=== PATIENT | male | born 1945 | race Caucasian/White ===

== ENCOUNTER 2016-07-25 08:39 | Outpatient (CLI) | payer MEDICARE, MEDICAID | END 2016-07-25 08:40 | disposition home or self-care (01) | DX: E11.9 Type 2 diabetes mellitus without complications (principal); Z12.5 Encounter for screening for malignant neoplasm of prostate; E78.5 Hyperlipidemia, unspecified | CPT/HCPCS: 36415; 80053; 80061; 82043; 83036; 84443; G0103 ==

== ENCOUNTER 2016-08-09 15:21 | Outpatient (CLI) | payer MEDICARE, MEDICAID | END 2016-08-09 15:22 | disposition home or self-care (01) | DX: M50.30 Other cervical disc degeneration, unspecified cervical region (principal) ==

== ENCOUNTER 2016-08-31 08:58 | Outpatient (CLI) | payer MEDICARE, MEDICAID | END 2016-08-31 08:59 | disposition home or self-care (01) | DX: R09.89 Other specified symptoms and signs involving the circulatory and respiratory systems (principal) ==

== ENCOUNTER 2016-09-05 08:58 | Outpatient (CLI) | payer MEDICARE, MEDICAID | END 2016-09-05 23:59 | DX: I10 Essential (primary) hypertension (principal) ==

== ENCOUNTER 2016-10-31 08:00 | Outpatient (CLI) | payer MEDICARE, MEDICAID ==
[2016-10-31 18:28] LABS: HEMOGLOBIN A1C 0.88 g/dL
== END 2016-10-31 08:01 | disposition home or self-care (01) ==
LOC: LAB.S 08:00
PROVIDERS: ATTEND Nurse Practitioner Family
DX: E11.9 Type 2 diabetes mellitus without complications (principal)
CPT/HCPCS: 36415; 83036

== ENCOUNTER 2017-07-17 08:00 | Outpatient (CLI) | payer MEDICARE, MEDICAID ==
[2017-07-17 18:04] LABS: EOSINOPHILS # (AUTO) 0.2 10^3/uL (0.0-0.7); HGB - HEMOGLOBIN 13.3 g/dL (14.0-18.0); LYMPHOCYTES # (AUTO) 1.5 10^3/uL (1.5-3.5); LYMPHOCYTES % (AUTO) 37.7 %; MEAN CORPUSCULAR HEMOGLOBIN 31.3 pg (27.0-31.0); MEAN CORPUSCULAR HGB CONC 33.4 g/dL (32.0-36.0); MEAN CORPUSCULAR VOLUME 93.7 fL (80.0-94.0); MEAN PLATELET VOLUME 8.7 fL (7.4-11.4); MONOCYTES # (AUTO) 0.4 10^3/uL (0.0-1.0); MONOCYTES % (AUTO) 9.6 %; NEUTROPHILS # (AUTO) 1.9 10^3/uL (1.5-6.6); NEUTROPHILS % (AUTO) 45.7 %; PLT - PLATELET COUNT 166 10^3/uL (130-450); RED BLOOD COUNT 4.24 10^6/uL (4.70-6.10); RED CELL DISTRIBUTION WIDTH 13.5 % (12.0-15.0); WHITE BLOOD COUNT 4.1 x10^3/uL (4.8-10.8)
[2017-07-17 18:30] LABS: ALBUMIN 4.2 g/dL (3.2-5.5); ALBUMIN/GLOBULIN RATIO 1.4 (1.0-2.2); ALKALINE PHOSPHATASE 40 IU/L (42-121); ALT ALANINE AMINOTRANSFERASE 23 IU/L (10-60); AST ASPARTATE AMINOTRANSFERASE 22 IU/L (10-42); BILIRUBIN,TOTAL 0.4 mg/dL (0.2-1.0); BUN - BLOOD UREA NITROGEN 26 mg/dL (6-20); CALCIUM 9.2 mg/dL (8.5-10.3); CARBON DIOXIDE - CO2 28 mmol/L (21-32); CHLORIDE 97 mmol/L (101-111); CHOL/HDL RATIO 3.6 (<5.0); CHOLESTEROL 124 mg/dL; CREATININE 1.5 mg/dL (0.6-1.2); GFR - MDRD 46 (>89); GLUCOSE 182 mg/dL (70-100); HDL CHOLESTEROL 34 mg/dL; LDL CHOLESTEROL,CALCULATED 71 mg/dL; LDL/HDL RATIO 2.1 (<3.6); SODIUM 132 mmol/L (135-145); TOTAL PROTEIN 7.1 g/dL (6.7-8.2); VLDL CHOLESTEROL 19 mg/dL
[2017-07-17 18:48] LABS: HEMOGLOBIN A1C 0.85 g/dL; HEMOGLOBIN A1C % 7.7 % (4.6-6.2)
== END 2017-07-17 08:01 | disposition home or self-care (01) ==
LOC: LAB.S 08:00
PROVIDERS: ATTEND Nurse Practitioner Family
DX: M47.892 Other spondylosis, cervical region (principal); Z12.5 Encounter for screening for malignant neoplasm of prostate; E11.9 Type 2 diabetes mellitus without complications; E78.5 Hyperlipidemia, unspecified; Z13.29 Encounter for screening for other suspected endocrine disorder; N18.9 Chronic kidney disease, unspecified
CPT/HCPCS: 36415; 72040; 80053; 80061; 82043; 83036; 84443; 85025; G0103; 83721; 84153

== ENCOUNTER 2017-07-17 08:36 | Outpatient (CLI) | payer MEDICARE, MEDICAID ==
--- NOTE | 2017-07-17 11:54 | XRAY Report ---
THREE VIEW CERVICAL SPINE: 07/17/2017 CLINICAL INDICATION: Chronic neck pain. FINDINGS: AP, lateral, odontoid views of the cervical spine demonstrate no evidence of acute fracture or dislocation. Mild degenerative changes are stable. The prevertebral soft tissues are unremarkable. IMPRESSION: STABLE DEGENERATIVE CHANGES. TD: 07/17/2017 11:52
== END 2017-07-17 08:37 | disposition home or self-care (01) ==
LOC: DI.S 08:36
PROVIDERS: ATTEND Nurse Practitioner Family
DX: M47.892 Other spondylosis, cervical region (principal)
CPT/HCPCS: 72040

== ENCOUNTER 2017-08-03 11:59 | Outpatient (CLI) | payer MEDICARE, MEDICAID ==
--- NOTE | 2017-08-03 17:04 | XRAY Report ---
LEFT KNEE, FOUR VIEWS: 08/03/2017 HISTORY: Pain. The medial and lateral knee joints and patellofemoral articulation are well maintained. No fracture, malalignment, joint effusion or other abnormality. Surgical clips medial left lower leg. Minimal calcification at the quadriceps tendon insertion. IMPRESSION: NEGATIVE LEFT KNEE FOR AGE. TD: 08/03/2017 17:03
== END 2017-08-03 12:00 | disposition home or self-care (01) ==
LOC: DI.S 11:59
PROVIDERS: ATTEND Nurse Practitioner Family
DX: M25.562 Pain in left knee (principal)

== ENCOUNTER 2017-10-16 09:13 | Outpatient (CLI) | payer MEDICARE, MEDICAID ==
[2017-10-16 18:14] LABS: ALBUMIN/GLOBULIN RATIO 1.3 (1.0-2.2); BILIRUBIN,TOTAL 0.5 mg/dL (0.2-1.0); CALCIUM 9.4 mg/dL (8.5-10.3); CREATININE 1.8 mg/dL (0.6-1.2); TOTAL PROTEIN 7.1 g/dL (6.7-8.2)
[2017-10-16 19:07] LABS: HB2 TOTAL 14.9 g/dL; HEMOGLOBIN A1C 0.77 g/dL; HEMOGLOBIN A1C % 6.9 % (4.6-6.2)
== END 2017-10-16 09:14 ==
LOC: LAB.S 09:13
PROVIDERS: ATTEND Nurse Practitioner Family
DX: E11.9 Type 2 diabetes mellitus without complications (principal)
CPT/HCPCS: 36415; 80053; 83036

== ENCOUNTER 2017-11-20 08:00 | Outpatient (CLI) | payer MEDICARE, MEDICAID ==
[2017-11-20 17:27] LABS: CALCIUM 8.9 mg/dL (8.5-10.3); CREATININE 1.6 mg/dL (0.6-1.2)
== END 2017-11-20 08:01 | disposition home or self-care (01) ==
LOC: LAB.S 08:00
PROVIDERS: ATTEND Family Medicine
DX: I12.9 Hypertensive chronic kidney disease with stage 1 through stage 4 chronic kidney disease, or unspecified chronic kidney disease (principal); E11.22 Type 2 diabetes mellitus with diabetic chronic kidney disease; N18.9 Chronic kidney disease, unspecified
CPT/HCPCS: 36415; 80048

== ENCOUNTER 2018-02-12 08:24 | Outpatient (CLI) | payer MEDICARE, MEDICAID ==
[2018-02-12 10:50] LABS: CHOL/HDL RATIO 3.1 (<5.0); CHOLESTEROL 137 mg/dL; HDL CHOLESTEROL 44 mg/dL; LDL CHOLESTEROL,CALCULATED 75 mg/dL; LDL/HDL RATIO 1.7 (<3.6); VLDL CHOLESTEROL 18 mg/dL
== END 2018-02-12 08:25 | disposition home or self-care (01) ==
LOC: LAB.F 08:24
PROVIDERS: ATTEND Nurse Practitioner Adult Health
DX: E78.5 Hyperlipidemia, unspecified (principal)
CPT/HCPCS: 36415; 80061; 83721

== ENCOUNTER 2018-04-09 08:06 | Outpatient (CLI) | payer MEDICARE, MEDICAID ==
[2018-04-09 18:41] LABS: BASOPHILS % (AUTO) 0.7 %; EOSINOPHILS # (AUTO) 0.2 10^3/uL (0.0-0.7); EOSINOPHILS % (AUTO) 4.5 %; HGB - HEMOGLOBIN 13.7 g/dL (14.0-18.0); LYMPHOCYTES # (AUTO) 1.9 10^3/uL (1.5-3.5); LYMPHOCYTES % (AUTO) 37.4 %; MEAN CORPUSCULAR HEMOGLOBIN 31.7 pg (27.0-31.0); MEAN CORPUSCULAR HGB CONC 33.6 g/dL (32.0-36.0); MEAN CORPUSCULAR VOLUME 94.4 fL (80.0-94.0); MEAN PLATELET VOLUME 9.3 fL (7.4-11.4); MONOCYTES # (AUTO) 0.5 10^3/uL (0.0-1.0); MONOCYTES % (AUTO) 9.2 %; NEUTROPHILS # (AUTO) 2.5 10^3/uL (1.5-6.6); NEUTROPHILS % (AUTO) 48.2 %; PLT - PLATELET COUNT 172 10^3/uL (130-450); RED BLOOD COUNT 4.33 10^6/uL (4.70-6.10); RED CELL DISTRIBUTION WIDTH 13.2 % (12.0-15.0); WHITE BLOOD COUNT 5.1 x10^3/uL (4.8-10.8)
[2018-04-09 18:49] LABS: ALBUMIN 4.2 g/dL (3.2-5.5); ALBUMIN/GLOBULIN RATIO 1.4 (1.0-2.2); BILIRUBIN,TOTAL 0.6 mg/dL (0.2-1.0); CALCIUM 9.5 mg/dL (8.5-10.3); CREATININE 1.7 mg/dL (0.6-1.2); TOTAL PROTEIN 7.2 g/dL (6.7-8.2)
[2018-04-09 18:52] LABS: HB2 TOTAL 14.7 g/dL; HEMOGLOBIN A1C % 8.4 % (4.6-6.2)
== END 2018-04-09 23:59 | disposition home or self-care (01) ==
LOC: LAB.S 08:06
PROVIDERS: ATTEND Nurse Practitioner Family
DX: E11.9 Type 2 diabetes mellitus without complications (principal); D64.9 Anemia, unspecified
CPT/HCPCS: 36415; 80053; 82043; 83036; 85025

== ENCOUNTER 2018-08-27 07:55 | Outpatient (CLI) | payer MEDICARE, MEDICAID ==
[2018-08-27 10:15] LABS: BASOPHILS # (AUTO) 0.1 10^3/uL (0.0-0.1); BASOPHILS % (AUTO) 1.3 %; EOSINOPHILS # (AUTO) 0.2 10^3/uL (0.0-0.7); EOSINOPHILS % (AUTO) 3.9 %; HGB - HEMOGLOBIN 13.4 g/dL (14.0-18.0); LYMPHOCYTES # (AUTO) 1.8 10^3/uL (1.5-3.5); LYMPHOCYTES % (AUTO) 34.8 %; MEAN CORPUSCULAR HEMOGLOBIN 31.4 pg (27.0-31.0); MEAN CORPUSCULAR HGB CONC 33.3 g/dL (32.0-36.0); MEAN CORPUSCULAR VOLUME 94.2 fL (80.0-94.0); MEAN PLATELET VOLUME 9.4 fL (7.4-11.4); MONOCYTES # (AUTO) 0.5 10^3/uL (0.0-1.0); MONOCYTES % (AUTO) 9.5 %; NEUTROPHILS # (AUTO) 2.7 10^3/uL (1.5-6.6); NEUTROPHILS % (AUTO) 50.5 %; PLT - PLATELET COUNT 170 10^3/uL (130-450); RED BLOOD COUNT 4.26 10^6/uL (4.70-6.10); RED CELL DISTRIBUTION WIDTH 13.5 % (12.0-15.0); WHITE BLOOD COUNT 5.3 x10^3/uL (4.8-10.8)
[2018-08-27 10:27] LABS: ALBUMIN 4.2 g/dL (3.2-5.5); ALBUMIN/GLOBULIN RATIO 1.4 (1.0-2.2); ALKALINE PHOSPHATASE 42 IU/L (42-121); ALT ALANINE AMINOTRANSFERASE 22 IU/L (10-60); AST ASPARTATE AMINOTRANSFERASE 19 IU/L (10-42); BILIRUBIN,TOTAL 0.7 mg/dL (0.2-1.0); BUN - BLOOD UREA NITROGEN 44 mg/dL (6-20); CALCIUM 9.3 mg/dL (8.5-10.3); CARBON DIOXIDE - CO2 29 mmol/L (21-32); CHLORIDE 98 mmol/L (101-111); CHOL/HDL RATIO 3.7 (<5.0); CHOLESTEROL 134 mg/dL; CREATININE 1.8 mg/dL (0.6-1.2); GFR - MDRD 37 (>89); GLUCOSE 138 mg/dL (70-100); HDL CHOLESTEROL 36 mg/dL; LDL CHOLESTEROL,CALCULATED 77 mg/dL; LDL/HDL RATIO 2.1 (<3.6); SODIUM 137 mmol/L (135-145); TOTAL PROTEIN 7.2 g/dL (6.7-8.2); VLDL CHOLESTEROL 21 mg/dL
[2018-08-27 10:40] LABS: HB2 TOTAL 14.2 g/dL; HEMOGLOBIN A1C 0.72 g/dL; HEMOGLOBIN A1C % 6.8 % (4.6-6.2)
== END 2018-08-27 23:59 | disposition home or self-care (01) ==
LOC: LAB.S 07:55
PROVIDERS: ATTEND Nurse Practitioner
DX: E11.9 Type 2 diabetes mellitus without complications (principal); E78.5 Hyperlipidemia, unspecified; D64.9 Anemia, unspecified
CPT/HCPCS: 36415; 80053; 80061; 82043; 83036; 83721; 85025

== ENCOUNTER 2018-10-01 08:00 | Outpatient (CLI) | payer MEDICARE, MEDICAID ==
[2018-10-01 18:42] LABS: CREATININE 1.8 mg/dL (0.6-1.2)
== END 2018-10-01 23:59 | disposition home or self-care (01) ==
LOC: LAB.S 08:00
PROVIDERS: ATTEND Internal Medicine Nephrology
DX: N05.9 Unspecified nephritic syndrome with unspecified morphologic changes (principal)
CPT/HCPCS: 36415; 82565

== ENCOUNTER 2018-10-30 10:45 | Outpatient (CLI) | payer MEDICARE, MEDICAID ==
[2018-10-30 18:36] LABS: CREATININE 1.4 mg/dL (0.6-1.2)
== END 2018-10-30 10:46 | disposition home or self-care (01) ==
LOC: LAB.S 10:45
PROVIDERS: ATTEND Physician Assistant Medical
DX: N05.9 Unspecified nephritic syndrome with unspecified morphologic changes (principal)
CPT/HCPCS: 36415; 82565

== ENCOUNTER 2018-12-04 10:31 | Outpatient (CLI) | payer MEDICARE, MEDICAID ==
[2018-12-04 17:34] LABS: CREATININE 1.7 mg/dL (0.6-1.2)
== END 2018-12-04 10:32 | disposition home or self-care (01) ==
LOC: LAB.S 10:31
PROVIDERS: ATTEND Internal Medicine Nephrology
DX: N05.9 Unspecified nephritic syndrome with unspecified morphologic changes (principal)
CPT/HCPCS: 36415; 82565

== ENCOUNTER 2018-12-11 09:26 | Emergency (ER) | payer MEDICARE, MEDICAID ==
[2018-12-11] MEDS ORDERED: IPRATROPIUM/ALBUTEROL 3 ML NEB INH STA (09:52)
--- NOTE | 2018-12-11 09:56 | ED Physician Documentation ---
PD HPI DYSPNEA - Stated complaint Stated Complaint: SOA - Chief complaint Chief Complaint: Resp - History obtained from History obtained from: Patient - History of Present Illness Timing - onset: How many weeks ago (2) Timing - onset during: Rest Timing - duration: Weeks (2) Timing - details: Gradual onset Pain level max: 0 Pain level now: 0 Inciting event(s): Other (73-year-old male states that he has had allergy symptoms for the past few weeks.) Improved by: Inhaler/neb (Mendez albuterol inhaler from a friend which seems to be helping), Rest Worsened by: Exertion Associated symptoms: Wheezing. No: Fever, Cough, Hemoptysis, Chest pain / discomfort, Palpitations, Diaphoresis, Bilateral edema, Unilateral edema Similar symptoms before: Has not had sx before Recently seen: Not recently seen - Additional information Additional information: States smoked heavily for 40 years. Has not used an inhaler before Review of Systems Constitutional: denies: Fever, Chills Throat: denies: Sore throat Respiratory: denies: Cough GI: denies: Abdominal Pain, Nausea, Vomiting, Diarrhea Skin: denies: Rash Musculoskeletal: denies: Neck pain, Back pain Neurologic: denies: Headache PD PAST MEDICAL HISTORY - Past Medical History Past Medical History: Yes Cardiovascular: Hypertension, [place] Endocrine/Autoimmune: Type 2 diabetes GI: Colon polyps Psych: Depression Musculoskeletal: Chronic back pain - Past Surgical History Past Surgical History: Yes Ortho: Spine surgery Cardiovascular: CABG, Coronary stent - Present Medications Home Medications: Ambulatory Orders Medication Instructions Recorded Confirmed Albuterol Sulf [Ventolin Hfa 1 - 2 puffs INH Q4HR PRN #1 inhaler 12/11/18 Inhaler] predniSONE [Prednisone] 40 mg PO DAILY #10 tablet 12/11/18 - Allergies Allergies/Adverse Reactions: Allergies Allergy/AdvReac Type Severity Reaction Status Date / Time No Known Drug Allergies Allergy Verified 12/11/18 09:35 - Social History Does the pt smoke?: No Smoking Status: Former smoker Does the pt drink ETOH?: No Does the pt have substance abuse?: No - Immunizations Immunizations are current?: Yes PD ED PE NORMAL - Vitals Vital signs reviewed: Yes - General General: Alert and oriented X 3, No acute distress, Well developed/nourished - HEENT HEENT: Moist mucous membranes - Neck Neck: Supple, no meningeal sign - Cardiac Cardiac: RRR, Strong equal pulses - Respiratory Respiratory: No respiratory distress, Other (Diminished breath sounds bilaterally. Mild wheezing) - Abdomen Abdomen: Soft, Non tender, Non distended - Derm Derm: Warm and dry - Extremities Extremities: No edema - Neuro Neuro: Alert and oriented X 3 - Psych Psych: Normal mood, Normal affect Results - Vitals Vitals: Vital Signs - 24 hr 12/11/18 12/11/18 09:30 10:13 Temperature 36.1 C L Heart Rate 66 59 L Respiratory 19 14 Rate Blood Pressure 152/101 H O2 Saturation 96 Oxygen O2 Source Room air PD MEDICAL DECISION MAKING - ED course Complexity details: re-evaluated patient, considered differential, d/w patient ED course: 73-year-old male presents to the emergency department with difficulty breathing for the past 2 weeks. Likely that he has COPD or emphysema from his 40+ years of smoking. No evidence of pneumonia. No chest pain. No evidence of acute coronary syndrome. No evidence of pulmonary embolus. Feels better after DuoNeb treatment. Will place on albuterol inhaler with spacer for home. Teaching done by respiratory therapy. Patient is well-appearing, nontoxic. Afebrile. No hypoxia. Patient counseled regarding signs and symptoms for which I believe and urgent re-evaluation would be necessary. Patient with good understanding of and agreement to plan and is comfortable going home at this time This document was made in part using voice recognition software. While efforts are made to proofread this document, sound alike and grammatical errors may occur. Departure - Departure Disposition: 01 Home, Self Care Clinical Impression: Dyspnea Qualifiers: Dyspnea type: unspecified Qualified Code(s): R06.00 - Dyspnea, unspecified Condition: Good Instructions: ED COPD Flare Follow-Up: Rachel Jimenez PA-C [Primary Care Provider] - Within 1 week Prescriptions: Albuterol Sulf [Ventolin Hfa Inhaler] 1 - 2 puffs INH Q4HR PRN #1 inhaler PRN Reason: Shortness Of Air/Wheezing predniSONE [Prednisone] 40 mg PO DAILY #10 tablet Comments: Use the medication as prescribed. Return if you worsen. Follow-up with your doctor for further care.
[2018-12-11] MEDS ORDERED: predniSONE 20 MG TABLET PO STA (09:57)
[2018-12-11 10:30] VITALS: BP 138/78
== END 2018-12-11 10:29 | disposition home or self-care (01) ==
LOC: ED 09:26
DX: R06.2 Wheezing (principal); Z87.891 Personal history of nicotine dependence; I10 Essential (primary) hypertension; E11.9 Type 2 diabetes mellitus without complications
CPT/HCPCS: 94640; 99283; 99284; J7512

== ENCOUNTER 2019-01-09 09:08 | Outpatient (CLI) | payer MEDICARE, MEDICAID ==
[~2019-01-09 09:08] MED LIST: ALBUTEROL NEB 2.5 MG/3 ML INH SCH
== END 2019-01-09 09:09 | disposition home or self-care (01) ==
LOC: RT 09:08
PROVIDERS: ATTEND Family Medicine
DX: J44.9 Chronic obstructive pulmonary disease, unspecified (principal)
CPT/HCPCS: 94060; 94729; 94761

== ENCOUNTER 2019-02-15 08:59 | Outpatient (CLI) | payer MEDICARE, MEDICAID ==
[2019-02-15 17:50] LABS: ALBUMIN 4.1 g/dL (3.2-5.5); ALBUMIN/GLOBULIN RATIO 1.3 (1.0-2.2); BILIRUBIN,TOTAL 0.7 mg/dL (0.2-1.0); CALCIUM 9.4 mg/dL (8.5-10.3); CREATININE 1.4 mg/dL (0.6-1.2); TOTAL PROTEIN 7.2 g/dL (6.7-8.2); URIC ACID 6.6 mg/dL (2.6-7.2)
== END 2019-02-15 09:00 | disposition home or self-care (01) ==
LOC: LAB.S 08:59
PROVIDERS: ATTEND Physician Assistant Medical
DX: N18.9 Chronic kidney disease, unspecified (principal); M10.9 Gout, unspecified
CPT/HCPCS: 36415; 80053; 84550

== ENCOUNTER 2019-05-21 11:40 | Outpatient (CLI) | payer MEDICARE, MEDICAID ==
[2019-05-21 18:04] LABS: CALCIUM 9.6 mg/dL (8.5-10.3); CREATININE 1.5 mg/dL (0.6-1.2)
[2019-05-21 18:11] LABS: CREATININE,URINE 71.4 mg/dL; MICROALBUM/CREATININE RATIO,UR 204.5 ug/mg (<30.0); MICROALBUMIN,URINE 14.6 mg/dL (0-300.0)
[2019-05-21 18:40] LABS: HB2 TOTAL 15.5 g/dL; HEMOGLOBIN A1C 1.07 g/dL; HEMOGLOBIN A1C % 8.5 % (4.6-6.2)
== END 2019-05-21 11:41 | disposition home or self-care (01) ==
LOC: LAB.S 11:40
PROVIDERS: ATTEND Physician Assistant Medical
DX: E11.29 Type 2 diabetes mellitus with other diabetic kidney complication (principal)
CPT/HCPCS: 36415; 80048; 82043; 82570; 83036

== ENCOUNTER 2019-10-28 11:19 | Outpatient (CLI) | payer MEDICARE, MEDICAID ==
[2019-10-28 15:45] LABS: CHOL/HDL RATIO 2.7 (<5.0); CHOLESTEROL 91 mg/dL; HDL CHOLESTEROL 34 mg/dL; LDL CHOLESTEROL,CALCULATED 42 mg/dL; LDL/HDL RATIO 1.2 (<3.6); VLDL CHOLESTEROL 15 mg/dL
== END 2019-10-28 11:20 | disposition home or self-care (01) ==
LOC: LAB.S 11:19
PROVIDERS: ATTEND Nurse Practitioner Adult Health
DX: E78.5 Hyperlipidemia, unspecified (principal)
CPT/HCPCS: 36415; 80061; 83721

== ENCOUNTER 2019-10-29 10:31 | Outpatient (CLI) | payer MEDICARE, MEDICAID ==
--- NOTE | 2019-10-29 11:07 | SLEEP CARE CONSULTATION ---
Information from patient questionnaire entered by Carly Stpaleton. I have reviewed and concur with the information entered by Carly Stapleton. This document represents the service I personally performed and the decisions made by me, Katelynn Gil MD, [facility]. History of Present Illness Service Date and Time: 10/29/2019 1031 Reason for Visit: New patient Usual bedtime: 2300 Time it takes to fall asleep: 15 MINUTES Snores at night: Yes Observed to quit breathing while asleep: No Sleeps alone due to snoring: No Number of times waking at night: 2-3 Reasons for waking at night: reports: Bathroom Toss, Turn, or Twitch while sleeping: No Recalls having dreams: Yes Usually gets out of bed at: [id number] Morning headache: No Sleepy or fatigued during the day: Yes Ever fallen asleep while driving: No Takes day naps: Yes Dreams during day naps: No Prior sleep studies: No Additional HPI information: The patient is here because he has nocturnal hypoxemia as documented by an overnight pulse oximetry. He has been on home oxygen therapy at night for the past 1 - 2 years. He was told he has emphysema (he used to smoke 3 ppd for 40 years). He also has hypertention, ischemic heart disease, and atrial fibrillation. The patient says he snores but because he sleeps alone, he does not know if he stops breathing. He has gaine 25 lbs in the past year. Subjective Initial [place] Sleepiness Scale score: 8 Past Medical History Past Medical History: reports: Hypertension, Diabetes, Coronary Heart Disease, Gout, Arrythmia, Emphysema Social History The patient's occupation is RETIRED. Patient is and lives in [place]. Have you smoked in the past 12 months: No Alcohol use: No Caffeine use: No Family History Family history of sleep disordered breathing: No Allergies and Home Medications Drug allergies reviewed: Yes Home medication list reviewed: Yes Review of Systems Weight gain over past 5 years: 30 Cardiovascular: reports: high blood pressure, irregular heart rate or pulse Respiratory: reports: shortness of breath Gastrointestinal: denies: heartburn, difficulty swallowing, nausea, vomitting, diarrhea, abdominal pain, other Urinary: reports: frequency Neurological: reports: gait or balance problems Psychiatric: reports: anxiety, mood disorder Ear/Nose/Throat: reports: sinus problems, dry mouth/throat, wisdom teeth removed Endocrine: reports: sluggishness Musculoskeletal: reports: back pain Immunologic: reports: itching Physical Exam Vital signs obtained and entered by: Detailed physical exam is deferred because of the COVID-19 pandemic. O2 Saturation: 93 (on room air) Height: 5 ft 8 in Weight: 229 lb Body Mass Index: 34.8 BMI Classification: Obese Impression and Plan IMPRESSION: 1. Obstructive Sleep Apnea-Hypopnea Syndrome, as suggested by history of loud and irregular snoring, and several comorbiditieshypertension, coronary artery disease, and atrial fibrillation. Narrow oropharynx and obesity are common predisposing factors for obstructive sleep apnea-hypopnea syndrome. Pathophysiology of sleep-disordered breathing was discussed. I recommend proceeding to polysomnography to confirm the diagnosis and to assess severity. However, the patient does not think that he can tolerate having electrodes placed on his head, nor is he willing to use a CPAP. He would like to continue to use the oxygen at home for now. Plan: 1. Continue with home oxygen. 2. Attempt to lose weight. 3. Return to the sleep clinic if he changes his mind and would like to have a sleep study. Visit Type: In Office Time Spent with Patient (minutes): 15 Provider Statement: I spent 100% of the Face to Face Visit with the patient with greater than 50% spent counseling the patient and coordination of care.
== END 2019-10-29 10:32 | disposition home or self-care (01) ==
LOC: SC 10:31
PROVIDERS: ATTEND Internal Medicine Pulmonary Disease
DX: R09.02 Hypoxemia (principal); R06.83 Snoring; R53.83 Other fatigue; I10 Essential (primary) hypertension; I25.9 Chronic ischemic heart disease, unspecified; I25.10 Atherosclerotic heart disease of native coronary artery without angina pectoris; I48.91 Unspecified atrial fibrillation; E66.9 Obesity, unspecified; Z68.34 Body mass index [BMI] 34.0-34.9, adult; Z99.81 Dependence on supplemental oxygen; Z87.891 Personal history of nicotine dependence
CPT/HCPCS: 99203; G0463; 99212

== ENCOUNTER 2019-12-13 11:18 | Outpatient (CLI) | payer MEDICARE, MEDICAID ==
[2019-12-13 16:05] LABS: HB2 TOTAL 13.2 g/dL; HEMOGLOBIN A1C 0.75 g/dL; HEMOGLOBIN A1C % 7.3 % (4.6-6.2)
[2019-12-13 16:18] LABS: BUN - BLOOD UREA NITROGEN 24 mg/dL (6-20); CALCIUM 9.6 mg/dL (8.5-10.3); CARBON DIOXIDE - CO2 26 mmol/L (21-32); CHLORIDE 102 mmol/L (101-111); CHOL/HDL RATIO 2.5 (<5.0); CHOLESTEROL 86 mg/dL; CREATININE 1.4 mg/dL (0.6-1.2); GLUCOSE 163 mg/dL (70-100); HDL CHOLESTEROL 34 mg/dL; LDL CHOLESTEROL,CALCULATED 36 mg/dL; LDL/HDL RATIO 1.1 (<3.6); SODIUM 137 mmol/L (135-145); VLDL CHOLESTEROL 16 mg/dL
== END 2019-12-13 11:19 | disposition home or self-care (01) ==
LOC: LAB.S 11:18
PROVIDERS: ATTEND Physician Assistant
DX: E11.22 Type 2 diabetes mellitus with diabetic chronic kidney disease (principal); Z79.4 Long term (current) use of insulin; N18.9 Chronic kidney disease, unspecified; E78.5 Hyperlipidemia, unspecified; I12.9 Hypertensive chronic kidney disease with stage 1 through stage 4 chronic kidney disease, or unspecified chronic kidney disease
CPT/HCPCS: 36415; 80048; 80061; 83036; 83721

== ENCOUNTER 2020-03-20 08:15 | Outpatient (CLI) | payer MEDICARE, MEDICAID ==
[2020-03-20 15:09] LABS: BASOPHILS # (AUTO) 0.1 10^3/uL (0.0-0.1); BASOPHILS % (AUTO) 0.8 %; EOSINOPHILS # (AUTO) 0.2 10^3/uL (0.0-0.7); EOSINOPHILS % (AUTO) 3.4 %; HGB - HEMOGLOBIN 12.8 g/dL (14.0-18.0); LYMPHOCYTES # (AUTO) 1.9 10^3/uL (1.5-3.5); LYMPHOCYTES % (AUTO) 29.2 %; MEAN CORPUSCULAR HEMOGLOBIN 30.4 pg (27.0-31.0); MEAN PLATELET VOLUME 11.1 fL (7.4-11.4); MONOCYTES # (AUTO) 0.7 10^3/uL (0.0-1.0); MONOCYTES % (AUTO) 10.8 %; NEUTROPHILS # (AUTO) 3.7 10^3/uL (1.5-6.6); NEUTROPHILS % (AUTO) 55.6 %; PLT - PLATELET COUNT 179 10^3/uL (130-450); RED BLOOD COUNT 4.21 10^6/uL (4.70-6.10); RED CELL DISTRIBUTION WIDTH 13.9 % (12.0-15.0); WHITE BLOOD COUNT 6.6 x10^3/uL (4.8-10.8)
[2020-03-20 15:29] LABS: ALBUMIN 4.2 g/dL (3.2-5.5); ALBUMIN/GLOBULIN RATIO 1.2 (1.0-2.2); ALKALINE PHOSPHATASE 55 IU/L (42-121); ALT ALANINE AMINOTRANSFERASE 18 IU/L (10-60); AST ASPARTATE AMINOTRANSFERASE 17 IU/L (10-42); BILIRUBIN,TOTAL 0.8 mg/dL (0.2-1.0); BUN - BLOOD UREA NITROGEN 32 mg/dL (6-20); CARBON DIOXIDE - CO2 23 mmol/L (21-32); CHLORIDE 104 mmol/L (101-111); CHOL/HDL RATIO 2.9 (<5.0); CHOLESTEROL 94 mg/dL; CREATININE 1.5 mg/dL (0.6-1.2); GLUCOSE 125 mg/dL (70-100); HDL CHOLESTEROL 32 mg/dL; LDL CHOLESTEROL,CALCULATED 48 mg/dL; LDL/HDL RATIO 1.5 (<3.6); SODIUM 141 mmol/L (135-145); TOTAL PROTEIN 7.7 g/dL (6.7-8.2); VLDL CHOLESTEROL 14 mg/dL
[2020-03-20 20:05] LABS: HEMOGLOBIN A1c% 7.3 % (4.27-6.07)
== END 2020-03-20 08:16 | disposition home or self-care (01) ==
LOC: LAB.S 08:15
PROVIDERS: ATTEND Physician Assistant
DX: E11.628 Type 2 diabetes mellitus with other skin complications (principal); J44.1 Chronic obstructive pulmonary disease with (acute) exacerbation; E78.5 Hyperlipidemia, unspecified; I10 Essential (primary) hypertension; I21.3 ST elevation (STEMI) myocardial infarction of unspecified site
CPT/HCPCS: 36415; 80053; 80061; 83036; 83721; 84443; 85025

== ENCOUNTER 2020-05-29 10:05 | Outpatient (CLI) | payer MEDICARE, MEDICAID ==
[2020-05-29 14:48] LABS: HGB - HEMOGLOBIN 13.2 g/dL (14.0-18.0); MEAN CORPUSCULAR HEMOGLOBIN 29.9 pg (27.0-31.0); MEAN CORPUSCULAR HGB CONC 31.5 g/dL (32.0-36.0); MEAN PLATELET VOLUME 11.1 fL (7.4-11.4); RED BLOOD COUNT 4.41 10^6/uL (4.70-6.10); WHITE BLOOD COUNT 6.8 x10^3/uL (4.8-10.8)
== END 2020-05-29 10:06 | disposition home or self-care (01) ==
LOC: LAB.S 10:05
PROVIDERS: ATTEND Internal Medicine Cardiovascular Disease
DX: I48.19 Other persistent atrial fibrillation (principal)
CPT/HCPCS: 36415; 85027

== ENCOUNTER 2020-06-03 11:11 | Outpatient (CLI) | payer MEDICARE, MEDICAID ==
[2020-06-03 14:55] LABS: ALBUMIN 4.2 g/dL (3.2-5.5); ALBUMIN/GLOBULIN RATIO 1.3 (1.0-2.2); BILIRUBIN,TOTAL 0.6 mg/dL (0.2-1.0); CALCIUM 9.7 mg/dL (8.5-10.3); CREATININE 1.5 mg/dL (0.6-1.2); TOTAL PROTEIN 7.5 g/dL (6.7-8.2)
== END 2020-06-03 11:12 | disposition home or self-care (01) ==
LOC: LAB.S 11:11
PROVIDERS: ATTEND Internal Medicine Cardiovascular Disease
DX: I48.19 Other persistent atrial fibrillation (principal)
CPT/HCPCS: 80053

== ENCOUNTER 2020-09-08 11:13 | Outpatient (CLI) | payer MEDICARE, MEDICAID ==
[2020-09-08 20:56] LABS: ESTIMATED AVERAGE GLUCOSE 169 mg/dL (70-100); HEMOGLOBIN A1c% 7.5 % (4.27-6.07)
== END 2020-09-08 11:14 | disposition home or self-care (01) ==
LOC: LAB.S 11:13
PROVIDERS: ATTEND Physician Assistant
DX: E11.29 Type 2 diabetes mellitus with other diabetic kidney complication (principal)
CPT/HCPCS: 36415; 83036

== ENCOUNTER 2020-09-15 08:00 | Outpatient (CLI) | payer MEDICARE, MEDICAID ==
--- NOTE | 2020-09-15 11:30 | XRAY Report ---
PROCEDURE: Lumbar Spine Complete INDICATIONS: FALL FROM LADDER, LUMBAR DISC DISEASE TECHNIQUE: 5 views of the lumbar spine were acquired. COMPARISON: None. FINDINGS: Bones: There is mild height loss of the L4 vertebral body, and irregularity of the superior endplate cortex at L4. Remaining vertebral body heights appear grossly preserved. Diffuse spondylosis and fac et arthropathy with diffuse mild narrowing of the lumbar disc spaces. Minimal levocurvature. Soft tissues: Extensive vascular calcifications and stent grafts noted. Round calcified density proj ects in the right upper quadrant possibly large gallstone, technically indeterminate and could be fur ther assessed with gallbladder ultrasound. IMPRESSION: L4 superior endplate compression fracture with mild height loss. Additional chronic and incidental findings as above. Reviewed by: Chris Tan MD on 09/15/2020 11:29 AM PDT Approved by: Chris Tan MD on 09/15/2020 11:29 AM PDT Station ID: [id number]
== END 2020-09-15 23:59 | disposition home or self-care (01) ==
LOC: DI.S 08:00
PROVIDERS: ATTEND Physician Assistant
DX: S32.040A Wedge compression fracture of fourth lumbar vertebra, initial encounter for closed fracture (principal); W11.XXXA Fall on and from ladder, initial encounter; M47.816 Spondylosis without myelopathy or radiculopathy, lumbar region

== ENCOUNTER 2021-02-19 10:51 | Outpatient (CLI) | payer MEDICARE, MEDICAID ==
[2021-02-19 14:32] LABS: ESTIMATED AVERAGE GLUCOSE 180 mg/dL (70-100); HEMOGLOBIN A1c% 7.9 % (4.27-6.07)
== END 2021-02-19 10:52 | disposition home or self-care (01) ==
LOC: LAB.S 10:51
PROVIDERS: ATTEND Internal Medicine
DX: E11.628 Type 2 diabetes mellitus with other skin complications (principal)
CPT/HCPCS: 36415; 83036

== ENCOUNTER 2021-02-24 13:21 | Outpatient (CLI) | payer MEDICARE, MEDICAID ==
[2021-02-24 19:59] LABS: HGB - HEMOGLOBIN 13.6 g/dL (14.0-18.0); MEAN CORPUSCULAR HEMOGLOBIN 30.2 pg (27.0-31.0); MEAN CORPUSCULAR HGB CONC 31.6 g/dL (32.0-36.0); MEAN CORPUSCULAR VOLUME 95.3 fL (80.0-94.0); MEAN PLATELET VOLUME 11.5 fL (7.4-11.4); RED BLOOD COUNT 4.51 10^6/uL (4.70-6.10); RED CELL DISTRIBUTION WIDTH 13.7 % (12.0-15.0)
[2021-02-24 20:08] LABS: ALBUMIN 3.9 g/dL (3.2-5.5); ALBUMIN/GLOBULIN RATIO 1.1 (1.0-2.2); BILIRUBIN,TOTAL 0.6 mg/dL (0.2-1.0); CALCIUM 8.9 mg/dL (8.5-10.3); CREATININE 1.6 mg/dL (0.6-1.2); POTASSIUM 4.5 mmol/L (3.5-5.0); TOTAL PROTEIN 7.3 g/dL (6.7-8.2)
== END 2021-02-24 13:22 | disposition home or self-care (01) ==
LOC: LAB.S 13:21
PROVIDERS: ATTEND Registered Nurse
DX: I48.19 Other persistent atrial fibrillation (principal); E11.628 Type 2 diabetes mellitus with other skin complications
CPT/HCPCS: 36415; 80053; 83036; 85027

== ENCOUNTER 2021-05-12 13:31 | Outpatient (CLI) | payer MEDICARE, MEDICAID ==
[2021-05-12 19:48] LABS: HCT - HEMATOCRIT 41.9 % (42.0-52.0); HGB - HEMOGLOBIN 13.6 g/dL (14.0-18.0); MEAN CORPUSCULAR HEMOGLOBIN 30.7 pg (27.0-31.0); MEAN CORPUSCULAR HGB CONC 32.5 g/dL (32.0-36.0); MEAN CORPUSCULAR VOLUME 94.6 fL (80.0-94.0); MEAN PLATELET VOLUME 10.7 fL (7.4-11.4); RED BLOOD COUNT 4.43 10^6/uL (4.70-6.10); RED CELL DISTRIBUTION WIDTH 13.7 % (12.0-15.0); WHITE BLOOD COUNT 8.1 x10^3/uL (4.8-10.8)
[2021-05-12 20:00] LABS: ALBUMIN 3.7 g/dL (3.2-5.5); BILIRUBIN,TOTAL 0.5 mg/dL (0.2-1.0); CALCIUM 9.5 mg/dL (8.5-10.3); CREATININE 1.6 mg/dL (0.6-1.2); POTASSIUM 4.5 mmol/L (3.5-5.0); TOTAL PROTEIN 7.5 g/dL (6.7-8.2)
== END 2021-05-12 13:32 | disposition home or self-care (01) ==
LOC: LAB.S 13:31
PROVIDERS: ATTEND Registered Nurse
DX: I48.19 Other persistent atrial fibrillation (principal)
CPT/HCPCS: 36415; 80053; 85027

== ENCOUNTER 2021-07-16 10:43 | Outpatient (CLI) | payer MEDICARE, MEDICAID ==
[2021-07-16 17:06] LABS: ALBUMIN 3.8 g/dL (3.2-5.5); ALBUMIN/GLOBULIN RATIO 0.9 (1.0-2.2); BILIRUBIN,TOTAL 0.6 mg/dL (0.2-1.0); CALCIUM 9.3 mg/dL (8.5-10.3); CREATININE 1.4 mg/dL (0.6-1.2); POTASSIUM 4.4 mmol/L (3.5-5.0); TOTAL PROTEIN 7.9 g/dL (6.7-8.2)
[2021-07-16 18:25] LABS: CHOL/HDL RATIO 3.5 (<5.0); CHOLESTEROL 116 mg/dL; HDL CHOLESTEROL 33 mg/dL; LDL CHOLESTEROL,CALCULATED 66 mg/dL; TRIGLYCERIDES 84 mg/dL; VLDL CHOLESTEROL 17 mg/dL
[2021-07-16 18:47] LABS: ESTIMATED AVERAGE GLUCOSE 186 mg/dL (70-100); HEMOGLOBIN A1c% 8.1 % (4.27-6.07)
== END 2021-07-16 10:44 | disposition home or self-care (01) ==
LOC: LAB.S 10:43
PROVIDERS: ATTEND Internal Medicine Cardiovascular Disease
DX: I48.19 Other persistent atrial fibrillation (principal); E11.29 Type 2 diabetes mellitus with other diabetic kidney complication; Z95.1 Presence of aortocoronary bypass graft; Z79.4 Long term (current) use of insulin
CPT/HCPCS: 36415; 80053; 80061; 83036; 83721; 84443

== ENCOUNTER 2022-02-02 10:18 | Outpatient (CLI) | payer MEDICARE, MEDICAID ==
[2022-02-02 14:26] LABS: CALCIUM 9.2 mg/dL (8.5-10.3); CREATININE 1.4 mg/dL (0.6-1.2); POTASSIUM 4.8 mmol/L (3.5-5.0)
[2022-02-02 15:40] LABS: CREATININE,URINE 134.1 mg/dL; MICROALBUM/CREATININE RATIO,UR 270.7 ug/mg (<30.0); MICROALBUMIN,URINE 36.3 mg/dL (0-300.0)
[2022-02-02 20:04] LABS: ESTIMATED AVERAGE GLUCOSE 171 mg/dL (70-100); HEMOGLOBIN A1c% 7.6 % (4.27-6.07)
== END 2022-02-02 10:19 | disposition home or self-care (01) ==
LOC: LAB.S 10:18
PROVIDERS: ATTEND Registered Nurse
DX: E11.628 Type 2 diabetes mellitus with other skin complications (principal)
CPT/HCPCS: 36415; 80048; 82043; 82570; 83036

== ENCOUNTER 2022-08-31 07:00 | Outpatient (CLI) | payer MEDICARE, MEDICAID ==
--- NOTE | 2022-08-31 13:51 | XRAY Report ---
PROCEDURE: Chest 2 View X-Ray INDICATIONS: COPD, ACUTE EXACERBATION, SMOKER. TECHNIQUE: 2 views of the chest were acquired. COMPARISON: None. FINDINGS: Surgical changes and devices: Median sternotomy. Lungs and pleura: No pleural effusions or pneumothorax. There is moderate to severe basilar predomin ant reticulonodular pulmonary opacity. Mediastinum: Mediastinal contours appear normal. Heart size is normal. Bones and chest wall: No suspicious bony lesions. Overlying soft tissues appear unremarkable. IMPRESSION: Moderate edema versus atypical pneumonia. Reviewed by: Mikayla Rock MD on 08/31/2022 1:50 PM PDT Approved by: Mikayla Rock MD on 08/31/2022 1:50 PM PDT Station ID: [id number]
== END 2022-08-31 23:59 | disposition home or self-care (01) ==
LOC: DI.S 07:00
PROVIDERS: ATTEND Nurse Practitioner
DX: R91.8 Other nonspecific abnormal finding of lung field (principal); F17.200 Nicotine dependence, unspecified, uncomplicated; J44.1 Chronic obstructive pulmonary disease with (acute) exacerbation

== ENCOUNTER 2022-09-01 09:33 | Outpatient (CLI) | payer MEDICARE, MEDICAID ==
[2022-09-01 14:28] LABS: BASOPHILS % (AUTO) 0.2 %; HCT - HEMATOCRIT 41.7 % (42.0-52.0); LYMPHOCYTES # (AUTO) 1.4 10^3/uL (1.5-3.5); LYMPHOCYTES % (AUTO) 12.8 %; MEAN CORPUSCULAR HEMOGLOBIN 28.6 pg (27.0-31.0); MEAN CORPUSCULAR HGB CONC 31.2 g/dL (32.0-36.0); MEAN CORPUSCULAR VOLUME 91.6 fL (80.0-94.0); MEAN PLATELET VOLUME 10.9 fL (7.4-11.4); MONOCYTES # (AUTO) 0.7 10^3/uL (0.0-1.0); MONOCYTES % (AUTO) 6.1 %; NEUTROPHILS # (AUTO) 8.8 10^3/uL (1.5-6.6); NEUTROPHILS % (AUTO) 80.5 %; PLT - PLATELET COUNT 218 10^3/uL (130-450); RED BLOOD COUNT 4.55 10^6/uL (4.70-6.10); RED CELL DISTRIBUTION WIDTH 15.9 % (12.0-15.0); WHITE BLOOD COUNT 10.9 x10^3/uL (4.8-10.8)
[2022-09-01 14:44] LABS: ALBUMIN 3.8 g/dL (3.2-5.5); ALBUMIN/GLOBULIN RATIO 0.8 (1.0-2.2); ALKALINE PHOSPHATASE 56 IU/L (42-121); ALT ALANINE AMINOTRANSFERASE 15 IU/L (10-60); AST ASPARTATE AMINOTRANSFERASE 17 IU/L (10-42); BILIRUBIN,TOTAL 0.4 mg/dL (0.2-1.0); BUN - BLOOD UREA NITROGEN 45 mg/dL (6-20); CALCIUM 9.3 mg/dL (8.5-10.3); CARBON DIOXIDE - CO2 23 mmol/L (21-32); CHLORIDE 104 mmol/L (101-111); CHOL/HDL RATIO 3.3 (<5.0); CHOLESTEROL 114 mg/dL; CREATININE 2.3 mg/dL (0.6-1.2); GFR - MDRD 28 (>89); GLUCOSE 236 mg/dL (70-100); HDL CHOLESTEROL 35 mg/dL; LDL CHOLESTEROL,CALCULATED 63 mg/dL; LDL/HDL RATIO 1.8 (<3.6); POTASSIUM 4.6 mmol/L (3.5-5.0); SODIUM 138 mmol/L (135-145); TOTAL PROTEIN 8.4 g/dL (6.7-8.2); TRIGLYCERIDES 79 mg/dL; VLDL CHOLESTEROL 16 mg/dL
[2022-09-01 14:54] LABS: THYROID STIMULATING HORMONE 1.58 uIU/mL (0.34-5.60)
[2022-09-01 20:18] LABS: ESTIMATED AVERAGE GLUCOSE 186 mg/dL (70-100); HEMOGLOBIN A1c% 8.1 % (4.27-6.07)
== END 2022-09-01 09:34 | disposition home or self-care (01) ==
LOC: LAB.S 09:33
PROVIDERS: ATTEND Nurse Practitioner
DX: I12.9 Hypertensive chronic kidney disease with stage 1 through stage 4 chronic kidney disease, or unspecified chronic kidney disease (principal); E11.22 Type 2 diabetes mellitus with diabetic chronic kidney disease; N18.9 Chronic kidney disease, unspecified; E11.628 Type 2 diabetes mellitus with other skin complications; J44.1 Chronic obstructive pulmonary disease with (acute) exacerbation; E78.5 Hyperlipidemia, unspecified
CPT/HCPCS: 36415; 80053; 80061; 83036; 83721; 84443; 85025

== ENCOUNTER 2022-09-20 11:08 | Outpatient (CLI) | payer MEDICARE, MEDICAID ==
[2022-09-20 14:52] LABS: BASOPHILS % (AUTO) 0.3 %; EOSINOPHILS # (AUTO) 0.1 10^3/uL (0.0-0.7); EOSINOPHILS % (AUTO) 0.8 %; HCT - HEMATOCRIT 47.6 % (42.0-52.0); HGB - HEMOGLOBIN 14.6 g/dL (14.0-18.0); LYMPHOCYTES # (AUTO) 2.2 10^3/uL (1.5-3.5); LYMPHOCYTES % (AUTO) 24.4 %; MEAN CORPUSCULAR HEMOGLOBIN 28.5 pg (27.0-31.0); MEAN CORPUSCULAR HGB CONC 30.7 g/dL (32.0-36.0); MEAN CORPUSCULAR VOLUME 92.8 fL (80.0-94.0); MEAN PLATELET VOLUME 10.8 fL (7.4-11.4); MONOCYTES # (AUTO) 0.6 10^3/uL (0.0-1.0); MONOCYTES % (AUTO) 6.8 %; NEUTROPHILS # (AUTO) 6.1 10^3/uL (1.5-6.6); NEUTROPHILS % (AUTO) 67.4 %; PLT - PLATELET COUNT 166 10^3/uL (130-450); RED BLOOD COUNT 5.13 10^6/uL (4.70-6.10); RED CELL DISTRIBUTION WIDTH 16.3 % (12.0-15.0); WHITE BLOOD COUNT 9.1 x10^3/uL (4.8-10.8)
[2022-09-20 14:57] LABS: ALBUMIN 3.7 g/dL (3.2-5.5); ALBUMIN/GLOBULIN RATIO 0.9 (1.0-2.2); ALKALINE PHOSPHATASE 54 IU/L (42-121); ALT ALANINE AMINOTRANSFERASE 17 IU/L (10-60); AST ASPARTATE AMINOTRANSFERASE 20 IU/L (10-42); BILIRUBIN,TOTAL 0.6 mg/dL (0.2-1.0); BUN - BLOOD UREA NITROGEN 33 mg/dL (6-20); CALCIUM 9.4 mg/dL (8.5-10.3); CARBON DIOXIDE - CO2 25 mmol/L (21-32); CHLORIDE 105 mmol/L (101-111); CHOL/HDL RATIO 2.5 (<5.0); CHOLESTEROL 108 mg/dL; CREATININE 1.6 mg/dL (0.6-1.2); GFR - MDRD 42 (>89); GLUCOSE 148 mg/dL (70-100); HDL CHOLESTEROL 43 mg/dL; LDL CHOLESTEROL,CALCULATED 50 mg/dL; LDL/HDL RATIO 1.2 (<3.6); POTASSIUM 4.3 mmol/L (3.5-5.0); SODIUM 141 mmol/L (135-145); TOTAL PROTEIN 7.9 g/dL (6.7-8.2); TRIGLYCERIDES 77 mg/dL; VLDL CHOLESTEROL 15 mg/dL
[2022-09-20 15:04] LABS: THYROID STIMULATING HORMONE 1.23 uIU/mL (0.34-5.60)
[2022-09-20 21:20] LABS: ESTIMATED AVERAGE GLUCOSE 177 mg/dL (70-100); HEMOGLOBIN A1c% 7.8 % (4.27-6.07)
== END 2022-09-20 11:09 | disposition home or self-care (01) ==
LOC: LAB.S 11:08
PROVIDERS: ATTEND Nurse Practitioner
DX: I12.9 Hypertensive chronic kidney disease with stage 1 through stage 4 chronic kidney disease, or unspecified chronic kidney disease (principal); E11.22 Type 2 diabetes mellitus with diabetic chronic kidney disease; N18.9 Chronic kidney disease, unspecified; E11.628 Type 2 diabetes mellitus with other skin complications; J44.1 Chronic obstructive pulmonary disease with (acute) exacerbation; E78.5 Hyperlipidemia, unspecified
CPT/HCPCS: 36415; 80053; 80061; 83036; 83721; 84443; 85025

== ENCOUNTER 2022-12-02 13:49 | Outpatient (CLI) | payer MEDICARE, MEDICAID ==
[2022-12-02 20:37] LABS: BASOPHILS % (AUTO) 0.5 %; EOSINOPHILS # (AUTO) 0.1 10^3/uL (0.0-0.7); EOSINOPHILS % (AUTO) 1.6 %; HCT - HEMATOCRIT 39.9 % (42.0-52.0); HGB - HEMOGLOBIN 12.3 g/dL (14.0-18.0); LYMPHOCYTES # (AUTO) 1.8 10^3/uL (1.5-3.5); LYMPHOCYTES % (AUTO) 21.4 %; MEAN CORPUSCULAR HEMOGLOBIN 29.1 pg (27.0-31.0); MEAN CORPUSCULAR HGB CONC 30.8 g/dL (32.0-36.0); MEAN CORPUSCULAR VOLUME 94.3 fL (80.0-94.0); MEAN PLATELET VOLUME 11.2 fL (7.4-11.4); MONOCYTES # (AUTO) 0.5 10^3/uL (0.0-1.0); MONOCYTES % (AUTO) 6.3 %; PLT - PLATELET COUNT 234 10^3/uL (130-450); RED BLOOD COUNT 4.23 10^6/uL (4.70-6.10); RED CELL DISTRIBUTION WIDTH 15.9 % (12.0-15.0); WHITE BLOOD COUNT 8.6 x10^3/uL (4.8-10.8)
[2022-12-02 21:01] LABS: CALCIUM 9.4 mg/dL (8.5-10.3); CREATININE 1.8 mg/dL (0.6-1.3); POTASSIUM 4.6 mmol/L (3.5-4.5)
== END 2022-12-02 13:50 | disposition home or self-care (01) ==
LOC: LAB.S 13:49
PROVIDERS: ATTEND Internal Medicine
DX: J44.9 Chronic obstructive pulmonary disease, unspecified (principal); I27.20 Pulmonary hypertension, unspecified
CPT/HCPCS: 36415; 80048; 81332; 81599; 82103; 83880; 85025

== ENCOUNTER 2023-02-07 15:03 | Outpatient (CLI) | payer MEDICARE, MEDICAID | END 2023-02-07 23:59 | disposition critical access hospital (66) | LOC: EMS 15:03 | DX: R06.02 Shortness of breath (principal); R41.0 Disorientation, unspecified; E11.65 Type 2 diabetes mellitus with hyperglycemia; Z99.81 Dependence on supplemental oxygen | CPT/HCPCS: A0425; A0427 ==

== ENCOUNTER 2023-02-07 15:37 | Emergency (ER) | payer MEDICARE, MEDICAID ==
--- NOTE | 2023-02-07 16:09 | ED Physician Documentation ---
History of Present Illness - Stated complaint Stated Complaint: SOA/CONFUSED - Chief complaint Chief Complaint: Neuro - History obtained from History obtained from: Patient, EMS - History of Present Illness Pain level max: 0 Pain level now: 0 - Additonal information Additional information: 77-year-old male presents to the emergency department via EMS. He went to the walk-in clinic today because he had been feeling like he was having issues with his memory over the past 2 days. He is not sure if he was using his oxygen the last 2 days or not. Has a history of oxygen dependent COPD, usually on 2 L nasal cannula at home. He was not wearing his oxygen when he presented to the walk-in clinic. No fevers. No cough. No chills. No congestion. No chest pain. No shortness of breath. No numbness, weakness or tingling. No difficulty walking, no difficulty speaking or word finding. No vision changes. He states currently he feels "great". He states he does not feel confused and feels like he is at his normal baseline. Review of Systems Constitutional: denies: Fever, Chills GI: denies: Nausea, Vomiting, Diarrhea Skin: denies: Rash Musculoskeletal: denies: Neck pain, Back pain Neurologic: denies: Focal weakness, Numbness, Syncope, Seizure, Headache, Head injury, LOC PD PAST MEDICAL HISTORY - Past Medical History Cardiovascular: Hypertension, [place] Endocrine/Autoimmune: Type 2 diabetes GI: Colon polyps Psych: Depression Musculoskeletal: Chronic back pain - Past Surgical History Past Surgical History: Yes Ortho: Spine surgery Cardiovascular: CABG, Coronary stent - Present Medications Home Medications: Ambulatory Orders Medication Instructions Recorded Confirmed Albuterol Sulf [Ventolin Hfa 1 - 2 puffs INH Q4HR PRN #1 inhaler 12/11/18 Inhaler] predniSONE [Prednisone] 40 mg PO DAILY #10 tablet 12/11/18 - Allergies Allergies/Adverse Reactions: Allergies Allergy/AdvReac Type Severity Reaction Status Date / Time No Known Drug Allergies Allergy Verified 12/11/18 09:35 - Social History Does the pt smoke?: No Smoking Status: Former smoker Does the pt drink ETOH?: No Does the pt have substance abuse?: No - Immunizations Immunizations are current?: Yes PD ED PE NORMAL - Vitals Vital signs reviewed: Yes - General General: Alert and oriented X 3, No acute distress, Well developed/nourished - HEENT HEENT: Atraumatic, PERRL, Moist mucous membranes - Neck Neck: Supple, no meningeal sign, No bony TTP - Cardiac Cardiac: RRR, Strong equal pulses - Respiratory Respiratory: No respiratory distress, Clear bilaterally - Abdomen Abdomen: Soft, Non tender, Non distended - Back Back: No CVA TTP, No spinal TTP - Derm Derm: Warm and dry - Extremities Extremities: No edema, No calf tenderness / cord - Neuro Neuro: Alert and oriented X 3, core baker 2-12 intact, No motor deficit, No sensory deficit, Normal speech Eye Opening: Spontaneous Motor: Obeys Commands Verbal: Oriented GCS Score: 15 - Psych Psych: Normal mood, Normal affect Results - Vitals Vitals: Vital Signs - 24 hr 02/07/23 02/07/23 16:03 19:59 Temperature 36.6 C Heart Rate 85 94 Respiratory 20 18 Rate Blood Pressure 166/89 H 153/105 H O2 Saturation 98 95 Oxygen O2 Source Nasal cannula - Labs Labs: Laboratory Tests 02/07/23 02/07/23 02/07/23 16:51 16:51 18:07 WBC 7.3 RBC 4.84 Hgb 13.4 L Hct 43.0 MCV 88.8 MCH 27.7 MCHC 31.2 L RDW 16.9 H Plt Count 218 MPV 9.8 Neut # (Auto) 5.5 Lymph # (Auto) 1.0 L Mcdonough # (Auto) 0.6 Eos # (Auto) 0.1 Baso # (Auto) 0.0 Absolute Nucleated RBC 0.00 Nucleated RBC % 0.0 Sodium 135 Potassium 4.1 Chloride 100 L Carbon Dioxide 20 L Anion Gap 15.0 H BUN 31 H Creatinine 1.6 H Estimated GFR (MDRD) 42 L Glucose 239 H Calcium 9.8 Magnesium 1.4 L Total Bilirubin 0.7 AST 16 ALT 13 Alkaline Phosphatase 68 Total Creatine Kinase 138 Total Protein 7.7 Albumin 3.9 Globulin 3.8 Albumin/Globulin Ratio 1.0 Lipase 30 TSH 1.80 Urine Color YELLOW Urine Clarity CLEAR Urine pH 5.5 Ur Specific [place] 1.020 Urine Protein TRACE Urine Glucose (UA) 500 H Urine Ketones 15 H Urine Occult Blood TRACE-INTA Urine Nitrite NEGATIVE Urine Bilirubin NEGATIVE Urine Urobilinogen 0.2 (NORMAL) Ur Leukocyte Esterase NEGATIVE Ur Microscopic Review NOT INDICATED Urine Culture Comments NOT INDICATED Salicylates < 1.5 Urine Opiates Screen NEGATIVE Ur Oxycodone Screen NEGATIVE Urine Methadone Screen NEGATIVE Ur Propoxyphene Screen NEGATIVE Acetaminophen < 0.1 Ur Barbiturates Screen NEGATIVE Ur Tricyclics Screen NEGATIVE Ur Phencyclidine Scrn NEGATIVE Ur Amphetamine Screen NEGATIVE U Methamphetamines Scrn NEGATIVE U Benzodiazepines Scrn NEGATIVE Urine Cocaine Screen NEGATIVE U Cannabinoids Screen NEGATIVE Ethyl Alcohol < 10.0 PD Medical Decision Making - ED course Complexity details: reviewed results, re-evaluated patient, considered differential, d/w patient ED course: Patient had confusion over the past 2 days, none now. Asymptomatic here. No focal neurological deficits. No acute findings on laboratory testing, head CT. Tolerating p.o. without difficulty. Negative tox screen. At his normal mental baseline now. No indication for further emergent work-up in the emergency department. NIH stroke scale is 0. Ambulating without difficulty. Patient counseled regarding signs and symptoms for which I believe and urgent re- evaluation would be necessary. Patient with good understanding of and agreement to plan and is comfortable going home at this time This document was made in part using voice recognition software. While efforts are made to proofread this document, sound alike and grammatical errors may occur. Departure - Departure Disposition: 01 Home, Self Care Clinical Impression: Confusion Condition: Good Instructions: ED Confusion Follow-Up: your,doctor in 3 days [Other] Comments: The cause of your earlier confusion over the past 2 days is unclear. It seems to have resolved now. Your head CT and laboratory testing did not show any acute abnormalities today. Please follow-up with your doctor for further care. Please return if you worsen. Forms: PCP List Discharge Date/Time: 02/07/23 19:59 NIHSS - Time Time: 16:42 - Level of Consciousness Level of consciousness: (0) Alert, Keenly responsive LOC Questions: (0) Answers both Q's correct LOC Commands: (0) Performs both correctly - Gaze Best Gaze: (0) Normal - Visual Visual: (0) No loss - Facial Palsy Facial Palsy: (0) Normal, symmetrical movement - Motor Arms (both separate) Motor Arm (right): (0) No drift Motor Arm (left): (0) No drift - Motor Legs (both separate) Motor Leg (right): (0) No drift Motor Leg (left): (0) No drift - Limb Ataxia Limb Ataxia: (0) Absent - Sensory Sensory: (0) Normal - Best Language Best Language: (0) No aphasia - Dysarthria Dysarthria: (0) Normal - Extinction and Inattention (formally neg Extinction and inattention: (0) No abnormality - Total Score/Results Total Score/Result: 0
[2023-02-07 16:57] LABS: BASOPHILS % (AUTO) 0.6 %; EOSINOPHILS # (AUTO) 0.1 10^3/uL (0.0-0.7); EOSINOPHILS % (AUTO) 0.8 %; HGB - HEMOGLOBIN 13.4 g/dL (14.0-18.0); LYMPHOCYTES % (AUTO) 13.9 %; MEAN CORPUSCULAR HEMOGLOBIN 27.7 pg (27.0-31.0); MEAN CORPUSCULAR HGB CONC 31.2 g/dL (32.0-36.0); MEAN CORPUSCULAR VOLUME 88.8 fL (80.0-94.0); MEAN PLATELET VOLUME 9.8 fL (7.4-11.4); MONOCYTES # (AUTO) 0.6 10^3/uL (0.0-1.0); MONOCYTES % (AUTO) 8.4 %; NEUTROPHILS # (AUTO) 5.5 10^3/uL (1.5-6.6); PLT - PLATELET COUNT 218 10^3/uL (130-450); RED BLOOD COUNT 4.84 10^6/uL (4.70-6.10); RED CELL DISTRIBUTION WIDTH 16.9 % (12.0-15.0); WHITE BLOOD COUNT 7.3 x10^3/uL (4.8-10.8)
[2023-02-07 17:31] LABS: ALBUMIN 3.9 g/dL (3.2-5.5); ALKALINE PHOSPHATASE 68 IU/L (42-121); ALT ALANINE AMINOTRANSFERASE 13 IU/L (10-60); AST ASPARTATE AMINOTRANSFERASE 16 IU/L (10-42); BILIRUBIN,TOTAL 0.7 mg/dL (0.2-1.0); BUN - BLOOD UREA NITROGEN 31 mg/dL (6-20); CALCIUM 9.8 mg/dL (8.5-10.3); CARBON DIOXIDE - CO2 20 mmol/L (21-32); CHLORIDE 100 mmol/L (101-111); CK- CREATINE KINASE 138 IU/L (30-223); CREATININE 1.6 mg/dL (0.6-1.3); ETOH - ETHANOL < 10.0 mg/dL; GFR - MDRD 42 (>89); GLUCOSE 239 mg/dL (74-104); LIPASE 30 U/L (11-82); MAGNESIUM 1.4 mg/dL (1.7-2.3); POTASSIUM 4.1 mmol/L (3.5-4.5); SODIUM 135 mmol/L (135-145); TOTAL PROTEIN 7.7 g/dL (6.4-8.9)
[2023-02-07 17:33] LABS: ACETAMINOPHEN < 0.1 ug/mL; SALICYLATE < 1.5 mg/dL
--- NOTE | 2023-02-07 17:59 | CT Report ---
PROCEDURE: HEAD WO INDICATIONS: altered yesterday TECHNIQUE: Noncontrast 4.5 mm thick angled axial sections acquired from the foramen magnum to the vertex. For r adiation dose reduction, the following was used: automated exposure control, adjustment of mA and/or kV according to patient size. COMPARISON: None. FINDINGS: Image quality: There is streak artifact seen through the skull base. CSF spaces: Basal cisterns a re patent. No extra-axial fluid collections. Ventricles are normal in size and shape. Brain: No midline shift. No intracranial masses or hemorrhage. Sheldon-white matter interface is norm al. Skull and face: Calvarium and visualized facial bones are intact, without suspicious lesions. Sinuses: Visualized sinuses and mastoids are clear. IMPRESSION: No acute intracranial pathology. Reviewed by: Taj Conrad MD on 02/07/2023 4:57 PM JIM Approved by: Taj Conrad MD on 02/07/2023 4:57 PM [id number] Station ID: [id number]
[2023-02-07 18:47] LABS: MUDS CUTOFF CONCENTRATIONS CUTOFF CONC BELOW:
[2023-02-07 19:06] LABS: BILIRUBIN,URINE NEGATIVE (NEGATIVE); GLUCOSE, URINE (UA) 500 mg/dL (NEGATIVE); KETONES,URINE (UA) 15 mg/dL (NEGATIVE); LEUKOCYTE ESTERASE, URINE NEGATIVE (NEGATIVE); NITRITE,URINE NEGATIVE (NEGATIVE); OCCULT BLOOD,URINE TRACE-INTA (NEGATIVE); PH,URINE 5.5 PH (5.0-7.5); PROTEIN,URINE TRACE mg/dL (NEGATIVE); UROBILINOGEN,URINE 0.2 (NORMAL) E.U./dL (NORMAL)
[2023-02-07 19:07] LABS: CLARITY,URINE CLEAR (CLEAR)
[2023-02-07 19:19] LABS: AMPHETAMINE SCREEN,URINE NEGATIVE (NEGATIVE); BARBITURATE SCREEN,UR NEGATIVE (NEGATIVE); BENZODIAZEPINES SCREEN, URINE NEGATIVE (NEGATIVE); COCAINE SCREEN URINE NEGATIVE (NEGATIVE); METHADONE SCREEN, URINE NEGATIVE (NEGATIVE); METHAMPHETAMINES SCREEN, URINE NEGATIVE (NEGATIVE); OPIATE SCREEN, URINE NEGATIVE (NEGATIVE); OXYCODONE SCREEN, URINE NEGATIVE (NEGATIVE); PROPOXYPHENE SCREEN, URINE NEGATIVE (NEGATIVE); THC CANNABINOID SCREEN, URINE NEGATIVE (NEGATIVE); TRICYCLIC ANTIDEPRESSANT,URINE NEGATIVE (NEGATIVE)
[2023-02-07 20:01] VITALS: BP 153/105; O2SAT 95
== END 2023-02-07 19:59 | disposition home or self-care (01) ==
LOC: EDUNIT# → ED 15:37
DX: R41.0 Disorientation, unspecified (principal)
CPT/HCPCS: 36415; 70450; 80053; 80306; 80307; 81003; 82550; 83690; 83735; 84443; 85025; 99283; 99284; G0480; 80320; 80329; 81001; 87086

== ENCOUNTER 2023-03-20 09:29 | Outpatient (CLI) | payer MEDICARE, MEDICAID ==
[2023-03-20 14:31] LABS: BASOPHILS # (AUTO) 0.1 10^3/uL (0.0-0.1); BASOPHILS % (AUTO) 0.7 %; EOSINOPHILS # (AUTO) 0.2 10^3/uL (0.0-0.7); EOSINOPHILS % (AUTO) 1.9 %; HCT - HEMATOCRIT 44.2 % (42.0-52.0); HGB - HEMOGLOBIN 13.3 g/dL (14.0-18.0); LYMPHOCYTES # (AUTO) 1.9 10^3/uL (1.5-3.5); LYMPHOCYTES % (AUTO) 22.6 %; MEAN CORPUSCULAR HEMOGLOBIN 27.5 pg (27.0-31.0); MEAN CORPUSCULAR HGB CONC 30.1 g/dL (32.0-36.0); MEAN CORPUSCULAR VOLUME 91.3 fL (80.0-94.0); MEAN PLATELET VOLUME 11.2 fL (7.4-11.4); MONOCYTES # (AUTO) 0.7 10^3/uL (0.0-1.0); MONOCYTES % (AUTO) 8.5 %; NEUTROPHILS # (AUTO) 5.4 10^3/uL (1.5-6.6); NEUTROPHILS % (AUTO) 66.2 %; PLT - PLATELET COUNT 215 10^3/uL (130-450); RED BLOOD COUNT 4.84 10^6/uL (4.70-6.10); RED CELL DISTRIBUTION WIDTH 17.8 % (12.0-15.0); WHITE BLOOD COUNT 8.2 x10^3/uL (4.8-10.8)
[2023-03-20 14:43] LABS: ALBUMIN/GLOBULIN RATIO 1.1 (1.0-2.2); BILIRUBIN,TOTAL 0.4 mg/dL (0.2-1.0); CALCIUM 9.8 mg/dL (8.5-10.3); CREATININE 2.1 mg/dL (0.6-1.3); TOTAL PROTEIN 7.6 g/dL (6.4-8.9)
[2023-03-20 15:04] LABS: CREATININE,URINE 211.7 mg/dL; MICROALBUM/CREATININE RATIO,UR 18.4 ug/mg (<30.0); MICROALBUMIN,URINE 3.9 mg/dL
[2023-03-20 21:27] LABS: ESTIMATED AVERAGE GLUCOSE 177 mg/dL (70-100); HEMOGLOBIN A1c% 7.8 % (4.27-6.07)
== END 2023-03-20 09:30 | disposition home or self-care (01) ==
LOC: LAB.S 09:29
PROVIDERS: ATTEND Registered Nurse
DX: E11.628 Type 2 diabetes mellitus with other skin complications (principal); Z79.899 Other long term (current) drug therapy
CPT/HCPCS: 36415; 80053; 82043; 82570; 83036; 85025

== ENCOUNTER 2023-05-07 05:03 | Outpatient (CLI) | payer MEDICARE, MEDICAID | END 2023-05-07 23:58 | disposition EMS.NT | LOC: EMS 05:03 | DX: Z03.89 Encounter for observation for other suspected diseases and conditions ruled out (principal) ==

== ENCOUNTER 2023-05-07 15:50 | Outpatient (CLI) | payer MEDICARE, MEDICAID | END 2023-05-07 23:59 | disposition left against medical advice (07) | LOC: EMS 15:50 | DX: Z03.89 Encounter for observation for other suspected diseases and conditions ruled out (principal) ==

== ENCOUNTER 2023-05-08 08:34 | Outpatient (CLI) | payer MEDICARE, MEDICAID | END 2023-05-08 23:59 | disposition critical access hospital (66) | LOC: EMS 08:34 | DX: R41.0 Disorientation, unspecified (principal); R09.89 Other specified symptoms and signs involving the circulatory and respiratory systems; R05.9 Cough, unspecified; Z99.81 Dependence on supplemental oxygen | CPT/HCPCS: A0425; A0429 ==

== ENCOUNTER 2023-05-08 09:09 | Emergency (ER) | payer MEDICARE, MEDICAID ==
[2023-05-08 09:23] VITALS: BP 156/89; O2SAT 96
--- NOTE | 2023-05-08 09:33 | ED Physician Documentation ---
History of Present Illness - Stated complaint Stated Complaint: SOA - Chief complaint Chief Complaint: Resp - Additonal information Additional information: Patient 78-year-old male with known history of chronic hypoxic respiratory failure presenting to the emergency department via EMS for hypoxia. Patient was found in his car by a bystander. EMS report that he had oxygen saturations in the 70s on their initial evaluation. He is chronically dependent on 4 L O2 with known history of COPD and chronic hypoxic respiratory failure. He reports that he was out driving, listening to a CD that he had made for friends and family. States that the oxygen compressor he had's battery was running low. Is amnestic to the specific events but denies any symptoms at this time. Review of Systems Constitutional: denies: Fever Eyes: denies: Loss of vision Ears: denies: Loss of hearing Nose: denies: Rhinorrhea / runny nose Throat: denies: Dental pain / toothache Cardiac: denies: Chest pain / pressure Respiratory: reports: Dyspnea GI: denies: Abdominal Pain : denies: Dysuria PD PAST MEDICAL HISTORY - Past Medical History Past Medical History: Yes Cardiovascular: Hypertension, [place] Respiratory: COPD Endocrine/Autoimmune: Type 2 diabetes GI: Colon polyps Psych: Depression Musculoskeletal: Chronic back pain - Past Surgical History Past Surgical History: Yes Ortho: Spine surgery Cardiovascular: CABG, Coronary stent - Present Medications Home Medications: Ambulatory Orders Medication Instructions Recorded Confirmed Albuterol Sulf [Ventolin Hfa 1 - 2 puffs INH Q4HR PRN #1 inhaler 12/11/18 Inhaler] predniSONE [Prednisone] 40 mg PO DAILY #10 tablet 12/11/18 - Allergies Allergies/Adverse Reactions: Allergies Allergy/AdvReac Type Severity Reaction Status Date / Time No Known Drug Allergies Allergy Verified 05/08/23 09:17 - Social History Does the pt smoke?: No Smoking Status: Former smoker Does the pt drink ETOH?: No Does the pt have substance abuse?: No - Immunizations Immunizations are current?: Yes PD ED PE NORMAL - Vitals Vital signs reviewed: Yes (Maintaining adequate oxygen saturations on 4 L) - General General: Alert and oriented X 3, No acute distress, Well developed/nourished - HEENT HEENT: Atraumatic, PERRL, EOMI, Ears normal, Moist mucous membranes, Pharynx benign - Neck Neck: Supple, no meningeal sign, No bony TTP, No adenopathy, Thyroid normal, No JVD - Cardiac Cardiac: RRR, No gallop - Respiratory Respiratory: No respiratory distress, Clear bilaterally - Abdomen Abdomen: Normal bowel sounds - Male Male : Deferred - Rectal Rectal: Deferred - Back Back: No CVA TTP - Derm Derm: Normal color - Extremities Extremities: No deformity Results - Vitals Vitals: Vital Signs - 24 hr 05/08/23 09:18 Temperature 36.3 C L Heart Rate 86 Respiratory 20 Rate Blood Pressure 156/89 H O2 Saturation 96 Oxygen O2 Source Nasal cannula Oxygen Flow Rate 2 PD Medical Decision Making - ED course Complexity details: considered differential, d/w patient ED course: Patient 78-year-old male with known history chronic hypoxic respiratory failure and baseline oxygen demand 4 L presenting to the emergency department brought in by EMS when he was found unresponsive and hypoxic in his vehicle earlier this morning. Per his history he was out driving and the battery on his transport compressor ran out. There is no reported trauma and he otherwise reports feeling well at this time. He was offered evaluation in the emergency department including EKG and lab work but declined these things stating that he felt fine and that what he wanted most was to get his oxygen compressor recharge so that he could go home. I do not see any clear indication for further workup at this time. We helped him get his oxygen compressor working again and discharged him. Addendum: Prior to discharge patient did require a social work consult as he appears to have some advanced dementia and was unable to provide his address. Members of his gnosticism community were contacted and he was discharged into their care Departure - Departure Disposition: 01 Home, Self Care Clinical Impression: Hypoxia Comments: Please ensure that your oxygen compressor is fully charged prior to leaving your home in the future. Some individuals will carry extra charge to battery packs with them in order to avoid episodes like what happened this morning. If it anytime you have new or worsening symptoms please return to the emergency department. Forms: PCP List Discharge Date/Time: 05/08/23 13:45
== END 2023-05-08 13:45 | disposition home or self-care (01) ==
LOC: EDUNIT# → ED 09:09 → SUPCPDRO 09:09 → ED 13:45
DX: R09.02 Hypoxemia (principal); I10 Essential (primary) hypertension; E11.9 Type 2 diabetes mellitus without complications; Z87.891 Personal history of nicotine dependence
CPT/HCPCS: 99283; 99284

== ENCOUNTER 2023-05-10 13:26 | Outpatient (CLI) | payer MEDICARE, MEDICAID | END 2023-05-10 13:27 | disposition critical access hospital (66) | LOC: EMS 13:26 | DX: R41.82 Altered mental status, unspecified (principal); R45.1 Restlessness and agitation; R09.89 Other specified symptoms and signs involving the circulatory and respiratory systems; E11.649 Type 2 diabetes mellitus with hypoglycemia without coma; Z99.81 Dependence on supplemental oxygen | CPT/HCPCS: A0425; A0427 ==

== ENCOUNTER 2023-05-10 13:53 | Observation (INO) | payer MEDICARE, MEDICAID ==
--- NOTE | 2023-05-10 14:01 | ED Physician Documentation ---
PD HPI ALTERED MENTAL STATUS - Stated complaint Stated Complaint: AMS/COMBATIVE - History obtained from History obtained from: EMS - Additional information Additional information: 78-year-old male brought in via EMS for concerns of altered mental status. Patient's corporate coordinator went to check on him as he has not been answering his phone for the last couple days he called 911 when he got there and found him in bed and was responsive to only painful stimuli. When EMS arrived they found that his blood sugar was 59 and was satting 80% on room air as his nasal cannula was not fully in his nose. They gave him an amp of D50 and put him on 10 L nonrebreather he perked right up was significantly confused blood sugar responded well came up to 107 and sats came up to 100%. Of note patient does have COPD is chronically on oxygen at home. He lives in a trailer and friends are worried about his inability to care for himself. He has had a cognitive decline over the last year but significantly worse over the last couple months. Patient was seen here on 05/08/2003 for similar concerns, he was found in his car unresponsive as his transport compressor battery went . He ultimately declined all workup in the emergency department including EKG, labs and imaging. Social work was able to consult with the patient given his advanced dementia and an APS report was made and he was ultimately DC'd He also has A-fib anti-coagulated on Eliquis although unsure how much has been taking his medications given his altered mental status he was found to have today. At this time patient is calm and cooperative he is not oriented to situation or time he is able to tell me who he is and that he is in the hospital. He has no chief complaints denies any abdominal pain or head pain. PD PAST MEDICAL HISTORY - Past Medical History Past Medical History: Yes Cardiovascular: Hypertension, VT Respiratory: COPD Endocrine/Autoimmune: Type 2 diabetes GI: Colon polyps Psych: Depression Musculoskeletal: Chronic back pain - Past Surgical History Past Surgical History: Yes Ortho: Spine surgery Cardiovascular: CABG, Coronary stent - Present Medications Home Medications: Ambulatory Orders Medication Instructions Recorded Confirmed Albuterol Sulf [Ventolin Hfa 1 - 2 puffs INH Q4HR PRN #1 inhaler 12/11/18 05/10/23 Inhaler] Amlodipine Besylate [Norvasc] 10 mg PO 05/10/23 Apixaban [Eliquis] 5 mg PO 05/10/23 Fluticasone/Umeclidin/Vilanter 1 each IH 05/10/23 [Trelegy Ellipta 100-62.5-25] Glipizide [Glipizide Xl] 10 mg PO 05/10/23 Insulin Aspart (Vial) [NovoLOG 11 unit SUBQ TIDWM 05/10/23 05/10/23 (VIAL FOR ED USE)] Insulin Glargine [Lantus Solostar] 33 unit SUBQ HS 05/10/23 05/10/23 Losartan [Cozaar] 50 mg PO BID 05/10/23 05/10/23 Metoprolol Succinate [Toprol Xl] 50 mg PO BID 05/10/23 05/10/23 Sertraline [Zoloft] 50 mg PO DAILY 05/10/23 05/10/23 allopurinoL [Zyloprim] 05/10/23 buPROPion HCL [Bupropion HCl Sr] 150 mg PO 05/10/23 hydroCHLOROthiazide [Hydrodiuril] 12.5 mg PO DAILY 05/10/23 05/10/23 - Allergies Allergies/Adverse Reactions: Allergies Allergy/AdvReac Type Severity Reaction Status Date / Time No Known Drug Allergies Allergy Verified 05/10/23 14:07 - Social History Does the pt smoke?: No Smoking Status: Former smoker Does the pt drink ETOH?: No Does the pt have substance abuse?: No - Immunizations Immunizations are current?: Yes PD ED PE NORMAL - Vitals Vital signs reviewed: Yes - General General: No acute distress, Well developed/nourished, Other (AOx2) - HEENT HEENT: Atraumatic, PERRL, EOMI, Other (dry mucous membranes) - Neck Neck: No bony TTP - Cardiac Cardiac: Other (distant heart sounds, irregularly irregular.) - Respiratory Respiratory: No respiratory distress, Other (wheezing) - Abdomen Abdomen: Normal bowel sounds, Non tender - Derm Derm: Normal color, Warm and dry - Extremities Extremities: No deformity, No edema - Neuro Neuro: social psychologist 2-12 intact, No motor deficit, Normal speech, Other (AOx2, alert to self and location only, states the year is in the 90's.) Eye Opening: Spontaneous Motor: Obeys Commands Verbal: Confused GCS Score: 14 Results - Vitals Vitals: Vital Signs - 24 hr 05/10/23 05/10/23 05/10/23 14:03 14:09 16:04 Temperature 36.0 C L Heart Rate 72 87 Respiratory 19 18 19 Rate Blood Pressure 161/90 H 144/75 H O2 Saturation 97 98 98 If not protocol 4 2 : Oxygen Flow, liters/minute 05/10/23 05/10/23 18:00 20:00 Temperature 36.7 C Heart Rate 74 77 Respiratory 17 19 Rate Blood Pressure 145/132 H 177/99 H O2 Saturation 97 98 If not protocol 2 : Oxygen Flow, liters/minute Oxygen O2 Source Nasal cannula - EKG (time done) 1424 EKG releavant findings:: EKG personally interpreted by author of this note. Relevant findings are: Rate: Rate (enter#) (66) Rhythm: Atrial fibrillation Blanchard: LAD QRS: Low voltage Ischemia: Normal ST segments - Labs Labs: Laboratory Tests 05/10/23 05/10/23 05/10/23 14:20 14:20 14:20 WBC 10.7 RBC 5.54 Hgb 15.1 Hct 50.7 MCV 91.5 MCH 27.3 MCHC 29.8 L RDW 17.5 H Plt Count 170 MPV 11.2 Neut # (Auto) 8.7 H Lymph # (Auto) 1.2 L [place] # (Auto) 0.6 Eos # (Auto) 0.1 Baso # (Auto) 0.0 Absolute Nucleated RBC 0.00 Nucleated RBC % 0.0 Sodium 139 Potassium 4.2 Chloride 106 Carbon Dioxide 22 Anion Gap 11.0 BUN 24 H Creatinine 1.3 Estimated GFR (MDRD) 53 L Glucose 89 Calcium 9.8 Magnesium 1.7 Total Bilirubin 0.8 AST 26 ALT 20 Alkaline Phosphatase 68 Total Protein 8.3 Albumin 4.0 Globulin 4.3 H Albumin/Globulin Ratio 0.9 L Lipase 41 Urine Color DARK YELLOW Urine Clarity CLEAR Urine pH 5.5 Ur Specific [place] >=1.030 H Urine Protein 100 H Urine Glucose (UA) 100 H Urine Ketones TRACE Urine Occult Blood NEGATIVE Urine Nitrite NEGATIVE Urine Bilirubin NEGATIVE Urine Urobilinogen 0.2 (NORMAL) Ur Leukocyte Esterase NEGATIVE Urine RBC 0-5 Urine WBC 0-3 Ur Squamous Epith Cells RARE Squamous Urine Bacteria Rare Ur Microscopic Review INDICATED Urine Culture Comments NOT INDICATED - Rads (name of study) head CT w/o Relevant Findings:: Final report received, EMP independent interpretation of test (Head CT complete due to altered mental status, there is no acute intracranial abnormalities.) PD Medical Decision Making - ED course ED course: 78-year-old male presents to the emergency department for altered mental status. This is second ER visit within this week. Pt is AOx2, and overall non decisional and not safe to return home. Labs are complete WBC does not reveal any leukocytosis or anemia, chemistry is overall unremarkable, BUN 24, creatinine 1.3, GFR 53, electrolyte abnormalities, urine is negative for leukocytes or nitrates no WBCs, no signs of UTI. Head CT without con also complete due to patient's altered mental status, there was no intracranial abnormalities or hemorrhages. 1715-I spoke with social work greatly appreciate their support they attempted to call multiple family members of the patient and were unable to get a hold of anyone. Patient reports that he lives at home with his when in fact he actually lives in a trailer alone and him and his have been for some time now. They are attempting to reach out to patient's family and daughter but daughter's voicemail was full and unable to leave a voicemail. Patient does have a Medicaid gaming department head who is 7th grade social studies teacher attempted to reach out to but were unable to get a hold of anyone tonight. They will attempt again tomorrow to try and find safe placement for the patient. Patient will be boarding overnight I will look at reordering patient's home medications overnigh t. Patient is asking RN frequently when he can leave so I suspect he might benefit from some Seroquel to help him with sleeping tonight. He has not been hostile or combative for us in the emergency department thus far. Patient was experiencing symptoms of sundown's, attempting to tell the nurse that we were on an airplane and he was trying to get home. He was given 1 dose of oral Zyprexa to help with sleep tonight. Report given to Dr. Orosco due to change of shift, Departure - Departure Clinical Impression: Altered mental status Qualifiers: Altered mental status type: unspecified Qualified Code(s): R41.82 - Altered mental status, unspecified
[2023-05-10 14:35] LABS: BASOPHILS % (AUTO) 0.3 %; EOSINOPHILS # (AUTO) 0.1 10^3/uL (0.0-0.7); EOSINOPHILS % (AUTO) 0.6 %; HCT - HEMATOCRIT 50.7 % (42.0-52.0); HGB - HEMOGLOBIN 15.1 g/dL (14.0-18.0); LYMPHOCYTES # (AUTO) 1.2 10^3/uL (1.5-3.5); LYMPHOCYTES % (AUTO) 11.4 %; MEAN CORPUSCULAR HEMOGLOBIN 27.3 pg (27.0-31.0); MEAN CORPUSCULAR HGB CONC 29.8 g/dL (32.0-36.0); MEAN CORPUSCULAR VOLUME 91.5 fL (80.0-94.0); MEAN PLATELET VOLUME 11.2 fL (7.4-11.4); MONOCYTES # (AUTO) 0.6 10^3/uL (0.0-1.0); MONOCYTES % (AUTO) 5.8 %; NEUTROPHILS # (AUTO) 8.7 10^3/uL (1.5-6.6); NEUTROPHILS % (AUTO) 81.6 %; PLT - PLATELET COUNT 170 10^3/uL (130-450); RED BLOOD COUNT 5.54 10^6/uL (4.70-6.10); RED CELL DISTRIBUTION WIDTH 17.5 % (12.0-15.0); WHITE BLOOD COUNT 10.7 x10^3/uL (4.8-10.8)
[2023-05-10 14:42] LABS: ALBUMIN/GLOBULIN RATIO 0.9 (1.0-2.2); BILIRUBIN,TOTAL 0.8 mg/dL (0.2-1.0); CALCIUM 9.8 mg/dL (8.5-10.3); CREATININE 1.3 mg/dL (0.6-1.3); MAGNESIUM 1.7 mg/dL (1.7-2.3); POTASSIUM 4.2 mmol/L (3.5-4.5); TOTAL PROTEIN 8.3 g/dL (6.4-8.9)
[2023-05-10 14:48] LABS: BILIRUBIN,URINE NEGATIVE (NEGATIVE); CLARITY,URINE CLEAR (CLEAR); GLUCOSE, URINE (UA) 100 mg/dL (NEGATIVE); KETONES,URINE (UA) TRACE mg/dL (NEGATIVE); LEUKOCYTE ESTERASE, URINE NEGATIVE (NEGATIVE); NITRITE,URINE NEGATIVE (NEGATIVE); OCCULT BLOOD,URINE NEGATIVE (NEGATIVE); PH,URINE 5.5 PH (5.0-7.5); PROTEIN,URINE 100 mg/dL (NEGATIVE); UROBILINOGEN,URINE 0.2 (NORMAL) E.U./dL (NORMAL)
[2023-05-10 14:59] LABS: BACTERIA,URINE Rare /HPF (None Seen); RBC,URINE 0-5 /HPF (0-5); SQUAMOUS EPITHELIAL CELL,UR RARE Squamous (<= Few); WBC,URINE 0-3 /HPF (0-3)
--- NOTE | 2023-05-10 15:12 | CT Report ---
PROCEDURE: Head WO INDICATIONS: AMS TECHNIQUE: Noncontrast 4.5 mm thick angled axial sections acquired from the foramen magnum to the vertex. For r adiation dose reduction, the following was used: automated exposure control, adjustment of mA and/or kV according to patient size. COMPARISON: 02/07/2023 FINDINGS: Image quality: Excellent. CSF spaces: Basal cisterns are patent. No extra-axial fluid collections. Ventricles are normal in size and shape. Brain: No midline shift. No intracranial masses or hemorrhage. Sheldon-white matter interface is norm al. Skull and face: Calvarium and visualized facial bones are intact, without suspicious lesions. Sinuses: Visualized sinuses and mastoids are clear. IMPRESSION: No acute intracranial pathology. Reviewed by: Mikayla Singh MD on 05/10/2023 3:10 PM PST Approved by: Mikayla Singh MD on 05/10/2023 3:10 PM PST Station ID: [id number]
[2023-05-10] MEDS: OLANZapine ODT 5 MG TABLET TL STA (21:21)
[2023-05-11] MEDS: METOPROLOL SUCCINATE 50 MG TABLET PO SCH (08:11)
[2023-05-11] MEDS: APIXABAN 5 MG TABLET PO SCH (08:11)
[2023-05-11] MEDS: SERTRALINE 50 MG TABLET PO SCH (08:11)
[2023-05-11] MEDS: hydroCHLOROthiazide 25 MG TABLET PO SCH (08:11)
[2023-05-11] MEDS: amLODIPine 5 MG TABLET PO SCH (08:12)
[2023-05-11] MEDS: LOSARTAN 50 MG TABLET PO SCH (08:12)
[2023-05-11] MEDS: buPROPion SR 150 MG TABLET PO SCH (08:12)
[2023-05-11] MEDS: allopurinoL 100 MG TABLET PO SCH (08:12)
[2023-05-11] MEDS: ATORVASTATIN 10 MG TABLET PO SCH (08:13)
[2023-05-11] MEDS: amLODIPine 5 MG TABLET PO STA (08:18)
[2023-05-11] MEDS: hydroCHLOROthiazide 25 MG TABLET PO STA (08:19)
[2023-05-11] MEDS: INSULIN LISPRO 300 UNIT/3 ML PEN SUBQ STA (08:19)
[2023-05-11] MEDS: APIXABAN 5 MG TABLET PO STA (08:19)
[2023-05-11] MEDS: OLANZapine ODT 5 MG TABLET TL STA (11:22)
[2023-05-11] MEDS: QUEtiapine 100 MG TABLET PO STA (18:18)
[2023-05-11] MEDS: OLANZapine ODT 5 MG TABLET TL ONE (18:19)
[2023-05-11] MEDS: diphenhydrAMINE 25 MG CAPSULE PO STA (19:45)
[2023-05-11] MEDS: DROPERIDOL 5 MG/2 ML VIAL IM STA (19:45)
[2023-05-11] MEDS: INSULIN LISPRO 300 UNIT/3 ML PEN SUBQ SCH (22:14)
[2023-05-11] MEDS: INSULIN GLARGINE-YFGN 300 UNIT/3 ML PEN SUBQ SCH (22:14)
--- NOTE | 2023-05-12 07:47 | ED Physician Documentation ---
ED Addendum - Addendum Addendum: 05/12/23 07:46 He is sleeping and not aroused for exam. He is awaiting placement. The nurse reports to me that he was aggressive last night and because of that they have not gotten a blood sugar recently. I reviewed his blood sugars and his meds. Decided to go ahead and schedule Zyprexa twice daily. Asked the nurse not to give his short acting insulin without a blood sugar but we can probably continue to give him his Lantus in the evenings.
[2023-05-12] MEDS: OLANZapine ODT 5 MG TABLET TL SCH (09:25)
--- NOTE | 2023-05-13 10:38 | ED Physician Documentation ---
ED Addendum - Addendum Addendum: 05/13/23 10:37 No events reported overnight. Patient denies new complaints. Still pending placement.
--- NOTE | 2023-05-13 21:33 | ED Physician Documentation ---
ED Addendum - Addendum Addendum: 05/13/23 21:33 No changes during my shift. Patient signed out to the oncoming emergency department physician.
[2023-05-14] MEDS: OLANZapine ODT 5 MG TABLET TL STA (05:08)
--- NOTE | 2023-05-14 18:41 | ED Physician Documentation ---
ED Addendum - Addendum Addendum: 05/14/23 18:40 Mario went into the bathroom today was straining for stool when he had a near syncopal episode. He was assisted to the floor by the nurse and he has subsequently recovered he did have a soft blood pressure. I took the opportunity to check the patient's inferior vena cava with POCUS and found that he was adequately hydrated with a diameter of 1.48 cm. He is awaiting placement.
[2023-05-15] MEDS: IPRATROPIUM/ALBUTEROL 3 ML NEB INH PRN (15:13)
[2023-05-15 15:46] LABS: BASOPHILS # (AUTO) 0.1 10^3/uL (0.0-0.1); BASOPHILS % (AUTO) 0.7 %; EOSINOPHILS # (AUTO) 0.2 10^3/uL (0.0-0.7); EOSINOPHILS % (AUTO) 1.8 %; HCT - HEMATOCRIT 48.8 % (42.0-52.0); LYMPHOCYTES # (AUTO) 2.6 10^3/uL (1.5-3.5); LYMPHOCYTES % (AUTO) 29.1 %; MEAN CORPUSCULAR HEMOGLOBIN 27.9 pg (27.0-31.0); MEAN CORPUSCULAR HGB CONC 30.7 g/dL (32.0-36.0); MEAN CORPUSCULAR VOLUME 90.7 fL (80.0-94.0); MEAN PLATELET VOLUME 11.5 fL (7.4-11.4); MONOCYTES # (AUTO) 0.5 10^3/uL (0.0-1.0); MONOCYTES % (AUTO) 5.8 %; NEUTROPHILS # (AUTO) 5.5 10^3/uL (1.5-6.6); NEUTROPHILS % (AUTO) 62.5 %; PLT - PLATELET COUNT 141 10^3/uL (130-450); RED BLOOD COUNT 5.38 10^6/uL (4.70-6.10); RED CELL DISTRIBUTION WIDTH 16.8 % (12.0-15.0); WHITE BLOOD COUNT 8.8 x10^3/uL (4.8-10.8)
--- NOTE | 2023-05-15 16:01 | XRAY Report ---
PROCEDURE: Chest 1V INDICATIONS: soa TECHNIQUE: One view of the chest was acquired. COMPARISON: 08/31/2022 FINDINGS: Surgical changes and devices: Multiple median sternotomy wires. Lungs and pleura: Moderate diffuse interstitial prominence. Suggestion of mild perihilar airway thic kening and vascular congestion. Hazy opacities of the bilateral costophrenic angles likely representi ng small bilateral pleural effusions. No pneumothorax. No dense consolidations. Mediastinum: Mediastinal contours appear normal. Heart size is mildly enlarged. Bones and chest wall: No suspicious bony lesions. Overlying soft tissues appear unremarkable. IMPRESSION: Findings compatible with pulmonary edema/CHF. Concurrent infectious or inflammatory process not exclu ded if clinically appropriate. No dense consolidations identified. Reviewed by: Ricardo Sims MD on 05/15/2023 4:00 PM PST Approved by: Ricardo Sims MD on 05/15/2023 4:00 PM PST Station ID: [id number]
[2023-05-15 16:46] LABS: ALBUMIN 3.4 g/dL (3.2-5.5); ALBUMIN/GLOBULIN RATIO 0.9 (1.0-2.2); BILIRUBIN,TOTAL 0.5 mg/dL (0.2-1.0); CALCIUM 9.5 mg/dL (8.5-10.3); POTASSIUM 4.8 mmol/L (3.5-4.5); TOTAL PROTEIN 7.3 g/dL (6.4-8.9)
[2023-05-15] MEDS: SODIUM CHLORIDE 0.9% 1,000 ML IV STA (17:47)
--- NOTE | 2023-05-15 17:59 | ED Physician Documentation ---
ED Addendum - Addendum Addendum: 05/15/23 17:59 I was asked to evaluate the patient with a soft blood pressure and low O2 sat. A chest x-ray was obtained: Impression: Findings compatible with pulmonary edema/CHF. Concurrent infectious or inflammatory process not excluded if clinically appropriate. No dense consolidations identified. blood work was obtained and I measured the IVC at .93 cm which is not compatible with CHF. I reviewed the patients x-ray and agree with the radiologist that this looks like edema and we have given the patient a dose of lasix IV. He does not appear to be struggling. His blood work shows some renal insufficiency increased from admission 5 days ago and a BNP of 137. 05/15/23 19:13
[2023-05-15 18:11] LABS: B. PARAPERTUSSIS- RESP PCR PAN NOT DETECTED; B. PERTUSSIS- RESP PCR PANEL NOT DETECTED; C. PNEUMONIAE- RESP PCR PANEL NOT DETECTED; CORONAVIRUS 229E-RESP PCR NOT DETECTED; CORONAVIRUS HKU1-RESP PCR NOT DETECTED; CORONAVIRUS NL63-RESP PCR NOT DETECTED; CORONAVIRUS OC43-RESP PCR NOT DETECTED; HUMAN METAPNEUMOVIRUS NOT DETECTED; INFLUENZA A- RESP PCR PANEL NOT DETECTED; INFLUENZA B - RESP PCR PANEL NOT DETECTED; M. PNEUMONIAE- RESP PCR PANEL NOT DETECTED; PARAINFLUENZA VIRUS 1 NOT DETECTED; PARAINFLUENZA VIRUS 2 NOT DETECTED; PARAINFLUENZA VIRUS 3 NOT DETECTED; PARAINFLUENZA VIRUS 4 NOT DETECTED; RHINOVIRUS/ENTEROVIRUS NOT DETECTED; RSV- RESP PCR PANEL NOT DETECTED; SARS-CoV-2 -RESP PCR PANEL NOT DETECTED
[2023-05-15] MEDS: FUROSEMIDE 40 MG/4 ML VIAL IVP STA (18:55)
--- NOTE | 2023-05-15 23:12 | ED Physician Documentation ---
ED Addendum - Addendum Addendum: 05/15/23 23:12 No changes during my shift. Patient signed out to the oncoming emergency department physician.
[2023-05-16 14:29] LABS: CALCIUM 9.6 mg/dL (8.5-10.3); CREATININE 2.3 mg/dL (0.6-1.3); POTASSIUM 4.7 mmol/L (3.5-4.5)
--- NOTE | 2023-05-16 14:37 | ED Physician Documentation ---
ED Addendum - Addendum Addendum: 05/16/23 14:36 He was hypotensive yesterday, and we noted his renal function has been getting worse. A recheck today shows his creatinine continuing to worsen to 2.3 and his GFR has gone down from 53-28. As such Dr. Irving is willing to place in observation for IV fluid therapy and I did stop his scheduled hydrochlorothiazide. Disposition Place in observation Condition: Stable Diagnosis 1. Dementia 2. Altered mental status 3. Prerenal azotemia 4. Dehydration
[2023-05-16] MEDS ORDERED: SODIUM CHLORIDE FLUSH 0.9% 10 ML SYRINGE IVP PRN (14:47)
[2023-05-16] MEDS ORDERED: ACETAMINOPHEN 325 MG TABLET PO PRN (14:47)
[2023-05-16] MEDS ORDERED: ONDANSETRON 4 MG/2 ML VIAL IVP PRN (14:47)
[2023-05-16] MEDS ORDERED: ONDANSETRON ODT 4 MG TABLET TL PRN (14:47)
[2023-05-16] MEDS: SODIUM CHLORIDE 0.9% 1,000 ML IV STA (15:39)
[2023-05-16] MEDS: SODIUM CHLORIDE 0.9% 1,000 ML IV SCH (16:08)
[2023-05-16] MEDS ORDERED: APIXABAN 5 MG TABLET PO SCH (16:37)
--- NOTE | 2023-05-16 18:01 | HISTORY & PHYSICAL EXAMINATION ---
Chief Complaint - Chief Complaint Chief Complaint: Altered mental status History of Present Illness - Admitted From Admitted From:: Emergency Room - History Obtained From Records Reviewed: From Clinic Exam Limitations: Patient has dementia - History of Present Illness HPI Comment/Other: Mr. Styles is a 78 year old male with an extensive medical history including dementia, atrial fibrilation, ARIEL, type II DM, COPD, CKD, PVD, HTN, and DC who was admitted to the ER with altered mental status. Patient was found in bed only responsive to pain by his cyber systems administrator after not answering his phone for a few days. Patient's BS was 59 and was satting at 80% room air since his nasal cannula was not fully in his nose. EMS gave Mr. Styles an amp of D50 and started him on 10 L nonrebreather with immediate significant improvement. Patient lives alone but has help from his bahai community. Members of the bahai have noticed that Mr. Styles has had significant cognitive decline over the past few months. He was last seen in the ER a week ago after being found unresponsive in his car. Patient has been in the ER since 05/10 waiting for placement as it is unsafe to discharge him since he lives alone. 05/14: Patient had a near syncopal event while straining during a BM. A POCUS was done that showed adequate hydration, with the inferior vena cava measuring 1.48 cm in diameter. 05/15: A chest CT was done that showed potential pulmonary edema/CHF. IVC measured at 0.93 cm. One dose of Lasix was given. 05/16: Patient appeared to be hypotensive with decreased renal function compared to admission. He was then admitted to the floor for dehydration. Today, patient is pleasant and cooperative. He is not oriented to time or place but is oriented to self. He reports feeling well with no complaints of pain, headache, vision changes, chest pain, shortness of breath, or dizziness. History - Past Medical History Cardiovascular: reports: Congestive heart failure, Hypertension, High ch olesterol, Coronary artery disease, Peripheral Vascular Disease, DC, Atrial fibrillation Respiratory: reports: COPD, Sleep apnea Neuro: reports: None, Dementia Endocrine/Autoimmune: reports: Type 2 diabetes GI: reports: Colon polyps : reports: None HEENT: reports: None Psych: reports: Depression Musculoskeletal: reports: Chronic back pain Derm: reports: None, Other (skin cancer) MRSA Hx?: No - Past Surgical History Ortho: reports: Spine surgery Cardiovascular: reports: CABG, Coronary stent - Family & Social History Family History: Mother: (mother had breast cancer), Father: , Parkinson's Disease Living arrangement: Other (Lives in a trailer) Living Situation: Alone - Substance History Use: Uses substance without health or social issues: Tobacco, Alcohol - POLST Patient has POLST: No POLST Status: Full Code Meds/Allgy - Home Medications Home Medications: Ambulatory Orders Medication Instructions Recorded Confirmed Albuterol Sulf [Ventolin Hfa 1 - 2 puffs INH Q4HR PRN #1 inhaler 12/11/18 05/10/23 Inhaler] Amlodipine Besylate [Norvasc] 10 mg PO DAILY 05/10/23 05/13/23 Apixaban [Eliquis] 5 mg PO BID 05/10/23 05/13/23 Fluticasone/Umeclidin/Vilanter 1 each IH DAILY 05/10/23 05/13/23 [Trelegy Ellipta 100-62.5-25] Glipizide [Glipizide Xl] 10 mg PO DAILY 05/10/23 05/13/23 Insulin Aspart (Vial) [NovoLOG 11 unit SUBQ TIDWM 05/10/23 05/10/23 (VIAL FOR ED USE)] Insulin Glargine [Lantus Solostar] 33 unit SUBQ HS 05/10/23 05/10/23 Losartan [Cozaar] 50 mg PO BID 05/10/23 05/10/23 Metoprolol Succinate [Toprol Xl] 50 mg PO BID 05/10/23 05/10/23 Sertraline [Zoloft] 50 mg PO DAILY 05/10/23 05/10/23 allopurinoL [Zyloprim] 100 mg ORAL DAILY 05/10/23 05/13/23 buPROPion HCL [Bupropion HCl Sr] 150 mg PO DAILY 05/10/23 05/13/23 hydroCHLOROthiazide [Hydrodiuril] 12.5 mg PO DAILY 05/10/23 05/10/23 - Allergies Allergies/Adverse Reactions: Allergies Allergy/AdvReac Type Severity Reaction Status Date / Time No Known Drug Allergies Allergy Verified 05/10/23 14:07 Review of Systems - Constitutional Constitutional: denies: Fatigue, Fever, Chills, Malaise, Weakness, Diaphoresis, Night sweats - Eyes Eyes: denies: Pain, Irritation, Amaurosis, Blurred vision - Ears, Nose & Throat Ears, Nose & Throat: denies: Ear pain, Hearing loss, Tinnitus, Nasal discharge, Nasal obstruction, Nasal congestion, Sore throat - Cardiovascular Cariovascular: denies: Irregular heart rate, Palpitations, Chest pain, Edema, Lightheadedness - Respiratory Respiratory: denies: Cough, Sputum production, Wheezing, Snoring - Gastrointestinal Gastrointestinal: denies: Abdominal pain, Abdominal distention, Constipation, Diarrhea, Change in bowel habits, Rectal bleeding, Nausea, Vomiting - Genitourinary Genitourinary: denies: Dysuria, Frequency, Urgency - Musculoskeletal Musculoskeletal: denies: Muscle pain, Back pain, Muscle aches, Stiffness - Integumentary Integumentary: denies: Rash, Pruritis, Lesions, Dryness - Neurological Neurological: reports: Memory problems (Patient has dementia, is not oriented to time or place. believes he is on a train travelling. Is oriented to self.) - Psychiatric Psychiatric: denies: Depression, Anxiety, Suicidal Prior Level of Functionality: Limited as patient has dementia Exam - Vital Signs Vital Signs: Vital Signs x48h Temp Pulse Pulse Resp BP BP Pulse Ox 05/16/23 16:33 05/16/23 16:10 36.6 C 86 20 124/84 H 95 05/16/23 14:18 81 16 117/82 H 93 05/16/23 13:00 36 C L 75 18 118/85 H 98 05/16/23 12:06 80 16 119/84 H 99 O2 Flow Rate 05/16/23 16:33 4 05/16/23 16:10 4 05/16/23 14:18 4 05/16/23 13:00 4 05/16/23 12:06 4 - Physical Exam General Appearance: positive: No acute distress, Alert Eyes Bilateral: positive: Normal inspection, PERRL, EOMI ENT: positive: No signs of dehydration Neck: positive: No JVD, Trachea midline Respiratory: positive: Chest non-tender, No respiratory distress Cardiovascular: positive: Regular rate & rhythm, No murmur, No gallop Peripheral Pulses: positive: 2+ Abdomen: positive: Non-tender, Nml bowel sounds Skin: positive: Color nml, No rash, Warm Extremities: positive: Non-tender, Full ROM, Nml appearance Neurologic/Psychiatric: positive: Disoriented to place, Disoriented to time Conclusion/Plan - Problem List (1) Acute kidney injury Conclusion/Plan: Labs today show a change in BUN, CR, and GFR since admission on 05/10 Bun increased from 24 to 41 Creatinine increased from 1.3 to 2.3 GFR decreased from 53 to 28 This is likely due to dehydration in the setting of poor oral intake secondary to dementia - monitor input and output - Patient will receive IV fluids - Trend labs (2) Dehydration Conclusion/Plan: Patient is likely dehydrated due to poor oral intake in the setting of dementia - Continue on IV fluids - Encourage oral intake - Monitor intake and output (3) Dementia Conclusion/Plan: Patient has dementia and has exhibited sundowning while staying in the ER - If agitated, may give home dose of Xyprexa. (4) Atrial fibrillation Conclusion/Plan: Patient has a history of A-fib on Eliquis - Continue on home dose of Eliquis - EKG as needed (5) Hypertension Conclusion/Plan: Patient has a history of hypertension - Continue on home dose of metoprolol - Hold Losartan and amlodipine for now as blood pressure is normal (6) Type 2 diabetes mellitus Conclusion/Plan: Patient will start on 15 units of Lantus and 5 with meals - Blood sugar checks before meals and before bed - Sliding scale insulin as needed (7) Altered mental status Conclusion/Plan: RESOLVED. Patient was admitted with altered mental status, likely due to hypoglycemia and poor oral intake. Patient may not have eaten in a few days. Qualifiers: Altered mental status type: unspecified Qualified Code(s): R41.82 - Altered mental status, unspecified - Lab Results Fish Bones: 05/15/23 15:40 05/16/23 14:10
[2023-05-16] MEDS: SODIUM CHLORIDE FLUSH 0.9% 10 ML SYRINGE IVP SCH (21:10)
[2023-05-16] MEDS: INSULIN LISPRO 300 UNIT/3 ML PEN SUBQ SCH ×2 (21:10→21:19)
[2023-05-16] MEDS: INSULIN GLARGINE-YFGN 300 UNIT/3 ML PEN SUBQ SCH (21:18)
[2023-05-16] MEDS: METOPROLOL SUCCINATE 50 MG TABLET PO SCH (21:18)
[2023-05-16] MEDS: APIXABAN 5 MG TABLET PO SCH (21:18)
--- NOTE | 2023-05-16 21:42 | PROVIDER PROGRESS NOTE ---
Waiter/Waitress Counter Note - Waiter/Waitress Counter Note Waiter/Waitress Counter Note: RN reporting urine retention and requesting q6hr straight cath. ordered. Mitchell Hurst DO Internal Medicine [facility]
[2023-05-16] MEDS ORDERED: COD LIVER OIL/ZINC OXIDE 113 GM TUBE TOP PRN (22:50)
[2023-05-17 06:07] LABS: BASOPHILS # (AUTO) 0.1 10^3/uL (0.0-0.1); BASOPHILS % (AUTO) 0.7 %; EOSINOPHILS # (AUTO) 0.2 10^3/uL (0.0-0.7); EOSINOPHILS % (AUTO) 2.6 %; HCT - HEMATOCRIT 47.3 % (42.0-52.0); HGB - HEMOGLOBIN 15.1 g/dL (14.0-18.0); LYMPHOCYTES # (AUTO) 1.4 10^3/uL (1.5-3.5); LYMPHOCYTES % (AUTO) 19.5 %; MEAN CORPUSCULAR HEMOGLOBIN 28.3 pg (27.0-31.0); MEAN CORPUSCULAR HGB CONC 31.9 g/dL (32.0-36.0); MEAN CORPUSCULAR VOLUME 88.7 fL (80.0-94.0); MEAN PLATELET VOLUME 11.3 fL (7.4-11.4); MONOCYTES # (AUTO) 0.6 10^3/uL (0.0-1.0); MONOCYTES % (AUTO) 8.7 %; NEUTROPHILS # (AUTO) 4.8 10^3/uL (1.5-6.6); NEUTROPHILS % (AUTO) 68.2 %; PLT - PLATELET COUNT 128 10^3/uL (130-450); RED BLOOD COUNT 5.33 10^6/uL (4.70-6.10); RED CELL DISTRIBUTION WIDTH 16.2 % (12.0-15.0)
[2023-05-17 06:20] LABS: CALCIUM 9.2 mg/dL (8.5-10.3); CREATININE 1.9 mg/dL (0.6-1.3); POTASSIUM 4.2 mmol/L (3.5-4.5)
[2023-05-17] MEDS: SERTRALINE 50 MG TABLET PO SCH (08:39)
[2023-05-17] MEDS: buPROPion SR 150 MG TABLET PO SCH (08:39)
[2023-05-17] MEDS ORDERED: ENOXAPARIN 30 MG/0.3 ML SYRINGE SUBQ SCH (09:00)
[2023-05-17 09:59] LABS: ESTIMATED AVERAGE GLUCOSE 148 mg/dL (70-100); HEMOGLOBIN A1c% 6.8 % (4.27-6.07)
--- NOTE | 2023-05-17 11:37 | PHARMACY PROGRESS NOTE ---
- Best Possible Medication History Admit Date and Time: 05/16/23 1447 Processed by: Pharmacy Medication History completed: Yes Patient Interview: Pt unable to participate Secondary Source(s): Insurance records As the person ultimately responsible for medication therapy, providers are able to order a medication from an existing home medication list in [facility] via the "Reconcile Routine" prior to Confirmation of that medication by support representative. Such practice is discouraged except when the physician, in their clinical judgment, deems that a medical need exists for a medication without regard to previous use.
[2023-05-17] MEDS: oxyCODONE 5 MG TABLET PO PRN (12:14)
--- NOTE | 2023-05-17 12:40 | PROVIDER PROGRESS NOTE ---
Subjective - Prog Note Date Prog Note Date: 05/17/23 Prog Note Time: 12:37 - Subjective Pt reports feeling: Improved Subjective: Mr. Styles is a 78 year old male with an extensive medical history including dementia, atrial fibrilation, ARIEL, type II DM, COPD, CKD, PVD, HTN, and CT who was admitted to the ER with altered mental status. Patient was found in bed only responsive to pain by his crop insurance claims adjuster after not answering his phone for a few days. Patient's BS was 59 and was satting at 80% room air since his nasal cannula was not fully in his nose. EMS gave Mr. Styles an amp of D50 and started him on 10 L nonrebreather with immediate significant improvement. Patient lives alone but has help from his jew community. Members of the jew have noticed that Mr. Styles has had significant cognitive decline over the past few months. He was last seen in the ER a week ago after being found unresponsive in his car. Patient has been in the ER since 05/10 waiting for placement as it is unsafe to discharge him since he lives alone. 05/14: Patient had a near syncopal event while straining during a BM. A POCUS was done that showed adequate hydration, with the inferior vena cava measuring 1.48 cm in diameter. 05/15: A chest CT was done that showed potential pulmonary edema/CHF. IVC measured at 0.93 cm. One dose of Lasix was given. 05/16: Patient appeared to be hypotensive with decreased renal function compared to admission. He was admitted for dehydration and started on IV fluids. He required a straight cath during the night due to urinary retention with 888 mL on bladder scan. Today, patient is pleasant and cooperative. He was alert and oriented during our visit although nursing staff has stated that patient has not been oriented to time or place and has been combative. Patient reports feeling well with no comp laints of pain, headache, vision changes, chest pain, shortness of breath, or dizziness. He has a healthy appetite and finishes all his food. Objective - Vital Signs/Intake & Output Vital Signs: Vital Signs x48h Temp Pulse Resp BP Pulse Ox O2 Flow Rate 05/17/23 07:45 36.8 C 87 16 127/80 95 4 Intake & Output: Intake & Output 05/14/23 05/15/23 05/16/23 05/17/23 23:59 23:59 23:59 23:59 Intake Total 920 2810 Output Total 350 1900 1600 Balance -350 -980 1210 - Objective General Appearance: positive: No acute distress, Alert ENT: positive: No signs of dehydration Neck: positive: No JVD, Trachea midline Respiratory: positive: Chest non-tender, No respiratory distress, Breath sounds nml Cardiovascular: positive: Regular rate & rhythm, No murmur, No gallop Abdomen: positive: Non-tender, Nml bowel sounds Skin: positive: Color nml, No rash, Warm Extremities: positive: Non-tender, Full ROM, Nml appearance Neurologic/Psychiatric: positive: Oriented x3 - Lab Results Fish Bones: 05/17/23 05:18 05/17/23 05:18 Other Labs: Lab Results x24hrs 05/17/23 05/17/23 05/17/23 Range/Units 05:18 05:18 05:18 WBC 7.0 (4.8-10.8) x10^3/uL RBC 5.33 (4.70-6.10) 10^6/uL Hgb 15.1 (14.0-18.0) g/dL Hct 47.3 (42.0-52.0) % MCV 88.7 (80.0-94.0) fL MCH 28.3 (27.0-31.0) pg MCHC 31.9 L (32.0-36.0) g/dL RDW 16.2 H (12.0-15.0) % Plt Count 128 L (130-450) 10^3/uL MPV 11.3 (7.4-11.4) fL Neut # (Auto) 4.8 (1.5-6.6) 10^3/uL Lymph # (Auto) 1.4 L (1.5-3.5) 10^3/uL [place] # (Auto) 0.6 (0.0-1.0) 10^3/uL Eos # (Auto) 0.2 (0.0-0.7) 10^3/uL Baso # (Auto) 0.1 (0.0-0.1) 10^3/uL Absolute Nucleated RBC 0.00 x10^3/uL Nucleated RBC % 0.0 /100WBC Sodium 133 L (135-145) mmol/L Potassium 4.2 (3.5-4.5) mmol/L Chloride 101 (101-111) mmol/L Carbon Dioxide 27 (21-32) mmol/L Anion Gap 5.0 L (6-13) BUN 40 H (6-20) mg/dL Creatinine 1.9 H (0.6-1.3) mg/dL Estimated GFR (MDRD) 34 L (>89) Glucose 202 H (74-104) mg/dL Estimat Average Glucose 148 H (70-100) mg/dL Hemoglobin A1c % 6.8 H (4.27-6.07) % Calcium 9.2 (8.5-10.3) mg/dL 05/16/23 Range/Units 14:10 WBC (4.8-10.8) x10^3/uL RBC (4.70-6.10) 10^6/uL Hgb (14.0-18.0) g/dL Hct (42.0-52.0) % MCV (80.0-94.0) fL MCH (27.0-31.0) pg MCHC (32.0-36.0) g/dL RDW (12.0-15.0) % Plt Count (130-450) 10^3/uL MPV (7.4-11.4) fL Neut # (Auto) (1.5-6.6) 10^3/uL Lymph # (Auto) (1.5-3.5) 10^3/uL [place] # (Auto) (0.0-1.0) 10^3/uL Eos # (Auto) (0.0-0.7) 10^3/uL Baso # (Auto) (0.0-0.1) 10^3/uL Absolute Nucleated RBC x10^3/uL Nucleated RBC % /100WBC Sodium 138 (135-145) mmol/L Potassium 4.7 H (3.5-4.5) mmol/L Chloride 100 L (101-111) mmol/L Carbon Dioxide 29 (21-32) mmol/L Anion Gap 9.0 (6-13) BUN 41 H (6-20) mg/dL Creatinine 2.3 H (0.6-1.3) mg/dL Estimated GFR (MDRD) 28 L (>89) Glucose 166 H (74-104) mg/dL Estimat Average Glucose (70-100) mg/dL Hemoglobin A1c % (4.27-6.07) % Calcium 9.6 (8.5-10.3) mg/dL Assessment/Plan - Problem List (1) Acute kidney injury Impression: Labs today show a change in BUN, CR, and GFR since yesterday, 05/17 BUN decreased from 41 to 40 Creatinine decreased from 2.3 to 1.9 GFR increased from 28 to 34 This is likely due to dehydration in the setting of poor oral intake secondary to dementia. Patient is eating/drinking normally. Will continue to monitor intake. - monitor input and output - Patient will receive IV fluids - Trend labs (2) Dehydration Impression: Patient is likely dehydrated due to poor oral intake in the setting of dementia - Continue on IV fluids - Encourage oral intake - Monitor intake and output (3) Urinary retention Impression: Patient complained of lower abdominal pain last night and a bladder scan showed 888 mL of urine. Patient was straight cathed. A morse catheter was inserted today. Will start patient on low dose Flomax to help with urinary retention. - Keep morse catheter in for urinary retention - Start low dose Flomax 0.4 mg daily - Monitor intake and output (4) Atrial fibrillation Impression: Patient has a history of A-fib on Eliquis - Continue on home dose of Eliquis - EKG as needed (5) Dementia Impression: Patient has dementia and has exhibited sundowning while staying in the ER. Nursing staff reported patient has been combative at times and may need 1 to 1 s urveillance in the future. Mr. Dunne was seen in clinic in March and early May, where cognitive evaluations were done and his mental status was deemed intact. He passed the evaluation both times, with his last score 28/30. It is concerning that his mental status could have deteriorated this quickly. We have considered drug use, potential stroke, or brain tumor. However, these all seem unlikely as his CT in the ER was negative for any acute findings. It is possible that he could have so me degree of brain damage from being hypoglycemic for unknown lengths of time. Patient was found extremely hypoglycemic prior to his admission and had not been heard from in a few days. In this case, the brain damage may be irreversible. - If agitated, may give home dose of Xyprexa. (6) Hypertension Impression: Patient has a history of hypertension - Continue on home dose of metoprolol - Hold Losartan and amlodipine for now as blood pressure is normal (7) Type 2 diabetes mellitus Impression: Patient will start on 15 units of Lantus and 5 with meals - Blood sugar checks before meals and before bed - Sliding scale insulin as needed (8) Altered mental status Impression: RESOLVED. Patient was admitted with altered mental status, likely due to hypoglycemia and poor oral intake. Patient may not have eaten in a few days. Qualifiers: Altered mental status type: unspecified Qualified Code(s): R41.82 - Altered mental status, unspecified
[2023-05-17] MEDS ORDERED: QUEtiapine 25 MG TABLET ONE (18:42)
[2023-05-17] MEDS ORDERED: NICOTINE 14 MG PATCH TOP ONE (18:42)
[2023-05-17] MEDS: NICOTINE 14 MG PATCH TOP SCH (18:45)
[2023-05-17] MEDS: QUEtiapine 25 MG TABLET PO SCH (18:45)
[2023-05-18] MEDS: ZINC OXIDE 20% OINT 30 GM TUBE TOP PRN (05:10)
[2023-05-18 05:44] LABS: BASOPHILS % (AUTO) 0.6 %; EOSINOPHILS # (AUTO) 0.2 10^3/uL (0.0-0.7); EOSINOPHILS % (AUTO) 2.9 %; HCT - HEMATOCRIT 45.4 % (42.0-52.0); HGB - HEMOGLOBIN 13.9 g/dL (14.0-18.0); LYMPHOCYTES # (AUTO) 1.9 10^3/uL (1.5-3.5); LYMPHOCYTES % (AUTO) 28.9 %; MEAN CORPUSCULAR HGB CONC 30.6 g/dL (32.0-36.0); MEAN CORPUSCULAR VOLUME 91.5 fL (80.0-94.0); MEAN PLATELET VOLUME 12.1 fL (7.4-11.4); MONOCYTES # (AUTO) 0.6 10^3/uL (0.0-1.0); MONOCYTES % (AUTO) 9.7 %; NEUTROPHILS # (AUTO) 3.8 10^3/uL (1.5-6.6); NEUTROPHILS % (AUTO) 57.7 %; PLT - PLATELET COUNT 114 10^3/uL (130-450); RED BLOOD COUNT 4.96 10^6/uL (4.70-6.10); RED CELL DISTRIBUTION WIDTH 16.4 % (12.0-15.0); WHITE BLOOD COUNT 6.6 x10^3/uL (4.8-10.8)
[2023-05-18 06:04] LABS: CALCIUM 8.9 mg/dL (8.5-10.3); CREATININE 1.6 mg/dL (0.6-1.3); POTASSIUM 4.3 mmol/L (3.5-4.5)
--- NOTE | 2023-05-18 07:23 | PROVIDER PROGRESS NOTE ---
Subjective - Prog Note Date Prog Note Date: 05/18/23 Prog Note Time: 07:22 - Subjective Pt reports feeling: No change Subjective: Mr. Styles is a 78 year old male with an extensive medical history including dementia, atrial fibrilation, ARIEL, type II DM, COPD, CKD, PVD, HTN, and OR who was admitted to the ER with altered mental status. Patient was found in bed only responsive to pain by his drill operator automatic after not answering his phone for a few days. Patient's BS was 59 and was satting at 80% room air since his nasal cannula was not fully in his nose. EMS gave Mr. Styles an amp of D50 and started him on 10 L nonrebreather with immediate significant improvement. Patient lives alone but has help from his che[employer] community. Members of the cheondoism have noticed that Mr. Styles has had significant cognitive decline over the past few months. He was last seen in the ER a week ago after being found unresponsive in his car. Patient has been in the ER since 05/10 waiting for placement as it is unsafe to discharge him since he lives alone. 05/14: Patient had a near syncopal event while straining during a BM. A POCUS was done that showed adequate hydration, with the inferior vena cava measuring 1.48 cm in diameter. 05/15: A chest CT was done that showed potential pulmonary edema/CHF. IVC measured at 0.93 cm. One dose of Lasix was given. 05/16: Patient appeared to be hypotensive with decreased renal function compared to admission. He was admitted for dehydration and started on IV fluids. He required a straight cath during the night due to urinary retention with 888 mL on bladder scan. 05/17: In the evening, patient became agitated and actively tried to leave. He was given a dose of Seroquel. Today, patient is pleasant and cooperative. He reports being a bit more tired and spent the day in bed. No complaints of pain, headache, vision changes, chest pain, shortness of breath, or dizziness. The paperwork to give his drill operator automatic guardianship is in process. Objective - Vital Signs/Intake & Output Reviewed Vital Signs: Yes Vital Signs: Vital Signs x48h Temp Pulse Resp BP Pulse Ox O2 Flow Rate 05/18/23 05:00 36.6 C 16 150/77 H 94 4 05/18/23 01:10 37.1 C 70 16 139/80 H 94 Intake & Output: Intake & Output 05/15/23 05/16/23 05/17/23 05/18/23 23:59 23:59 23:59 23:59 Intake Total 920 4873 100 Output Total 350 1900 3200 800 Balance -350 -445 1673 -700 - Objective General Appearance: positive: No acute distress, Alert Eyes Bilateral: positive: Normal inspection, PERRL, EOMI ENT: positive: No signs of dehydration Neck: positive: No JVD, Trachea midline Respiratory: positive: Chest non-tender, No respiratory distress Cardiovascular: positive: Regular rate & rhythm, No murmur, No gallop Abdomen: positive: Non-tender, Nml bowel sounds, No distention Skin: positive: Color nml, No rash, Warm, Dry Extremities: positive: Non-tender, Full ROM, Nml appearance Neurologic/Psychiatric: positive: Disoriented to place, Disoriented to time - Lab Results Fish Bones: 05/18/23 04:57 05/18/23 04:57 Other Labs: Lab Results x24hrs 05/18/23 05/18/23 05/17/23 Range/Units 04:57 04:57 21:05 WBC 6.6 (4.8-10.8) x10^3/uL RBC 4.96 (4.70-6.10) 10^6/uL Hgb 13.9 L (14.0-18.0) g/dL Hct 45.4 (42.0-52.0) % MCV 91.5 (80.0-94.0) fL MCH 28.0 (27.0-31.0) pg MCHC 30.6 L (32.0-36.0) g/dL RDW 16.4 H (12.0-15.0) % Plt Count 114 L (130-450) 10^3/uL MPV 12.1 H (7.4-11.4) fL Neut # (Auto) 3.8 (1.5-6.6) 10^3/uL Lymph # (Auto) 1.9 (1.5-3.5) 10^3/uL [place] # (Auto) 0.6 (0.0-1.0) 10^3/uL Eos # (Auto) 0.2 (0.0-0.7) 10^3/uL Baso # (Auto) 0.0 (0.0-0.1) 10^3/uL Absolute Nucleated RBC 0.00 x10^3/uL Nucleated RBC % 0.0 /100WBC Sodium 134 L (135-145) mmol/L Potassium 4.3 (3.5-4.5) mmol/L Chloride 104 (101-111) mmol/L Carbon Dioxide 28 (21-32) mmol/L Anion Gap 2.0 L (6-13) BUN 33 H (6-20) mg/dL Creatinine 1.6 H (0.6-1.3) mg/dL Estimated GFR (MDRD) 42 L (>89) Glucose 252 H (74-104) mg/dL POC Whole Bld Glucose 203 H (70 - 100) mg/dL Estimat Average Glucose (70-100) mg/dL Hemoglobin A1c % (4.27-6.07) % Calcium 8.9 (8.5-10.3) mg/dL 05/17/23 Range/Units 05:18 WBC (4.8-10.8) x10^3/uL RBC (4.70-6.10) 10^6/uL Hgb (14.0-18.0) g/dL Hct (42.0-52.0) % MCV (80.0-94.0) fL MCH (27.0-31.0) pg MCHC (32.0-36.0) g/dL RDW (12.0-15.0) % Plt Count (130-450) 10^3/uL MPV (7.4-11.4) fL Neut # (Auto) (1.5-6.6) 10^3/uL Lymph # (Auto) (1.5-3.5) 10^3/uL [place] # (Auto) (0.0-1.0) 10^3/uL Eos # (Auto) (0.0-0.7) 10^3/uL Baso # (Auto) (0.0-0.1) 10^3/uL Absolute Nucleated RBC x10^3/uL Nucleated RBC % /100WBC Sodium (135-145) mmol/L Potassium (3.5-4.5) mmol/L Chloride (101-111) mmol/L Carbon Dioxide (21-32) mmol/L Anion Gap (6-13) BUN (6-20) mg/dL Creatinine (0.6-1.3) mg/dL Estimated GFR (MDRD) (>89) Glucose (74-104) mg/dL POC Whole Bld Glucose (70 - 100) mg/dL Estimat Average Glucose 148 H (70-100) mg/dL Hemoglobin A1c % 6.8 H (4.27-6.07) % Calcium (8.5-10.3) mg/dL ABX Reporting Has patient been on IV antibiotics over the past 48 hours?: No Assessment/Plan - Problem List (1) Acute kidney injury Impression: RESOLVED. Labs today show a change in BUN, CR, and GFR since yesterday (05/17) BUN decreased from 40 to 33 Creatinine decreased from 1.9 to 1.6 GFR increased from 34 to 42 This was likely due to dehydration in the setting of poor oral intake secondary to dementia. Patient is eating/drinking normally. At this time, patient is medically cleared and does not meet medical requirements for inpatient status. Social work is putting together a disposition with guardianship and will discharge as soon as everything is put together. - ready for discharge (2) Dehydration Impression: RESOLVED. Patient was likely dehydrated due to poor oral intake in the setting of dementia. His electrolytes have normalized and he no longer requires IV hydration as he is eating/drinking well. - Encourage oral intake (3) Urinary retention Impression: Patient complained of lower abdominal pain early 05/16 and a bladder scan showed 888 mL of urine. Patient was straight cathed. A morse catheter was inserted on 05/17. Will intermittently clamp morse to determine if the catheter can be removed. - Clamp morse intermittently - Low dose Flomax 0.4 mg daily (4) Atrial fibrillation Impression: Patient has a history of A-fib on Eliquis. Currently no symptoms and is well managed with medication. - Continue on home dose of Eliquis - EKG as needed (5) Dementia Impression: Patient has dementia and has exhibited sundowning while staying in the ER. Nursing staff reported patient has been combative at times and may need 1 to 1 surveillance in the future. Mr. Dunne was seen in clinic in fall 2022 where a mini mental status exam was done and he passed, with a 28/30. No cognitive deficits were noted at that time. It is concerning that his mental status could have deteriorated this quickly. We have considered drug use, potential stroke, or brain tumor. However, these all seem unlikely as his CT in the ER was negative for any acute findings. It is possible that he could have some degree of brain damage from being hypoglycemic for unknown lengths of time. Patient was found extremely hypoglycemic prior to his admission and had not been heard from in a few days. In this case, the brain damage may be irreversible. He was also seen for altered mental status in the past that was believed to be due to hypoglycemia as well. Patient was agitated yesterday (05/17) and made multiple attempts to leave. A small dose of Seroquel was given. - If agitated, may give home dose of Xyprexa - If agitated, may give small dose of Seroquel (6) Hypertension Impression: Patient has a history of hypertension. Currently, his blood pressure is in the normal range. - Continue on home dose of metoprolol - Hold Losartan and amlodipine for now as blood pressure is normal (7) Type 2 diabetes mellitus Impression: Patient's sugars were high last night. We can increase his dose of Lantus to 20 units of Lantus and 5 with meals - Blood sugar checks before meals and before bed - Sliding scale insulin as needed (8) Altered mental status Impression: RESOLVED. Patient was admitted with altered mental status, likely due to hypoglycemia and poor oral intake. Patient may not have eaten in a few days. Qualifiers: Altered mental status type: unspecified Qualified Code(s): R41.82 - Altered mental status, unspecified
[2023-05-18] MEDS: TAMSULOSIN 0.4 MG CAPSULE PO SCH (08:42)
[2023-05-18] MEDS ORDERED: OLANZapine ODT 5 MG TABLET TL SCH (09:00)
[2023-05-18] MEDS: INSULIN GLARGINE-YFGN 300 UNIT/3 ML PEN SUBQ SCH (20:59)
[2023-05-19 05:38] LABS: BASOPHILS # (AUTO) 0.1 10^3/uL (0.0-0.1); BASOPHILS % (AUTO) 0.8 %; EOSINOPHILS # (AUTO) 0.3 10^3/uL (0.0-0.7); EOSINOPHILS % (AUTO) 4.3 %; HCT - HEMATOCRIT 50.6 % (42.0-52.0); HGB - HEMOGLOBIN 15.7 g/dL (14.0-18.0); LYMPHOCYTES # (AUTO) 2.1 10^3/uL (1.5-3.5); LYMPHOCYTES % (AUTO) 32.9 %; MEAN CORPUSCULAR HEMOGLOBIN 27.8 pg (27.0-31.0); MEAN CORPUSCULAR VOLUME 89.7 fL (80.0-94.0); MEAN PLATELET VOLUME 11.7 fL (7.4-11.4); MONOCYTES # (AUTO) 0.5 10^3/uL (0.0-1.0); NEUTROPHILS # (AUTO) 3.4 10^3/uL (1.5-6.6); NEUTROPHILS % (AUTO) 53.8 %; PLT - PLATELET COUNT 122 10^3/uL (130-450); RED BLOOD COUNT 5.64 10^6/uL (4.70-6.10); RED CELL DISTRIBUTION WIDTH 16.3 % (12.0-15.0); WHITE BLOOD COUNT 6.2 x10^3/uL (4.8-10.8)
[2023-05-19 05:52] LABS: CALCIUM 9.3 mg/dL (8.5-10.3); CREATININE 1.5 mg/dL (0.6-1.3); POTASSIUM 4.2 mmol/L (3.5-4.5)
[2023-05-19] MEDS: OLANZapine ODT 5 MG TABLET TL PRN (06:37)
--- NOTE | 2023-05-19 08:27 | PROVIDER PROGRESS NOTE ---
Subjective - Prog Note Date Prog Note Date: 05/19/23 Prog Note Time: 08:25 - Subjective Pt reports feeling: No change Subjective: Mr. Styles is a 78 year old male with an extensive medical history including dementia, atrial fibrilation, ARIEL, type II DM, COPD, CKD, PVD, HTN, and PR who was admitted to the ER with altered mental status. Patient was found in bed only responsive to pain by his jig builder after not answering his phone for a few days. Patient's BS was 59 and was satting at 80% room air since his nasal cannula was not fully in his nose. EMS gave Mr. Styles an amp of D50 and started him on 10 L nonrebreather with immediate significant improvement. Patient lives alone but has help from his druze community. Members of the druze have noticed that Mr. Styles has had significant cognitive decline over the past few months. He was last seen in the ER a week ago after being found unresponsive in his car. Patient has been in the ER since 05/10 waiting for placement as it is unsafe to discharge him since he lives alone. 05/14: Patient had a near syncopal event while straining during a BM. A POCUS was done that showed adequate hydration, with the inferior vena cava measuring 1.48 cm in diameter. 05/15: A chest CT was done that showed potential pulmonary edema/CHF. IVC measured at 0.93 cm. One dose of Lasix was given. 05/16: Patient appeared to be hypotensive with decreased renal function compared to admission. He was admitted for dehydration and started on IV fluids. He required a straight cath during the night due to urinary retention with 888 mL on bladder scan. 05/17: In the evening, patient became agitated and actively tried to leave. He was given a dose of Seroquel. 05/18: Patient was pleasant and cooperative. Spent most of the day in bed. No complaints. Guardianship paperwork is in progress. Today, patient is pleasant and cooperative. No complaints of pain, headache, vision changes, chest pain, shortness of breath, or dizziness. At this time, he is medically stable and does not require further medical intervention. He is a boarding patient and waiting for placement. Objective - Vital Signs/Intake & Output Vital Signs: Vital Signs x48h Temp Pulse Resp BP Pulse Ox O2 Flow Rate 05/19/23 07:42 36.5 C 69 18 127/74 97 2 05/19/23 05:01 36.6 C 75 18 147/79 H 91 L 2 Intake & Output: Intake & Output 05/16/23 05/17/23 05/18/23 05/19/23 23:59 23:59 23:59 23:59 Intake Total 920 4873 1070 Output Total 1900 3200 2300 1050 Balance -980 1673 -1230 -1050 - Objective General Appearance: positive: No acute distress, Alert Eyes Bilateral: positive: Normal inspection, PERRL, EOMI Neck: positive: No JVD, Trachea midline Respiratory: positive: Chest non-tender, No respiratory distress, Breath sounds nml Cardiovascular: positive: Regular rate & rhythm Abdomen: positive: Non-tender, Nml bowel sounds, No distention Skin: positive: Color nml, No rash, Warm, Dry Extremities: positive: Non-tender, Full ROM, Nml appearance Neurologic/Psychiatric: positive: Disoriented to place, Disoriented to time - Lab Results Fish Bones: 05/19/23 05:01 05/19/23 05:01 Other Labs: Lab Results x24hrs 05/19/23 05/19/23 05/19/23 Range/Units 07:33 05:01 05:01 WBC 6.2 (4.8-10.8) x10^3/uL RBC 5.64 (4.70-6.10) 10^6/uL Hgb 15.7 (14.0-18.0) g/dL Hct 50.6 (42.0-52.0) % MCV 89.7 (80.0-94.0) fL MCH 27.8 (27.0-31.0) pg MCHC 31.0 L (32.0-36.0) g/dL RDW 16.3 H (12.0-15.0) % Plt Count 122 L (130-450) 10^3/uL MPV 11.7 H (7.4-11.4) fL Neut # (Auto) 3.4 (1.5-6.6) 10^3/uL Lymph # (Auto) 2.1 (1.5-3.5) 10^3/uL [place] # (Auto) 0.5 (0.0-1.0) 10^3/uL Eos # (Auto) 0.3 (0.0-0.7) 10^3/uL Baso # (Auto) 0.1 (0.0-0.1) 10^3/uL Absolute Nucleated RBC 0.00 x10^3/uL Nucleated RBC % 0.0 /100WBC Sodium 135 (135-145) mmol/L Potassium 4.2 (3.5-4.5) mmol/L Chloride 101 (101-111) mmol/L Carbon Dioxide 29 (21-32) mmol/L Anion Gap 5.0 L (6-13) BUN 29 H (6-20) mg/dL Creatinine 1.5 H (0.6-1.3) mg/dL Estimated GFR (MDRD) 45 L (>89) Glucose 168 H (74-104) mg/dL POC Whole Bld Glucose 179 H (70 - 100) mg/dL Calcium 9.3 (8.5-10.3) mg/dL 05/18/23 05/18/23 05/18/23 Range/Units 20:37 16:27 11:40 WBC (4.8-10.8) x10^3/uL RBC (4.70-6.10) 10^6/uL Hgb (14.0-18.0) g/dL Hct (42.0-52.0) % MCV (80.0-94.0) fL MCH (27.0-31.0) pg MCHC (32.0-36.0) g/dL RDW (12.0-15.0) % Plt Count (130-450) 10^3/uL MPV (7.4-11.4) fL Neut # (Auto) (1.5-6.6) 10^3/uL Lymph # (Auto) (1.5-3.5) 10^3/uL [place] # (Auto) (0.0-1.0) 10^3/uL Eos # (Auto) (0.0-0.7) 10^3/uL Baso # (Auto) (0.0-0.1) 10^3/uL Absolute Nucleated RBC x10^3/uL Nucleated RBC % /100WBC Sodium (135-145) mmol/L Potassium (3.5-4.5) mmol/L Chloride (101-111) mmol/L Carbon Dioxide (21-32) mmol/L Anion Gap (6-13) BUN (6-20) mg/dL Creatinine (0.6-1.3) mg/dL Estimated GFR (MDRD) (>89) Glucose (74-104) mg/dL POC Whole Bld Glucose 279 H 253 H 98 (70 - 100) mg/dL Calcium (8.5-10.3) mg/dL Assessment/Plan - Problem List (1) Acute kidney injury Impression: Labs today show a change in BUN, CR, and GFR since yesterday (05/18). A retroperitneal US was done that showed a 4 cm lesion on left kidney showing mural nodularity. moural nodularity was not seen on prior US. Advice follow up in 3-6 months. Given there is no sign of obstruction, I suspect his ENOCH is due to dehydration. BUN decreased from 33 to 29 Creatinine decreased from 1.6 to 1.5 GFR increased from 42-45 This was likely due to dehydration in the setting of poor oral intake secondary to dementia. Patient is eating/drinking normally. At this time, patient is medically cleared and does not meet medical requirements for inpatient status. Social work is putting together a disposition with guardianship and will discharge as soon as everything is put together. - ready for discharge - retroperitoneal US today - encourage oral intake of fluids (2) Dehydration Impression: RESOLVED. Patient was likely dehydrated due to poor oral intake in the setting of dementia. His electrolytes have normalized and he no longer requires IV hydration as he is eating/drinking well. - Encourage oral intake (3) Urinary retention Impression: Patient complained of lower abdominal pain early 05/16 and a bladder scan showed 888 mL of urine. Patient was straight cathed. A morse catheter was inserted on 05/17. Will intermittently clamp morse to determine if the catheter can be removed. - Clamp morse intermittently - Low dose Flomax 0.4 mg daily (4) Atrial fibrillation Impression: Patient has a history of A-fib on Eliquis. Currently no symptoms and is well managed with medication. - Continue on home dose of Eliquis - EKG as needed (5) Dementia Impression: Patient has dementia and has exhibited sundowning while staying in the ER. Nursing staff reported patient has been combative at times and may need 1 to 1 surveillance in the future. Mr. Dunne was seen in clinic in fall 2022 where a mini mental status exam was done and he passed, with a 28/30. No cognitive deficits were noted at that time. It is concerning that his mental status could have deteriorated this quickly. We have considered drug use, potential stroke, or brain tumor. However, these all seem unlikely as his CT in the ER was negative for any acute findings. It is possible that he could have some degree of brain damage from being hypoglycemic for unknown lengths of time. Patient was found extremely hypoglycemic prior to his admission and had not been heard from in a few days. In this case, the brain damage may be irreversible. He was also seen for altered mental status in the past that was believed to be due to hypoglycemia as well. - If agitated, may give home dose of Xyprexa or Ativan - If agitated, may give small dose of Seroquel (6) Hypertension Impression: Patient has a history of hypertension. Currently, his blood pressure is in the normal range. - Continue on home dose of metoprolol - Hold Losartan and amlodipine for now as blood pressure is normal (7) Type 2 diabetes mellitus Impression: Patient's sugars were high in the morning. We will increase his dose of Lantus to 22 units and 5 with meals. - Blood sugar checks before meals and before bed - Sliding scale insulin as needed (8) Altered mental status Impression: RESOLVED. Patient was admitted with altered mental status, likely due to hypoglycemia and poor oral intake. Patient may not have eaten in a few days. Qualifiers: Altered mental status type: unspecified Qualified Code(s): R41.82 - Altered mental status, unspecified
[2023-05-19] MEDS ORDERED: LORazepam 2 MG/ML VIAL IVP STA (12:19)
[2023-05-19] MEDS: LORazepam 1 MG TABLET PO STA (13:23)
--- NOTE | 2023-05-19 13:35 | Ultrasound Report ---
PROCEDURE: Renal (Retroperitoneal) INDICATIONS: had new renal failure and slow to resp to IVF TECHNIQUE: Real-time scanning was performed of the retroperitoneal organs, with image documentation. COMPARISON: Ultrasound retroperitoneum 11/25/2010. FINDINGS: Kidneys: . Right kidney measures 11.3 cm long; left kidney measures 11.4 cm long. Right renal corti dania thickness is 0.6 cm; left renal cortical thickness is 0.8 cm. No solid masses, hydronephrosis, o r nephrolithiasis. Several cystic lesions are seen in both kidneys Right side: Inferior exophytic cystic lesion measures 1.8 x 2.2 x 1.9 cm, simple cyst A mid exophytic cystic lesion measures 8 x 9 x 9 mm, simple cyst Left kidney Cystic exophytic lesion measures 2.8 x 4.3 x 4.0 cm with mural nodule Bladder: A Ashley catheter is present. Clamped bladder volume is 152 mL. Post-void residual is 12 mL . Pre-void images demonstrate no intraluminal masses or stones. Prostate volume: 10.72 cc. Right ure teral jet is seen. Left is not seen. Miscellaneous: No free abdominal fluid. IMPRESSION: A 4 cm cystic lesion of the left kidney shows mural nodularity. Mural nodularity was not definitely v isualized on prior ultrasound. Recommend follow-up ultrasound in 3-6 months if indicated. Reviewed by: Keith Machado MD on 05/19/2023 1:34 PM PST Approved by: Keith Machado MD on 05/19/2023 1:34 PM PST Station ID: [id number]
[2023-05-19] MEDS: LORazepam 0.5 MG TABLET PO PRN (19:13)
[2023-05-19] MEDS: INSULIN GLARGINE-YFGN 300 UNIT/3 ML PEN SUBQ SCH (21:04)
--- NOTE | 2023-05-19 22:16 | PROVIDER PROGRESS NOTE ---
Progress Note Patient had a fall discussed with RN, hemodynamically stable, found with right knee on floor, abrasion on right knee and scratch on hip, able to talk back trying to use the bathroom, fall precautions recommended and nursing aware, would continue to monitor closely if any swelling of joints or worsening pain to call us back for possible imaging orders, for now close clinical monitoring.
[2023-05-20 06:02] LABS: BASOPHILS % (AUTO) 0.6 %; EOSINOPHILS # (AUTO) 0.2 10^3/uL (0.0-0.7); EOSINOPHILS % (AUTO) 3.1 %; HCT - HEMATOCRIT 45.6 % (42.0-52.0); HGB - HEMOGLOBIN 14.2 g/dL (14.0-18.0); LYMPHOCYTES # (AUTO) 1.8 10^3/uL (1.5-3.5); MEAN CORPUSCULAR HEMOGLOBIN 27.7 pg (27.0-31.0); MEAN CORPUSCULAR HGB CONC 31.1 g/dL (32.0-36.0); MEAN CORPUSCULAR VOLUME 89.1 fL (80.0-94.0); MEAN PLATELET VOLUME 11.8 fL (7.4-11.4); MONOCYTES # (AUTO) 0.6 10^3/uL (0.0-1.0); MONOCYTES % (AUTO) 8.8 %; NEUTROPHILS # (AUTO) 4.2 10^3/uL (1.5-6.6); NEUTROPHILS % (AUTO) 61.2 %; PLT - PLATELET COUNT 126 10^3/uL (130-450); RED BLOOD COUNT 5.12 10^6/uL (4.70-6.10); WHITE BLOOD COUNT 6.8 x10^3/uL (4.8-10.8)
[2023-05-20 06:14] LABS: CALCIUM 9.1 mg/dL (8.5-10.3); CREATININE 1.5 mg/dL (0.6-1.3); POTASSIUM 4.1 mmol/L (3.5-4.5)
--- NOTE | 2023-05-20 09:16 | PROVIDER PROGRESS NOTE ---
Subjective - Prog Note Date Prog Note Date: 05/20/23 Prog Note Time: 09:15 - Subjective Pt reports feeling: No change Subjective: Mr. Styles is a 78 year old male with an extensive medical history including dementia, atrial fibrilation, ARIEL, type II DM, COPD, CKD, PVD, HTN, and SD who was admitted to the ER with altered mental status. Patient was found in bed only responsive to pain by his tower observer after not answering his phone for a few days. Patient's BS was 59 and was satting at 80% room air since his nasal cannula was not fully in his nose. EMS gave Mr. Styles an amp of D50 and started him on 10 L nonrebreather with immediate significant improvement. Patient lives alone but has help from his [employer] community. Members of the yazdan[employer] have noticed that Mr. Styles has had significant cognitive decline over the past few months. He was last seen in the ER a week ago after being found unresponsive in his car. Patient has been in the ER since 05/10 waiting for placement as it is unsafe to discharge him since he lives alone. 05/14: Patient had a near syncopal event while straining during a BM. A POCUS was done that showed adequate hydration, with the inferior vena cava measuring 1.48 cm in diameter. 05/15: A chest CT was done that showed potential pulmonary edema/CHF. IVC measured at 0.93 cm. One dose of Lasix was given. 05/16: Patient appeared to be hypotensive with decreased renal function compared to admission. He was admitted for dehydration and started on IV fluids. He required a straight cath during the night due to urinary retention with 888 mL on bladder scan. 05/17: In the evening, patient became agitated and actively tried to leave. He was given a dose of Seroquel. 05/18: Patient was pleasant and cooperative. Spent most of the day in bed. No complaints. Guardianship paperwork is in progress. 05/19: Patient had a fall in the evening and was found on his knees with feces on the floor. Today, patient is pleasant and cooperative. No complaints of pain, headache, vision changes, chest pain, shortness of breath, or dizziness. At this time, he is medically stable and does not require further medical intervention. He is a boarding patient and waiting for placement. Objective - Vital Signs/Intake & Output Intake & Output: Intake & Output 05/17/23 05/18/23 05/19/23 05/20/23 23:59 23:59 23:59 23:59 Intake Total 4874 1070 2400 Output Total 3203 2301 3484 250 Balance 1673 -1230 -452 -250 - Objective General Appearance: positive: No acute distress, Alert Eyes Bilateral: positive: Normal inspection Neck: positive: Nml inspection Respiratory: positive: Chest non-tender, No respiratory distress Cardiovascular: positive: Regular rate & rhythm, No murmur, No gallop Abdomen: positive: Non-tender, Nml bowel sounds, No distention Skin: positive: Color nml, No rash, Warm, Dry Extremities: positive: Full ROM, Nml appearance, Other (abrasion on right knee) Neurologic/Psychiatric: positive: Disoriented to place, Disoriented to time - Lab Results Fish Bones: 05/20/23 05:19 05/20/23 05:19 Other Labs: Lab Results x24hrs 05/20/23 05/20/23 05/20/23 Range/Units 07:50 05:19 05:19 WBC 6.8 (4.8-10.8) x10^3/uL RBC 5.12 (4.70-6.10) 10^6/uL Hgb 14.2 (14.0-18.0) g/dL Hct 45.6 (42.0-52.0) % MCV 89.1 (80.0-94.0) fL MCH 27.7 (27.0-31.0) pg MCHC 31.1 L (32.0-36.0) g/dL RDW 16.0 H (12.0-15.0) % Plt Count 126 L (130-450) 10^3/uL MPV 11.8 H (7.4-11.4) fL Neut # (Auto) 4.2 (1.5-6.6) 10^3/uL Lymph # (Auto) 1.8 (1.5-3.5) 10^3/uL [place] # (Auto) 0.6 (0.0-1.0) 10^3/uL Eos # (Auto) 0.2 (0.0-0.7) 10^3/uL Baso # (Auto) 0.0 (0.0-0.1) 10^3/uL Absolute Nucleated RBC 0.00 x10^3/uL Nucleated RBC % 0.0 /100WBC Sodium 134 L (135-145) mmol/L Potassium 4.1 (3.5-4.5) mmol/L Chloride 98 L (101-111) mmol/L Carbon Dioxide 27 (21-32) mmol/L Anion Gap 9.0 (6-13) BUN 28 H (6-20) mg/dL Creatinine 1.5 H (0.6-1.3) mg/dL Estimated GFR (MDRD) 45 L (>89) Glucose 183 H (74-104) mg/dL POC Whole Bld Glucose 164 H (70 - 100) mg/dL Calcium 9.1 (8.5-10.3) mg/dL 05/19/23 05/19/23 05/19/23 Range/Units 20:43 16:36 11:16 WBC (4.8-10.8) x10^3/uL RBC (4.70-6.10) 10^6/uL Hgb (14.0-18.0) g/dL Hct (42.0-52.0) % MCV (80.0-94.0) fL MCH (27.0-31.0) pg MCHC (32.0-36.0) g/dL RDW (12.0-15.0) % Plt Count (130-450) 10^3/uL MPV (7.4-11.4) fL Neut # (Auto) (1.5-6.6) 10^3/uL Lymph # (Auto) (1.5-3.5) 10^3/uL [place] # (Auto) (0.0-1.0) 10^3/uL Eos # (Auto) (0.0-0.7) 10^3/uL Baso # (Auto) (0.0-0.1) 10^3/uL Absolute Nucleated RBC x10^3/uL Nucleated RBC % /100WBC Sodium (135-145) mmol/L Potassium (3.5-4.5) mmol/L Chloride (101-111) mmol/L Carbon Dioxide (21-32) mmol/L Anion Gap (6-13) BUN (6-20) mg/dL Creatinine (0.6-1.3) mg/dL Estimated GFR (MDRD) (>89) Glucose (74-104) mg/dL POC Whole Bld Glucose 306 H 178 H 292 H (70 - 100) mg/dL Calcium (8.5-10.3) mg/dL Assessment/Plan - Problem List (1) Risk for falls Impression: Patient had a fall yesterday evening (05/19) while trying to get out of the bed. He has a small laceration to his right knee and some abrasions on his right hip. Prior to his fall, he was agitated and given Ativan. I suspect that his fall was due to sedation. During the day, we witnessed patient walking around with his walker with no trouble. As a result, I will reduce his sedation to prevent future falls. Activate fall risk protocol. - activate fall risk protocol - minimize sedation unless absolutely necessary (2) Acute kidney injury Impression: Labs today show a change in BUN, CR, and GFR since yesterday (05/19). A retroperitneal US was done that showed a 4 cm lesion on left kidney showing mural nodularity. mural nodularity was not seen on prior US. Advised to follow up in 3-6 months. Given there is no sign of obstruction, I suspect his ENOCH is due to dehydration. BUN decreased 29 to 28 Creatinine is stable at 1.5 GFR is stable at 45 This was likely due to dehydration in the setting of poor oral intake secondary to dementia. Patient is eating/drinking normally. At this time, patient is medically cleared and does not meet medical requirements for inpatient status. Social work is putting together a disposition with guardianship and will discharge as soon as everything is put together. - ready for discharge - encourage oral intake of fluids - follow up with US in 3-6 months (2) Dehydration Impression: RESOLVED. Patient was likely dehydrated due to poor oral intake in the setting of dementia. His electrolytes have normalized and he no longer requires IV hydration as he is eating/drinking well. - Encourage oral intake (3) Urinary retention Impression: Patient complained of lower abdominal pain early 05/16 and a bladder scan showed 888 mL of urine. Patient was straight cathed. A morse catheter was inserted on 05/17. Will intermittently clamp morse to determine if the catheter can be removed. - Clamp morse intermittently - Low dose Flomax 0.4 mg daily (4) Atrial fibrillation Impression: Patient has a history of A-fib on Eliquis. Currently no symptoms and is well managed with medication. - Continue on home dose of Eliquis - EKG as needed (5) Dementia Impression: Patient has dementia and has exhibited sundowning while staying in the ER. Nursing staff reported patient has been combative at times and may need 1 to 1 surveillance in the future. Mr. Dunne was seen in clinic in fall 2022 where a mini mental status exam was done and he passed, with a 28/30. No cognitive deficits were noted at that time. It is concerning that his mental status could have deteriorated this quickly. We have considered drug use, potential stroke, or brain tumor. However, these all seem unlikely as his CT in the ER was negative for any acute findings. It is possible that he could have some degree of brain damage from being hypoglycemic for unknown lengths of time. Patient was found extremely hypoglycemic prior to his admission and had not been heard from in a few days. In this case, the brain damage may be irreversible. He was also seen for altered mental status in the past that was believed to be due to hypoglycemia as well. Nursing requested to have Ativan q6 hours PRN for agitation - If agitated, may give home dose of Xyprexa - If agitated, may give small dose of Seroquel - Ativan q6 PRN (6) Hypertension Impression: Patient has a history of hypertension. Currently, his blood pressure is in the normal range. - Continue on home dose of metoprolol - Hold Losartan and amlodipine for now as blood pressure is normal (7) Type 2 diabetes mellitus Impression: Patient's sugars were high in the morning. We will increase his dose of Lantus to 22 units and 5 with meals. - Blood sugar checks before meals and before bed - Sliding scale insulin as needed (8) Altered mental status Impression: RESOLVED. Patient was admitted with altered mental status, likely due to hypoglycemia and poor oral intake. Patient may not have eaten in a few days. Qualifiers: Altered mental status type: unspecified Qualified Code(s): R41.82 - Altered mental status, unspecified (9) Altered mental status Qualifiers: Altered mental status type: unspecified Qualified Code(s): R41.82 - Altered mental status, unspecified
[2023-05-21 05:56] LABS: BASOPHILS % (AUTO) 0.4 %; EOSINOPHILS # (AUTO) 0.2 10^3/uL (0.0-0.7); EOSINOPHILS % (AUTO) 3.1 %; HCT - HEMATOCRIT 46.2 % (42.0-52.0); HGB - HEMOGLOBIN 14.4 g/dL (14.0-18.0); LYMPHOCYTES # (AUTO) 1.8 10^3/uL (1.5-3.5); LYMPHOCYTES % (AUTO) 23.9 %; MEAN CORPUSCULAR HEMOGLOBIN 27.6 pg (27.0-31.0); MEAN CORPUSCULAR HGB CONC 31.2 g/dL (32.0-36.0); MEAN CORPUSCULAR VOLUME 88.7 fL (80.0-94.0); MONOCYTES # (AUTO) 0.5 10^3/uL (0.0-1.0); MONOCYTES % (AUTO) 7.4 %; NEUTROPHILS # (AUTO) 4.7 10^3/uL (1.5-6.6); NEUTROPHILS % (AUTO) 64.9 %; PLT - PLATELET COUNT 132 10^3/uL (130-450); RED BLOOD COUNT 5.21 10^6/uL (4.70-6.10); RED CELL DISTRIBUTION WIDTH 16.2 % (12.0-15.0); WHITE BLOOD COUNT 7.3 x10^3/uL (4.8-10.8)
[2023-05-21 06:16] LABS: CALCIUM 9.3 mg/dL (8.5-10.3); CREATININE 1.6 mg/dL (0.6-1.3); POTASSIUM 4.5 mmol/L (3.5-4.5)
[2023-05-21] MEDS: INSULIN LISPRO 300 UNIT/3 ML PEN SUBQ SCH (08:08)
--- NOTE | 2023-05-21 10:53 | PROVIDER PROGRESS NOTE ---
Subjective - Prog Note Date Prog Note Date: 05/21/23 Prog Note Time: 10:52 - Subjective Pt reports feeling: No change Subjective: Mr. Styles is a 78 year old male with an extensive medical history including dementia, atrial fibrilation, ARIEL, type II DM, COPD, CKD, PVD, HTN, and [place] who was admitted to the ER with altered mental status. Patient was found in bed only responsive to pain by his fourdrinier operator after not answering his phone for a few days. Patient's BS was 59 and was satting at 80% room air since his nasal cannula was not fully in his nose. EMS gave Mr. Styles an amp of D50 and started him on 10 L nonrebreather with immediate significant improvement. Patient lives alone but has help from his zoroastrianism community. Members of the zoroastrianism have noticed that Mr. Styles has had significant cognitive decline over the past few months. He was last seen in the ER a week ago after being found unresponsive in his car. Patient has been in the ER since 05/10 waiting for placement as it is unsafe to discharge him since he lives alone. 05/14: Patient had a near syncopal event while straining during a BM. A POCUS was done that showed adequate hydration, with the inferior vena cava measuring 1.48 cm in diameter. 05/15: A chest CT was done that showed potential pulmonary edema/CHF. IVC measured at 0.93 cm. One dose of Lasix was given. 05/16: Patient appeared to be hypotensive with decreased renal function compared to admission. He was admitted for dehydration and started on IV fluids. He required a straight cath during the night due to urinary retention with 888 mL on bladder scan. 05/17: In the evening, patient became agitated and actively tried to leave. He was given a dose of Seroquel. 05/18: Patient was pleasant and cooperative. Spent most of the day in bed. No complaints. Guardianship paperwork is in progress. 05/19: Patient had a fall in the evening and was found on his knees with feces on the floor. 05/20: No new changes. Today, patient is pleasant and cooperative. No complaints of pain, headache, vision changes, chest pain, shortness of breath, or dizziness. At this time, he is medically stable and does not require further medical intervention. He is a boarding patient and waiting for placement. Objective - Vital Signs/Intake & Output Vital Signs: Vital Signs x48h Temp Pulse Resp BP Pulse Ox O2 Flow Rate 05/21/23 07:40 36.5 C 69 20 134/70 H 97 3 Intake & Output: Intake & Output 05/18/23 05/19/23 05/20/23 05/21/23 23:59 23:59 23:59 23:59 Intake Total 1070 2400 480 240 Output Total 2300 2852 650 600 Balance -1230 -452 -170 -360 - Lab Results Fish Bones: 05/21/23 05:22 05/21/23 05:22 Other Labs: Lab Results x24hrs 05/21/23 05/21/23 05/21/23 Range/Units 07:38 05:22 05:22 WBC 7.3 (4.8-10.8) x10^3/uL RBC 5.21 (4.70-6.10) 10^6/uL Hgb 14.4 (14.0-18.0) g/dL Hct 46.2 (42.0-52.0) % MCV 88.7 (80.0-94.0) fL MCH 27.6 (27.0-31.0) pg MCHC 31.2 L (32.0-36.0) g/dL RDW 16.2 H (12.0-15.0) % Plt Count 132 (130-450) 10^3/uL MPV 12.0 H (7.4-11.4) fL Neut # (Auto) 4.7 (1.5-6.6) 10^3/uL Lymph # (Auto) 1.8 (1.5-3.5) 10^3/uL [place] # (Auto) 0.5 (0.0-1.0) 10^3/uL Eos # (Auto) 0.2 (0.0-0.7) 10^3/uL Baso # (Auto) 0.0 (0.0-0.1) 10^3/uL Absolute Nucleated RBC 0.00 x10^3/uL Nucleated RBC % 0.0 /100WBC Sodium 136 (135-145) mmol/L Potassium 4.5 (3.5-4.5) mmol/L Chloride 100 L (101-111) mmol/L Carbon Dioxide 27 (21-32) mmol/L Anion Gap 9.0 (6-13) BUN 32 H (6-20) mg/dL Creatinine 1.6 H (0.6-1.3) mg/dL Estimated GFR (MDRD) 42 L (>89) Glucose 157 H (74-104) mg/dL POC Whole Bld Glucose 169 H (70 - 100) mg/dL Calcium 9.3 (8.5-10.3) mg/dL 05/20/23 05/20/23 05/20/23 Range/Units 20:34 16:29 11:34 WBC (4.8-10.8) x10^3/uL RBC (4.70-6.10) 10^6/uL Hgb (14.0-18.0) g/dL Hct (42.0-52.0) % MCV (80.0-94.0) fL MCH (27.0-31.0) pg MCHC (32.0-36.0) g/dL RDW (12.0-15.0) % Plt Count (130-450) 10^3/uL MPV (7.4-11.4) fL Neut # (Auto) (1.5-6.6) 10^3/uL Lymph # (Auto) (1.5-3.5) 10^3/uL [place] # (Auto) (0.0-1.0) 10^3/uL Eos # (Auto) (0.0-0.7) 10^3/uL Baso # (Auto) (0.0-0.1) 10^3/uL Absolute Nucleated RBC x10^3/uL Nucleated RBC % /100WBC Sodium (135-145) mmol/L Potassium (3.5-4.5) mmol/L Chloride (101-111) mmol/L Carbon Dioxide (21-32) mmol/L Anion Gap (6-13) BUN (6-20) mg/dL Creatinine (0.6-1.3) mg/dL Estimated GFR (MDRD) (>89) Glucose (74-104) mg/dL POC Whole Bld Glucose 255 H 266 H 240 H (70 - 100) mg/dL Calcium (8.5-10.3) mg/dL Assessment/Plan - Problem List (1) Risk for falls Impression: Patient had a fall on 05/19 while trying to get out of the bed. He has a small laceration to his right knee and some abrasions on his right hip. Prior to his fall, he was agitated and given Ativan. I suspect that his fall was due to sedation. During the day, we witnessed patient walking around with his walker with no trouble. As a result, I will reduce his sedation to prevent future falls. Activate fall risk protocol. - activate fall risk protocol - minimize sedation unless absolutely necessary (2) Acute kidney injury Impression: Labs today show a change in BUN, CR, and GFR since yesterday (05/19). A retroperitneal US was done that showed a 4 cm lesion on left kidney showing mural nodularity. mural nodularity was not seen on prior US. Advised to follow up in 3-6 months. Given there is no sign of obstruction, I suspect his ENOCH is due to dehydration. BUN increased from 28 to 32 Creatinine increased from 1.5 to 1.6 GFR decreased from 45 to 42 Patient's labs show slight dehydration again as of 05/21. Discussed with nursing team to push fluids. This was likely due to dehydration in the setting of poor oral intake secondary to dementia. Patient is eating/drinking normally. At this time, patient is medically cleared and does not meet medical requirements for inpatient status. Social work is putting together a disposition with guardianship and will discharge as soon as everything is put together. - ready for discharge - encourage oral intake of fluids - follow up with US in 3-6 months (2) Dehydration Impression: RESOLVED. Patient was likely dehydrated due to poor oral intake in the setting of dementia. His electrolytes have normalized and he no longer requires IV hydration as he is eating/drinking well. - Encourage oral intake (3) Urinary retention Impression: Patient complained of lower abdominal pain early 05/16 and a bladder scan showed 888 mL of urine. Patient was straight cathed. A morse catheter was inserted on 05/17. Will intermittently clamp morse to determine if the catheter can be removed. - Clamp morse intermittently - Low dose Flomax 0.4 mg daily (4) Atrial fibrillation Impression: Patient has a history of A-fib on Eliquis. Currently no symptoms and is well managed with medication. - Continue on home dose of Eliquis - EKG as needed (5) Dementia Impression: Patient has dementia and has exhibited sundowning while staying in the ER. Nursing staff reported patient has been combative at times and may need 1 to 1 surveillance in the future. Mr. Dunne was seen in clinic in fall 2022 where a mini mental status exam was done and he passed, with a 28/30. No cognitive deficits were noted at that time. It is concerning that his mental status could have deteriorated this quickly. We have considered drug use, potential stroke, or brain tumor. However, these all seem unlikely as his CT in the ER was negative for any acute findings. It is possible that he could have some degree of brain damage from being hypoglycemic for unknown lengths of time. Patient was found extremely hypoglycemic prior to his admission and had not been heard from in a few days. In this case, the brain damage may be irreversible. He was also seen for altered mental status in the past that was believed to be due to hypoglycemia as well. Nursing requested to have Ativan q6 hours PRN for agitation - If agitated, may give home dose of Xyprexa - If agitated, may give small dose of Seroquel - Ativan q6 PRN (6) Hypertension Impression: Patient has a history of hypertension. Currently, his blood pressure is in the normal range. - Continue on home dose of metoprolol - Hold Losartan and amlodipine for now as blood pressure is normal (7) Type 2 diabetes mellitus Impression: Patient's sugars were high in the morning. We will increase his dose of Lantus to 22 units and 5 with meals. - Blood sugar checks before meals and before bed - Sliding scale insulin as needed (8) Altered mental status Impression: RESOLVED. Patient was admitted with altered mental status, likely due to hypoglycemia and poor oral intake. Patient may not have eaten in a few days. (9) Altered mental status Qualifiers: Altered mental status type: unspecified Qualified Code(s): R41.82 - Altered mental status, unspecified
--- NOTE | 2023-05-22 07:19 | PROVIDER PROGRESS NOTE ---
Subjective - Prog Note Date Prog Note Date: 05/22/23 Prog Note Time: 07:19 - Subjective Pt reports feeling: No change Subjective: Mr. Styles is a 78 year old male with an extensive medical history including dementia, atrial fibrilation, ARIEL, type II DM, COPD, CKD, PVD, HTN, and [place] who was admitted to the ER with altered mental status. Patient was found in bed only responsive to pain by his applications development consultant after not answering his phone for a few days. Patient's BS was 59 and was satting at 80% room air since his nasal cannula was not fully in his nose. EMS gave Mr. Styles an amp of D50 and started him on 10 L nonrebreather with immediate significant improvement. Patient lives alone but has help from his anabaptism community. Members of the anabaptism have noticed that Mr. Styles has had significant cognitive decline over the past few months. He was last seen in the ER a week ago after being found unresponsive in his car. Patient has been in the ER since 05/10 waiting for placement as it is unsafe to discharge him since he lives alone. 05/14: Patient had a near syncopal event while straining during a BM. A POCUS was done that showed adequate hydration, with the inferior vena cava measuring 1.48 cm in diameter. 05/15: A chest CT was done that showed potential pulmonary edema/CHF. IVC measured at 0.93 cm. One dose of Lasix was given. 05/16: Patient appeared to be hypotensive with decreased renal function compared to admission. He was admitted for dehydration and started on IV fluids. He required a straight cath during the night due to urinary retention with 888 mL on bladder scan. 05/17: In the evening, patient became agitated and actively tried to leave. He was given a dose of Seroquel. 05/18: Patient was pleasant and cooperative. Spent most of the day in bed. No complaints. Guardianship paperwork is in progress. 05/19: Patient had a fall in the evening and was found on his knees with feces on the floor. 05/20: No new changes. 05/21: Labs show a small increase in creatinine. Let nursing staff know to push PO fluids. Today, patient is calm and cooperative. He is asking about going home. No complaints of pain, headache, vision changes, chest pain, shortness of breath, or dizziness. At this time, he is medically stable and does not require further medical intervention. He is a boarding patient and waiting for placement. Objective - Vital Signs/Intake & Output Vital Signs: Vital Signs x48h Temp Pulse Resp BP Pulse Ox 05/22/23 00:33 36.8 C 76 18 125/87 H 96 Intake & Output: Intake & Output 05/19/23 05/20/23 05/21/23 05/22/23 23:59 23:59 23:59 23:59 Intake Total 2400 480 1130 200 Output Total 2852 650 2175 800 Balance -452 -170 -1045 -600 - Objective General Appearance: positive: No acute distress, Alert Eyes Bilateral: positive: Normal inspection, PERRL, EOMI ENT: positive: No signs of dehydration Neck: positive: No JVD, Trachea midline Respiratory: positive: Chest non-tender, No respiratory distress, Breath sounds nml Cardiovascular: positive: Regular rate & rhythm, No murmur, No gallop Abdomen: positive: Non-tender, Nml bowel sounds, No distention Skin: positive: Color nml, No rash, Warm, Dry, Other (small abrasion on right knee) Extremities: positive: Non-tender, Full ROM, Nml appearance Neurologic/Psychiatric: positive: Disoriented to place, Disoriented to time - Lab Results Fish Bones: 05/21/23 05:22 05/21/23 05:22 Other Labs: Lab Results x24hrs 05/21/23 05/21/23 05/21/23 Range/Units 20:43 16:26 11:24 POC Whole Bld Glucose 154 H 204 H 265 H (70 - 100) mg/dL 05/21/23 Range/Units 07:38 POC Whole Bld Glucose 169 H (70 - 100) mg/dL ABX Reporting Has patient been on IV antibiotics over the past 48 hours?: No Assessment/Plan - Problem List (1) Risk for falls Impression: Patient had a fall on 05/19 while trying to get out of the bed. He has a small laceration to his right knee and some abrasions on his right hip. Prior to his fall, he was agitated and given Ativan. I suspect that his fall was due to sedation. During the day, we witnessed patient walking around with his walker with no trouble. As a result, I will reduce his sedation to prevent future falls. Activate fall risk protocol. - activate fall risk protocol - minimize sedation unless absolutely necessary (2) Acute kidney injury Impression: Labs today show a change in BUN, CR, and GFR since yesterday (05/19). A retroperitneal US was done that showed a 4 cm lesion on left kidney showing mural nodularity. mural nodularity was not seen on prior US. Advised to follow up in 3-6 months. Given there is no sign of obstruction, I suspect his ENOCH is due to dehydration. BUN increased from 28 to 32 Creatinine increased from 1.5 to 1.6 GFR decreased from 45 to 42 Patient's labs show slight dehydration again as of 05/21. Discussed with nursing team to push fluids. This was likely due to dehydration in the setting of poor oral intake secondary to dementia. Patient is eating/drinking normally. At this time, patient is medically cleared and does not meet medical requirements for inpatient status. Social work is putting together a disposition with guardianship and will discharge as soon as everything is put together. - ready for discharge - encourage oral intake of fluids - follow up with US in 3-6 months (2) Dehydration Impression: RESOLVED. Patient was likely dehydrated due to poor oral intake in the setting of dementia. His electrolytes have normalized and he no longer requires IV hydration as he is eating/drinking well. - Encourage oral intake (3) Urinary retention Impression: Patient complained of lower abdominal pain early 05/16 and a bladder scan showed 888 mL of urine. Patient was straight cathed. A morse catheter was inserted on 05/17. Morse removed on 05/21. - Low dose Flomax 0.4 mg daily - Bladder scan if patient complains of symptoms of urinary retention (4) Atrial fibrillation Impression: Patient has a history of A-fib on Eliquis. Currently no symptoms and is well managed with medication. - Continue on home dose of Eliquis - EKG as needed (5) Dementia Impression: Patient has dementia and has exhibited sundowning while staying in the ER. Nursing staff reported patient has been combative at times and may need 1 to 1 surveillance in the future. Mr. Dunne was seen in clinic in fall 2022 where a mini mental status exam was done and he passed, with a 28/30. No cognitive deficits were noted at that time. It is concerning that his mental status could have deteriorated this quickly. We have considered drug use, potential stroke, or brain tumor. However, these all seem unlikely as his CT in the ER was negative for any acute findings. It is possible that he could have some degree of brain damage from being hypoglycemic for unknown lengths of time. Patient was found extremely hypoglycemic prior to his admission and had not been heard from in a few days. In this case, the brain damage may be irreversible. He was also seen for altered mental status in the past that was believed to be due to hypoglycemia as well. Nursing requested to have Ativan q6 hours PRN for agitation - If agitated, may give home dose of Xyprexa - If agitated, may give small dose of Seroquel - Ativan q6 PRN (6) Hypertension Impression: Patient has a history of hypertension. Currently, his blood pressure is in the normal range. - Continue on home dose of metoprolol - Hold Losartan and amlodipine for now as blood pressure is normal (7) Type 2 diabetes mellitus Impression: Continue on Lantus to 22 units at night, 10 in the morning, and 5 with meals + sliding scale. - Blood sugar checks before meals and before bed - Sliding scale insulin as needed (8) Altered mental status Impression: RESOLVED. Patient was admitted with altered mental status, likely due to hypoglycemia and poor oral intake. Patient may not have eaten in a few days. (9) Altered mental status Qualifiers: Altered mental status type: unspecified Qualified Code(s): R41.82 - Altered mental status, unspecified
[2023-05-23 05:31] LABS: CALCIUM 9.2 mg/dL (8.5-10.3); CREATININE 1.5 mg/dL (0.6-1.3)
[2023-05-23] MEDS: INSULIN GLARGINE-YFGN 300 UNIT/3 ML PEN SUBQ SCH (09:06)
--- NOTE | 2023-05-23 15:43 | PROVIDER PROGRESS NOTE ---
Assessment/Plan - Problem List (1) Acute kidney injury Assessment/Plan: Labs show a minimal improvement in renal labs. A retroperitneal US was done that showed a 4 cm lesion on left kidney showing mural nodularity. mural nodularity was not seen on prior US. Advised to follow up in 3-6 months. Given there is no sign of obstruction, I suspect his ENOCH is due to dehydration. This was likely due to dehydration in the setting of poor oral intake secondary to dementia. Patient is eating/drinking normally. At this time, patient is medically cleared and does not meet medical requirements for inpatient status. Social work is putting together a disposition with guardianship and will discharge as soon as everything is put together. Plan: Medically ready for discharge, but due to dementia, he cannot sign consents Encourage oral intake of fluids A follow-up US was rec in 3-6 months (2) Risk for falls Impression: Patient had a fall on 05/19 while trying to get out of the bed. He has a small laceration to his right knee and some abrasions on his right hip. Prior to his fall, he was agitated and given Ativan. I suspect that his fall was due to sedation. During the day, we witnessed patient walking around with his walker with no trouble. As a result, I will reduce his sedation to prevent future falls. Activate fall risk protocol. Plan: Mminimize sedation unless absolutely necessary (3) Urinary retention Impression: Patient complained of lower abdominal pain early 05/16 and a bladder scan showed 888 mL of urine. Patient was straight cathed. A morse catheter was inserted on 05/17. Morse removed on 05/21. Plan: Cont low dose Flomax 0.4 mg daily Bladder scan if patient complains of symptoms of urinary retention (4) Atrial fibrillation Impression: Patient has a history of A-fib on Eliquis. Currently no symptoms and is well managed with medication. Plan: Continue on home dose of Eliquis (5) Dementia Impression: Patient has dementia and has exhibited sundowning while staying in the ER. Nursing staff reported patient has been combative at times and may need 1 to 1 surveillance in the future. Mr. Dunne was seen in clinic in fall 2022 where a mini mental status exam was done and he passed, with a 28/30. No cognitive deficits were noted at that time. It is concerning that his mental status could have deteriorated this quickly. We have considered drug use, potential stroke, or brain tumor. However, these all seem unlikely as his CT in the ER was negative for any acute findings. It is possible that he could have some degree of brain damage from being hypoglycemic for unknown lengths of time. Patient was found extremely hypoglycemic prior to his admission and had not been heard from in a few days. In this case, the brain damage may be irreversible. He was also seen for altered mental status in the past that was believed to be due to hypoglycemia as well. He has needed Ativan q6 hours PRN for agitation Plan: If agitated, may give home dose of Xyprexa If agitated, may give small dose of Seroquel Ativan q6 PRN SW is working on placement after guardiamship is established (6) Hypertension Impression: Patient has a history of hypertension. Currently, his blood pressure is in the normal range. Plan: Continue on home dose of metoprolol Hold Losartan and amlodipine for now as blood pressure is normal (7) Type 2 diabetes mellitus Impression: Plan: Continue on Lantus to 22 units at night, 10 in the morning, and 5 with meals + sliding scale. Blood sugar checks before meals and before bed Sliding scale insulin as needed (8) Altered mental status Impression: RESOLVED. Patient was admitted with altered mental status, likely due to hypoglycemia, dehydration and poor oral intake. Patient may not have eaten in a few days. (9) Dehydration Impression: RESOLVED. Patient was likely dehydrated due to poor oral intake in the setting of dementia. His electrolytes have normalized and he no longer requires IV hydration as he is eating/drinking well. Plan: Encourage oral intake - Current Meds Current Meds: Current Medications Generic Name Dose Route Start Last Admin Trade Name Freq PRN Reason Stop Dose Admin Apixaban 5 mg 05/16/23 21:00 05/23/23 09:07 Apixaban 5 Mg Tablet PO 5 mg BID CATHI Administration Bupropion HCl 150 mg 05/17/23 09:00 05/23/23 09:07 Bupropion Sr 150 Mg Tablet PO 150 mg DAILY CATHI Administration Insulin Glargine-yfgn 22 unit 05/19/23 21:00 05/22/23 21:01 Insulin Glargine-Yfgn 300 Unit/3 Ml Pen SUBQ 22 unit QPM CATHI Administration Insulin Glargine-yfgn 10 unit 05/23/23 07:00 05/23/23 09:06 Insulin Glargine-Yfgn 300 Unit/3 Ml Pen SUBQ 10 unit QDAC CATHI Administration Insulin Human Lispro 5 unit 05/16/23 19:00 05/23/23 11:40 Insulin Lispro 300 Unit/3 Ml Pen SUBQ 5 unit TIDWM [facility] Administration Protocol Insulin Human Lispro 1 - 9 unit 05/21/23 08:00 05/23/23 11:40 Insulin Lispro 300 Unit/3 Ml Pen SUBQ 5 unit 0800,1200,1700,2100 [facility] Administration Protocol Lorazepam 0.5 mg 05/19/23 18:50 05/19/23 19:13 Lorazepam 0.5 Mg Tablet PO 0.5 mg Q6H PRN Administration Anxiety Metoprolol Succinate 50 mg 05/16/23 21:00 05/23/23 09:07 Metoprolol Succinate 50 Mg Tablet PO 50 mg BID CATHI Administration Multi-Ingredient Ointment 1 applic 05/16/23 22:50 05/19/23 21:02 Zinc Oxide 20% Oint 30 Gm Tube TOP 1 applic PRN PRN Administration Skin Care Nicotine 1 patch 05/18/23 09:00 05/23/23 09:07 Nicotine 14 Mg Patch TOP 1 patch DAILY CATHI Administration Olanzapine 5 mg 05/17/23 19:57 05/21/23 14:13 Olanzapine Odt 5 Mg Tablet TL 5 mg DAILY PRN Administration Agitation Oxycodone HCl 5 mg 05/16/23 14:47 05/17/23 12:14 Oxycodone 5 Mg Tablet PO 5 mg Q4HR PRN Administration Pain 5 to 7 Quetiapine Fumarate 25 mg 05/17/23 21:00 05/22/23 21:01 Quetiapine 25 Mg Tablet PO 25 mg QPM CATHI Administration Sertraline HCl 50 mg 05/17/23 09:00 05/23/23 09:07 Sertraline 50 Mg Tablet PO 50 mg DAILY CATHI Administration Sodium Chloride 10 ml 05/16/23 17:00 05/23/23 09:07 Sodium Chloride Flush 0.9% 10 Ml Syringe IVP Not Given 0100,0900,1700 [facility] Tamsulosin HCl 0.4 mg 05/18/23 09:00 05/23/23 09:07 Tamsulosin 0.4 Mg Capsule PO 0.4 mg DAILY CATHI Administration - Lab Result Fish Bone Diagrams: 05/21/23 05:22 05/23/23 04:49 Subjective - Subjective Patient Reports: Resting Comfortably, No Complaints Objective Vital Signs: Vital Signs - 24 hr 05/22/23 05/22/23 05/23/23 20:14 20:15 00:41 Temperature 36.5 C 36.7 C Heart Rate [ 73 65 Brachial] Respiratory 24 16 Rate Blood Pressure 141/80 H 124/74 [Right Brachial artery] O2 Saturation 96 97 If not protocol 3 3 3 : Oxygen Flow, liters/minute 05/23/23 05/23/23 05/23/23 05:34 07:38 13:43 Temperature 36.2 C L 36.8 C 36.8 C Heart Rate [ 66 72 72 Brachial] Respiratory 16 20 18 Rate Blood Pressure 150/65 H 105/54 L 116/65 [Right Brachial artery] O2 Saturation 95 95 96 If not protocol 3 3 2 : Oxygen Flow, liters/minute Oxygen O2 Source Nasal cannula Oxygen Flow Rate 4 I&O (Last 24 Hrs): Intake and Output Totals x24h 05/21/23 05/22/23 05/23/23 23:59 23:59 23:59 Intake Total 1130 1120 1080 Output Total 2175 1850 Balance -1045 -730 1080 General: No acute distress HEENT: Mucous membr. moist/pink Neck: Supple Neuro: Alert, Disoriented Cardiovascular: No murmurs Respiratory: No respiratory distress Abdomen: Soft Extremities: No tenderness/swelling - Results Results: Laboratory Results WBC 7.3 x10^3/uL (4.8-10.8) 05/21/23 05:22 RBC 5.21 10^6/uL (4.70-6.10) 05/21/23 05:22 Hgb 14.4 g/dL (14.0-18.0) 05/21/23 05:22 Hct 46.2 % (42.0-52.0) 05/21/23 05:22 MCV 88.7 fL (80.0-94.0) 05/21/23 05:22 MCH 27.6 pg (27.0-31.0) 05/21/23 05:22 MCHC 31.2 g/dL (32.0-36.0) L 05/21/23 05:22 RDW 16.2 % (12.0-15.0) H 05/21/23 05:22 Plt Count 132 10^3/uL (130-450) 05/21/23 05:22 MPV 12.0 fL (7.4-11.4) H 05/21/23 05:22 Neut # (Auto) 4.7 10^3/uL (1.5-6.6) 05/21/23 05:22 Lymph # (Auto) 1.8 10^3/uL (1.5-3.5) 05/21/23 05:22 [place] # (Auto) 0.5 10^3/uL (0.0-1.0) 05/21/23 05:22 Eos # (Auto) 0.2 10^3/uL (0.0-0.7) 05/21/23 05:22 Baso # (Auto) 0.0 10^3/uL (0.0-0.1) 05/21/23 05:22 Absolute Nucleated RBC 0.00 x10^3/uL 05/21/23 05:22 Nucleated RBC % 0.0 /100WBC 05/21/23 05:22 Sodium 135 mmol/L (135-145) 05/23/23 04:49 Potassium 4.0 mmol/L (3.5-4.5) 05/23/23 04:49 Chloride 101 mmol/L (101-111) 05/23/23 04:49 Carbon Dioxide 29 mmol/L (21-32) 05/23/23 04:49 Anion Gap 5.0 (6-13) L 05/23/23 04:49 BUN 28 mg/dL (6-20) H 05/23/23 04:49 Creatinine 1.5 mg/dL (0.6-1.3) H 05/23/23 04:49 Estimated GFR (MDRD) 45 (>89) L 05/23/23 04:49 Glucose 96 mg/dL (74-104) 05/23/23 04:49 POC Whole Bld Glucose 263 mg/dL (70 - 100) H 05/23/23 11:26 Estimat Average Glucose 148 mg/dL (70-100) H 05/17/23 05:18 Hemoglobin A1c % 6.8 % (4.27-6.07) H 05/17/23 05:18 Lactic Acid 1.0 mmol/L (0.5-2.2) 05/15/23 15:40 Calcium 9.2 mg/dL (8.5-10.3) 05/23/23 04:49 Magnesium 1.7 mg/dL (1.7-2.3) 05/10/23 14:20 Total Bilirubin 0.5 mg/dL (0.2-1.0) 05/15/23 15:40 AST 31 IU/L (10-42) 05/15/23 15:40 ALT 28 IU/L (10-60) 05/15/23 15:40 Alkaline Phosphatase 64 IU/L (42-121) 05/15/23 15:40 B-Natriuretic Peptide 137 pg/mL (5-100) H 05/15/23 15:40 Total Protein 7.3 g/dL (6.4-8.9) 05/15/23 15:40 Albumin 3.4 g/dL (3.2-5.5) 05/15/23 15:40 Globulin 3.9 g/dL (2.1-4.2) 05/15/23 15:40 Albumin/Globulin Ratio 0.9 (1.0-2.2) L 05/15/23 15:40 Lipase 32 U/L (11-82) 05/15/23 15:40 Urine Color DARK YELLOW 05/10/23 14:20 Urine Clarity CLEAR (CLEAR) 05/10/23 14:20 Urine pH 5.5 PH (5.0-7.5) 05/10/23 14:20 Ur Specific [place] >=1.030 (1.002-1.030) H 05/10/23 14:20 Urine Protein 100 mg/dL (NEGATIVE) H 05/10/23 14:20 Urine Glucose (UA) 100 mg/dL (NEGATIVE) H 05/10/23 14:20 Urine Ketones TRACE mg/dL (NEGATIVE) 05/10/23 14:20 Urine Occult Blood NEGATIVE (NEGATIVE) 05/10/23 14:20 Urine Nitrite NEGATIVE (NEGATIVE) 05/10/23 14:20 Urine Bilirubin NEGATIVE (NEGATIVE) 05/10/23 14:20 Urine Urobilinogen 0.2 (NORMAL) E.U./dL (NORMAL) 05/10/23 14:20 Ur Leukocyte Esterase NEGATIVE (NEGATIVE) 05/10/23 14:20 Urine RBC 0-5 /HPF (0-5) 05/10/23 14:20 Urine WBC 0-3 /HPF (0-3) 05/10/23 14:20 Ur Squamous Epith Cells RARE Squamous (<= Few) 05/10/23 14:20 Urine Bacteria Rare /HPF (None Seen) 05/10/23 14:20 Ur Microscopic Review INDICATED 05/10/23 14:20 Urine Culture Comments NOT INDICATED 05/10/23 14:20 Nasal Adenovirus (PCR) NOT DETECTED 05/15/23 17:10 Nasal B. parapertussis DNA (PCR) NOT DETECTED 05/15/23 17:10 Nasal Coronavir 229E PCR NOT DETECTED 05/15/23 17:10 Nasal Coronavir HKU1 PCR NOT DETECTED 05/15/23 17:10 Nasal Coronavir NL63 PCR NOT DETECTED 05/15/23 17:10 Nasal Coronavir OC43 PCR NOT DETECTED 05/15/23 17:10 Nasal Enterovir/Rhinovir PCR NOT DETECTED 05/15/23 17:10 Nasal Influenza B PCR NOT DETECTED 05/15/23 17:10 Nasal Influenza A PCR NOT DETECTED 05/15/23 17:10 Nasal Parainfluen 1 PCR NOT DETECTED 05/15/23 17:10 Nasal Parainfluen 2 PCR NOT DETECTED 05/15/23 17:10 Nasal Parainfluen 3 PCR NOT DETECTED 05/15/23 17:10 Nasal Parainfluen 4 PCR NOT DETECTED 05/15/23 17:10 Nasal RSV (PCR) NOT DETECTED 05/15/23 17:10 Nasal B.pertussis DNA PCR NOT DETECTED 05/15/23 17:10 Nasal C.pneumoniae (PCR) NOT DETECTED 05/15/23 17:10 [place] Human Metapneumo PCR NOT DETECTED 05/15/23 17:10 Nasal M.pneumoniae (PCR) NOT DETECTED 05/15/23 17:10 Nasal SARS-CoV-2 (PCR) NOT DETECTED 05/15/23 17:10 - Procedures Procedures: Procedures ENDO RECTUM POLYPECTOMY (01/07/13)
--- NOTE | 2023-05-24 11:41 | PROVIDER PROGRESS NOTE ---
Assessment/Plan - Problem List (1) Acute kidney injury Assessment/Plan: A retroperitneal US showed a 4 cm lesion on left kidney with mural nodularity, but nodularity was not seen on prior US. Advised to follow up in 3-6 months. Given there was no sign of obstruction, I suspect his ENOCH is due to dehydration. His ENOCH was likely due to dehydration in the setting of poor oral intake secondary to dementia. Patient is eating/drinking normally now. He is medically cleared and does not meet criteria to be inpatient status. Plan: Medically ready for discharge, but due to dementia, he cannot sign consents. Social work is putting together a disposition with guardianship and will discharge as soon as everything is legally finished. Encourage oral intake of fluids A follow-up US was rec in 3-6 months (2) Risk for falls Impression: Patient had a fall on 05/19 while trying to get out of the bed. He had a small laceration to his right knee and some abrasions on his right hip. Prior to his fall, he was agitated and given Ativan. I suspect that his fall was due to sedation. Plan: Mminimize sedation unless absolutely necessary We activated fall risk protocol. (3) Urinary retention Impression: Patient complained of lower abdominal pain on 05/16 and a bladder scan showed 888 mL of urine. Patient was straight cathed. A morse catheter was inserted on 05/17. Morse removed on 05/21. Plan: Cont low dose Flomax 0.4 mg daily Bladder scan if patient complains of symptoms of urinary retention (4) Chronic Atrial fibrillation Impression: Patient has a history of A-fib on Eliquis. Currently no symptoms and is well managed with medication. 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 Mr. Dunne was seen in clinic in fall 2022 where a mini mental status exam was done and he passed, with a 28/30. No cognitive deficits were noted at that time. It is concerning that his mental status could have deteriorated thiat quickly. We considered causes such as drug use, potential stroke, or brain tumor. However, these all seem unlikely as his CT in the ER was negative for any acute findings. It is possible that he could have some degree of brain damage from being hypoglycemic for unknown lengths of time. Patient was found extremely hyp oglycemic prior to his admission and had not been heard from in a few days. In this case, the brain damage may be irreversible. He was also seen for altered mental status in the past that was believed to be due to hypoglycemia as well. He needed Ativan q6 hours PRN for agitation Plan: If agitated, may give home dose of Xyprexa, small dose of Seroquel or Ativan q6 PRN SW is working on placement after guardiamship is established (6) Hypertension Impression: Currently, his blood pressure is in the normal range on Metoprolol. Plan: Continue on home dose of Metoprolol Hold Losartan and amlodipine for now as blood pressure is normal (7) Type 2 diabetes mellitus, controlled Impression: Plan: I will resume his home med Glipizide Continue on Lantus to 22 units at night, 10 in the morning, and 5 with meals + sliding scale. Blood sugar checks before meals and before bed (8) Altered mental status Impression: RESOLVED. Patient was admitted with altered mental status, likely due to hypoglycemia, dehydration and poor oral intake. Patient may not have eaten in a few days. (9) Dehydration Impression: RESOLVED. Patient was likely dehydrated due to poor oral intake in the setting of dementia. His electrolytes have normalized and he no longer requires IV hydration as he is eating/drinking well. - Current Meds Current Meds: Current Medications Generic Name Dose Route Start Last Admin Trade Name Freq PRN Reason Stop Dose Admin Apixaban 5 mg 05/16/23 21:00 05/24/23 08:22 Apixaban 5 Mg Tablet PO 5 mg BID CATHI Administration Bupropion HCl 150 mg 05/17/23 09:00 05/24/23 08:22 Bupropion Sr 150 Mg Tablet PO 150 mg DAILY CATHI Administration Insulin Glargine-yfgn 22 unit 05/19/23 21:00 05/23/23 21:46 Insulin Glargine-Yfgn 300 Unit/3 Ml Pen SUBQ 22 unit QPM CATHI Administration Insulin Glargine-yfgn 10 unit 05/23/23 07:00 05/24/23 08:23 Insulin Glargine-Yfgn 300 Unit/3 Ml Pen SUBQ 10 unit QDAC CATHI Administration Insulin Human Lispro 5 unit 05/16/23 19:00 05/24/23 08:22 Insulin Lispro 300 Unit/3 Ml Pen SUBQ 5 unit TIDWM CATHI Administration Protocol Insulin Human Lispro 1 - 9 unit 05/21/23 08:00 05/24/23 08:23 Insulin Lispro 300 Unit/3 Ml Pen SUBQ 3 unit 0800,1200,1700,2100 CATHI Administration Protocol Lorazepam 0.5 mg 05/19/23 18:50 05/19/23 19:13 Lorazepam 0.5 Mg Tablet PO 0.5 mg Q6H PRN Administration Anxiety Metoprolol Succinate 50 mg 05/16/23 21:00 05/24/23 08:22 Metoprolol Succinate 50 Mg Tablet PO 50 mg BID CATHI Administration Multi-Ingredient Ointment 1 applic 05/16/23 22:50 05/19/23 21:02 Zinc Oxide 20% Oint 30 Gm Tube TOP 1 applic PRN PRN Administration Skin Care Nicotine 1 patch 05/18/23 09:00 05/24/23 08:24 Nicotine 14 Mg Patch TOP 1 patch DAILY CATHI Administration Olanzapine 5 mg 05/17/23 19:57 05/23/23 21:40 Olanzapine Odt 5 Mg Tablet TL 5 mg DAILY PRN Administration Agitation Oxycodone HCl 5 mg 05/16/23 14:47 05/17/23 12:14 Oxycodone 5 Mg Tablet PO 5 mg Q4HR PRN Administration Pain 5 to 7 Quetiapine Fumarate 25 mg 05/17/23 21:00 05/23/23 21:45 Quetiapine 25 Mg Tablet PO 25 mg QPM CATHI Administration Sertraline HCl 50 mg 05/17/23 09:00 05/24/23 08:24 Sertraline 50 Mg Tablet PO 50 mg DAILY CATHI Administration Sodium Chloride 10 ml 05/16/23 17:00 05/24/23 08:24 Sodium Chloride Flush 0.9% 10 Ml Syringe IVP 10 ml 0100,0900,1700 [facility] Administration Tamsulosin HCl 0.4 mg 05/18/23 09:00 05/24/23 08:22 Tamsulosin 0.4 Mg Capsule PO 0.4 mg DAILY CATHI Administration - Lab Result Fish Bone Diagrams: 05/21/23 05:22 05/23/23 04:49 Subjective - Subjective Patient Reports: No Complaints Objective Vital Signs: Vital Signs - 24 hr 05/23/23 05/23/23 05/24/23 13:43 22:50 03:02 Temperature 36.8 C 36.7 C Heart Rate [ 72 71 Brachial] Respiratory 18 18 Rate Blood Pressure 116/65 144/77 H [Right Brachial artery] O2 Saturation 96 92 If not protocol 2 2 2 : Oxygen Flow, liters/minute 05/24/23 07:26 Temperature 37.1 C Heart Rate [ 63 Brachial] Respiratory 20 Rate Blood Pressure 111/66 [Right Brachial artery] O2 Saturation 93 If not protocol 2 : Oxygen Flow, liters/minute Oxygen O2 Source Nasal cannula Oxygen Flow Rate 4 I&O (Last 24 Hrs): Intake and Output Totals x24h 05/22/23 05/23/23 05/24/23 23:59 23:59 23:59 Intake Total 1120 1200 760 Output Total 1850 470 100 Balance -730 730 660 General: Alert HEENT: Mucous membr. moist/pink Neck: Supple, No JVD Neuro: Alert, Non Focal, Other (Poor memory) Cardiovascular: Regular rate Respiratory: No respiratory distress - Results Results: Laboratory Results WBC 7.3 x10^3/uL (4.8-10.8) 05/21/23 05:22 RBC 5.21 10^6/uL (4.70-6.10) 05/21/23 05:22 Hgb 14.4 g/dL (14.0-18.0) 05/21/23 05:22 Hct 46.2 % (42.0-52.0) 05/21/23 05:22 MCV 88.7 fL (80.0-94.0) 05/21/23 05:22 MCH 27.6 pg (27.0-31.0) 05/21/23 05:22 MCHC 31.2 g/dL (32.0-36.0) L 05/21/23 05:22 RDW 16.2 % (12.0-15.0) H 05/21/23 05:22 Plt Count 132 10^3/uL (130-450) 05/21/23 05:22 MPV 12.0 fL (7.4-11.4) H 05/21/23 05:22 Neut # (Auto) 4.7 10^3/uL (1.5-6.6) 05/21/23 05:22 Lymph # (Auto) 1.8 10^3/uL (1.5-3.5) 05/21/23 05:22 [place] # (Auto) 0.5 10^3/uL (0.0-1.0) 05/21/23 05:22 Eos # (Auto) 0.2 10^3/uL (0.0-0.7) 05/21/23 05:22 Baso # (Auto) 0.0 10^3/uL (0.0-0.1) 05/21/23 05:22 Absolute Nucleated RBC 0.00 x10^3/uL 05/21/23 05:22 Nucleated RBC % 0.0 /100WBC 05/21/23 05:22 Sodium 135 mmol/L (135-145) 05/23/23 04:49 Potassium 4.0 mmol/L (3.5-4.5) 05/23/23 04:49 Chloride 101 mmol/L (101-111) 05/23/23 04:49 Carbon Dioxide 29 mmol/L (21-32) 05/23/23 04:49 Anion Gap 5.0 (6-13) L 05/23/23 04:49 BUN 28 mg/dL (6-20) H 05/23/23 04:49 Creatinine 1.5 mg/dL (0.6-1.3) H 05/23/23 04:49 Estimated GFR (MDRD) 45 (>89) L 05/23/23 04:49 Glucose 96 mg/dL (74-104) 05/23/23 04:49 POC Whole Bld Glucose 278 mg/dL (70 - 100) H 05/24/23 11:20 Estimat Average Glucose 148 mg/dL (70-100) H 05/17/23 05:18 Hemoglobin A1c % 6.8 % (4.27-6.07) H 05/17/23 05:18 Lactic Acid 1.0 mmol/L (0.5-2.2) 05/15/23 15:40 Calcium 9.2 mg/dL (8.5-10.3) 05/23/23 04:49 Magnesium 1.7 mg/dL (1.7-2.3) 05/10/23 14:20 Total Bilirubin 0.5 mg/dL (0.2-1.0) 05/15/23 15:40 AST 31 IU/L (10-42) 05/15/23 15:40 ALT 28 IU/L (10-60) 05/15/23 15:40 Alkaline Phosphatase 64 IU/L (42-121) 05/15/23 15:40 B-Natriuretic Peptide 137 pg/mL (5-100) H 05/15/23 15:40 Total Protein 7.3 g/dL (6.4-8.9) 05/15/23 15:40 Albumin 3.4 g/dL (3.2-5.5) 05/15/23 15:40 Globulin 3.9 g/dL (2.1-4.2) 05/15/23 15:40 Albumin/Globulin Ratio 0.9 (1.0-2.2) L 05/15/23 15:40 Lipase 32 U/L (11-82) 05/15/23 15:40 Urine Color DARK YELLOW 05/10/23 14:20 Urine Clarity CLEAR (CLEAR) 05/10/23 14:20 Urine pH 5.5 PH (5.0-7.5) 05/10/23 14:20 Ur Specific [place] >=1.030 (1.002-1.030) H 05/10/23 14:20 Urine Protein 100 mg/dL (NEGATIVE) H 05/10/23 14:20 Urine Glucose (UA) 100 mg/dL (NEGATIVE) H 05/10/23 14:20 Urine Ketones TRACE mg/dL (NEGATIVE) 05/10/23 14:20 Urine Occult Blood NEGATIVE (NEGATIVE) 05/10/23 14:20 Urine Nitrite NEGATIVE (NEGATIVE) 05/10/23 14:20 Urine Bilirubin NEGATIVE (NEGATIVE) 05/10/23 14:20 Urine Urobilinogen 0.2 (NORMAL) E.U./dL (NORMAL) 05/10/23 14:20 Ur Leukocyte Esterase NEGATIVE (NEGATIVE) 05/10/23 14:20 Urine RBC 0-5 /HPF (0-5) 05/10/23 14:20 Urine WBC 0-3 /HPF (0-3) 05/10/23 14:20 Ur Squamous Epith Cells RARE Squamous (<= Few) 05/10/23 14:20 Urine Bacteria Rare /HPF (None Seen) 05/10/23 14:20 Ur Microscopic Review INDICATED 05/10/23 14:20 Urine Culture Comments NOT INDICATED 05/10/23 14:20 Nasal Adenovirus (PCR) NOT DETECTED 05/15/23 17:10 Nasal B. parapertussis DNA (PCR) NOT DETECTED 05/15/23 17:10 Nasal Coronavir 229E PCR NOT DETECTED 05/15/23 17:10 Nasal Coronavir HKU1 PCR NOT DETECTED 05/15/23 17:10 Nasal Coronavir NL63 PCR NOT DETECTED 05/15/23 17:10 Nasal Coronavir OC43 PCR NOT DETECTED 05/15/23 17:10 Nasal Enterovir/Rhinovir PCR NOT DETECTED 05/15/23 17:10 Nasal Influenza B PCR NOT DETECTED 05/15/23 17:10 Nasal Influenza A PCR NOT DETECTED 05/15/23 17:10 Nasal Parainfluen 1 PCR NOT DETECTED 05/15/23 17:10 Nasal Parainfluen 2 PCR NOT DETECTED 05/15/23 17:10 Nasal Parainfluen 3 PCR NOT DETECTED 05/15/23 17:10 Nasal Parainfluen 4 PCR NOT DETECTED 05/15/23 17:10 Nasal RSV (PCR) NOT DETECTED 05/15/23 17:10 Nasal B.pertussis DNA PCR NOT DETECTED 05/15/23 17:10 Nasal C.pneumoniae (PCR) NOT DETECTED 05/15/23 17:10 [place] Human Metapneumo PCR NOT DETECTED 05/15/23 17:10 Nasal M.pneumoniae (PCR) NOT DETECTED 05/15/23 17:10 Nasal SARS-CoV-2 (PCR) NOT DETECTED 05/15/23 17:10 - Procedures Procedures: Procedures ENDO RECTUM POLYPECTOMY (01/07/13)
[2023-05-25] MEDS: allopurinoL 100 MG TABLET PO SCH (09:45)
--- NOTE | 2023-05-25 13:43 | PROVIDER PROGRESS NOTE ---
Assessment/Plan - Problem List (1) Acute kidney injury Assessment/Plan: A retroperitneal US showed a 4 cm lesion on left kidney with mural nodularity, but nodularity was not seen on prior US. Advised to follow up in 3-6 months. Given there was no sign of obstruction, I suspect his ENOCH is due to dehydration. His ENOCH was likely due to dehydration in the setting of poor oral intake secondary to dementia. Patient is eating/drinking normally now. He is medically cleared and does not meet criteria to be inpatient status. Plan: Medically ready for discharge, but due to dementia, he cannot sign consents. Social work is putting together a disposition with guardianship and will discharge as soon as everything is legally finished. Encourage oral intake of fluids A follow-up US was rec in 3-6 months (2) Risk for falls Impression: Patient had a fall on 05/19 while trying to get out of the bed. He had a small laceration to his right knee and some abrasions on his right hip. Prior to his fall, he was agitated and given Ativan. I suspect that his fall was due to sedation. Plan: Mminimize sedation unless absolutely necessary We activated fall risk protocol. (3) Urinary retention Impression: Patient complained of lower abdominal pain on 05/16 and a bladder scan showed 888 mL of urine. Patient was straight cathed. A morse catheter was inserted on 05/17. Morse removed on 05/21. Plan: Cont low dose Flomax 0.4 mg daily Bladder scan if patient complains of symptoms of urinary retention (4) Chronic Atrial fibrillation Impression: Patient has a history of A-fib on Eliquis. Currently no symptoms and is well managed with medication. 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 He needed Ativan q6 hours PRN for agitation earlier this hospital stay. Mr. Dunne was seen in clinic in fall 2022 where a mini mental status exam was done and he passed, with a 28/30. No cognitive deficits were noted at that time. It is concerning that his mental status could have deteriorated thiat quickly. We considered causes such as drug use, potential stroke, or brain tumor. However, these all seem unlikely as his CT in the ER was negative for any acute findings. It is possible that he could have some degree of brain damage from being hypoglycemic for unknown lengths of time. Patient was found extremely hypoglycemic prior to his admission and had not been heard from in a few days. In this case, the brain damage may be irreversible. He was also seen for altered mental status in the past that was believed to be due to hypoglycemia as well. Plan: If agitated, may give home dose of Xyprexa, or a small dose of Seroquel or Ativan q6 PRN SW is working on placement after guardianship is established (6) Hypertension Impression: Currently, his blood pressure is in the normal range on Metoprolol. Plan: Continue on home dose of Metoprolol Hold Losartan and amlodipine for now as blood pressure is normal (7) Type 2 diabetes mellitus, controlled Impression: Plan: I will resume his home med Glipizide Continue on Lantus to 22 units at night, 10 in the morning, and 5 with meals + sliding scale. Blood sugar checks before meals and before bed (8) Altered mental status Impression: RESOLVED. Patient was admitted with altered mental status, likely due to hypoglycemia, dehydration and poor oral intake. Patient may not have eaten in a few days. (9) Dehydration Impression: RESOLVED. Patient was likely dehydrated due to poor oral intake in the setting of dementia. His electrolytes have normalized and he no longer requires IV hydration as he is eating/drinking well. - Current Meds Current Meds: Current Medications Generic Name Dose Route Start Last Admin Trade Name Freq PRN Reason Stop Dose Admin Allopurinol 100 mg 05/25/23 09:00 05/25/23 09:45 Allopurinol 100 Mg Tablet PO 100 mg DAILY CATHI Administration Apixaban 5 mg 05/16/23 21:00 05/25/23 08:11 Apixaban 5 Mg Tablet PO 5 mg BID CATHI Administration Bupropion HCl 150 mg 05/17/23 09:00 05/25/23 08:11 Bupropion Sr 150 Mg Tablet PO 150 mg DAILY CATHI Administration Glipizide 10 mg 05/24/23 12:00 05/25/23 08:11 Glipizide Er 2.5 Mg Tablet PO 10 mg DAILY CATHI Administration Insulin Glargine-yfgn 22 unit 05/19/23 21:00 05/24/23 21:09 Insulin Glargine-Yfgn 300 Unit/3 Ml Pen SUBQ 22 unit QPM CATHI Administration Insulin Glargine-yfgn 10 unit 05/23/23 07:00 05/25/23 08:11 Insulin Glargine-Yfgn 300 Unit/3 Ml Pen SUBQ 10 unit QDAC CATHI Administration Insulin Human Lispro 5 unit 05/16/23 19:00 05/25/23 11:59 Insulin Lispro 300 Unit/3 Ml Pen SUBQ 5 unit TIDWM [facility] Administration Protocol Insulin Human Lispro 1 - 9 unit 05/21/23 08:00 05/25/23 11:59 Insulin Lispro 300 Unit/3 Ml Pen SUBQ 3 unit 0800,1200,1700,2100 [facility] Administration Protocol Lorazepam 0.5 mg 05/19/23 18:50 05/19/23 19:13 Lorazepam 0.5 Mg Tablet PO 0.5 mg Q6H PRN Administration Anxiety Metoprolol Succinate 50 mg 05/16/23 21:00 05/25/23 08:11 Metoprolol Succinate 50 Mg Tablet PO 50 mg BID CATHI Administration Multi-Ingredient Ointment 1 applic 05/16/23 22:50 05/19/23 21:02 Zinc Oxide 20% Oint 30 Gm Tube TOP 1 applic PRN PRN Administration Skin Care Nicotine 1 patch 05/18/23 09:00 05/25/23 08:08 Nicotine 14 Mg Patch TOP 1 patch DAILY CATHI Administration Olanzapine 5 mg 05/17/23 19:57 05/23/23 21:40 Olanzapine Odt 5 Mg Tablet TL 5 mg DAILY PRN Administration Agitation Oxycodone HCl 5 mg 05/16/23 14:47 05/17/23 12:14 Oxycodone 5 Mg Tablet PO 5 mg Q4HR PRN Administration Pain 5 to 7 Quetiapine Fumarate 25 mg 05/17/23 21:00 05/24/23 21:08 Quetiapine 25 Mg Tablet PO 25 mg QPM CATHI Administration Sertraline HCl 50 mg 05/17/23 09:00 05/25/23 08:11 Sertraline 50 Mg Tablet PO 50 mg DAILY CATHI Administration Sodium Chloride 10 ml 05/16/23 17:00 05/25/23 08:10 Sodium Chloride Flush 0.9% 10 Ml Syringe IVP Not Given 0100,0900,1700 [facility] Tamsulosin HCl 0.4 mg 05/18/23 09:00 05/25/23 08:11 Tamsulosin 0.4 Mg Capsule PO 0.4 mg DAILY CATHI Administration - Lab Result Fish Bone Diagrams: 05/21/23 05:22 05/23/23 04:49 - Additional Planning My Orders: My Active Orders 05/25/23 09:00 allopurinoL [Zyloprim] 100 mg PO DAILY Subjective - Subjective Patient Reports: Resting Comfortably, No Complaints Objective Vital Signs: Vital Signs - 24 hr 05/24/23 05/24/23 05/25/23 16:10 22:00 01:25 Temperature 36.8 C 36.6 C Heart Rate [ 72 74 Brachial] Respiratory 16 18 Rate Blood Pressure 118/73 129/63 [Right Brachial artery] O2 Saturation 96 94 If not protocol 2 2 2 : Oxygen Flow, liters/minute 05/25/23 08:06 Temperature 36.3 C L Heart Rate [ 64 Brachial] Respiratory 20 Rate Blood Pressure 145/75 H [Right Brachial artery] O2 Saturation If not protocol 2 : Oxygen Flow, liters/minute Oxygen O2 Source Nasal cannula Oxygen Flow Rate 4 I&O (Last 24 Hrs): Intake and Output Totals x24h 05/23/23 05/24/23 05/25/23 23:59 23:59 23:59 Intake Total 1200 1350 780 Output Total 470 100 Balance 730 1250 780 General: Alert, No acute distress HEENT: EOMI, Mucous membr. moist/pink Neck: Supple, No JVD Neuro: Alert, Non Focal, Other (Poor memory) Cardiovascular: No murmurs Respiratory: No respiratory distress Abdomen: Soft Extremities: No edema - Results Results: Laboratory Results WBC 7.3 x10^3/uL (4.8-10.8) 05/21/23 05:22 RBC 5.21 10^6/uL (4.70-6.10) 05/21/23 05:22 Hgb 14.4 g/dL (14.0-18.0) 05/21/23 05:22 Hct 46.2 % (42.0-52.0) 05/21/23 05:22 MCV 88.7 fL (80.0-94.0) 05/21/23 05:22 MCH 27.6 pg (27.0-31.0) 05/21/23 05:22 MCHC 31.2 g/dL (32.0-36.0) L 05/21/23 05:22 RDW 16.2 % (12.0-15.0) H 05/21/23 05:22 Plt Count 132 10^3/uL (130-450) 05/21/23 05:22 MPV 12.0 fL (7.4-11.4) H 05/21/23 05:22 Neut # (Auto) 4.7 10^3/uL (1.5-6.6) 05/21/23 05:22 Lymph # (Auto) 1.8 10^3/uL (1.5-3.5) 05/21/23 05:22 [place] # (Auto) 0.5 10^3/uL (0.0-1.0) 05/21/23 05:22 Eos # (Auto) 0.2 10^3/uL (0.0-0.7) 05/21/23 05:22 Baso # (Auto) 0.0 10^3/uL (0.0-0.1) 05/21/23 05:22 Absolute Nucleated RBC 0.00 x10^3/uL 05/21/23 05:22 Nucleated RBC % 0.0 /100WBC 05/21/23 05:22 Sodium 135 mmol/L (135-145) 05/23/23 04:49 Potassium 4.0 mmol/L (3.5-4.5) 05/23/23 04:49 Chloride 101 mmol/L (101-111) 05/23/23 04:49 Carbon Dioxide 29 mmol/L (21-32) 05/23/23 04:49 Anion Gap 5.0 (6-13) L 05/23/23 04:49 BUN 28 mg/dL (6-20) H 05/23/23 04:49 Creatinine 1.5 mg/dL (0.6-1.3) H 05/23/23 04:49 Estimated GFR (MDRD) 45 (>89) L 05/23/23 04:49 Glucose 96 mg/dL (74-104) 05/23/23 04:49 POC Whole Bld Glucose 207 mg/dL (70 - 100) H 05/25/23 10:57 Estimat Average Glucose 148 mg/dL (70-100) H 05/17/23 05:18 Hemoglobin A1c % 6.8 % (4.27-6.07) H 05/17/23 05:18 Lactic Acid 1.0 mmol/L (0.5-2.2) 05/15/23 15:40 Calcium 9.2 mg/dL (8.5-10.3) 05/23/23 04:49 Magnesium 1.7 mg/dL (1.7-2.3) 05/10/23 14:20 Total Bilirubin 0.5 mg/dL (0.2-1.0) 05/15/23 15:40 AST 31 IU/L (10-42) 05/15/23 15:40 ALT 28 IU/L (10-60) 05/15/23 15:40 Alkaline Phosphatase 64 IU/L (42-121) 05/15/23 15:40 B-Natriuretic Peptide 137 pg/mL (5-100) H 05/15/23 15:40 Total Protein 7.3 g/dL (6.4-8.9) 05/15/23 15:40 Albumin 3.4 g/dL (3.2-5.5) 05/15/23 15:40 Globulin 3.9 g/dL (2.1-4.2) 05/15/23 15:40 Albumin/Globulin Ratio 0.9 (1.0-2.2) L 05/15/23 15:40 Lipase 32 U/L (11-82) 05/15/23 15:40 Urine Color DARK YELLOW 05/10/23 14:20 Urine Clarity CLEAR (CLEAR) 05/10/23 14:20 Urine pH 5.5 PH (5.0-7.5) 05/10/23 14:20 Ur Specific [place] >=1.030 (1.002-1.030) H 05/10/23 14:20 Urine Protein 100 mg/dL (NEGATIVE) H 05/10/23 14:20 Urine Glucose (UA) 100 mg/dL (NEGATIVE) H 05/10/23 14:20 Urine Ketones TRACE mg/dL (NEGATIVE) 05/10/23 14:20 Urine Occult Blood NEGATIVE (NEGATIVE) 05/10/23 14:20 Urine Nitrite NEGATIVE (NEGATIVE) 05/10/23 14:20 Urine Bilirubin NEGATIVE (NEGATIVE) 05/10/23 14:20 Urine Urobilinogen 0.2 (NORMAL) E.U./dL (NORMAL) 05/10/23 14:20 Ur Leukocyte Esterase NEGATIVE (NEGATIVE) 05/10/23 14:20 Urine RBC 0-5 /HPF (0-5) 05/10/23 14:20 Urine WBC 0-3 /HPF (0-3) 05/10/23 14:20 Ur Squamous Epith Cells RARE Squamous (<= Few) 05/10/23 14:20 Urine Bacteria Rare /HPF (None Seen) 05/10/23 14:20 Ur Microscopic Review INDICATED 05/10/23 14:20 Urine Culture Comments NOT INDICATED 05/10/23 14:20 Nasal Adenovirus (PCR) NOT DETECTED 05/15/23 17:10 Nasal B. parapertussis DNA (PCR) NOT DETECTED 05/15/23 17:10 Nasal Coronavir 229E PCR NOT DETECTED 05/15/23 17:10 Nasal Coronavir HKU1 PCR NOT DETECTED 05/15/23 17:10 Nasal Coronavir NL63 PCR NOT DETECTED 05/15/23 17:10 Nasal Coronavir OC43 PCR NOT DETECTED 05/15/23 17:10 Nasal Enterovir/Rhinovir PCR NOT DETECTED 05/15/23 17:10 Nasal Influenza B PCR NOT DETECTED 05/15/23 17:10 Nasal Influenza A PCR NOT DETECTED 05/15/23 17:10 Nasal Parainfluen 1 PCR NOT DETECTED 05/15/23 17:10 Nasal Parainfluen 2 PCR NOT DETECTED 05/15/23 17:10 Nasal Parainfluen 3 PCR NOT DETECTED 05/15/23 17:10 Nasal Parainfluen 4 PCR NOT DETECTED 05/15/23 17:10 Nasal RSV (PCR) NOT DETECTED 05/15/23 17:10 Nasal B.pertussis DNA PCR NOT DETECTED 05/15/23 17:10 Nasal C.pneumoniae (PCR) NOT DETECTED 05/15/23 17:10 [place] Human Metapneumo PCR NOT DETECTED 05/15/23 17:10 Nasal M.pneumoniae (PCR) NOT DETECTED 05/15/23 17:10 Nasal SARS-CoV-2 (PCR) NOT DETECTED 05/15/23 17:10 - Procedures Procedures: Procedures ENDO RECTUM POLYPECTOMY (01/07/13)
--- NOTE | 2023-05-26 18:15 | PROVIDER PROGRESS NOTE ---
Assessment/Plan - Problem List (1) Acute kidney injury Assessment/Plan: A retroperitneal US showed a 4 cm lesion on left kidney with mural nodularity, but nodularity was not seen on prior US. Advised to follow up in 3-6 months. Given there was no sign of obstruction, I suspect his ENOCH is due to dehydration. His ENOCH was likely due to dehydration in the setting of poor oral intake secondary to dementia. Patient is eating/drinking normally now. He is medically cleared and does not meet criteria to be inpatient status. His electrolytes have normalized Plan: Medically ready for discharge, but due to dementia, he cannot sign consents. Social work is putting together a disposition with guardianship and will discharge as soon as everything is legally finished. Encourage oral intake of fluids A follow-up US was rec in 3-6 months (2) Risk for falls Impression: Patient had a fall on 05/19 while trying to get out of the bed. He had a small laceration to his right knee and some abrasions on his right hip. Prior to his fall, he was agitated and given Ativan. I suspect that his fall was due to sedation. Plan: Mminimize sedation unless absolutely necessary We activated fall risk protocol. (3) Urinary retention Impression: Patient complained of lower abdominal pain on 05/16 and a bladder scan showed 888 mL of urine. Patient was straight cathed. A morse catheter was inserted on 05/17. Morse removed on 05/21. Plan: Cont low dose Flomax 0.4 mg daily Bladder scan if patient complains of symptoms of urinary retention (4) Chronic Atrial fibrillation Impression: Patient has a history of A-fib on Eliquis. Currently no symptoms and is well managed with medication. 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 He needed Ativan q6 hours PRN for agitation earlier this hospital stay. Mr. Dunne was seen in clinic in fall 2022 where a mini mental status exam was done and he passed, with a 28/30. No cognitive deficits were noted at that time. It is concerning that his mental status could have deteriorated thiat quickly. We considered causes such as drug use, potential stroke, or brain tumor. However, these all seem unlikely as his CT in the ER was negative for any acute findings. It is possible that he could have some degree of brain damage from being hypoglycemic for unknown lengths of time. Patient was found extremely hypoglycemic prior to his admission and had not been heard from in a few days. In this case, the brain damage may be irreversible. He was also seen for altered mental status in the past that was believed to be due to hypoglycemia as well. Plan: If agitated, may give home dose of Xyprexa, or a small dose of Seroquel or Ativan q6 PRN SW is working on placement after guardianship is established (6) Hypertension Impression: Currently, his blood pressure is in the normal range on Metoprolol. Plan: Continue on home dose of Metoprolol Cont to hold Losartan and amlodipine for now as blood pressure is normal (7) Type 2 diabetes mellitus, controlled Impression: Plan: I will resume his home med Glipizide Continue on Lantus to 22 units at night, 10 in the morning, and 5 with meals + sliding scale. Blood sugar checks before meals and before bed (8) Altered mental status Impression: RESOLVED. Patient was admitted with altered mental status, likely due to hypoglycemia, dehydration and poor oral intake. Patient may not have eaten in a few days. (9) Dehydration Impression: RESOLVED. Patient was likely dehydrated due to poor oral intake in the setting of dementia. His electrolytes have normalized and he no longer requires IV hydration as he is eating/drinking well. - Current Meds Current Meds: Current Medications Generic Name Dose Route Start Last Admin Trade Name Freq PRN Reason Stop Dose Admin Allopurinol 100 mg 05/25/23 09:00 05/26/23 08:47 Allopurinol 100 Mg Tablet PO 100 mg DAILY CATHI Administration Apixaban 5 mg 05/16/23 21:00 05/26/23 08:47 Apixaban 5 Mg Tablet PO 5 mg BID CATHI Administration Bupropion HCl 150 mg 05/17/23 09:00 05/26/23 08:47 Bupropion Sr 150 Mg Tablet PO 150 mg DAILY CATHI Administration Glipizide 10 mg 05/24/23 12:00 05/26/23 08:46 Glipizide Er 2.5 Mg Tablet PO 10 mg DAILY CATHI Administration Insulin Glargine-yfgn 22 unit 05/19/23 21:00 05/25/23 20:33 Insulin Glargine-Yfgn 300 Unit/3 Ml Pen SUBQ 22 unit QPM CATHI Administration Insulin Glargine-yfgn 10 unit 05/23/23 07:00 05/26/23 08:06 Insulin Glargine-Yfgn 300 Unit/3 Ml Pen SUBQ 10 unit QDAC CATHI Administration Insulin Human Lispro 5 unit 05/16/23 19:00 05/26/23 16:57 Insulin Lispro 300 Unit/3 Ml Pen SUBQ 5 unit TIDWM [facility] Administration Protocol Insulin Human Lispro 1 - 9 unit 05/21/23 08:00 05/26/23 16:40 Insulin Lispro 300 Unit/3 Ml Pen SUBQ Not Given 0800,1200,1700,2100 [facility] Protocol Lorazepam 0.5 mg 05/19/23 18:50 05/19/23 19:13 Lorazepam 0.5 Mg Tablet PO 0.5 mg Q6H PRN Administration Anxiety Metoprolol Succinate 50 mg 05/16/23 21:00 05/26/23 08:46 Metoprolol Succinate 50 Mg Tablet PO 50 mg BID CATHI Administration Multi-Ingredient Ointment 1 applic 05/16/23 22:50 05/19/23 21:02 Zinc Oxide 20% Oint 30 Gm Tube TOP 1 applic PRN PRN Administration Skin Care Nicotine 1 patch 05/18/23 09:00 05/26/23 08:46 Nicotine 14 Mg Patch TOP 1 patch DAILY CATHI Administration Olanzapine 5 mg 05/17/23 19:57 05/23/23 21:40 Olanzapine Odt 5 Mg Tablet TL 5 mg DAILY PRN Administration Agitation Oxycodone HCl 5 mg 05/16/23 14:47 05/17/23 12:14 Oxycodone 5 Mg Tablet PO 5 mg Q4HR PRN Administration Pain 5 to 7 Quetiapine Fumarate 25 mg 05/17/23 21:00 05/25/23 20:32 Quetiapine 25 Mg Tablet PO 25 mg QPM CATHI Administration Sertraline HCl 50 mg 05/17/23 09:00 05/26/23 08:47 Sertraline 50 Mg Tablet PO 50 mg DAILY CATHI Administration Sodium Chloride 10 ml 05/16/23 17:00 05/26/23 16:57 Sodium Chloride Flush 0.9% 10 Ml Syringe IVP 10 ml 0100,0900,1700 CATHI Administration Tamsulosin HCl 0.4 mg 05/18/23 09:00 05/26/23 08:46 Tamsulosin 0.4 Mg Capsule PO 0.4 mg DAILY CAHTI Administration - Lab Result Fish Bone Diagrams: 05/21/23 05:22 05/23/23 04:49 Subjective - Subjective Patient Reports: Resting Comfortably, No Complaints Objective Vital Signs: Vital Signs - 24 hr 05/25/23 05/25/23 05/26/23 20:11 20:29 02:17 Temperature 36.8 C 37.1 C Heart Rate [ 75 69 Brachial] Respiratory 18 20 Rate Blood Pressure 117/59 L 139/74 H [Right Brachial artery] O2 Saturation 92 92 If not protocol 2 2 2 : Oxygen Flow, liters/minute 05/26/23 05/26/23 10:00 15:40 Temperature 37 C 36.7 C Heart Rate [ 73 68 Brachial] Respiratory 18 16 Rate Blood Pressure 144/60 H 121/71 [Right Brachial artery] O2 Saturation 92 98 If not protocol 2 2 : Oxygen Flow, liters/minute Oxygen O2 Source Nasal cannula Oxygen Flow Rate 4 I&O (Last 24 Hrs): Intake and Output Totals x24h 05/24/23 05/25/23 05/26/23 23:59 23:59 23:59 Intake Total 1350 1350 1120 Output Total 100 200 Balance 1250 1150 1120 General: Alert, No acute distress HEENT: EOMI, Mucous membr. moist/pink Neck: No JVD Neuro: Alert, Non Focal, Other (Poor memory) Cardiovascular: Other (irreg irreg) Respiratory: No respiratory distress Abdomen: Soft Extremities: No edema - Results Results: Laboratory Results WBC 7.3 x10^3/uL (4.8-10.8) 05/21/23 05:22 RBC 5.21 10^6/uL (4.70-6.10) 05/21/23 05:22 Hgb 14.4 g/dL (14.0-18.0) 05/21/23 05:22 Hct 46.2 % (42.0-52.0) 05/21/23 05:22 MCV 88.7 fL (80.0-94.0) 05/21/23 05:22 MCH 27.6 pg (27.0-31.0) 05/21/23 05:22 MCHC 31.2 g/dL (32.0-36.0) L 05/21/23 05:22 RDW 16.2 % (12.0-15.0) H 05/21/23 05:22 Plt Count 132 10^3/uL (130-450) 05/21/23 05:22 MPV 12.0 fL (7.4-11.4) H 05/21/23 05:22 Neut # (Auto) 4.7 10^3/uL (1.5-6.6) 05/21/23 05:22 Lymph # (Auto) 1.8 10^3/uL (1.5-3.5) 05/21/23 05:22 [place] # (Auto) 0.5 10^3/uL (0.0-1.0) 05/21/23 05:22 Eos # (Auto) 0.2 10^3/uL (0.0-0.7) 05/21/23 05:22 Baso # (Auto) 0.0 10^3/uL (0.0-0.1) 05/21/23 05:22 Absolute Nucleated RBC 0.00 x10^3/uL 05/21/23 05:22 Nucleated RBC % 0.0 /100WBC 05/21/23 05:22 Sodium 135 mmol/L (135-145) 05/23/23 04:49 Potassium 4.0 mmol/L (3.5-4.5) 05/23/23 04:49 Chloride 101 mmol/L (101-111) 05/23/23 04:49 Carbon Dioxide 29 mmol/L (21-32) 05/23/23 04:49 Anion Gap 5.0 (6-13) L 05/23/23 04:49 BUN 28 mg/dL (6-20) H 05/23/23 04:49 Creatinine 1.5 mg/dL (0.6-1.3) H 05/23/23 04:49 Estimated GFR (MDRD) 45 (>89) L 05/23/23 04:49 Glucose 96 mg/dL (74-104) 05/23/23 04:49 POC Whole Bld Glucose 223 mg/dL (70 - 100) H 05/26/23 11:31 Estimat Average Glucose 148 mg/dL (70-100) H 05/17/23 05:18 Hemoglobin A1c % 6.8 % (4.27-6.07) H 05/17/23 05:18 Lactic Acid 1.0 mmol/L (0.5-2.2) 05/15/23 15:40 Calcium 9.2 mg/dL (8.5-10.3) 05/23/23 04:49 Magnesium 1.7 mg/dL (1.7-2.3) 05/10/23 14:20 Total Bilirubin 0.5 mg/dL (0.2-1.0) 05/15/23 15:40 AST 31 IU/L (10-42) 05/15/23 15:40 ALT 28 IU/L (10-60) 05/15/23 15:40 Alkaline Phosphatase 64 IU/L (42-121) 05/15/23 15:40 B-Natriuretic Peptide 137 pg/mL (5-100) H 05/15/23 15:40 Total Protein 7.3 g/dL (6.4-8.9) 05/15/23 15:40 Albumin 3.4 g/dL (3.2-5.5) 05/15/23 15:40 Globulin 3.9 g/dL (2.1-4.2) 05/15/23 15:40 Albumin/Globulin Ratio 0.9 (1.0-2.2) L 05/15/23 15:40 Lipase 32 U/L (11-82) 05/15/23 15:40 Urine Color DARK YELLOW 05/10/23 14:20 Urine Clarity CLEAR (CLEAR) 05/10/23 14:20 Urine pH 5.5 PH (5.0-7.5) 05/10/23 14:20 Ur Specific [place] >=1.030 (1.002-1.030) H 05/10/23 14:20 Urine Protein 100 mg/dL (NEGATIVE) H 05/10/23 14:20 Urine Glucose (UA) 100 mg/dL (NEGATIVE) H 05/10/23 14:20 Urine Ketones TRACE mg/dL (NEGATIVE) 05/10/23 14:20 Urine Occult Blood NEGATIVE (NEGATIVE) 05/10/23 14:20 Urine Nitrite NEGATIVE (NEGATIVE) 05/10/23 14:20 Urine Bilirubin NEGATIVE (NEGATIVE) 05/10/23 14:20 Urine Urobilinogen 0.2 (NORMAL) E.U./dL (NORMAL) 05/10/23 14:20 Ur Leukocyte Esterase NEGATIVE (NEGATIVE) 05/10/23 14:20 Urine RBC 0-5 /HPF (0-5) 05/10/23 14:20 Urine WBC 0-3 /HPF (0-3) 05/10/23 14:20 Ur Squamous Epith Cells RARE Squamous (<= Few) 05/10/23 14:20 Urine Bacteria Rare /HPF (None Seen) 05/10/23 14:20 Ur Microscopic Review INDICATED 05/10/23 14:20 Urine Culture Comments NOT INDICATED 05/10/23 14:20 Nasal Adenovirus (PCR) NOT DETECTED 05/15/23 17:10 Nasal B. parapertussis DNA (PCR) NOT DETECTED 05/15/23 17:10 Nasal Coronavir 229E PCR NOT DETECTED 05/15/23 17:10 Nasal Coronavir HKU1 PCR NOT DETECTED 05/15/23 17:10 Nasal Coronavir NL63 PCR NOT DETECTED 05/15/23 17:10 Nasal Coronavir OC43 PCR NOT DETECTED 05/15/23 17:10 Nasal Enterovir/Rhinovir PCR NOT DETECTED 05/15/23 17:10 Nasal Influenza B PCR NOT DETECTED 05/15/23 17:10 Nasal Influenza A PCR NOT DETECTED 05/15/23 17:10 Nasal Parainfluen 1 PCR NOT DETECTED 05/15/23 17:10 Nasal Parainfluen 2 PCR NOT DETECTED 05/15/23 17:10 Nasal Parainfluen 3 PCR NOT DETECTED 05/15/23 17:10 Nasal Parainfluen 4 PCR NOT DETECTED 05/15/23 17:10 Nasal RSV (PCR) NOT DETECTED 05/15/23 17:10 Nasal B.pertussis DNA PCR NOT DETECTED 05/15/23 17:10 Nasal C.pneumoniae (PCR) NOT DETECTED 05/15/23 17:10 [place] Human Metapneumo PCR NOT DETECTED 05/15/23 17:10 Nasal M.pneumoniae (PCR) NOT DETECTED 05/15/23 17:10 Nasal SARS-CoV-2 (PCR) NOT DETECTED 05/15/23 17:10 - Procedures Procedures: Procedures ENDO RECTUM POLYPECTOMY (01/07/13)
--- NOTE | 2023-05-27 08:58 | PROVIDER PROGRESS NOTE ---
Assessment/Plan - Problem List (1) DM II (diabetes mellitus, type II), controlled Assessment/Plan: This morning his a.m. glucose was 86. He has been running glucoses between 100- 200 before this Plan: I will decrease his nighttime long-acting insulin from 22 units to 20 units Remain on the same mealtime insulin and a.m. long-acting insulin Continue with fingerstick checks and sliding scale insulin and hypoglycemia protocol (2) Acute kidney injury Assessment/Plan: A retroperitneal US showed a 4 cm lesion on left kidney with mural nodularity, but nodularity was not seen on prior US. Advised to follow up in 3-6 months. Given there was no sign of obstruction, I suspect his ENOCH is due to dehydration. His ENOCH was likely due to dehydration in the setting of poor oral intake secondary to dementia. Patient is eating/drinking normally now. He is medically cleared and does not meet criteria to be inpatient status. His electrolytes have normalized Plan: Medically ready for discharge, but due to dementia, he cannot sign consents. Social work is putting together a disposition with guardianship and will discharge as soon as everything is legally finished. Encourage oral intake of fluids A follow-up US was rec in 3-6 months (3) Risk for falls Impression: Patient had a fall on 05/19 while trying to get out of the bed. He had a small laceration to his right knee and some abrasions on his right hip. Prior to his fall, he was agitated and given Ativan. I suspect that his fall was due to sedation. Plan: Mminimize sedation unless absolutely necessary We activated fall risk protocol. (4) Urinary retention Impression: Patient complained of lower abdominal pain on 05/16 and a bladder scan showed 888 mL of urine. Patient was straight cathed. A morse catheter was inserted on 05/17. Morse removed on 05/21. Plan: Cont low dose Flomax 0.4 mg daily Bladder scan if patient complains of symptoms of urinary retention (5) Chronic Atrial fibrillation Impression: Patient has a history of A-fib on Eliquis. Currently no symptoms and is well m anaged with medication. 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 He needed Ativan q6 hours PRN for agitation earlier this hospital stay. Mr. Dunne was seen in clinic in fall 2022 where a mini mental status exam was done and he passed, with a 28/30. No cognitive deficits were noted at that time. It is concerning that his mental status could have deteriorated thiat quickly. We considered causes such as drug use, potential stroke, or brain tumor. However, these all seem unlikely as his CT in the ER was negative for any acute findings. It is possible that he could have some degree of brain damage from being hypoglycemic for unknown lengths of time. Patient was found extremely hypoglycemic prior to his admission and had not been heard from in a few days. In this case, the brain damage may be irreversible. He was also seen for altered mental status in the past that was believed to be due to hypoglycemia as well. Plan: If agitated, may give home dose of Xyprexa, or a small dose of Seroquel or Ativan q6 PRN SW is working on placement after guardianship is established (7) Hypertension Impression: Currently, his blood pressure is in the normal range on Metoprolol. Plan: Continue on home dose of Metoprolol Cont to hold Losartan and amlodipine for now as blood pressure is normal (8) Altered mental status Impression: RESOLVED. Patient was admitted with altered mental status, likely due to hypoglycemia, dehydration and poor oral intake. Patient may not have eaten in a few days. (9) Dehydration Impression: RESOLVED. Patient was likely dehydrated due to poor oral intake in the setting of dementia. His electrolytes have normalized and he no longer requires IV hydration as he is eating/drinking well. - Current Meds Current Meds: Current Medications Generic Name Dose Route Start Last Admin Trade Name Jennifer PRN Reason Stop Dose Admin Allopurinol 100 mg 05/25/23 09:00 05/26/23 08:47 Allopurinol 100 Mg Tablet PO 100 mg DAILY CATHI Administration Apixaban 5 mg 05/16/23 21:00 05/26/23 21:28 Apixaban 5 Mg Tablet PO 5 mg BID CATHI Administration Bupropion HCl 150 mg 05/17/23 09:00 05/26/23 08:47 Bupropion Sr 150 Mg Tablet PO 150 mg DAILY CATHI Administration Glipizide 10 mg 05/24/23 12:00 05/26/23 08:46 Glipizide Er 2.5 Mg Tablet PO 10 mg DAILY CATHI Administration Insulin Glargine-yfgn 10 unit 05/23/23 07:00 05/26/23 08:06 Insulin Glargine-Yfgn 300 Unit/3 Ml Pen SUBQ 10 unit QDAC CATHI Administration Insulin Human Lispro 5 unit 05/16/23 19:00 05/26/23 16:57 Insulin Lispro 300 Unit/3 Ml Pen SUBQ 5 unit TIDWM [facility] Administration Protocol Insulin Human Lispro 1 - 9 unit 05/21/23 08:00 05/26/23 20:34 Insulin Lispro 300 Unit/3 Ml Pen SUBQ Not Given 0800,1200,1700,2100 [facility] Protocol Lorazepam 0.5 mg 05/19/23 18:50 05/26/23 22:36 Lorazepam 0.5 Mg Tablet PO 0.5 mg Q6H PRN Administration Anxiety Metoprolol Succinate 50 mg 05/16/23 21:00 05/26/23 21:28 Metoprolol Succinate 50 Mg Tablet PO 50 mg BID CATHI Administration Multi-Ingredient Ointment 1 applic 05/16/23 22:50 05/19/23 21:02 Zinc Oxide 20% Oint 30 Gm Tube TOP 1 applic PRN PRN Administration Skin Care Nicotine 1 patch 05/18/23 09:00 05/26/23 08:46 Nicotine 14 Mg Patch TOP 1 patch DAILY CATHI Administration Olanzapine 5 mg 05/17/23 19:57 05/23/23 21:40 Olanzapine Odt 5 Mg Tablet TL 5 mg DAILY PRN Administration Agitation Oxycodone HCl 5 mg 05/16/23 14:47 05/17/23 12:14 Oxycodone 5 Mg Tablet PO 5 mg Q4HR PRN Administration Pain 5 to 7 Quetiapine Fumarate 25 mg 05/17/23 21:00 05/26/23 21:28 Quetiapine 25 Mg Tablet PO 25 mg QPM CATHI Administration Sertraline HCl 50 mg 05/17/23 09:00 05/26/23 08:47 Sertraline 50 Mg Tablet PO 50 mg DAILY CATHI Administration Sodium Chloride 10 ml 05/16/23 17:00 05/26/23 23:48 Sodium Chloride Flush 0.9% 10 Ml Syringe IVP Not Given 0100,0900,1700 [facility] Tamsulosin HCl 0.4 mg 05/18/23 09:00 05/26/23 08:46 Tamsulosin 0.4 Mg Capsule PO 0.4 mg DAILY CATHI Administration - Lab Result Fish Bone Diagrams: 05/21/23 05:22 05/23/23 04:49 - Additional Planning My Orders: My Active Orders 05/27/23 21:00 Insulin Glargine-Yfgn [Semglee] 20 unit SUBQ QPM Subjective - Subjective Patient Reports: Resting Comfortably, No Complaints Objective Vital Signs: Vital Signs - 24 hr 05/26/23 05/26/23 05/26/23 10:00 15:40 19:10 Temperature 37 C 36.7 C Heart Rate [ 73 68 Brachial] Respiratory 18 16 Rate Blood Pressure 144/60 H 121/71 [Right Brachial artery] O2 Saturation 92 98 If not protocol 2 2 2 : Oxygen Flow, liters/minute 05/26/23 05/26/23 05/27/23 20:09 23:36 07:39 Temperature 37.1 C 37.5 C 36.9 C Heart Rate [ 70 63 75 Brachial] Respiratory 16 16 20 Rate Blood Pressure 143/84 H 124/77 140/77 H [Right Brachial artery] O2 Saturation 96 92 95 If not protocol 2 2 2 : Oxygen Flow, liters/minute Oxygen O2 Source Nasal cannula Oxygen Flow Rate 4 I&O (Last 24 Hrs): Intake and Output Totals x24h 05/25/23 05/26/23 05/27/23 23:59 23:59 23:59 Intake Total 1350 1520 Output Total 200 Balance 1150 1520 General: Alert, No acute distress HEENT: EOMI, Mucous membr. moist/pink Neck: Supple Neuro: Alert, Non Focal, Other (Poor memory) Cardiovascular: Other (Irreg irreg) Respiratory: No respiratory distress Abdomen: No tenderness Extremities: No edema - Results Results: Laboratory Results WBC 7.3 x10^3/uL (4.8-10.8) 05/21/23 05:22 RBC 5.21 10^6/uL (4.70-6.10) 05/21/23 05:22 Hgb 14.4 g/dL (14.0-18.0) 05/21/23 05:22 Hct 46.2 % (42.0-52.0) 05/21/23 05:22 MCV 88.7 fL (80.0-94.0) 05/21/23 05:22 MCH 27.6 pg (27.0-31.0) 05/21/23 05:22 MCHC 31.2 g/dL (32.0-36.0) L 05/21/23 05:22 RDW 16.2 % (12.0-15.0) H 05/21/23 05:22 Plt Count 132 10^3/uL (130-450) 05/21/23 05:22 MPV 12.0 fL (7.4-11.4) H 05/21/23 05:22 Neut # (Auto) 4.7 10^3/uL (1.5-6.6) 05/21/23 05:22 Lymph # (Auto) 1.8 10^3/uL (1.5-3.5) 05/21/23 05:22 [place] # (Auto) 0.5 10^3/uL (0.0-1.0) 05/21/23 05:22 Eos # (Auto) 0.2 10^3/uL (0.0-0.7) 05/21/23 05:22 Baso # (Auto) 0.0 10^3/uL (0.0-0.1) 05/21/23 05:22 Absolute Nucleated RBC 0.00 x10^3/uL 05/21/23 05:22 Nucleated RBC % 0.0 /100WBC 05/21/23 05:22 Sodium 135 mmol/L (135-145) 05/23/23 04:49 Potassium 4.0 mmol/L (3.5-4.5) 05/23/23 04:49 Chloride 101 mmol/L (101-111) 05/23/23 04:49 Carbon Dioxide 29 mmol/L (21-32) 05/23/23 04:49 Anion Gap 5.0 (6-13) L 05/23/23 04:49 BUN 28 mg/dL (6-20) H 05/23/23 04:49 Creatinine 1.5 mg/dL (0.6-1.3) H 05/23/23 04:49 Estimated GFR (MDRD) 45 (>89) L 05/23/23 04:49 Glucose 96 mg/dL (74-104) 05/23/23 04:49 POC Whole Bld Glucose 86 mg/dL (70 - 100) 05/27/23 07:32 Estimat Average Glucose 148 mg/dL (70-100) H 05/17/23 05:18 Hemoglobin A1c % 6.8 % (4.27-6.07) H 05/17/23 05:18 Lactic Acid 1.0 mmol/L (0.5-2.2) 05/15/23 15:40 Calcium 9.2 mg/dL (8.5-10.3) 05/23/23 04:49 Magnesium 1.7 mg/dL (1.7-2.3) 05/10/23 14:20 Total Bilirubin 0.5 mg/dL (0.2-1.0) 05/15/23 15:40 AST 31 IU/L (10-42) 05/15/23 15:40 ALT 28 IU/L (10-60) 05/15/23 15:40 Alkaline Phosphatase 64 IU/L (42-121) 05/15/23 15:40 B-Natriuretic Peptide 137 pg/mL (5-100) H 05/15/23 15:40 Total Protein 7.3 g/dL (6.4-8.9) 05/15/23 15:40 Albumin 3.4 g/dL (3.2-5.5) 05/15/23 15:40 Globulin 3.9 g/dL (2.1-4.2) 05/15/23 15:40 Albumin/Globulin Ratio 0.9 (1.0-2.2) L 05/15/23 15:40 Lipase 32 U/L (11-82) 05/15/23 15:40 Urine Color DARK YELLOW 05/10/23 14:20 Urine Clarity CLEAR (CLEAR) 05/10/23 14:20 Urine pH 5.5 PH (5.0-7.5) 05/10/23 14:20 Ur Specific [place] >=1.030 (1.002-1.030) H 05/10/23 14:20 Urine Protein 100 mg/dL (NEGATIVE) H 05/10/23 14:20 Urine Glucose (UA) 100 mg/dL (NEGATIVE) H 05/10/23 14:20 Urine Ketones TRACE mg/dL (NEGATIVE) 05/10/23 14:20 Urine Occult Blood NEGATIVE (NEGATIVE) 05/10/23 14:20 Urine Nitrite NEGATIVE (NEGATIVE) 05/10/23 14:20 Urine Bilirubin NEGATIVE (NEGATIVE) 05/10/23 14:20 Urine Urobilinogen 0.2 (NORMAL) E.U./dL (NORMAL) 05/10/23 14:20 Ur Leukocyte Esterase NEGATIVE (NEGATIVE) 05/10/23 14:20 Urine RBC 0-5 /HPF (0-5) 05/10/23 14:20 Urine WBC 0-3 /HPF (0-3) 05/10/23 14:20 Ur Squamous Epith Cells RARE Squamous (<= Few) 05/10/23 14:20 Urine Bacteria Rare /HPF (None Seen) 05/10/23 14:20 Ur Microscopic Review INDICATED 05/10/23 14:20 Urine Culture Comments NOT INDICATED 05/10/23 14:20 Nasal Adenovirus (PCR) NOT DETECTED 05/15/23 17:10 Nasal B. parapertussis DNA (PCR) NOT DETECTED 05/15/23 17:10 Nasal Coronavir 229E PCR NOT DETECTED 05/15/23 17:10 Nasal Coronavir HKU1 PCR NOT DETECTED 05/15/23 17:10 Nasal Coronavir NL63 PCR NOT DETECTED 05/15/23 17:10 Nasal Coronavir OC43 PCR NOT DETECTED 05/15/23 17:10 Nasal Enterovir/Rhinovir PCR NOT DETECTED 05/15/23 17:10 Nasal Influenza B PCR NOT DETECTED 05/15/23 17:10 Nasal Influenza A PCR NOT DETECTED 05/15/23 17:10 Nasal Parainfluen 1 PCR NOT DETECTED 05/15/23 17:10 Nasal Parainfluen 2 PCR NOT DETECTED 05/15/23 17:10 Nasal Parainfluen 3 PCR NOT DETECTED 05/15/23 17:10 Nasal Parainfluen 4 PCR NOT DETECTED 05/15/23 17:10 Nasal RSV (PCR) NOT DETECTED 05/15/23 17:10 Nasal B.pertussis DNA PCR NOT DETECTED 05/15/23 17:10 Nasal C.pneumoniae (PCR) NOT DETECTED 05/15/23 17:10 [place] Human Metapneumo PCR NOT DETECTED 05/15/23 17:10 Nasal M.pneumoniae (PCR) NOT DETECTED 05/15/23 17:10 Nasal SARS-CoV-2 (PCR) NOT DETECTED 05/15/23 17:10 - Procedures Procedures: Procedures ENDO RECTUM POLYPECTOMY (01/07/13)
[2023-05-27] MEDS: INSULIN GLARGINE-YFGN 300 UNIT/3 ML PEN SUBQ SCH (21:20)
--- NOTE | 2023-05-29 13:02 | PROVIDER PROGRESS NOTE ---
Assessment/Plan - Problem List (1) DM II (diabetes mellitus, type II), controlled Assessment/Plan: On 05/27 his a.m. glucose was 86. He has been running glucoses between 100-200 before this Plan: I decreased his nighttime long-acting insulin from 22 units to 20 units Remain on the same mealtime insulin and a.m. long-acting insulin Continue with fingerstick checks and sliding scale insulin and hypoglycemia protocol (2) Acute kidney injury Assessment/Plan: A retroperitneal US showed a 4 cm lesion on left kidney with mural nodularity, but nodularity was not seen on prior US. Advised to follow up in 3-6 months. Given there was no sign of obstruction, I suspect his ENOCH is due to dehydration. His ENOCH was likely due to dehydration in the setting of poor oral intake secondary to dementia. Patient is eating/drinking normally now. He is medically cleared and does not meet criteria to be inpatient status. His electrolytes have normalized Plan: Medically ready for discharge, but due to dementia, he cannot sign consents. Social work is putting together a disposition with guardianship and will discharge as soon as everything is legally finished. No indication for repeat labs A follow-up US was rec in 3-6 months (3) Risk for falls Impression: Patient had a fall on 05/19 while trying to get out of the bed. He had a small laceration to his right knee and some abrasions on his right hip. Prior to his fall, he was agitated and given Ativan. I suspect that his fall was due to sedation. Plan: Mminimize sedation unless absolutely necessary We activated fall risk protocol. (4) Urinary retention Impression: Patient complained of lower abdominal pain on 05/16 and a bladder scan showed 888 mL of urine. Patient was straight cathed. A morse catheter was inserted on 05/17. Morse removed on 05/21. Plan: Cont low dose Flomax 0.4 mg daily Bladder scan if patient complains of symptoms of urinary retention (5) Chronic Atrial fibrillation Impression: Patient has a history of A-fib on Eliquis. Currently no symptoms and is well managed with medication. 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 He needed Ativan q6 hours PRN for agitation earlier this hospital stay. Mr. Dunne was seen in clinic in fall 2022 where a mini mental status exam was done and he passed, with a 28/30. No cognitive deficits were noted at that time. It is concerning that his mental status could have deteriorated thiat quickly. We considered causes such as drug use, potential stroke, or brain tumor. However , these all seem unlikely as his CT in the ER was negative for any acute findings. It is possible that he could have some degree of brain damage from being hypoglycemic for unknown lengths of time. Patient was found extremely hypoglycemic prior to his admission and had not been heard from in a few days. In this case, the brain damage may be irreversible. He was also seen for altered mental status in the past that was believed to be due to hypoglycemia as well. Plan: If agitated, may give home dose of Xyprexa, or a small dose of Seroquel or Ativ an q6 PRN SW is working on placement after guardianship is established (7) Hypertension Impression: Currently, his blood pressure is in the normal range on Metoprolol. Plan: Continue on home dose of Metoprolol Cont to hold Losartan and amlodipine for now as blood pressure is normal (8) Altered mental status Impression: RESOLVED. Patient was admitted with altered mental status, likely due to hypoglycemia, dehydration and poor oral intake. Patient may not have eaten in a few days. (9) Dehydration Impression: RESOLVED. Patient was likely dehydrated due to poor oral intake in the setting of dementia. His electrolytes have normalized and he no longer requires IV hydration as he is eating/drinking well. - Current Meds Current Meds: Current Medications Generic Name Dose Route Start Last Admin Trade Name Jennifer PRN Reason Stop Dose Admin Allopurinol 100 mg 05/25/23 09:00 05/29/23 09:02 Allopurinol 100 Mg Tablet PO 100 mg DAILY CATHI Administration Apixaban 5 mg 05/16/23 21:00 05/29/23 09:01 Apixaban 5 Mg Tablet PO 5 mg BID CATHI Administration Bupropion HCl 150 mg 05/17/23 09:00 05/29/23 09:02 Bupropion Sr 150 Mg Tablet PO 150 mg DAILY CATHI Administration Glipizide 10 mg 05/24/23 12:00 05/29/23 09:02 Glipizide Er 2.5 Mg Tablet PO 10 mg DAILY CATHI Administration Insulin Glargine-yfgn 10 unit 05/23/23 07:00 05/29/23 07:56 Insulin Glargine-Yfgn 300 Unit/3 Ml Pen SUBQ 10 unit QDAC CATHI Administration Insulin Glargine-yfgn 20 unit 05/27/23 21:00 05/28/23 21:14 Insulin Glargine-Yfgn 300 Unit/3 Ml Pen SUBQ 20 unit QPM CATHI Administration Insulin Human Lispro 5 unit 05/16/23 19:00 05/29/23 11:57 Insulin Lispro 300 Unit/3 Ml Pen SUBQ 5 unit TIDWM CATHI Administration Protocol Insulin Human Lispro 1 - 9 unit 05/21/23 08:00 05/29/23 11:58 Insulin Lispro 300 Unit/3 Ml Pen SUBQ 3 unit 0800,1200,1700,2100 CATHI Administration Protocol Lorazepam 0.5 mg 05/19/23 18:50 05/26/23 22:36 Lorazepam 0.5 Mg Tablet PO 0.5 mg Q6H PRN Administration Anxiety Metoprolol Succinate 50 mg 05/16/23 21:00 05/29/23 09:01 Metoprolol Succinate 50 Mg Tablet PO 50 mg BID CATHI Administration Multi-Ingredient Ointment 1 applic 05/16/23 22:50 05/19/23 21:02 Zinc Oxide 20% Oint 30 Gm Tube TOP 1 applic PRN PRN Administration Skin Care Nicotine 1 patch 05/18/23 09:00 05/29/23 09:01 Nicotine 14 Mg Patch TOP 1 patch DAILY CATHI Administration Olanzapine 5 mg 05/17/23 19:57 05/23/23 21:40 Olanzapine Odt 5 Mg Tablet TL 5 mg DAILY PRN Administration Agitation Oxycodone HCl 5 mg 05/16/23 14:47 05/17/23 12:14 Oxycodone 5 Mg Tablet PO 5 mg Q4HR PRN Administration Pain 5 to 7 Quetiapine Fumarate 25 mg 05/17/23 21:00 05/28/23 21:15 Quetiapine 25 Mg Tablet PO 25 mg QPM CATHI Administration Sertraline HCl 50 mg 05/17/23 09:00 05/29/23 09:01 Sertraline 50 Mg Tablet PO 50 mg DAILY CATHI Administration Sodium Chloride 10 ml 05/16/23 17:00 05/29/23 09:00 Sodium Chloride Flush 0.9% 10 Ml Syringe IVP Not Given 0100,0900,1700 CATHI Tamsulosin HCl 0.4 mg 05/18/23 09:00 05/29/23 09:01 Tamsulosin 0.4 Mg Capsule PO 0.4 mg DAILY CATHI Administration - Lab Result Fish Bone Diagrams: 05/21/23 05:22 05/23/23 04:49 Objective Vital Signs: Vital Signs - 24 hr 05/28/23 05/28/23 05/29/23 15:39 19:20 07:38 Temperature 36.9 C 37.0 C Heart Rate [ 68 73 Brachial] Respiratory 22 20 Rate Blood Pressure 111/67 111/64 [Right Brachial artery] O2 Saturation 96 94 If not protocol 2 2 2 : Oxygen Flow, liters/minute 05/29/23 05/29/23 08:01 08:58 Temperature Heart Rate [ 67 Brachial] Respiratory Rate Blood Pressure 108/62 [Right Brachial artery] O2 Saturation If not protocol 2 : Oxygen Flow, liters/minute Oxygen O2 Source Nasal cannula Oxygen Flow Rate 4 I&O (Last 24 Hrs): Intake and Output Totals x24h 05/27/23 05/28/23 05/29/23 23:59 23:59 23:59 Intake Total 880 1960 1440 Output Total 750 1225 875 Balance 130 735 565 - Results Results: Laboratory Results WBC 7.3 x10^3/uL (4.8-10.8) 05/21/23 05:22 RBC 5.21 10^6/uL (4.70-6.10) 05/21/23 05:22 Hgb 14.4 g/dL (14.0-18.0) 05/21/23 05:22 Hct 46.2 % (42.0-52.0) 05/21/23 05:22 MCV 88.7 fL (80.0-94.0) 05/21/23 05:22 MCH 27.6 pg (27.0-31.0) 05/21/23 05:22 MCHC 31.2 g/dL (32.0-36.0) L 05/21/23 05:22 RDW 16.2 % (12.0-15.0) H 05/21/23 05:22 Plt Count 132 10^3/uL (130-450) 05/21/23 05:22 MPV 12.0 fL (7.4-11.4) H 05/21/23 05:22 Neut # (Auto) 4.7 10^3/uL (1.5-6.6) 05/21/23 05:22 Lymph # (Auto) 1.8 10^3/uL (1.5-3.5) 05/21/23 05:22 [place] # (Auto) 0.5 10^3/uL (0.0-1.0) 05/21/23 05:22 Eos # (Auto) 0.2 10^3/uL (0.0-0.7) 05/21/23 05:22 Baso # (Auto) 0.0 10^3/uL (0.0-0.1) 05/21/23 05:22 Absolute Nucleated RBC 0.00 x10^3/uL 05/21/23 05:22 Nucleated RBC % 0.0 /100WBC 05/21/23 05:22 Sodium 135 mmol/L (135-145) 05/23/23 04:49 Potassium 4.0 mmol/L (3.5-4.5) 05/23/23 04:49 Chloride 101 mmol/L (101-111) 05/23/23 04:49 Carbon Dioxide 29 mmol/L (21-32) 05/23/23 04:49 Anion Gap 5.0 (6-13) L 05/23/23 04:49 BUN 28 mg/dL (6-20) H 05/23/23 04:49 Creatinine 1.5 mg/dL (0.6-1.3) H 05/23/23 04:49 Estimated GFR (MDRD) 45 (>89) L 05/23/23 04:49 Glucose 96 mg/dL (74-104) 05/23/23 04:49 POC Whole Bld Glucose 201 mg/dL (70 - 100) H 05/29/23 11:07 Estimat Average Glucose 148 mg/dL (70-100) H 05/17/23 05:18 Hemoglobin A1c % 6.8 % (4.27-6.07) H 05/17/23 05:18 Lactic Acid 1.0 mmol/L (0.5-2.2) 05/15/23 15:40 Calcium 9.2 mg/dL (8.5-10.3) 05/23/23 04:49 Magnesium 1.7 mg/dL (1.7-2.3) 05/10/23 14:20 Total Bilirubin 0.5 mg/dL (0.2-1.0) 05/15/23 15:40 AST 31 IU/L (10-42) 05/15/23 15:40 ALT 28 IU/L (10-60) 05/15/23 15:40 Alkaline Phosphatase 64 IU/L (42-121) 05/15/23 15:40 B-Natriuretic Peptide 137 pg/mL (5-100) H 05/15/23 15:40 Total Protein 7.3 g/dL (6.4-8.9) 05/15/23 15:40 Albumin 3.4 g/dL (3.2-5.5) 05/15/23 15:40 Globulin 3.9 g/dL (2.1-4.2) 05/15/23 15:40 Albumin/Globulin Ratio 0.9 (1.0-2.2) L 05/15/23 15:40 Lipase 32 U/L (11-82) 05/15/23 15:40 Urine Color DARK YELLOW 05/10/23 14:20 Urine Clarity CLEAR (CLEAR) 05/10/23 14:20 Urine pH 5.5 PH (5.0-7.5) 05/10/23 14:20 Ur Specific [place] >=1.030 (1.002-1.030) H 05/10/23 14:20 Urine Protein 100 mg/dL (NEGATIVE) H 05/10/23 14:20 Urine Glucose (UA) 100 mg/dL (NEGATIVE) H 05/10/23 14:20 Urine Ketones TRACE mg/dL (NEGATIVE) 05/10/23 14:20 Urine Occult Blood NEGATIVE (NEGATIVE) 05/10/23 14:20 Urine Nitrite NEGATIVE (NEGATIVE) 05/10/23 14:20 Urine Bilirubin NEGATIVE (NEGATIVE) 05/10/23 14:20 Urine Urobilinogen 0.2 (NORMAL) E.U./dL (NORMAL) 05/10/23 14:20 Ur Leukocyte Esterase NEGATIVE (NEGATIVE) 05/10/23 14:20 Urine RBC 0-5 /HPF (0-5) 05/10/23 14:20 Urine WBC 0-3 /HPF (0-3) 05/10/23 14:20 Ur Squamous Epith Cells RARE Squamous (<= Few) 05/10/23 14:20 Urine Bacteria Rare /HPF (None Seen) 05/10/23 14:20 Ur Microscopic Review INDICATED 05/10/23 14:20 Urine Culture Comments NOT INDICATED 05/10/23 14:20 Nasal Adenovirus (PCR) NOT DETECTED 05/15/23 17:10 Nasal B. parapertussis DNA (PCR) NOT DETECTED 05/15/23 17:10 Nasal Coronavir 229E PCR NOT DETECTED 05/15/23 17:10 Nasal Coronavir HKU1 PCR NOT DETECTED 05/15/23 17:10 Nasal Coronavir NL63 PCR NOT DETECTED 05/15/23 17:10 Nasal Coronavir OC43 PCR NOT DETECTED 05/15/23 17:10 Nasal Enterovir/Rhinovir PCR NOT DETECTED 05/15/23 17:10 Nasal Influenza B PCR NOT DETECTED 05/15/23 17:10 Nasal Influenza A PCR NOT DETECTED 05/15/23 17:10 Nasal Parainfluen 1 PCR NOT DETECTED 05/15/23 17:10 Nasal Parainfluen 2 PCR NOT DETECTED 05/15/23 17:10 Nasal Parainfluen 3 PCR NOT DETECTED 05/15/23 17:10 Nasal Parainfluen 4 PCR NOT DETECTED 05/15/23 17:10 Nasal RSV (PCR) NOT DETECTED 05/15/23 17:10 Nasal B.pertussis DNA PCR NOT DETECTED 05/15/23 17:10 Nasal C.pneumoniae (PCR) NOT DETECTED 05/15/23 17:10 [place] Human Metapneumo PCR NOT DETECTED 05/15/23 17:10 Nasal M.pneumoniae (PCR) NOT DETECTED 05/15/23 17:10 Nasal SARS-CoV-2 (PCR) NOT DETECTED 05/15/23 17:10 - Procedures Procedures: Procedures ENDO RECTUM POLYPECTOMY (01/07/13)
--- NOTE | 2023-05-29 14:37 | PROVIDER PROGRESS NOTE ---
Assessment/Plan - Problem List (1) DM II (diabetes mellitus, type II), controlled Assessment/Plan: On 05/27 his a.m. glucose was 86. He has been running glucoses between 100-200 before this I decreased his nighttime long-acting insulin from 22 units to 20 units. This a.m. his glu was 95 (labs reviewed). Now glu are overall running 100-200 again Plan: Remain on the current insulin doses Continue with fingerstick checks and sliding scale insulin and hypoglycemia protocol (2) Acute kidney injury Assessment/Plan: A retroperitneal US showed a 4 cm lesion on left kidney with mural nodularity, but nodularity was not seen on prior US. Advised to follow up in 3-6 months. Given there was no sign of obstruction, I suspect his ENOCH is due to dehydration. His ENOCH was likely due to dehydration in the setting of poor oral intake secondary to dementia. Patient is eating/drinking normally now. He is medically cleared and does not meet criteria to be inpatient status. His electrolytes have normalized Plan: Medically ready for discharge, but due to dementia, he cannot sign consents. Social work is putting together a disposition with guardianship and will discharge as soon as everything is legally finished. No indication for repeat labs A follow-up US was rec in 3-6 months (3) Risk for falls Impression: Patient had a fall on 05/19 while trying to get out of the bed. He had a small laceration to his right knee and some abrasions on his right hip. Prior to his fall, he was agitated and given Ativan. I suspect that his fall was due to sedation. Plan: Mminimize sedation unless absolutely necessary We activated fall risk protocol. (4) Urinary retention Impression: Patient complained of lower abdominal pain on 05/16 and a bladder scan showed 888 mL of urine. Patient was straight cathed. A morse catheter was inserted on 05/17. Morse removed on 05/21. Plan: Cont low dose Flomax 0.4 mg daily Bladder scan if patient complains of symptoms of urinary retention (5) Chronic Atrial fibrillation Impression: Patient has a history of A-fib on Eliquis. Currently no symptoms and is well managed with medication. 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 He needed Ativan q6 hours PRN for agitation earlier this hospital stay. Mr. Dunne was seen in clinic in fall 2022 where a mini mental status exam was done and he passed, with a 2830. No cognitive deficits were noted at that time. It is concerning that his mental status could have deteriorated thiat quickly. We considered causes such as drug use, potential stroke, or brain tumor. However, these all seem unlikely as his CT in the ER was negative for any acute findings. It is possible that he could have some degree of brain damage from being hypoglycemic for unknown lengths of time. Patient was found extremely hypoglycemic prior to his admission and had not been heard from in a few days. In this case, the brain damage may be irreversible. He was also seen for altered mental status in the past that was believed to be due to hypoglycemia as well. Plan: If agitated, may give home dose of Xyprexa, or a small dose of Seroquel or Ativan q6 PRN SW is working on placement after guardianship is established (7) Hypertension Impression: Currently, his blood pressure is in the normal range on Metoprolol. Plan: Continue on home dose of Metoprolol Cont to hold Losartan and amlodipine for now as blood pressure is normal (8) Altered mental status Impression: RESOLVED. Patient was admitted with altered mental status, likely due to hypoglycemia, dehydration and poor oral intake. Patient may not have eaten in a few days. (9) Dehydration Impression: RESOLVED. Patient was likely dehydrated due to poor oral intake in the setting of dementia. His electrolytes have normalized and he no longer requires IV hydration as he is eating/drinking well. - Current Meds Current Meds: Current Medications Generic Name Dose Route Start Last Admin Trade Name Freq PRN Reason Stop Dose Admin Allopurinol 100 mg 05/25/23 09:00 05/29/23 09:02 Allopurinol 100 Mg Tablet PO 100 mg DAILY CATHI Administration Apixaban 5 mg 05/16/23 21:00 05/29/23 09:01 Apixaban 5 Mg Tablet PO 5 mg BID CATHI Administration Bupropion HCl 150 mg 05/17/23 09:00 05/29/23 09:02 Bupropion Sr 150 Mg Tablet PO 150 mg DAILY CATHI Administration Glipizide 10 mg 05/24/23 12:00 05/29/23 09:02 Glipizide Er 2.5 Mg Tablet PO 10 mg DAILY CATHI Administration Insulin Glargine-yfgn 10 unit 05/23/23 07:00 05/29/23 07:56 Insulin Glargine-Yfgn 300 Unit/3 Ml Pen SUBQ 10 unit QDAC CATHI Administration Insulin Glargine-yfgn 20 unit 05/27/23 21:00 05/28/23 21:14 Insulin Glargine-Yfgn 300 Unit/3 Ml Pen SUBQ 20 unit QPM CATHI Administration Insulin Human Lispro 5 unit 05/16/23 19:00 05/29/23 11:57 Insulin Lispro 300 Unit/3 Ml Pen SUBQ 5 unit TIDWM CATHI Administration Protocol Insulin Human Lispro 1 - 9 unit 05/21/23 08:00 05/29/23 11:58 Insulin Lispro 300 Unit/3 Ml Pen SUBQ 3 unit 0800,1200,1700,2100 CATHI Administration Protocol Lorazepam 0.5 mg 05/19/23 18:50 05/26/23 22:36 Lorazepam 0.5 Mg Tablet PO 0.5 mg Q6H PRN Administration Anxiety Metoprolol Succinate 50 mg 05/16/23 21:00 05/29/23 09:01 Metoprolol Succinate 50 Mg Tablet PO 50 mg BID CATHI Administration Multi-Ingredient Ointment 1 applic 05/16/23 22:50 05/19/23 21:02 Zinc Oxide 20% Oint 30 Gm Tube TOP 1 applic PRN PRN Administration Skin Care Nicotine 1 patch 05/18/23 09:00 05/29/23 09:01 Nicotine 14 Mg Patch TOP 1 patch DAILY CTAHI Administration Olanzapine 5 mg 05/17/23 19:57 05/23/23 21:40 Olanzapine Odt 5 Mg Tablet TL 5 mg DAILY PRN Administration Agitation Oxycodone HCl 5 mg 05/16/23 14:47 05/17/23 12:14 Oxycodone 5 Mg Tablet PO 5 mg Q4HR PRN Administration Pain 5 to 7 Quetiapine Fumarate 25 mg 05/17/23 21:00 05/28/23 21:15 Quetiapine 25 Mg Tablet PO 25 mg QPM CATHI Administration Sertraline HCl 50 mg 05/17/23 09:00 05/29/23 09:01 Sertraline 50 Mg Tablet PO 50 mg DAILY CATHI Administration Sodium Chloride 10 ml 05/16/23 17:00 05/29/23 09:00 Sodium Chloride Flush 0.9% 10 Ml Syringe IVP Not Given 0100,0900,1700 CATHI Tamsulosin HCl 0.4 mg 05/18/23 09:00 05/29/23 09:01 Tamsulosin 0.4 Mg Capsule PO 0.4 mg DAILY CATHI Administration - Lab Result Fish Bone Diagrams: 05/21/23 05:22 05/23/23 04:49 Subjective - Subjective Patient Reports: Resting Comfortably, No Complaints Objective Vital Signs: Vital Signs - 24 hr 05/28/23 05/28/23 05/29/23 15:39 19:20 07:38 Temperature 36.9 C 37.0 C Heart Rate [ 68 73 Brachial] Respiratory 22 20 Rate Blood Pressure 111/67 111/64 [Right Brachial artery] O2 Saturation 96 94 If not protocol 2 2 2 : Oxygen Flow, liters/minute 05/29/23 05/29/23 08:01 08:58 Temperature Heart Rate [ 67 Brachial] Respiratory Rate Blood Pressure 108/62 [Right Brachial artery] O2 Saturation If not protocol 2 : Oxygen Flow, liters/minute Oxygen O2 Source Nasal cannula Oxygen Flow Rate 4 I&O (Last 24 Hrs): Intake and Output Totals x24h 05/27/23 05/28/23 05/29/23 23:59 23:59 23:59 Intake Total 880 1960 1440 Output Total 750 1225 875 Balance 130 735 565 General: Alert, No acute distress HEENT: EOMI, Mucous membr. moist/pink Neck: Supple Neuro: Alert, Non Focal, Other (Poor memory) Cardiovascular: No murmurs (irreg irreg rhythm) Respiratory: No respiratory distress Abdomen: No tenderness Extremities: No edema - Results Results: Laboratory Results WBC 7.3 x10^3/uL (4.8-10.8) 05/21/23 05:22 RBC 5.21 10^6/uL (4.70-6.10) 05/21/23 05:22 Hgb 14.4 g/dL (14.0-18.0) 05/21/23 05:22 Hct 46.2 % (42.0-52.0) 05/21/23 05:22 MCV 88.7 fL (80.0-94.0) 05/21/23 05:22 MCH 27.6 pg (27.0-31.0) 05/21/23 05:22 MCHC 31.2 g/dL (32.0-36.0) L 05/21/23 05:22 RDW 16.2 % (12.0-15.0) H 05/21/23 05:22 Plt Count 132 10^3/uL (130-450) 05/21/23 05:22 MPV 12.0 fL (7.4-11.4) H 05/21/23 05:22 Neut # (Auto) 4.7 10^3/uL (1.5-6.6) 05/21/23 05:22 Lymph # (Auto) 1.8 10^3/uL (1.5-3.5) 05/21/23 05:22 [place] # (Auto) 0.5 10^3/uL (0.0-1.0) 05/21/23 05:22 Eos # (Auto) 0.2 10^3/uL (0.0-0.7) 05/21/23 05:22 Baso # (Auto) 0.0 10^3/uL (0.0-0.1) 05/21/23 05:22 Absolute Nucleated RBC 0.00 x10^3/uL 05/21/23 05:22 Nucleated RBC % 0.0 /100WBC 05/21/23 05:22 Sodium 135 mmol/L (135-145) 05/23/23 04:49 Potassium 4.0 mmol/L (3.5-4.5) 05/23/23 04:49 Chloride 101 mmol/L (101-111) 05/23/23 04:49 Carbon Dioxide 29 mmol/L (21-32) 05/23/23 04:49 Anion Gap 5.0 (6-13) L 05/23/23 04:49 BUN 28 mg/dL (6-20) H 05/23/23 04:49 Creatinine 1.5 mg/dL (0.6-1.3) H 05/23/23 04:49 Estimated GFR (MDRD) 45 (>89) L 05/23/23 04:49 Glucose 96 mg/dL (74-104) 05/23/23 04:49 POC Whole Bld Glucose 201 mg/dL (70 - 100) H 05/29/23 11:07 Estimat Average Glucose 148 mg/dL (70-100) H 05/17/23 05:18 Hemoglobin A1c % 6.8 % (4.27-6.07) H 05/17/23 05:18 Lactic Acid 1.0 mmol/L (0.5-2.2) 05/15/23 15:40 Calcium 9.2 mg/dL (8.5-10.3) 05/23/23 04:49 Magnesium 1.7 mg/dL (1.7-2.3) 05/10/23 14:20 Total Bilirubin 0.5 mg/dL (0.2-1.0) 05/15/23 15:40 AST 31 IU/L (10-42) 05/15/23 15:40 ALT 28 IU/L (10-60) 05/15/23 15:40 Alkaline Phosphatase 64 IU/L (42-121) 05/15/23 15:40 B-Natriuretic Peptide 137 pg/mL (5-100) H 05/15/23 15:40 Total Protein 7.3 g/dL (6.4-8.9) 05/15/23 15:40 Albumin 3.4 g/dL (3.2-5.5) 05/15/23 15:40 Globulin 3.9 g/dL (2.1-4.2) 05/15/23 15:40 Albumin/Globulin Ratio 0.9 (1.0-2.2) L 05/15/23 15:40 Lipase 32 U/L (11-82) 05/15/23 15:40 Urine Color DARK YELLOW 05/10/23 14:20 Urine Clarity CLEAR (CLEAR) 05/10/23 14:20 Urine pH 5.5 PH (5.0-7.5) 05/10/23 14:20 Ur Specific [place] >=1.030 (1.002-1.030) H 05/10/23 14:20 Urine Protein 100 mg/dL (NEGATIVE) H 05/10/23 14:20 Urine Glucose (UA) 100 mg/dL (NEGATIVE) H 05/10/23 14:20 Urine Ketones TRACE mg/dL (NEGATIVE) 05/10/23 14:20 Urine Occult Blood NEGATIVE (NEGATIVE) 05/10/23 14:20 Urine Nitrite NEGATIVE (NEGATIVE) 05/10/23 14:20 Urine Bilirubin NEGATIVE (NEGATIVE) 05/10/23 14:20 Urine Urobilinogen 0.2 (NORMAL) E.U./dL (NORMAL) 05/10/23 14:20 Ur Leukocyte Esterase NEGATIVE (NEGATIVE) 05/10/23 14:20 Urine RBC 0-5 /HPF (0-5) 05/10/23 14:20 Urine WBC 0-3 /HPF (0-3) 05/10/23 14:20 Ur Squamous Epith Cells RARE Squamous (<= Few) 05/10/23 14:20 Urine Bacteria Rare /HPF (None Seen) 05/10/23 14:20 Ur Microscopic Review INDICATED 05/10/23 14:20 Urine Culture Comments NOT INDICATED 05/10/23 14:20 Nasal Adenovirus (PCR) NOT DETECTED 05/15/23 17:10 Nasal B. parapertussis DNA (PCR) NOT DETECTED 05/15/23 17:10 Nasal Coronavir 229E PCR NOT DETECTED 05/15/23 17:10 Nasal Coronavir HKU1 PCR NOT DETECTED 05/15/23 17:10 Nasal Coronavir NL63 PCR NOT DETECTED 05/15/23 17:10 Nasal Coronavir OC43 PCR NOT DETECTED 05/15/23 17:10 Nasal Enterovir/Rhinovir PCR NOT DETECTED 05/15/23 17:10 Nasal Influenza B PCR NOT DETECTED 05/15/23 17:10 Nasal Influenza A PCR NOT DETECTED 05/15/23 17:10 Nasal Parainfluen 1 PCR NOT DETECTED 05/15/23 17:10 Nasal Parainfluen 2 PCR NOT DETECTED 05/15/23 17:10 Nasal Parainfluen 3 PCR NOT DETECTED 05/15/23 17:10 Nasal Parainfluen 4 PCR NOT DETECTED 05/15/23 17:10 Nasal RSV (PCR) NOT DETECTED 05/15/23 17:10 Nasal B.pertussis DNA PCR NOT DETECTED 05/15/23 17:10 Nasal C.pneumoniae (PCR) NOT DETECTED 05/15/23 17:10 [place] Human Metapneumo PCR NOT DETECTED 05/15/23 17:10 Nasal M.pneumoniae (PCR) NOT DETECTED 05/15/23 17:10 Nasal SARS-CoV-2 (PCR) NOT DETECTED 05/15/23 17:10 - Procedures Procedures: Procedures ENDO RECTUM POLYPECTOMY (01/07/13)
[2023-05-30] MEDS: INSULIN GLARGINE-YFGN 300 UNIT/3 ML PEN SUBQ SCH (20:16)
--- NOTE | 2023-05-30 22:09 | PROVIDER PROGRESS NOTE ---
Assessment/Plan - Problem List (1) DM II (diabetes mellitus, type II), controlled Assessment/Plan: Continue glipizide 10 mg daily. Continue glargine 10 units twice daily Continue sliding scale insulin (2) Acute kidney injury Assessment/Plan: A retroperitneal US showed a 4 cm lesion on left kidney with mural nodularity, but nodularity was not seen on prior US. Advised to follow up in 3-6 months. Acute kidney injury most likely secondary to poor p.o. intake that may be related to patient's dementia. He is medically cleared and does not meet criteria for inpatient status. Plan: Patient is not competent to make his own decisions with regards to his health care. Plan is for him to obtain a guardian. (3) Risk for falls Plan: Avoid sedation if possible. Patient remains a fall risk. Continue to monitor closely. (4) Urinary retention Impression: Patient complained of lower abdominal pain on 05/16 and a bladder scan showed 888 mL of urine. Patient was straight cathed. A morse catheter was inserted on 05/17. Morse removed on 05/21. Plan: Cont low dose Flomax 0.4 mg daily Bladder scan if patient complains of symptoms of urinary retention (5) Chronic Atrial fibrillation Impression: Patient has a history of A-fib on Eliquis. Currently no symptoms and is well managed with medication. 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 He needed Ativan q6 hours PRN for agitation earlier this hospital stay. Mr. Dunne was seen in clinic in fall 2022 where a mini mental status exam was done and he passed, with a 28/30. No cognitive deficits were noted at that time. It is concerning that his mental status could have deteriorated thiat quickly. We considered causes such as drug use, potential stroke, or brain tumor. However, these all seem unlikely as his CT in the ER was negative for any acute findings. It is possible that he could have some degree of brain damage from being hypoglycemic for unknown lengths of time. Patient was found extremely hypoglycemic prior to his admission and had not been heard from in a few days. In this case, the brain damage may be irreversible. He was also seen for altered mental status in the past that was believed to be due to hypoglycemia as well. Plan: If agitated, may give home dose of Xyprexa, or a small dose of Seroquel or Ativan q6 PRN SW is working on placement after guardianship is established (7) Hypertension Impression: Plan: Continue on home dose of Metoprolol Cont to hold Losartan and amlodipine for now as blood pressure is normal (8) Altered mental status Impression: RESOLVED. Patient was admitted with altered mental status, likely due to hypoglycemia, dehydration and poor oral intake. (9) Dehydration Impression: RESOLVED. Patient was likely dehydrated due to poor oral intake in the setting of dementia. His electrolytes have normalized and he no longer requires IV hydration as he is eating/drinking well. - Current Meds Current Meds: Current Medications Generic Name Dose Route Start Last Admin Trade Name Freq PRN Reason Stop Dose Admin Allopurinol 100 mg 05/25/23 09:00 05/30/23 08:42 Allopurinol 100 Mg Tablet PO 100 mg DAILY CATHI Administration Apixaban 5 mg 05/16/23 21:00 05/30/23 20:13 Apixaban 5 Mg Tablet PO 5 mg BID CATHI Administration Bupropion HCl 150 mg 05/17/23 09:00 05/30/23 08:42 Bupropion Sr 150 Mg Tablet PO 150 mg DAILY CATHI Administration Glipizide 10 mg 05/24/23 12:00 05/30/23 08:39 Glipizide Er 2.5 Mg Tablet PO 10 mg DAILY CATHI Administration Insulin Glargine-yfgn 10 unit 05/23/23 07:00 05/30/23 08:35 Insulin Glargine-Yfgn 300 Unit/3 Ml Pen SUBQ 10 unit QDAC CATHI Administration Insulin Glargine-yfgn 10 unit 05/30/23 21:00 05/30/23 20:16 Insulin Glargine-Yfgn 300 Unit/3 Ml Pen SUBQ 10 unit QPM CATHI Administration Insulin Human Lispro 5 unit 05/16/23 19:00 05/30/23 17:18 Insulin Lispro 300 Unit/3 Ml Pen SUBQ 5 unit TIDWM CATHI Administration Protocol Insulin Human Lispro 1 - 9 unit 05/21/23 08:00 05/30/23 20:17 Insulin Lispro 300 Unit/3 Ml Pen SUBQ 1 unit 0800,1200,1700,2100 CATHI Administration Protocol Lorazepam 0.5 mg 05/19/23 18:50 05/26/23 22:36 Lorazepam 0.5 Mg Tablet PO 0.5 mg Q6H PRN Administration Anxiety Metoprolol Succinate 50 mg 05/16/23 21:00 05/30/23 20:13 Metoprolol Succinate 50 Mg Tablet PO 50 mg BID CATHI Administration Multi-Ingredient Ointment 1 applic 05/16/23 22:50 05/19/23 21:02 Zinc Oxide 20% Oint 30 Gm Tube TOP 1 applic PRN PRN Administration Skin Care Nicotine 1 patch 05/18/23 09:00 05/30/23 08:37 Nicotine 14 Mg Patch TOP 1 patch DAILY CATHI Administration Olanzapine 5 mg 05/17/23 19:57 05/23/23 21:40 Olanzapine Odt 5 Mg Tablet TL 5 mg DAILY PRN Administration Agitation Oxycodone HCl 5 mg 05/16/23 14:47 05/17/23 12:14 Oxycodone 5 Mg Tablet PO 5 mg Q4HR PRN Administration Pain 5 to 7 Quetiapine Fumarate 25 mg 05/17/23 21:00 05/30/23 20:13 Quetiapine 25 Mg Tablet PO 25 mg QPM CATHI Administration Sertraline HCl 50 mg 05/17/23 09:00 05/30/23 08:45 Sertraline 50 Mg Tablet PO 50 mg DAILY CATHI Administration Sodium Chloride 10 ml 05/16/23 17:00 05/30/23 17:19 Sodium Chloride Flush 0.9% 10 Ml Syringe IVP Not Given 0100,0900,1700 [facility] Tamsulosin HCl 0.4 mg 05/18/23 09:00 05/30/23 08:42 Tamsulosin 0.4 Mg Capsule PO 0.4 mg DAILY CATHI Administration - Lab Result Fish Bone Diagrams: 05/21/23 05:22 05/23/23 04:49 - Additional Planning My Orders: My Active Orders 05/30/23 21:00 Insulin Glargine-Yfgn [Semglee] 10 unit SUBQ QPM Subjective - Subjective Patient Reports: Other (Alert. Not oriented to place time or situation.) Objective Vital Signs: Vital Signs - 24 hr 05/29/23 05/30/23 05/30/23 23:19 07:25 21:17 Temperature 37.1 C 37 C 37.0 C Heart Rate [ 64 72 82 Brachial] Respiratory 16 20 20 Rate Blood Pressure 173/78 H 143/85 H 125/69 [Right Brachial artery] O2 Saturation 97 92 92 If not protocol 2 2 2 : Oxygen Flow, liters/minute Oxygen O2 Source Nasal cannula Oxygen Flow Rate 4 I&O (Last 24 Hrs): Intake and Output Totals x24h 05/28/23 05/29/23 05/30/23 23:59 23:59 23:59 Intake Total 1960 2300 2180 Output Total 1225 1225 Balance 735 1075 2180 General: Alert, Cooperative Neck: Supple, No JVD Lymphatic: no adenopathy Neuro: Alert Cardiovascular: Other (Positive S1-S2 no extra heart sounds) Respiratory: Other (Fair air exchange in all lung wynn. No wheezing no crackles.) Abdomen: Normal bowel sounds, Soft, No tenderness Extremities: No cyanosis, No edema Skin: No rashes - Results Results: Laboratory Results WBC 7.3 x10^3/uL (4.8-10.8) 05/21/23 05:22 RBC 5.21 10^6/uL (4.70-6.10) 05/21/23 05:22 Hgb 14.4 g/dL (14.0-18.0) 05/21/23 05:22 Hct 46.2 % (42.0-52.0) 05/21/23 05:22 MCV 88.7 fL (80.0-94.0) 05/21/23 05:22 MCH 27.6 pg (27.0-31.0) 05/21/23 05:22 MCHC 31.2 g/dL (32.0-36.0) L 05/21/23 05:22 RDW 16.2 % (12.0-15.0) H 05/21/23 05:22 Plt Count 132 10^3/uL (130-450) 05/21/23 05:22 MPV 12.0 fL (7.4-11.4) H 05/21/23 05:22 Neut # (Auto) 4.7 10^3/uL (1.5-6.6) 05/21/23 05:22 Lymph # (Auto) 1.8 10^3/uL (1.5-3.5) 05/21/23 05:22 [place] # (Auto) 0.5 10^3/uL (0.0-1.0) 05/21/23 05:22 Eos # (Auto) 0.2 10^3/uL (0.0-0.7) 05/21/23 05:22 Baso # (Auto) 0.0 10^3/uL (0.0-0.1) 05/21/23 05:22 Absolute Nucleated RBC 0.00 x10^3/uL 05/21/23 05:22 Nucleated RBC % 0.0 /100WBC 05/21/23 05:22 Sodium 135 mmol/L (135-145) 05/23/23 04:49 Potassium 4.0 mmol/L (3.5-4.5) 05/23/23 04:49 Chloride 101 mmol/L (101-111) 05/23/23 04:49 Carbon Dioxide 29 mmol/L (21-32) 05/23/23 04:49 Anion Gap 5.0 (6-13) L 05/23/23 04:49 BUN 28 mg/dL (6-20) H 05/23/23 04:49 Creatinine 1.5 mg/dL (0.6-1.3) H 05/23/23 04:49 Estimated GFR (MDRD) 45 (>89) L 05/23/23 04:49 Glucose 96 mg/dL (74-104) 05/23/23 04:49 POC Whole Bld Glucose 160 mg/dL (70 - 100) H 05/30/23 20:15 Estimat Average Glucose 148 mg/dL (70-100) H 05/17/23 05:18 Hemoglobin A1c % 6.8 % (4.27-6.07) H 05/17/23 05:18 Lactic Acid 1.0 mmol/L (0.5-2.2) 05/15/23 15:40 Calcium 9.2 mg/dL (8.5-10.3) 05/23/23 04:49 Magnesium 1.7 mg/dL (1.7-2.3) 05/10/23 14:20 Total Bilirubin 0.5 mg/dL (0.2-1.0) 05/15/23 15:40 AST 31 IU/L (10-42) 05/15/23 15:40 ALT 28 IU/L (10-60) 05/15/23 15:40 Alkaline Phosphatase 64 IU/L (42-121) 05/15/23 15:40 B-Natriuretic Peptide 137 pg/mL (5-100) H 05/15/23 15:40 Total Protein 7.3 g/dL (6.4-8.9) 05/15/23 15:40 Albumin 3.4 g/dL (3.2-5.5) 05/15/23 15:40 Globulin 3.9 g/dL (2.1-4.2) 05/15/23 15:40 Albumin/Globulin Ratio 0.9 (1.0-2.2) L 05/15/23 15:40 Lipase 32 U/L (11-82) 05/15/23 15:40 Urine Color DARK YELLOW 05/10/23 14:20 Urine Clarity CLEAR (CLEAR) 05/10/23 14:20 Urine pH 5.5 PH (5.0-7.5) 05/10/23 14:20 Ur Specific [place] >=1.030 (1.002-1.030) H 05/10/23 14:20 Urine Protein 100 mg/dL (NEGATIVE) H 05/10/23 14:20 Urine Glucose (UA) 100 mg/dL (NEGATIVE) H 05/10/23 14:20 Urine Ketones TRACE mg/dL (NEGATIVE) 05/10/23 14:20 Urine Occult Blood NEGATIVE (NEGATIVE) 05/10/23 14:20 Urine Nitrite NEGATIVE (NEGATIVE) 05/10/23 14:20 Urine Bilirubin NEGATIVE (NEGATIVE) 05/10/23 14:20 Urine Urobilinogen 0.2 (NORMAL) E.U./dL (NORMAL) 05/10/23 14:20 Ur Leukocyte Esterase NEGATIVE (NEGATIVE) 05/10/23 14:20 Urine RBC 0-5 /HPF (0-5) 05/10/23 14:20 Urine WBC 0-3 /HPF (0-3) 05/10/23 14:20 Ur Squamous Epith Cells RARE Squamous (<= Few) 05/10/23 14:20 Urine Bacteria Rare /HPF (None Seen) 05/10/23 14:20 Ur Microscopic Review INDICATED 05/10/23 14:20 Urine Culture Comments NOT INDICATED 05/10/23 14:20 Nasal Adenovirus (PCR) NOT DETECTED 05/15/23 17:10 Nasal B. parapertussis DNA (PCR) NOT DETECTED 05/15/23 17:10 Nasal Coronavir 229E PCR NOT DETECTED 05/15/23 17:10 Nasal Coronavir HKU1 PCR NOT DETECTED 05/15/23 17:10 Nasal Coronavir NL63 PCR NOT DETECTED 05/15/23 17:10 Nasal Coronavir OC43 PCR NOT DETECTED 05/15/23 17:10 Nasal Enterovir/Rhinovir PCR NOT DETECTED 05/15/23 17:10 Nasal Influenza B PCR NOT DETECTED 05/15/23 17:10 Nasal Influenza A PCR NOT DETECTED 05/15/23 17:10 Nasal Parainfluen 1 PCR NOT DETECTED 05/15/23 17:10 Nasal Parainfluen 2 PCR NOT DETECTED 05/15/23 17:10 Nasal Parainfluen 3 PCR NOT DETECTED 05/15/23 17:10 Nasal Parainfluen 4 PCR NOT DETECTED 05/15/23 17:10 Nasal RSV (PCR) NOT DETECTED 05/15/23 17:10 Nasal B.pertussis DNA PCR NOT DETECTED 05/15/23 17:10 Nasal C.pneumoniae (PCR) NOT DETECTED 05/15/23 17:10 [place] Human Metapneumo PCR NOT DETECTED 05/15/23 17:10 Nasal M.pneumoniae (PCR) NOT DETECTED 05/15/23 17:10 Nasal SARS-CoV-2 (PCR) NOT DETECTED 05/15/23 17:10 - Procedures Procedures: Procedures ENDO RECTUM POLYPECTOMY (01/07/13) ABX Reporting Has patient been on IV antibiotics over the past 48 hours?: No Current Medications - Current Medications Current Medications: Active Medications Acetaminophen (Acetaminophen 325 Mg Tablet) 650 mg PO Q4HR PRN PRN Reason: Pain 1 to 4, or Fever Allopurinol (Allopurinol 100 Mg Tablet) 100 mg PO DAILY [facility] Last Admin: 05/30/23 08:42 Dose: 100 mg Apixaban (Apixaban 5 Mg Tablet) 5 mg PO BID [facility] Last Admin: 05/30/23 20:13 Dose: 5 mg Bupropion HCl (Bupropion Sr 150 Mg Tablet) 150 mg PO DAILY [facility] Last Admin: 05/30/23 08:42 Dose: 150 mg Glipizide (Glipizide Er 2.5 Mg Tablet) 10 mg PO DAILY [facility] Last Admin: 05/30/23 08:39 Dose: 10 mg Insulin Glargine-yfgn (Insulin Glargine-Yfgn 300 Unit/3 Ml Pen) 10 unit SUBQ QDAC [facility] Last Admin: 05/30/23 08:35 Dose: 10 unit Insulin Glargine-yfgn (Insulin Glargine-Yfgn 300 Unit/3 Ml Pen) 10 unit SUBQ QPM [facility] Last Admin: 05/30/23 20:16 Dose: 10 unit Insulin Human Lispro (Insulin Lispro 300 Unit/3 Ml Pen) 5 unit SUBQ TIDWM [facility]; Protocol Last Admin: 05/30/23 17:18 Dose: 5 unit Insulin Human Lispro (Insulin Lispro 300 Unit/3 Ml Pen) 1 - 9 unit SUBQ 0800,1200,1700,2100 [facility]; Protocol Last Admin: 05/30/23 20:17 Dose: 1 unit Lorazepam (Lorazepam 0.5 Mg Tablet) 0.5 mg PO Q6H PRN PRN Reason: Anxiety Last Admin: 05/26/23 22:36 Dose: 0.5 mg Metoprolol Succinate (Metoprolol Succinate 50 Mg Tablet) 50 mg PO BID [facility] Last Admin: 05/30/23 20:13 Dose: 50 mg Multi-Ingredient Ointment (Zinc Oxide 20% Oint 30 Gm Tube) 1 applic TOP PRN PRN PRN Reason: Skin Care Last Admin: 05/19/23 21:02 Dose: 1 applic Nicotine (Nicotine 14 Mg Patch) 1 patch TOP DAILY [facility] Last Admin: 05/30/23 08:37 Dose: 1 patch Olanzapine (Olanzapine Odt 5 Mg Tablet) 5 mg TL DAILY PRN PRN Reason: Agitation Last Admin: 05/23/23 21:40 Dose: 5 mg Ondansetron HCl (Ondansetron Odt 4 Mg Tablet) 4 mg TL Q6HR PRN PRN Reason: Nausea / Vomiting Ondansetron HCl (Ondansetron 4 Mg/2 Ml Vial) 4 mg IVP Q6HR PRN PRN Reason: Nausea / Vomiting Oxycodone HCl (Oxycodone 5 Mg Tablet) 5 mg PO Q4HR PRN PRN Reason: Pain 5 to 7 Last Admin: 05/17/23 12:14 Dose: 5 mg Quetiapine Fumarate (Quetiapine 25 Mg Tablet) 25 mg PO QPM [facility] Last Admin: 01/30/24 20:13 Dose: 25 mg Sertraline HCl (Sertraline 50 Mg Tablet) 50 mg PO DAILY [facility] Last Admin: 05/30/23 08:45 Dose: 50 mg Sodium Chloride (Sodium Chloride Flush 0.9% 10 Ml Syringe) 10 ml IVP PRN PRN PRN Reason: NEEDED PER PROVIDER ORDERS Sodium Chloride (Sodium Chloride Flush 0.9% 10 Ml Syringe) 10 ml IVP 0100,0900,1700 [facility] Last Admin: 05/30/23 17:19 Dose: Not Given Tamsulosin HCl (Tamsulosin 0.4 Mg Capsule) 0.4 mg PO DAILY [facility] Last Admin: 05/30/23 08:42 Dose: 0.4 mg Zinc Oxide (Cod Liver Oil/Zinc Oxide 113 Gm Tube) 113 gm TOP PRN PRN PRN Reason: Skin Care Amlodipine Besylate [Norvasc] 10 mg PO DAILY 05/10/23 Apixaban [Eliquis] 5 mg PO BID 05/10/23 Fluticasone/Umeclidin/Vilanter [Trelegy Ellipta 100-62.5-25] 1 each IH DAILY 05/10/23 Glipizide [Glipizide Xl] 10 mg PO DAILY 05/10/23 Insulin Aspart (Vial) [NovoLOG (VIAL FOR ED USE)] 11 unit SUBQ TIDWM 05/10/23 Insulin Glargine [Lantus Solostar] 33 unit SUBQ HS 05/10/23 Losartan [Cozaar] 50 mg PO BID 05/10/23 Metoprolol Succinate [Toprol Xl] 50 - 100 mg PO DAILY 05/10/23 Sertraline [Zoloft] 50 mg PO DAILY 05/10/23 allopurinoL [Zyloprim] 100 mg ORAL DAILY 05/10/23 buPROPion HCL [Bupropion HCl Sr] 150 mg PO DAILY 05/10/23 hydroCHLOROthiazide [Hydrodiuril] 12.5 mg PO DAILY 05/10/23 Rosuvastatin Calcium [Crestor] 10 mg PO HS 05/17/23
--- NOTE | 2023-05-31 20:03 | PROVIDER PROGRESS NOTE ---
Assessment/Plan - Problem List (1) DM II (diabetes mellitus, type II), controlled Assessment/Plan: Continue glipizide 10 mg daily. Continue glargine 10 units twice daily Continue sliding scale insulin (2) Acute kidney injury Assessment/Plan: A retroperitneal US showed a 4 cm lesion on left kidney with mural nodularity, but nodularity was not seen on prior US. Advised to follow up in 3-6 months. Acute kidney injury most likely secondary to poor p.o. intake that may be related to patient's dementia. He is medically cleared and does not meet criteria for inpatient status. Plan: Patient is not competent to make his own decisions with regards to his health care. Plan is for him to obtain a guardian. (3) Risk for falls Plan: Avoid sedation if possible. Patient remains a fall risk. Continue to monitor closely. (4) Urinary retention Impression: Patient complained of lower abdominal pain on 05/16 and a bladder scan showed 888 mL of urine. Patient was straight cathed. A morse catheter was inserted on 05/17. Morse removed on 05/21. Plan: Cont low dose Flomax 0.4 mg daily Bladder scan if patient complains of symptoms of urinary retention (5) Chronic Atrial fibrillation Impression: Patient has a history of A-fib on Eliquis. Currently no symptoms and is well managed with medication. 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 He needed Ativan q6 hours PRN for agitation earlier this hospital stay. Mr. Dunne was seen in clinic in fall 2022 where a mini mental status exam was done and he passed, with a 28/30. No cognitive deficits were noted at that time. It is concerning that his mental status could have deteriorated thiat quickly. We considered causes such as drug use, potential stroke, or brain tumor. However, these all seem unlikely as his CT in the ER was negative for any acute findings. It is possible that he could have some degree of brain damage from being hypoglycemic for unknown lengths of time. Patient was found extremely hypoglycemic prior to his admission and had not been heard from in a few days. He was also seen for altered mental status in the past that was believed to be due to hypoglycemia as well. Plan: If agitated, may give home dose of Xyprexa, or a small dose of Seroquel or Ativan q6 PRN SW is working on placement after guardianship is established (7) Hypertension Impression: Plan: Continue on home dose of Metoprolol Cont to hold Losartan and amlodipine for now as blood pressure is normal (8) Altered mental status Impression: RESOLVED. Patient was admitted with altered mental status, likely due to hypoglycemia, dehydration and poor oral intake. (9) Dehydration Impression: RESOLVED. Patient was likely dehydrated due to poor oral intake in the setting of dementia. His electrolytes have normalized and he no longer requires IV hydration as he is eating/drinking well. - Current Meds Current Meds: Current Medications Generic Name Dose Route Start Last Admin Trade Name Freq PRN Reason Stop Dose Admin Allopurinol 100 mg 05/25/23 09:00 05/31/23 08:20 Allopurinol 100 Mg Tablet PO 100 mg DAILY CATHI Administration Apixaban 5 mg 05/16/23 21:00 05/31/23 08:20 Apixaban 5 Mg Tablet PO 5 mg BID CATHI Administration Bupropion HCl 150 mg 05/17/23 09:00 05/31/23 08:21 Bupropion Sr 150 Mg Tablet PO 150 mg DAILY CATHI Administration Glipizide 10 mg 05/24/23 12:00 05/31/23 08:20 Glipizide Er 2.5 Mg Tablet PO 10 mg DAILY CATHI Administration Insulin Glargine-yfgn 10 unit 05/23/23 07:00 05/31/23 08:18 Insulin Glargine-Yfgn 300 Unit/3 Ml Pen SUBQ 10 unit QDAC CATHI Administration Insulin Glargine-yfgn 10 unit 05/30/23 21:00 05/30/23 20:16 Insulin Glargine-Yfgn 300 Unit/3 Ml Pen SUBQ 10 unit QPM CATHI Administration Insulin Human Lispro 5 unit 05/16/23 19:00 05/31/23 17:04 Insulin Lispro 300 Unit/3 Ml Pen SUBQ 5 unit TIDWM CATHI Administration Protocol Insulin Human Lispro 1 - 9 unit 05/21/23 08:00 05/31/23 17:05 Insulin Lispro 300 Unit/3 Ml Pen SUBQ 1 unit 0800,1200,1700,2100 CATHI Administration Protocol Lorazepam 0.5 mg 05/19/23 18:50 05/26/23 22:36 Lorazepam 0.5 Mg Tablet PO 0.5 mg Q6H PRN Administration Anxiety Metoprolol Succinate 50 mg 05/16/23 21:00 05/31/23 08:20 Metoprolol Succinate 50 Mg Tablet PO 50 mg BID CATHI Administration Multi-Ingredient Ointment 1 applic 05/16/23 22:50 05/19/23 21:02 Zinc Oxide 20% Oint 30 Gm Tube TOP 1 applic PRN PRN Administration Skin Care Nicotine 1 patch 05/18/23 09:00 05/31/23 08:19 Nicotine 14 Mg Patch TOP 1 patch DAILY CATHI Administration Olanzapine 5 mg 05/17/23 19:57 05/23/23 21:40 Olanzapine Odt 5 Mg Tablet TL 5 mg DAILY PRN Administration Agitation Oxycodone HCl 5 mg 05/16/23 14:47 05/17/23 12:14 Oxycodone 5 Mg Tablet PO 5 mg Q4HR PRN Administration Pain 5 to 7 Quetiapine Fumarate 25 mg 05/17/23 21:00 05/30/23 20:13 Quetiapine 25 Mg Tablet PO 25 mg QPM CATHI Administration Sertraline HCl 50 mg 05/17/23 09:00 05/31/23 08:20 Sertraline 50 Mg Tablet PO 50 mg DAILY CATHI Administration Sodium Chloride 10 ml 05/16/23 17:00 05/31/23 16:30 Sodium Chloride Flush 0.9% 10 Ml Syringe IVP Not Given 0100,0900,1700 CATHI Tamsulosin HCl 0.4 mg 05/18/23 09:00 05/31/23 08:20 Tamsulosin 0.4 Mg Capsule PO 0.4 mg DAILY CATHI Administration - Lab Result Fish Bone Diagrams: 05/21/23 05:22 05/23/23 04:49 - Additional Planning My Orders: My Active Orders 05/30/23 21:00 Insulin Glargine-Yfgn [Semglee] 10 unit SUBQ QPM Subjective - Subjective Patient Reports: Other (Alert. Denies shortness of breath, chest pain, abdominal pain. No other complaints at this.) Objective Vital Signs: Vital Signs - 24 hr 05/30/23 05/30/23 05/31/23 21:17 22:15 08:11 Temperature 37.0 C 36.9 C Heart Rate [ 82 81 Brachial] Respiratory 20 18 Rate Blood Pressure 125/69 129/66 [Right Brachial artery] O2 Saturation 92 92 If not protocol 2 2 2 : Oxygen Flow, liters/minute 05/31/23 05/31/23 09:50 15:57 Temperature 37.0 C Heart Rate [ 73 Brachial] Respiratory 16 Rate Blood Pressure 127/66 [Right Brachial artery] O2 Saturation 92 If not protocol 2 2 : Oxygen Flow, liters/minute Oxygen O2 Source Nasal cannula Oxygen Flow Rate 4 I&O (Last 24 Hrs): Intake and Output Totals x24h 05/29/23 05/30/23 05/31/23 23:59 23:59 23:59 Intake Total 2300 2180 1570 Output Total 1225 Balance 1075 2180 1570 General: Alert HEENT: Atraumatic, PERRLA Neck: Supple, No JVD, No thyromegaly Neuro: Alert, Non Focal Cardiovascular: Other (+S1, S2. No extra heart sounds.) Respiratory: Other (Good air exchange in all wynn. No wheezing. No crackles.) Abdomen: Normal bowel sounds, Soft, No tenderness Extremities: No cyanosis, No edema Skin: No rashes - Results Results: Laboratory Results WBC 7.3 x10^3/uL (4.8-10.8) 05/21/23 05:22 RBC 5.21 10^6/uL (4.70-6.10) 05/21/23 05:22 Hgb 14.4 g/dL (14.0-18.0) 05/21/23 05:22 Hct 46.2 % (42.0-52.0) 05/21/23 05:22 MCV 88.7 fL (80.0-94.0) 05/21/23 05:22 MCH 27.6 pg (27.0-31.0) 05/21/23 05:22 MCHC 31.2 g/dL (32.0-36.0) L 05/21/23 05:22 RDW 16.2 % (12.0-15.0) H 05/21/23 05:22 Plt Count 132 10^3/uL (130-450) 05/21/23 05:22 MPV 12.0 fL (7.4-11.4) H 05/21/23 05:22 Neut # (Auto) 4.7 10^3/uL (1.5-6.6) 05/21/23 05:22 Lymph # (Auto) 1.8 10^3/uL (1.5-3.5) 05/21/23 05:22 [place] # (Auto) 0.5 10^3/uL (0.0-1.0) 05/21/23 05:22 Eos # (Auto) 0.2 10^3/uL (0.0-0.7) 05/21/23 05:22 Baso # (Auto) 0.0 10^3/uL (0.0-0.1) 05/21/23 05:22 Absolute Nucleated RBC 0.00 x10^3/uL 05/21/23 05:22 Nucleated RBC % 0.0 /100WBC 05/21/23 05:22 Sodium 135 mmol/L (135-145) 05/23/23 04:49 Potassium 4.0 mmol/L (3.5-4.5) 05/23/23 04:49 Chloride 101 mmol/L (101-111) 05/23/23 04:49 Carbon Dioxide 29 mmol/L (21-32) 05/23/23 04:49 Anion Gap 5.0 (6-13) L 05/23/23 04:49 BUN 28 mg/dL (6-20) H 05/23/23 04:49 Creatinine 1.5 mg/dL (0.6-1.3) H 05/23/23 04:49 Estimated GFR (MDRD) 45 (>89) L 05/23/23 04:49 Glucose 96 mg/dL (74-104) 05/23/23 04:49 POC Whole Bld Glucose 174 mg/dL (70 - 100) H 05/31/23 16:41 Estimat Average Glucose 148 mg/dL (70-100) H 05/17/23 05:18 Hemoglobin A1c % 6.8 % (4.27-6.07) H 05/17/23 05:18 Lactic Acid 1.0 mmol/L (0.5-2.2) 05/15/23 15:40 Calcium 9.2 mg/dL (8.5-10.3) 05/23/23 04:49 Magnesium 1.7 mg/dL (1.7-2.3) 05/10/23 14:20 Total Bilirubin 0.5 mg/dL (0.2-1.0) 05/15/23 15:40 AST 31 IU/L (10-42) 05/15/23 15:40 ALT 28 IU/L (10-60) 05/15/23 15:40 Alkaline Phosphatase 64 IU/L (42-121) 05/15/23 15:40 B-Natriuretic Peptide 137 pg/mL (5-100) H 05/15/23 15:40 Total Protein 7.3 g/dL (6.4-8.9) 05/15/23 15:40 Albumin 3.4 g/dL (3.2-5.5) 05/15/23 15:40 Globulin 3.9 g/dL (2.1-4.2) 05/15/23 15:40 Albumin/Globulin Ratio 0.9 (1.0-2.2) L 05/15/23 15:40 Lipase 32 U/L (11-82) 05/15/23 15:40 Urine Color DARK YELLOW 05/10/23 14:20 Urine Clarity CLEAR (CLEAR) 05/10/23 14:20 Urine pH 5.5 PH (5.0-7.5) 05/10/23 14:20 Ur Specific [place] >=1.030 (1.002-1.030) H 05/10/23 14:20 Urine Protein 100 mg/dL (NEGATIVE) H 05/10/23 14:20 Urine Glucose (UA) 100 mg/dL (NEGATIVE) H 05/10/23 14:20 Urine Ketones TRACE mg/dL (NEGATIVE) 05/10/23 14:20 Urine Occult Blood NEGATIVE (NEGATIVE) 05/10/23 14:20 Urine Nitrite NEGATIVE (NEGATIVE) 05/10/23 14:20 Urine Bilirubin NEGATIVE (NEGATIVE) 05/10/23 14:20 Urine Urobilinogen 0.2 (NORMAL) E.U./dL (NORMAL) 05/10/23 14:20 Ur Leukocyte Esterase NEGATIVE (NEGATIVE) 05/10/23 14:20 Urine RBC 0-5 /HPF (0-5) 05/10/23 14:20 Urine WBC 0-3 /HPF (0-3) 05/10/23 14:20 Ur Squamous Epith Cells RARE Squamous (<= Few) 05/10/23 14:20 Urine Bacteria Rare /HPF (None Seen) 05/10/23 14:20 Ur Microscopic Review INDICATED 05/10/23 14:20 Urine Culture Comments NOT INDICATED 05/10/23 14:20 Nasal Adenovirus (PCR) NOT DETECTED 05/15/23 17:10 Nasal B. parapertussis DNA (PCR) NOT DETECTED 05/15/23 17:10 Nasal Coronavir 229E PCR NOT DETECTED 05/15/23 17:10 Nasal Coronavir HKU1 PCR NOT DETECTED 05/15/23 17:10 Nasal Coronavir NL63 PCR NOT DETECTED 05/15/23 17:10 Nasal Coronavir OC43 PCR NOT DETECTED 05/15/23 17:10 Nasal Enterovir/Rhinovir PCR NOT DETECTED 05/15/23 17:10 Nasal Influenza B PCR NOT DETECTED 05/15/23 17:10 Nasal Influenza A PCR NOT DETECTED 05/15/23 17:10 Nasal Parainfluen 1 PCR NOT DETECTED 05/15/23 17:10 Nasal Parainfluen 2 PCR NOT DETECTED 05/15/23 17:10 Nasal Parainfluen 3 PCR NOT DETECTED 05/15/23 17:10 Nasal Parainfluen 4 PCR NOT DETECTED 05/15/23 17:10 Nasal RSV (PCR) NOT DETECTED 05/15/23 17:10 Nasal B.pertussis DNA PCR NOT DETECTED 05/15/23 17:10 Nasal C.pneumoniae (PCR) NOT DETECTED 05/15/23 17:10 [place] Human Metapneumo PCR NOT DETECTED 05/15/23 17:10 Nasal M.pneumoniae (PCR) NOT DETECTED 05/15/23 17:10 Nasal SARS-CoV-2 (PCR) NOT DETECTED 05/15/23 17:10 - Procedures Procedures: Procedures ENDO RECTUM POLYPECTOMY (01/07/13) Current Medications - Current Medications Current Medications: Active Medications Acetaminophen (Acetaminophen 325 Mg Tablet) 650 mg PO Q4HR PRN PRN Reason: Pain 1 to 4, or Fever Allopurinol (Allopurinol 100 Mg Tablet) 100 mg PO DAILY [facility] Last Admin: 05/31/23 08:20 Dose: 100 mg Apixaban (Apixaban 5 Mg Tablet) 5 mg PO BID [facility] Last Admin: 05/31/23 08:20 Dose: 5 mg Bupropion HCl (Bupropion Sr 150 Mg Tablet) 150 mg PO DAILY [facility] Last Admin: 05/31/23 08:21 Dose: 150 mg Glipizide (Glipizide Er 2.5 Mg Tablet) 10 mg PO DAILY [facility] Last Admin: 05/31/23 08:20 Dose: 10 mg Insulin Glargine-yfgn (Insulin Glargine-Yfgn 300 Unit/3 Ml Pen) 10 unit SUBQ QDAC [facility] Last Admin: 05/31/23 08:18 Dose: 10 unit Insulin Glargine-yfgn (Insulin Glargine-Yfgn 300 Unit/3 Ml Pen) 10 unit SUBQ QPM [facility] Last Admin: 05/30/23 20:16 Dose: 10 unit Insulin Human Lispro (Insulin Lispro 300 Unit/3 Ml Pen) 5 unit SUBQ TIDWM [facility]; Protocol Last Admin: 05/31/23 17:04 Dose: 5 unit Insulin Human Lispro (Insulin Lispro 300 Unit/3 Ml Pen) 1 - 9 unit SUBQ 0800,1200,1700,2100 [facility]; Protocol Last Admin: 05/31/23 17:05 Dose: 1 unit Lorazepam (Lorazepam 0.5 Mg Tablet) 0.5 mg PO Q6H PRN PRN Reason: Anxiety Last Admin: 05/26/23 22:36 Dose: 0.5 mg Metoprolol Succinate (Metoprolol Succinate 50 Mg Tablet) 50 mg PO BID [facility] Last Admin: 05/31/23 08:20 Dose: 50 mg Multi-Ingredient Ointment (Zinc Oxide 20% Oint 30 Gm Tube) 1 applic TOP PRN PRN PRN Reason: Skin Care Last Admin: 05/19/23 21:02 Dose: 1 applic Nicotine (Nicotine 14 Mg Patch) 1 patch TOP DAILY [facility] Last Admin: 05/31/23 08:19 Dose: 1 patch Olanzapine (Olanzapine Odt 5 Mg Tablet) 5 mg TL DAILY PRN PRN Reason: Agitation Last Admin: 05/23/23 21:40 Dose: 5 mg Ondansetron HCl (Ondansetron Odt 4 Mg Tablet) 4 mg TL Q6HR PRN PRN Reason: Nausea / Vomiting Ondansetron HCl (Ondansetron 4 Mg/2 Ml Vial) 4 mg IVP Q6HR PRN PRN Reason: Nausea / Vomiting Oxycodone HCl (Oxycodone 5 Mg Tablet) 5 mg PO Q4HR PRN PRN Reason: Pain 5 to 7 Last Admin: 05/17/23 12:14 Dose: 5 mg Quetiapine Fumarate (Quetiapine 25 Mg Tablet) 25 mg PO QPM [facility] Last Admin: 05/30/23 20:13 Dose: 25 mg Sertraline HCl (Sertraline 50 Mg Tablet) 50 mg PO DAILY [facility] Last Admin: 05/31/23 08:20 Dose: 50 mg Sodium Chloride (Sodium Chloride Flush 0.9% 10 Ml Syringe) 10 ml IVP PRN PRN PRN Reason: NEEDED PER PROVIDER ORDERS Sodium Chloride (Sodium Chloride Flush 0.9% 10 Ml Syringe) 10 ml IVP 0100,0900,1700 [facility] Last Admin: 05/31/23 16:30 Dose: Not Given Tamsulosin HCl (Tamsulosin 0.4 Mg Capsule) 0.4 mg PO DAILY [facility] Last Admin: 05/31/23 08:20 Dose: 0.4 mg Zinc Oxide (Cod Liver Oil/Zinc Oxide 113 Gm Tube) 113 gm TOP PRN PRN PRN Reason: Skin Care Amlodipine Besylate [Norvasc] 10 mg PO DAILY 05/10/23 Apixaban [Eliquis] 5 mg PO BID 05/10/23 Fluticasone/Umeclidin/Vilanter [Trelegy Ellipta 100-62.5-25] 1 each IH DAILY 05/10/23 Glipizide [Glipizide Xl] 10 mg PO DAILY 05/10/23 Insulin Aspart (Vial) [NovoLOG (VIAL FOR ED USE)] 11 unit SUBQ TIDWM 05/10/23 Insulin Glargine [Lantus Solostar] 33 unit SUBQ HS 05/10/23 Losartan [Cozaar] 50 mg PO BID 05/10/23 Metoprolol Succinate [Toprol Xl] 50 - 100 mg PO DAILY 05/10/23 Sertraline [Zoloft] 50 mg PO DAILY 05/10/23 allopurinoL [Zyloprim] 100 mg ORAL DAILY 05/10/23 buPROPion HCL [Bupropion HCl Sr] 150 mg PO DAILY 05/10/23 hydroCHLOROthiazide [Hydrodiuril] 12.5 mg PO DAILY 05/10/23 Rosuvastatin Calcium [Crestor] 10 mg PO HS 05/17/23
--- NOTE | 2023-06-01 21:37 | PROVIDER PROGRESS NOTE ---
Assessment/Plan - Problem List (1) DM II (diabetes mellitus, type II), controlled Assessment/Plan: Continue glipizide 10 mg daily. Continue glargine 10 units twice daily Continue sliding scale insulin (2) Acute kidney injury Assessment/Plan: A retroperitneal US showed a 4 cm lesion on left kidney with mural nodularity, but nodularity was not seen on prior US. Advised to follow up in 3-6 months. Acute kidney injury most likely secondary to poor p.o. intake that may be related to patient's dementia. He is medically cleared and does not meet criteria for inpatient status. Plan: Patient is not competent to make his own decisions with regards to his health care. Plan is for him to obtain a guardian. (3) Risk for falls Plan: Avoid sedation if possible. Patient remains a fall risk. Continue to monitor closely. (4) Urinary retention Impression: Patient complained of lower abdominal pain on 05/16 and a bladder scan showed 888 mL of urine. Patient was straight cathed. A morse catheter was inserted on 05/17. Morse removed on 05/21. Plan: Cont low dose Flomax 0.4 mg daily Bladder scan if patient complains of symptoms of urinary retention (5) Chronic Atrial fibrillation Impression: Patient has a history of A-fib on Eliquis. Currently no symptoms and is well managed with medication. 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 He needed Ativan q6 hours PRN for agitation earlier this hospital stay. Mr. Dunne was seen in clinic in fall 2022 where a mini mental status exam was done and he passed, with a 28/30. No cognitive deficits were noted at that time. It is concerning that his mental status could have deteriorated thiat quickly. We considered causes such as drug use, potential stroke, or brain tumor. However, these all seem unlikely as his CT in the ER was negative for any acute findings. It is possible that he could have some degree of brain damage from being hypoglycemic for unknown lengths of time. Patient was found extremely hypoglycemic prior to his admission and had not been heard from in a few days. He was also seen for altered mental status in the past that was believed to be due to hypoglycemia as well. Plan: If agitated, may give home dose of Xyprexa, or a small dose of Seroquel or Ativan q6 PRN SW is working on placement after guardianship is established (7) Hypertension Impression: Plan: Continue on home dose of Metoprolol Cont to hold Losartan and amlodipine for now as blood pressure is normal (8) Altered mental status Impression: RESOLVED. Patient was admitted with altered mental status, likely due to hypoglycemia, dehydration and poor oral intake. (9) Dehydration Impression: RESOLVED. Patient was likely dehydrated due to poor oral intake in the setting of dementia. His electrolytes have normalized and he no longer requires IV hydration as he is eating/drinking well. - Current Meds Current Meds: Current Medications Generic Name Dose Route Start Last Admin Trade Name Freq PRN Reason Stop Dose Admin Allopurinol 100 mg 05/25/23 09:00 06/01/23 09:22 Allopurinol 100 Mg Tablet PO 100 mg DAILY CATHI Administration Apixaban 5 mg 05/16/23 21:00 06/01/23 21:02 Apixaban 5 Mg Tablet PO 5 mg BID CATHI Administration Bupropion HCl 150 mg 05/17/23 09:00 06/01/23 09:22 Bupropion Sr 150 Mg Tablet PO 150 mg DAILY CATHI Administration Glipizide 10 mg 05/24/23 12:00 06/01/23 09:21 Glipizide Er 2.5 Mg Tablet PO 10 mg DAILY CATHI Administration Insulin Glargine-yfgn 10 unit 05/23/23 07:00 06/01/23 09:32 Insulin Glargine-Yfgn 300 Unit/3 Ml Pen SUBQ 10 unit QDAC CATHI Administration Insulin Glargine-yfgn 10 unit 05/30/23 21:00 06/01/23 21:04 Insulin Glargine-Yfgn 300 Unit/3 Ml Pen SUBQ 10 unit QPM CATHI Administration Insulin Human Lispro 5 unit 05/16/23 19:00 06/01/23 18:13 Insulin Lispro 300 Unit/3 Ml Pen SUBQ 5 unit TIDWM CATHI Administration Protocol Insulin Human Lispro 1 - 9 unit 05/21/23 08:00 06/01/23 21:04 Insulin Lispro 300 Unit/3 Ml Pen SUBQ 3 unit 0800,1200,1700,2100 CATIH Administration Protocol Lorazepam 0.5 mg 05/19/23 18:50 05/26/23 22:36 Lorazepam 0.5 Mg Tablet PO 0.5 mg Q6H PRN Administration Anxiety Metoprolol Succinate 50 mg 05/16/23 21:00 06/01/23 21:02 Metoprolol Succinate 50 Mg Tablet PO 50 mg BID CATHI Administration Multi-Ingredient Ointment 1 applic 05/16/23 22:50 05/19/23 21:02 Zinc Oxide 20% Oint 30 Gm Tube TOP 1 applic PRN PRN Administration Skin Care Nicotine 1 patch 05/18/23 09:00 06/01/23 09:23 Nicotine 14 Mg Patch TOP 1 patch DAILY CATHI Administration Olanzapine 5 mg 05/17/23 19:57 05/23/23 21:40 Olanzapine Odt 5 Mg Tablet TL 5 mg DAILY PRN Administration Agitation Oxycodone HCl 5 mg 05/16/23 14:47 05/17/23 12:14 Oxycodone 5 Mg Tablet PO 5 mg Q4HR PRN Administration Pain 5 to 7 Quetiapine Fumarate 25 mg 05/17/23 21:00 06/01/23 21:02 Quetiapine 25 Mg Tablet PO 25 mg QPM CATHI Administration Sertraline HCl 50 mg 05/17/23 09:00 06/01/23 09:22 Sertraline 50 Mg Tablet PO 50 mg DAILY CATHI Administration Sodium Chloride 10 ml 05/16/23 17:00 06/01/23 15:32 Sodium Chloride Flush 0.9% 10 Ml Syringe IVP Not Given 0100,0900,1700 CATHI Tamsulosin HCl 0.4 mg 05/18/23 09:00 06/01/23 09:22 Tamsulosin 0.4 Mg Capsule PO 0.4 mg DAILY CATHI Administration - Lab Result Fish Bone Diagrams: 06/03/23 05:31 06/03/23 05:31 - Additional Planning My Orders: My Active Orders 06/01/23 14:25 Tele Psych [Phone Psych Consult] [CONS] Routine Subjective - Subjective Patient Reports: Other (Alert.Patient is in bed he has no other complaints at this time.) Objective Vital Signs: Vital Signs - 24 hr 06/01/23 06/01/23 06/01/23 07:49 10:15 16:00 Temperature 36.8 C 36.6 C Heart Rate [ 71 80 Brachial] Respiratory 20 18 Rate Blood Pressure 132/70 H 135/62 H [Right Brachial artery] O2 Saturation 92 94 If not protocol 2 2 2 : Oxygen Flow, liters/minute 06/01/23 06/01/23 16:24 20:52 Temperature 37.0 C 37.1 C Heart Rate [ 71 71 Brachial] Respiratory 24 Rate Blood Pressure 119/74 131/67 H [Right Brachial artery] O2 Saturation 93 92 If not protocol 2 2 : Oxygen Flow, liters/minute Oxygen O2 Source Nasal cannula Oxygen Flow Rate 4 I&O (Last 24 Hrs): Intake and Output Totals x24h 05/30/23 05/31/23 06/01/23 23:59 23:59 23:59 Intake Total 2180 0 1080 Output Total 250 Balance 2180 0 830 General: Alert, No acute distress HEENT: PERRLA Neck: Supple, No JVD, No thyromegaly Neuro: Alert, Non Focal Cardiovascular: Other (Positive S1-S2 no extra heart sounds.) Respiratory: Other (Good air exchange in all lung wynn no wheezing no crackles) Abdomen: Normal bowel sounds, Soft, No tenderness Extremities: No cyanosis, No edema Skin: No rashes - Results Results: Laboratory Results WBC 7.3 x10^3/uL (4.8-10.8) 05/21/23 05:22 RBC 5.21 10^6/uL (4.70-6.10) 05/21/23 05:22 Hgb 14.4 g/dL (14.0-18.0) 05/21/23 05:22 Hct 46.2 % (42.0-52.0) 05/21/23 05:22 MCV 88.7 fL (80.0-94.0) 05/21/23 05:22 MCH 27.6 pg (27.0-31.0) 05/21/23 05:22 MCHC 31.2 g/dL (32.0-36.0) L 05/21/23 05:22 RDW 16.2 % (12.0-15.0) H 05/21/23 05:22 Plt Count 132 10^3/uL (130-450) 05/21/23 05:22 MPV 12.0 fL (7.4-11.4) H 05/21/23 05:22 Neut # (Auto) 4.7 10^3/uL (1.5-6.6) 05/21/23 05:22 Lymph # (Auto) 1.8 10^3/uL (1.5-3.5) 05/21/23 05:22 [place] # (Auto) 0.5 10^3/uL (0.0-1.0) 05/21/23 05:22 Eos # (Auto) 0.2 10^3/uL (0.0-0.7) 05/21/23 05:22 Baso # (Auto) 0.0 10^3/uL (0.0-0.1) 05/21/23 05:22 Absolute Nucleated RBC 0.00 x10^3/uL 05/21/23 05:22 Nucleated RBC % 0.0 /100WBC 05/21/23 05:22 Sodium 135 mmol/L (135-145) 05/23/23 04:49 Potassium 4.0 mmol/L (3.5-4.5) 05/23/23 04:49 Chloride 101 mmol/L (101-111) 05/23/23 04:49 Carbon Dioxide 29 mmol/L (21-32) 05/23/23 04:49 Anion Gap 5.0 (6-13) L 05/23/23 04:49 BUN 28 mg/dL (6-20) H 05/23/23 04:49 Creatinine 1.5 mg/dL (0.6-1.3) H 05/23/23 04:49 Estimated GFR (MDRD) 45 (>89) L 05/23/23 04:49 Glucose 96 mg/dL (74-104) 05/23/23 04:49 POC Whole Bld Glucose 217 mg/dL (70 - 100) H 06/01/23 16:31 Estimat Average Glucose 148 mg/dL (70-100) H 05/17/23 05:18 Hemoglobin A1c % 6.8 % (4.27-6.07) H 05/17/23 05:18 Lactic Acid 1.0 mmol/L (0.5-2.2) 05/15/23 15:40 Calcium 9.2 mg/dL (8.5-10.3) 05/23/23 04:49 Magnesium 1.7 mg/dL (1.7-2.3) 05/10/23 14:20 Total Bilirubin 0.5 mg/dL (0.2-1.0) 05/15/23 15:40 AST 31 IU/L (10-42) 05/15/23 15:40 ALT 28 IU/L (10-60) 05/15/23 15:40 Alkaline Phosphatase 64 IU/L (42-121) 05/15/23 15:40 B-Natriuretic Peptide 137 pg/mL (5-100) H 05/15/23 15:40 Total Protein 7.3 g/dL (6.4-8.9) 05/15/23 15:40 Albumin 3.4 g/dL (3.2-5.5) 05/15/23 15:40 Globulin 3.9 g/dL (2.1-4.2) 05/15/23 15:40 Albumin/Globulin Ratio 0.9 (1.0-2.2) L 05/15/23 15:40 Lipase 32 U/L (11-82) 05/15/23 15:40 Urine Color DARK YELLOW 05/10/23 14:20 Urine Clarity CLEAR (CLEAR) 05/10/23 14:20 Urine pH 5.5 PH (5.0-7.5) 05/10/23 14:20 Ur Specific [place] >=1.030 (1.002-1.030) H 05/10/23 14:20 Urine Protein 100 mg/dL (NEGATIVE) H 05/10/23 14:20 Urine Glucose (UA) 100 mg/dL (NEGATIVE) H 05/10/23 14:20 Urine Ketones TRACE mg/dL (NEGATIVE) 05/10/23 14:20 Urine Occult Blood NEGATIVE (NEGATIVE) 05/10/23 14:20 Urine Nitrite NEGATIVE (NEGATIVE) 05/10/23 14:20 Urine Bilirubin NEGATIVE (NEGATIVE) 05/10/23 14:20 Urine Urobilinogen 0.2 (NORMAL) E.U./dL (NORMAL) 05/10/23 14:20 Ur Leukocyte Esterase NEGATIVE (NEGATIVE) 05/10/23 14:20 Urine RBC 0-5 /HPF (0-5) 05/10/23 14:20 Urine WBC 0-3 /HPF (0-3) 05/10/23 14:20 Ur Squamous Epith Cells RARE Squamous (<= Few) 05/10/23 14:20 Urine Bacteria Rare /HPF (None Seen) 05/10/23 14:20 Ur Microscopic Review INDICATED 05/10/23 14:20 Urine Culture Comments NOT INDICATED 05/10/23 14:20 Nasal Adenovirus (PCR) NOT DETECTED 05/15/23 17:10 Nasal B. parapertussis DNA (PCR) NOT DETECTED 05/15/23 17:10 Nasal Coronavir 229E PCR NOT DETECTED 05/15/23 17:10 Nasal Coronavir HKU1 PCR NOT DETECTED 05/15/23 17:10 Nasal Coronavir NL63 PCR NOT DETECTED 05/15/23 17:10 Nasal Coronavir OC43 PCR NOT DETECTED 05/15/23 17:10 Nasal Enterovir/Rhinovir PCR NOT DETECTED 05/15/23 17:10 Nasal Influenza B PCR NOT DETECTED 05/15/23 17:10 Nasal Influenza A PCR NOT DETECTED 05/15/23 17:10 Nasal Parainfluen 1 PCR NOT DETECTED 05/15/23 17:10 Nasal Parainfluen 2 PCR NOT DETECTED 05/15/23 17:10 Nasal Parainfluen 3 PCR NOT DETECTED 05/15/23 17:10 Nasal Parainfluen 4 PCR NOT DETECTED 05/15/23 17:10 Nasal RSV (PCR) NOT DETECTED 05/15/23 17:10 Nasal B.pertussis DNA PCR NOT DETECTED 05/15/23 17:10 Nasal C.pneumoniae (PCR) NOT DETECTED 05/15/23 17:10 [place] Human Metapneumo PCR NOT DETECTED 05/15/23 17:10 Nasal M.pneumoniae (PCR) NOT DETECTED 05/15/23 17:10 Nasal SARS-CoV-2 (PCR) NOT DETECTED 05/15/23 17:10 - Procedures Procedures: Procedures ENDO RECTUM POLYPECTOMY (01/07/13) ABX Reporting Has patient been on IV antibiotics over the past 48 hours?: No Current Medications - Current Medications Current Medications: Active Medications Acetaminophen (Acetaminophen 325 Mg Tablet) 650 mg PO Q4HR PRN PRN Reason: Pain 1 to 4, or Fever Allopurinol (Allopurinol 100 Mg Tablet) 100 mg PO DAILY [facility] Last Admin: 06/01/23 09:22 Dose: 100 mg Apixaban (Apixaban 5 Mg Tablet) 5 mg PO BID [facility] Last Admin: 06/01/23 21:02 Dose: 5 mg Bupropion HCl (Bupropion Sr 150 Mg Tablet) 150 mg PO DAILY [facility] Last Admin: 06/01/23 09:22 Dose: 150 mg Glipizide (Glipizide Er 2.5 Mg Tablet) 10 mg PO DAILY [facility] Last Admin: 06/01/23 09:21 Dose: 10 mg Insulin Glargine-yfgn (Insulin Glargine-Yfgn 300 Unit/3 Ml Pen) 10 unit SUBQ QDAC [facility] Last Admin: 06/01/23 09:32 Dose: 10 unit Insulin Glargine-yfgn (Insulin Glargine-Yfgn 300 Unit/3 Ml Pen) 10 unit SUBQ QPM [facility] Last Admin: 06/01/23 21:04 Dose: 10 unit Insulin Human Lispro (Insulin Lispro 300 Unit/3 Ml Pen) 5 unit SUBQ TIDWM [facility]; Protocol Last Admin: 06/01/23 18:13 Dose: 5 unit Insulin Human Lispro (Insulin Lispro 300 Unit/3 Ml Pen) 1 - 9 unit SUBQ 0800,1200,1700,2100 [facility]; Protocol Last Admin: 06/01/23 21:04 Dose: 3 unit Lorazepam (Lorazepam 0.5 Mg Tablet) 0.5 mg PO Q6H PRN PRN Reason: Anxiety Last Admin: 05/26/23 22:36 Dose: 0.5 mg Metoprolol Succinate (Metoprolol Succinate 50 Mg Tablet) 50 mg PO BID [facility] Last Admin: 06/01/23 21:02 Dose: 50 mg Multi-Ingredient Ointment (Zinc Oxide 20% Oint 30 Gm Tube) 1 applic TOP PRN PRN PRN Reason: Skin Care Last Admin: 05/19/23 21:02 Dose: 1 applic Nicotine (Nicotine 14 Mg Patch) 1 patch TOP DAILY [facility] Last Admin: 06/01/23 09:23 Dose: 1 patch Olanzapine (Olanzapine Odt 5 Mg Tablet) 5 mg TL DAILY PRN PRN Reason: Agitation Last Admin: 05/23/23 21:40 Dose: 5 mg Ondansetron HCl (Ondansetron Odt 4 Mg Tablet) 4 mg TL Q6HR PRN PRN Reason: Nausea / Vomiting Ondansetron HCl (Ondansetron 4 Mg/2 Ml Vial) 4 mg IVP Q6HR PRN PRN Reason: Nausea / Vomiting Oxycodone HCl (Oxycodone 5 Mg Tablet) 5 mg PO Q4HR PRN PRN Reason: Pain 5 to 7 Last Admin: 05/17/23 12:14 Dose: 5 mg Quetiapine Fumarate (Quetiapine 25 Mg Tablet) 25 mg PO QPM [facility] Last Admin: 06/01/23 21:02 Dose: 25 mg Sertraline HCl (Sertraline 50 Mg Tablet) 50 mg PO DAILY [facility] Last Admin: 06/01/23 09:22 Dose: 50 mg Sodium Chloride (Sodium Chloride Flush 0.9% 10 Ml Syringe) 10 ml IVP PRN PRN PRN Reason: NEEDED PER PROVIDER ORDERS Sodium Chloride (Sodium Chloride Flush 0.9% 10 Ml Syringe) 10 ml IVP 0100,09 00,1700 [facility] Last Admin: 06/01/23 15:32 Dose: Not Given Tamsulosin HCl (Tamsulosin 0.4 Mg Capsule) 0.4 mg PO DAILY [facility] Last Admin: 06/01/23 09:22 Dose: 0.4 mg Zinc Oxide (Cod Liver Oil/Zinc Oxide 113 Gm Tube) 113 gm TOP PRN PRN PRN Reason: Skin Care Amlodipine Besylate [Norvasc] 10 mg PO DAILY 05/10/23 Apixaban [Eliquis] 5 mg PO BID 05/10/23 Fluticasone/Umeclidin/Vilanter [Trelegy Ellipta 100-62.5-25] 1 each IH DAILY 05/10/23 Glipizide [Glipizide Xl] 10 mg PO DAILY 05/10/23 Insulin Aspart (Vial) [NovoLOG (VIAL FOR ED USE)] 11 unit SUBQ TIDWM 05/10/23 Insulin Glargine [Lantus Solostar] 33 unit SUBQ HS 05/10/23 Losartan [Cozaar] 50 mg PO BID 05/10/23 Metoprolol Succinate [Toprol Xl] 50 - 100 mg PO DAILY 05/10/23 Sertraline [Zoloft] 50 mg PO DAILY 05/10/23 allopurinoL [Zyloprim] 100 mg ORAL DAILY 05/10/23 buPROPion HCL [Bupropion HCl Sr] 150 mg PO DAILY 05/10/23 hydroCHLOROthiazide [Hydrodiuril] 12.5 mg PO DAILY 05/10/23 Rosuvastatin Calcium [Crestor] 10 mg PO HS 05/17/23
--- NOTE | 2023-06-02 22:34 | PROVIDER PROGRESS NOTE ---
Assessment/Plan - Problem List (1) DM II (diabetes mellitus, type II), controlled Assessment/Plan: Continue glipizide 10 mg daily. Continue glargine 10 units twice daily Continue sliding scale insulin (2) Acute kidney injury Assessment/Plan: A retroperitneal US showed a 4 cm lesion on left kidney with mural nodularity, but nodularity was not seen on prior US. Advised to follow up in 3-6 months. Acute kidney injury most likely secondary to poor p.o. intake that may be related to patient's dementia. He is medically cleared and does not meet criteria for inpatient status. Plan: Patient is not competent to make his own decisions with regards to his health care. Plan is for him to obtain a guardian. (3) Risk for falls Plan: Avoid sedation if possible. Patient remains a fall risk. Continue to monitor closely. (4) Urinary retention Impression: Patient complained of lower abdominal pain on 05/16 and a bladder scan showed 888 mL of urine. Patient was straight cathed. A morse catheter was inserted on 05/17. Morse removed on 05/21. Plan: Cont low dose Flomax 0.4 mg daily Bladder scan if patient complains of symptoms of urinary retention (5) Chronic Atrial fibrillation Impression: Patient has a history of A-fib on Eliquis. Currently no symptoms and is well managed with medication. 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 He needed Ativan q6 hours PRN for agitation earlier this hospital stay. Mr. Dunne was seen in clinic in fall 2022 where a mini mental status exam was done and he passed, with a 28/30. No cognitive deficits were noted at that time. It is concerning that his mental status could have deteriorated thiat quickly. We considered causes such as drug use, potential stroke, or brain tumor. However, these all seem unlikely as his CT in the ER was negative for any acute findings. It is possible that he could have some degree of brain damage from being hypoglycemic for unknown lengths of time. Patient was found extremely hypoglycemic prior to his admission and had not been heard from in a few days. He was also seen for altered mental status in the past that was believed to be due to hypoglycemia as well. Plan: If agitated, may give home dose of Xyprexa, or a small dose of Seroquel or Ativan q6 PRN SW is working on placement after guardianship is established (7) Hypertension Impression: Plan: Continue on home dose of Metoprolol Cont to hold Losartan and amlodipine for now as blood pressure is normal (8) Altered mental status Impression: RESOLVED. Patient was admitted with altered mental status, likely due to hypoglycemia, dehydration and poor oral intake. (9) Dehydration Impression: RESOLVED. Patient was likely dehydrated due to poor oral intake in the setting of dementia. His electrolytes have normalized and he no longer requires IV hydration as he is eating/drinking well. - Current Meds Current Meds: Current Medications Generic Name Dose Route Start Last Admin Trade Name Freq PRN Reason Stop Dose Admin Allopurinol 100 mg 05/25/23 09:00 06/02/23 08:31 Allopurinol 100 Mg Tablet PO 100 mg DAILY CATHI Administration Apixaban 5 mg 05/16/23 21:00 06/02/23 21:03 Apixaban 5 Mg Tablet PO 5 mg BID CATHI Administration Bupropion HCl 150 mg 05/17/23 09:00 06/02/23 08:31 Bupropion Sr 150 Mg Tablet PO 150 mg DAILY CATHI Administration Glipizide 10 mg 05/24/23 12:00 06/02/23 08:31 Glipizide Er 2.5 Mg Tablet PO 10 mg DAILY CATHI Administration Insulin Glargine-yfgn 10 unit 05/23/23 07:00 06/02/23 08:32 Insulin Glargine-Yfgn 300 Unit/3 Ml Pen SUBQ 10 unit QDAC CATHI Administration Insulin Glargine-yfgn 10 unit 05/30/23 21:00 06/02/23 21:04 Insulin Glargine-Yfgn 300 Unit/3 Ml Pen SUBQ 10 unit QPM CATHI Administration Insulin Human Lispro 5 unit 05/16/23 19:00 06/02/23 17:38 Insulin Lispro 300 Unit/3 Ml Pen SUBQ 5 unit TIDWM CATHI Administration Protocol Insulin Human Lispro 1 - 9 unit 05/21/23 08:00 06/02/23 21:04 Insulin Lispro 300 Unit/3 Ml Pen SUBQ Not Given 0800,1200,1700,2100 [facility] Protocol Lorazepam 0.5 mg 05/19/23 18:50 05/26/23 22:36 Lorazepam 0.5 Mg Tablet PO 0.5 mg Q6H PRN Administration Anxiety Metoprolol Succinate 50 mg 05/16/23 21:00 06/02/23 21:04 Metoprolol Succinate 50 Mg Tablet PO 50 mg BID CATHI Administration Multi-Ingredient Ointment 1 applic 05/16/23 22:50 05/19/23 21:02 Zinc Oxide 20% Oint 30 Gm Tube TOP 1 applic PRN PRN Administration Skin Care Nicotine 1 patch 05/18/23 09:00 06/02/23 08:31 Nicotine 14 Mg Patch TOP 1 patch DAILY CATHI Administration Olanzapine 5 mg 05/17/23 19:57 05/23/23 21:40 Olanzapine Odt 5 Mg Tablet TL 5 mg DAILY PRN Administration Agitation Oxycodone HCl 5 mg 05/16/23 14:47 05/17/23 12:14 Oxycodone 5 Mg Tablet PO 5 mg Q4HR PRN Administration Pain 5 to 7 Quetiapine Fumarate 25 mg 05/17/23 21:00 06/02/23 21:04 Quetiapine 25 Mg Tablet PO 25 mg QPM CATHI Administration Sertraline HCl 50 mg 05/17/23 09:00 06/02/23 08:31 Sertraline 50 Mg Tablet PO 50 mg DAILY CATHI Administration Sodium Chloride 10 ml 05/16/23 17:00 06/02/23 17:39 Sodium Chloride Flush 0.9% 10 Ml Syringe IVP 10 ml 0100,0900,1700 CATHI Administration Tamsulosin HCl 0.4 mg 05/18/23 09:00 06/02/23 08:31 Tamsulosin 0.4 Mg Capsule PO 0.4 mg DAILY CATHI Administration - Lab Result Fish Bone Diagrams: 06/03/23 05:31 06/03/23 05:31 - Additional Planning My Orders: My Active Orders 06/03/23 05:00 BMP - BASIC METABOLIC PANEL [CHEM] ONCE CBC [CBC - COMP BLD CT W/AUTO DIFF] [HEME] ONCE MAGNESIUM [CHEM] ONCE PHOSPHORUS [CHEM] ONCE Subjective - Subjective Patient Reports: Other (Alert. Patient has no complaints at this time.) Objective Vital Signs: Vital Signs - 24 hr 06/02/23 06/02/23 00:00 07:25 Temperature 36.7 C 37 C Heart Rate [ 74 69 Brachial] Respiratory 20 20 Rate Blood Pressure 146/84 H 146/87 H [Right Brachial artery] O2 Saturation 96 92 If not protocol 2 : Oxygen Flow, liters/minute Oxygen O2 Source Nasal cannula Oxygen Flow Rate 4 I&O (Last 24 Hrs): Intake and Output Totals x24h 05/31/23 06/01/23 06/02/23 23:59 23:59 23:59 Intake Total 2070 1080 680 Output Total 250 1175 Balance 2070 830 -495 General: Alert, No acute distress HEENT: Atraumatic Neck: Supple, No JVD, No thyromegaly Neuro: Alert, Non Focal Cardiovascular: Regular rate, Normal S1, Normal S2, No murmurs Respiratory: Chest non-tender, No respiratory distress, Breath sounds nml Abdomen: Normal bowel sounds, Soft, No tenderness, No hepatospenomegaly Extremities: No cyanosis, No edema Skin: No rashes - Results Results: Laboratory Results WBC 7.3 x10^3/uL (4.8-10.8) 05/21/23 05:22 RBC 5.21 10^6/uL (4.70-6.10) 05/21/23 05:22 Hgb 14.4 g/dL (14.0-18.0) 05/21/23 05:22 Hct 46.2 % (42.0-52.0) 05/21/23 05:22 MCV 88.7 fL (80.0-94.0) 05/21/23 05:22 MCH 27.6 pg (27.0-31.0) 05/21/23 05:22 MCHC 31.2 g/dL (32.0-36.0) L 05/21/23 05:22 RDW 16.2 % (12.0-15.0) H 05/21/23 05:22 Plt Count 132 10^3/uL (130-450) 05/21/23 05:22 MPV 12.0 fL (7.4-11.4) H 05/21/23 05:22 Neut # (Auto) 4.7 10^3/uL (1.5-6.6) 05/21/23 05:22 Lymph # (Auto) 1.8 10^3/uL (1.5-3.5) 05/21/23 05:22 [place] # (Auto) 0.5 10^3/uL (0.0-1.0) 05/21/23 05:22 Eos # (Auto) 0.2 10^3/uL (0.0-0.7) 05/21/23 05:22 Baso # (Auto) 0.0 10^3/uL (0.0-0.1) 05/21/23 05:22 Absolute Nucleated RBC 0.00 x10^3/uL 05/21/23 05:22 Nucleated RBC % 0.0 /100WBC 05/21/23 05:22 Sodium 135 mmol/L (135-145) 05/23/23 04:49 Potassium 4.0 mmol/L (3.5-4.5) 05/23/23 04:49 Chloride 101 mmol/L (101-111) 05/23/23 04:49 Carbon Dioxide 29 mmol/L (21-32) 05/23/23 04:49 Anion Gap 5.0 (6-13) L 05/23/23 04:49 BUN 28 mg/dL (6-20) H 05/23/23 04:49 Creatinine 1.5 mg/dL (0.6-1.3) H 05/23/23 04:49 Estimated GFR (MDRD) 45 (>89) L 05/23/23 04:49 Glucose 96 mg/dL (74-104) 05/23/23 04:49 POC Whole Bld Glucose 79 mg/dL (70 - 100) 06/02/23 20:37 Estimat Average Glucose 148 mg/dL (70-100) H 05/17/23 05:18 Hemoglobin A1c % 6.8 % (4.27-6.07) H 05/17/23 05:18 Lactic Acid 1.0 mmol/L (0.5-2.2) 05/15/23 15:40 Calcium 9.2 mg/dL (8.5-10.3) 05/23/23 04:49 Magnesium 1.7 mg/dL (1.7-2.3) 05/10/23 14:20 Total Bilirubin 0.5 mg/dL (0.2-1.0) 05/15/23 15:40 AST 31 IU/L (10-42) 05/15/23 15:40 ALT 28 IU/L (10-60) 05/15/23 15:40 Alkaline Phosphatase 64 IU/L (42-121) 05/15/23 15:40 B-Natriuretic Peptide 137 pg/mL (5-100) H 05/15/23 15:40 Total Protein 7.3 g/dL (6.4-8.9) 05/15/23 15:40 Albumin 3.4 g/dL (3.2-5.5) 05/15/23 15:40 Globulin 3.9 g/dL (2.1-4.2) 05/15/23 15:40 Albumin/Globulin Ratio 0.9 (1.0-2.2) L 05/15/23 15:40 Lipase 32 U/L (11-82) 05/15/23 15:40 Urine Color DARK YELLOW 05/10/23 14:20 Urine Clarity CLEAR (CLEAR) 05/10/23 14:20 Urine pH 5.5 PH (5.0-7.5) 05/10/23 14:20 Ur Specific [place] >=1.030 (1.002-1.030) H 05/10/23 14:20 Urine Protein 100 mg/dL (NEGATIVE) H 05/10/23 14:20 Urine Glucose (UA) 100 mg/dL (NEGATIVE) H 05/10/23 14:20 Urine Ketones TRACE mg/dL (NEGATIVE) 05/10/23 14:20 Urine Occult Blood NEGATIVE (NEGATIVE) 05/10/23 14:20 Urine Nitrite NEGATIVE (NEGATIVE) 05/10/23 14:20 Urine Bilirubin NEGATIVE (NEGATIVE) 05/10/23 14:20 Urine Urobilinogen 0.2 (NORMAL) E.U./dL (NORMAL) 05/10/23 14:20 Ur Leukocyte Esterase NEGATIVE (NEGATIVE) 05/10/23 14:20 Urine RBC 0-5 /HPF (0-5) 05/10/23 14:20 Urine WBC 0-3 /HPF (0-3) 05/10/23 14:20 Ur Squamous Epith Cells RARE Squamous (<= Few) 05/10/23 14:20 Urine Bacteria Rare /HPF (None Seen) 05/10/23 14:20 Ur Microscopic Review INDICATED 05/10/23 14:20 Urine Culture Comments NOT INDICATED 05/10/23 14:20 Nasal Adenovirus (PCR) NOT DETECTED 05/15/23 17:10 Nasal B. parapertussis DNA (PCR) NOT DETECTED 05/15/23 17:10 Nasal Coronavir 229E PCR NOT DETECTED 05/15/23 17:10 Nasal Coronavir HKU1 PCR NOT DETECTED 05/15/23 17:10 Nasal Coronavir NL63 PCR NOT DETECTED 05/15/23 17:10 Nasal Coronavir OC43 PCR NOT DETECTED 05/15/23 17:10 Nasal Enterovir/Rhinovir PCR NOT DETECTED 05/15/23 17:10 Nasal Influenza B PCR NOT DETECTED 05/15/23 17:10 Nasal Influenza A PCR NOT DETECTED 05/15/23 17:10 Nasal Parainfluen 1 PCR NOT DETECTED 05/15/23 17:10 Nasal Parainfluen 2 PCR NOT DETECTED 05/15/23 17:10 Nasal Parainfluen 3 PCR NOT DETECTED 05/15/23 17:10 Nasal Parainfluen 4 PCR NOT DETECTED 05/15/23 17:10 Nasal RSV (PCR) NOT DETECTED 05/15/23 17:10 Nasal B.pertussis DNA PCR NOT DETECTED 05/15/23 17:10 Nasal C.pneumoniae (PCR) NOT DETECTED 05/15/23 17:10 [place] Human Metapneumo PCR NOT DETECTED 05/15/23 17:10 Nasal M.pneumoniae (PCR) NOT DETECTED 05/15/23 17:10 Nasal SARS-CoV-2 (PCR) NOT DETECTED 05/15/23 17:10 - Procedures Procedures: Procedures ENDO RECTUM POLYPECTOMY (01/07/13) Current Medications - Current Medications Current Medications: Active Medications Acetaminophen (Acetaminophen 325 Mg Tablet) 650 mg PO Q4HR PRN PRN Reason: Pain 1 to 4, or Fever Allopurinol (Allopurinol 100 Mg Tablet) 100 mg PO DAILY [facility] Last Admin: 06/02/23 08:31 Dose: 100 mg Apixaban (Apixaban 5 Mg Tablet) 5 mg PO BID [facility] Last Admin: 06/02/23 21:03 Dose: 5 mg Bupropion HCl (Bupropion Sr 150 Mg Tablet) 150 mg PO DAILY [facility] Last Admin: 06/02/23 08:31 Dose: 150 mg Glipizide (Glipizide Er 2.5 Mg Tablet) 10 mg PO DAILY [facility] Last Admin: 06/02/23 08:31 Dose: 10 mg Insulin Glargine-yfgn (Insulin Glargine-Yfgn 300 Unit/3 Ml Pen) 10 unit SUBQ QDAC [facility] Last Admin: 06/02/23 08:32 Dose: 10 unit Insulin Glargine-yfgn (Insulin Glargine-Yfgn 300 Unit/3 Ml Pen) 10 unit SUBQ QPM [facility] Last Admin: 06/02/23 21:04 Dose: 10 unit Insulin Human Lispro (Insulin Lispro 300 Unit/3 Ml Pen) 5 unit SUBQ TIDWM [facility]; Protocol Last Admin: 06/02/23 17:38 Dose: 5 unit Insulin Human Lispro (Insulin Lispro 300 Unit/3 Ml Pen) 1 - 9 unit SUBQ 0800,1200,1700,2100 [facility]; Protocol Last Admin: 06/02/23 21:04 Dose: Not Given Lorazepam (Lorazepam 0.5 Mg Tablet) 0.5 mg PO Q6H PRN PRN Reason: Anxiety Last Admin: 05/26/23 22:36 Dose: 0.5 mg Metoprolol Succinate (Metoprolol Succinate 50 Mg Tablet) 50 mg PO BID [facility] Last Admin: 06/02/23 21:04 Dose: 50 mg Multi-Ingredient Ointment (Zinc Oxide 20% Oint 30 Gm Tube) 1 applic TOP PRN PRN PRN Reason: Skin Care Last Admin: 05/19/23 21:02 Dose: 1 applic Nicotine (Nicotine 14 Mg Patch) 1 patch TOP DAILY [facility] Last Admin: 06/02/23 08:31 Dose: 1 patch Olanzapine (Olanzapine Odt 5 Mg Tablet) 5 mg TL DAILY PRN PRN Reason: Agitation Last Admin: 05/23/23 21:40 Dose: 5 mg Ondansetron HCl (Ondansetron Odt 4 Mg Tablet) 4 mg TL Q6HR PRN PRN Reason: Nausea / Vomiting Ondansetron HCl (Ondansetron 4 Mg/2 Ml Vial) 4 mg IVP Q6HR PRN PRN Reason: Nausea / Vomiting Oxycodone HCl (Oxycodone 5 Mg Tablet) 5 mg PO Q4HR PRN PRN Reason: Pain 5 to 7 Last Admin: 05/17/23 12:14 Dose: 5 mg Quetiapine Fumarate (Quetiapine 25 Mg Tablet) 25 mg PO QPM [facility] Last Admin: 06/02/23 21:04 Dose: 25 mg Sertraline HCl (Sertraline 50 Mg Tablet) 50 mg PO DAILY [facility] Last Admin: 06/02/23 08:31 Dose: 50 mg Sodium Chloride (Sodium Chloride Flush 0.9% 10 Ml Syringe) 10 ml IVP PRN PRN PRN Reason: NEEDED PER PROVIDER ORDERS Sodium Chloride (Sodium Chloride Flush 0.9% 10 Ml Syringe) 10 ml IVP 0100,0900,1700 [facility] Last Admin: 06/02/23 17:39 Dose: 10 ml Tamsulosin HCl (Tamsulosin 0.4 Mg Capsule) 0.4 mg PO DAILY [facility] Last Admin: 06/02/23 08:31 Dose: 0.4 mg Zinc Oxide (Cod Liver Oil/Zinc Oxide 113 Gm Tube) 113 gm TOP PRN PRN PRN Reason: Skin Care Amlodipine Besylate [Norvasc] 10 mg PO DAILY 05/10/23 Apixaban [Eliquis] 5 mg PO BID 05/10/23 Fluticasone/Umeclidin/Vilanter [Trelegy Ellipta 100-62.5-25] 1 each IH DAILY 05/10/23 Glipizide [Glipizide Xl] 10 mg PO DAILY 05/10/23 Insulin Aspart (Vial) [NovoLOG (VIAL FOR ED USE)] 11 unit SUBQ TIDWM 05/10/23 Insulin Glargine [Lantus Solostar] 33 unit SUBQ HS 05/10/23 Losartan [Cozaar] 50 mg PO BID 05/10/23 Metoprolol Succinate [Toprol Xl] 50 - 100 mg PO DAILY 05/10/23 Sertraline [Zoloft] 50 mg PO DAILY 05/10/23 allopurinoL [Zyloprim] 100 mg ORAL DAILY 05/10/23 buPROPion HCL [Bupropion HCl Sr] 150 mg PO DAILY 05/10/23 hydroCHLOROthiazide [Hydrodiuril] 12.5 mg PO DAILY 05/10/23 Rosuvastatin Calcium [Crestor] 10 mg PO HS 05/17/23
[2023-06-03 06:06] LABS: BASOPHILS # (AUTO) 0.1 10^3/uL (0.0-0.1); BASOPHILS % (AUTO) 0.6 %; EOSINOPHILS # (AUTO) 0.5 10^3/uL (0.0-0.7); EOSINOPHILS % (AUTO) 6.5 %; HCT - HEMATOCRIT 42.8 % (42.0-52.0); HGB - HEMOGLOBIN 13.4 g/dL (14.0-18.0); LYMPHOCYTES # (AUTO) 1.6 10^3/uL (1.5-3.5); LYMPHOCYTES % (AUTO) 20.4 %; MEAN CORPUSCULAR HEMOGLOBIN 27.9 pg (27.0-31.0); MEAN CORPUSCULAR HGB CONC 31.3 g/dL (32.0-36.0); MEAN CORPUSCULAR VOLUME 89.2 fL (80.0-94.0); MEAN PLATELET VOLUME 11.1 fL (7.4-11.4); MONOCYTES # (AUTO) 0.7 10^3/uL (0.0-1.0); MONOCYTES % (AUTO) 8.5 %; NEUTROPHILS # (AUTO) 5.1 10^3/uL (1.5-6.6); NEUTROPHILS % (AUTO) 63.8 %; PLT - PLATELET COUNT 181 10^3/uL (130-450); RED CELL DISTRIBUTION WIDTH 16.2 % (12.0-15.0)
[2023-06-03 07:05] LABS: CALCIUM 9.3 mg/dL (8.5-10.3); CREATININE 1.3 mg/dL (0.6-1.3); MAGNESIUM 1.5 mg/dL (1.7-2.3); PHOSPHORUS 3.7 mg/dL (2.5-5.0)
--- NOTE | 2023-06-03 11:24 | TELEPSYCH PHYS NOTE ---
[facility] Telepsych Consult Consult Date: 06/02/22 Name of Referring Provider:: Hospitalist Leon Carreon Reason for Consult: Neurocognitive Disorder - Suicide Risk Sreening (ASQ Tool) In the past few weeks, have you wished you were ?: No In the past few weeks, have you felt that you or your family would be better off if you were ?: No In the past week, have you been having thoughts about killing yourself?: No Have you ever tried to kill yourself?: No - Assessment Language: Gabonese [employer]etr[employer] Manager Required: No Cultural, Sikhism or Spiritual Preferences: None identified Notes: Discussed case with attending provider taking care of Mr. Dunne today. He denies any behavioral issues. He believes that patient's neurocognitive is mild to moderate. It's felt that the patient is not competent. There is no family to help the patient. It's felt he can't take care of himself at home and they are seeking placement. He is medically cleared and being held for placement. There were concerns that Mr. Dunne would not agree to discharging to a facility. Prior to admission he was found down and unconscious, felt to have been due to hypoglycemia. Chief Complaint: Psychiatric Evaluation History of Present Illness: CC: "I'm good, I'm ok." 78 yr old male with history of NCD presents today for psychiatric assessment. He was admitted several weeks ago related to AMS. States he is in the hospital because he has been having memory problems, "my oxygen was so low, it erased my memory, they said I would probably gain some back and I have." Mood lately is, "I'm happy." Denies any hallucinations or psychotic symptoms. Appetite and sleep are good. Lives alone. He cooks independently. He goes to [employer] at the first of every month to get gas and groceries. He drives a car. He's able to shower independently. He has a sister in [facility], but they aren't in contact. Denies SI. Denies history of suicide attempts. Denies history of mental illness. He states he takes bupropion at home, "it equals out my system." No other psychiatric medications at home. Denies IP admissions. No FH of mental illness. 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 He has a HS diploma. I ask if he's agreeable to go to a care facility, "if that's what you order I will." Orientation Month: "I can't remember the name" Year: 2023 Hospital: "I'm not sure the name, it's part of the community center around here. I think it follows the hospital." : 1945 POTUS: "Maru" Suicide Ideation - Homicide Ideation - Self Harm: Denies SI/HI Denies history of suicide attempts Psychiatric History - Treatment History: Denies history of inpatient or outpatient mental health treatment. He is not sure of any psychiatric diagnosis. Community Resources Accessed: ED Family Psych History/ History of suicide: Denies Nutritional Status: No nutritional concerns - Medication & Allergies Home Medications: Ambulatory Orders Medication Instructions Recorded Confirmed Albuterol Sulf [Ventolin Hfa 1 - 2 puffs INH Q4HR PRN #1 inhaler 12/11/18 05/10/23 Inhaler] Amlodipine Besylate [Norvasc] 10 mg PO DAILY 05/10/23 05/17/23 Apixaban [Eliquis] 5 mg PO BID 05/10/23 05/17/23 Fluticasone/Umeclidin/Vilanter 1 each IH DAILY 05/10/23 05/17/23 [Treleshaniqua Ellipta 100-62.5-25] Glipizide [Glipizide Xl] 10 mg PO DAILY 05/10/23 05/17/23 Insulin Aspart (Vial) [NovoLOG 11 unit SUBQ TIDWM 05/10/23 05/10/23 (VIAL FOR ED USE)] Insulin Glargine [Lantus Solostar] 33 unit SUBQ HS 05/10/23 05/17/23 Losartan [Cozaar] 50 mg PO BID 05/10/23 05/17/23 Metoprolol Succinate [Toprol Xl] 50 - 100 mg PO DAILY 05/10/23 05/17/23 Sertraline [Zoloft] 50 mg PO DAILY 05/10/23 05/17/23 allopurinoL [Zyloprim] 100 mg ORAL DAILY 05/10/23 05/17/23 buPROPion HCL [Bupropion HCl Sr] 150 mg PO DAILY 05/10/23 05/17/23 hydroCHLOROthiazide [Hydrodiuril] 12.5 mg PO DAILY 05/10/23 05/17/23 Rosuvastatin Calcium [Crestor] 10 mg PO HS 05/17/23 05/17/23 Allergies/Adverse Reactions: Allergies Allergy/AdvReac Type Severity Reaction Status Date / Time No Known Drug Allergies Allergy Verified 05/10/23 14:07 - Drug & Alcohol History Does patient have Drug/ETOH history or addictive behavior?: Yes - Trauma Does the patient have a history of trauma, abuse, neglect or explotation?: No - Personal Information Does the patient have a history or present tendencies for violence?: None Services History: Denies Does patient have any Legal Charges or Investigations?: No Legal Charges or Investigations (Notes): - Environment & Living Situation - Social, Peer-Group (Note): At home Environment & Living Situation - Social, Peer-Group (Notes): Lives at home alone Marital Status - Family Circumstances: Single Stressors - Financial Concerns: "Just this president." Education: HS graduate Occupation: Retired manager real estate Collateral - Interdisciplinary Input: Hospital staff - Medical History Neurological: reports: None, Dementia Eyes, Ears, Nose, Throat: reports: None Cardiovascular: reports: Congestive heart failure, Hypertension, High cholesterol, Coronary artery disease, Peripheral Vascular Disease, [place], Atrial fibrillation Respiratory: reports: COPD, Sleep apnea Gastrointestinal: reports: Colon polyps Urinary: reports: None Musculoskeletal: reports: Chronic back pain Skin: reports: None, Other (skin cancer) - Surgical History Cardiovascular: reports: CABG, Coronary stent Orthopedic: reports: Spine surgery - Family & Social History Family History: Mother: (mother had breast cancer), Father: , Parkinson's Disease Living Situation: Alone Social History Notes: Sister lives in [place]; however, they are not in contact; he does have firearms in the home Childhood History: Nothing notable discussed - Mental Status Exam Appearance and Attire: Casually groomed; good eye contact Attitude and Behavior: Cooperative and friendly Speech: Normal rate, volume and quantity Affect and Mood: "Happy" mood; affect is congruent and appropriate Association and Thought Process: Linear and organized; trouble with word finding Thought Content: Denies SI/HI; no paranoia or delusions Perception: Denies AVH Sensorium, memory and orientation: Alert; oriented to person, grossly to place, year, POTUS, Intellectual - Cognitive functioning: Below average Insight and Judgement: Fair Emotional and Behavioral Functioning: No agitation, combative behavior, or wandering Ability to Self-Care: He can maintain ADL's. Questionable if he can maintain iADLs. - Personal Goals Short-term Goals: None identified Long-term Goals: None identified - Risk/Protective Factors Risk Factors: Inadequate social supports, Social Isolation Protective Factors / Internal: Ability to cope with stress, Frustration tolerance, Fear of or the actual act of killing self, Identifies reasons for living Protective Factors / External: N/A - Plan Impression/Risk Assessment: 78 year old male with history of neurocognitive disorder, etiology possibly due to anoxic brain injury/hypoglycemic event, presents today for psychiatric evaluation. He is not depressed, manic, suicidal, homicidal or psychotic. He does not meet criteria for inpatient psychiatric hospitalization. He tells me he is agreeable to transfer to a supportive care environment as recommended by his care team. Treatment - Therapy Recommendations: Social work is seeking placement in a care facility. If there is any question as to if he can live independently, and OT/PT consultation could determine this. MOCA and MMSE should be performed by staff to determine severity of neurocognitive decline. Pharmacological Recommendations: Decrease olanzapine to 2.5 mg qhs. There hasn't been any psychotic or behavioral issues lately so this can likely be stopped at some point. Orthostatic BPs should be monitored with this drug and it does increase fall risk Change quetipine 50 mg qhs to 50 mg qd prn for agitation. Qtc should be <475 to continue this medication. Limit use of lorazepam as it may increase confusion Continue bupropion SR 150 mg qd Continue sertraline 50 mg qd - Time Spent & Provider Location Telepsych consultation conducted via videoconferencing: Yes List names and roles of persons who participated in consult: - Telepsych Provider Location: Home office Time Spent (Minutes): 75
[2023-06-03] MEDS: MAGNESIUM OXIDE 400 MG TABLET PO SCH (11:49)
--- NOTE | 2023-06-03 22:39 | PROVIDER PROGRESS NOTE ---
Assessment/Plan - Problem List (1) DM II (diabetes mellitus, type II), controlled Assessment/Plan: Continue glipizide 10 mg daily. Continue glargine 10 units twice daily Continue sliding scale insulin (2) Acute kidney injury Assessment/Plan: A retroperitneal US showed a 4 cm lesion on left kidney with mural nodularity, but nodularity was not seen on prior US. Advised to follow up in 3-6 months. Acute kidney injury most likely secondary to poor p.o. intake that may be related to patient's dementia. He is medically cleared and does not meet criteria for inpatient status. Plan: Patient is not competent to make his own decisions with regards to his health care. Plan is for him to obtain a guardian. (3) Risk for falls Plan: Avoid sedation if possible. Patient remains a fall risk. Continue to monitor closely. (4) Urinary retention Impression: Patient complained of lower abdominal pain on 05/16 and a bladder scan showed 888 mL of urine. Patient was straight cathed. A morse catheter was inserted on 05/17. Morse removed on 05/21. Plan: Cont low dose Flomax 0.4 mg daily Bladder scan if patient complains of symptoms of urinary retention (5) Chronic Atrial fibrillation Impression: Patient has a history of A-fib on Eliquis. Currently no symptoms and is well managed with medication. 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 He needed Ativan q6 hours PRN for agitation earlier this hospital stay. Mr. Dunne was seen in clinic in fall 2022 where a mini mental status exam was done and he passed, with a 28/30. No cognitive deficits were noted at that time. It is concerning that his mental status could have deteriorated thiat quickly. We considered causes such as drug use, potential stroke, or brain tumor. However, these all seem unlikely as his CT in the ER was negative for any acute findings. It is possible that he could have some degree of brain damage from being hypoglycemic for unknown lengths of time. Patient was found extremely hypoglycemic prior to his admission and had not been heard from in a few days. He was also seen for altered mental status in the past that was believed to be due to hypoglycemia as well. Plan: If agitated, may give home dose of Xyprexa, or a small dose of Seroquel or Ativan q6 PRN SW is working on placement after guardianship is established (7) Hypertension Impression: Plan: Continue on home dose of Metoprolol Cont to hold Losartan and amlodipine for now as blood pressure is normal (8) Altered mental status Impression: RESOLVED. Patient was admitted with altered mental status, likely due to hypoglycemia, dehydration and poor oral intake. (9) Dehydration Impression: RESOLVED. Patient was likely dehydrated due to poor oral intake in the setting o f dementia. His electrolytes have normalized and he no longer requires IV hydration as he is eating/drinking well. - Current Meds Current Meds: Current Medications Generic Name Dose Route Start Last Admin Trade Name Freq PRN Reason Stop Dose Admin Allopurinol 100 mg 05/25/23 09:00 06/03/23 08:13 Allopurinol 100 Mg Tablet PO 100 mg DAILY CATHI Administration Apixaban 5 mg 05/16/23 21:00 06/03/23 21:22 Apixaban 5 Mg Tablet PO 5 mg BID CATHI Administration Bupropion HCl 150 mg 05/17/23 09:00 06/03/23 08:13 Bupropion Sr 150 Mg Tablet PO 150 mg DAILY CATHI Administration Glipizide 10 mg 05/24/23 12:00 06/03/23 08:13 Glipizide Er 2.5 Mg Tablet PO 10 mg DAILY CATHI Administration Insulin Glargine-yfgn 10 unit 05/23/23 07:00 06/03/23 08:15 Insulin Glargine-Yfgn 300 Unit/3 Ml Pen SUBQ 10 unit QDAC CATHI Administration Insulin Glargine-yfgn 10 unit 05/30/23 21:00 06/03/23 21:23 Insulin Glargine-Yfgn 300 Unit/3 Ml Pen SUBQ 10 unit QPM CATHI Administration Insulin Human Lispro 5 unit 05/16/23 19:00 06/03/23 17:15 Insulin Lispro 300 Unit/3 Ml Pen SUBQ 5 unit TIDWM CATHI Administration Protocol Insulin Human Lispro 1 - 9 unit 05/21/23 08:00 06/03/23 21:22 Insulin Lispro 300 Unit/3 Ml Pen SUBQ 3 unit 0800,1200,1700,2100 CATHI Administration Protocol Lorazepam 0.5 mg 05/19/23 18:50 05/26/23 22:36 Lorazepam 0.5 Mg Tablet PO 0.5 mg Q6H PRN Administration Anxiety Magnesium Oxide 400 mg 06/03/23 11:13 06/03/23 11:49 Magnesium Oxide 400 Mg Tablet PO 400 mg DAILYWM CATHI Administration Metoprolol Succinate 50 mg 05/16/23 21:00 06/03/23 21:22 Metoprolol Succinate 50 Mg Tablet PO 50 mg BID CATHI Administration Multi-Ingredient Ointment 1 applic 05/16/23 22:50 05/19/23 21:02 Zinc Oxide 20% Oint 30 Gm Tube TOP 1 applic PRN PRN Administration Skin Care Nicotine 1 patch 05/18/23 09:00 06/03/23 08:12 Nicotine 14 Mg Patch TOP 1 patch DAILY CATHI Administration Olanzapine 5 mg 05/17/23 19:57 05/23/23 21:40 Olanzapine Odt 5 Mg Tablet TL 5 mg DAILY PRN Administration Agitation Oxycodone HCl 5 mg 05/16/23 14:47 05/17/23 12:14 Oxycodone 5 Mg Tablet PO 5 mg Q4HR PRN Administration Pain 5 to 7 Quetiapine Fumarate 25 mg 05/17/23 21:00 06/03/23 21:22 Quetiapine 25 Mg Tablet PO 25 mg QPM CATHI Administration Sertraline HCl 50 mg 05/17/23 09:00 06/03/23 08:13 Sertraline 50 Mg Tablet PO 50 mg DAILY CATHI Administration Sodium Chloride 10 ml 05/16/23 17:00 06/03/23 21:21 Sodium Chloride Flush 0.9% 10 Ml Syringe IVP Not Given 0100,0900,1700 [facility] Tamsulosin HCl 0.4 mg 05/18/23 09:00 06/03/23 08:13 Tamsulosin 0.4 Mg Capsule PO 0.4 mg DAILY CATHI Administration - Lab Result Fish Bone Diagrams: 06/03/23 05:31 06/03/23 05:31 - Additional Planning My Orders: My Active Orders 06/03/23 11:13 Magnesium Oxide [Mag Ox] 400 mg PO DAILYWM Subjective - Subjective Patient Reports: Other (Alert. No other complaints at this time.) Objective Vital Signs: Vital Signs - 24 hr 06/03/23 06/03/23 06/03/23 07:25 09:00 16:07 Temperature 36.8 C 37.5 C Heart Rate [ 74 68 Brachial] Respiratory 18 24 Rate Blood Pressure 115/62 143/73 H [Right Brachial artery] O2 Saturation 90 L 92 If not protocol 2 2 2 : Oxygen Flow, liters/minute 06/03/23 21:07 Temperature 37.4 C Heart Rate [ 77 Brachial] Respiratory 24 Rate Blood Pressure 123/66 [Right Brachial artery] O2 Saturation 92 If not protocol 2 : Oxygen Flow, liters/minute Oxygen O2 Source Nasal cannula Oxygen Flow Rate 4 I&O (Last 24 Hrs): Intake and Output Totals x24h 06/01/23 06/02/23 06/03/23 23:59 23:59 23:59 Intake Total 8673 609 9634 Output Total 250 1175 1200 Balance 830 -495 -20 General: Alert, No acute distress HEENT: Atraumatic, PERRLA Neck: Supple, No JVD, No thyromegaly Neuro: Alert, Non Focal Cardiovascular: Other (Positive S1-S2 no EXTR heart sounds) Respiratory: Other (Good air exchange in all lung wynn no wheezing no crackles) Extremities: No cyanosis, No edema Skin: No rashes - Results Results: Laboratory Results WBC 8.0 x10^3/uL (4.8-10.8) 06/03/23 05:31 RBC 4.80 10^6/uL (4.70-6.10) 06/03/23 05:31 Hgb 13.4 g/dL (14.0-18.0) L 06/03/23 05:31 Hct 42.8 % (42.0-52.0) 06/03/23 05:31 MCV 89.2 fL (80.0-94.0) 06/03/23 05:31 MCH 27.9 pg (27.0-31.0) 06/03/23 05:31 MCHC 31.3 g/dL (32.0-36.0) L 06/03/23 05:31 RDW 16.2 % (12.0-15.0) H 06/03/23 05:31 Plt Count 181 10^3/uL (130-450) 06/03/23 05:31 MPV 11.1 fL (7.4-11.4) 06/03/23 05:31 Neut # (Auto) 5.1 10^3/uL (1.5-6.6) 06/03/23 05:31 Lymph # (Auto) 1.6 10^3/uL (1.5-3.5) 06/03/23 05:31 [place] # (Auto) 0.7 10^3/uL (0.0-1.0) 06/03/23 05:31 Eos # (Auto) 0.5 10^3/uL (0.0-0.7) 06/03/23 05:31 Baso # (Auto) 0.1 10^3/uL (0.0-0.1) 06/03/23 05:31 Absolute Nucleated RBC 0.00 x10^3/uL 06/03/23 05:31 Nucleated RBC % 0.0 /100WBC 06/03/23 05:31 Sodium 137 mmol/L (135-145) 06/03/23 05:31 Potassium 4.0 mmol/L (3.5-4.5) 06/03/23 05:31 Chloride 103 mmol/L (101-111) 06/03/23 05:31 Carbon Dioxide 26 mmol/L (21-32) 06/03/23 05:31 Anion Gap 8.0 (6-13) 06/03/23 05:31 BUN 18 mg/dL (6-20) 06/03/23 05:31 Creatinine 1.3 mg/dL (0.6-1.3) 06/03/23 05:31 Estimated GFR (MDRD) 53 (>89) L 06/03/23 05:31 Glucose 100 mg/dL (74-104) 06/03/23 05:31 POC Whole Bld Glucose 166 mg/dL (70 - 100) H 06/03/23 21:10 Estimat Average Glucose 148 mg/dL (70-100) H 05/17/23 05:18 Hemoglobin A1c % 6.8 % (4.27-6.07) H 05/17/23 05:18 Lactic Acid 1.0 mmol/L (0.5-2.2) 05/15/23 15:40 Calcium 9.3 mg/dL (8.5-10.3) 06/03/23 05:31 Phosphorus 3.7 mg/dL (2.5-5.0) 06/03/23 05:31 Magnesium 1.5 mg/dL (1.7-2.3) L 06/03/23 05:31 Total Bilirubin 0.5 mg/dL (0.2-1.0) 05/15/23 15:40 AST 31 IU/L (10-42) 05/15/23 15:40 ALT 28 IU/L (10-60) 05/15/23 15:40 Alkaline Phosphatase 64 IU/L (42-121) 05/15/23 15:40 B-Natriuretic Peptide 137 pg/mL (5-100) H 05/15/23 15:40 Total Protein 7.3 g/dL (6.4-8.9) 05/15/23 15:40 Albumin 3.4 g/dL (3.2-5.5) 05/15/23 15:40 Globulin 3.9 g/dL (2.1-4.2) 05/15/23 15:40 Albumin/Globulin Ratio 0.9 (1.0-2.2) L 05/15/23 15:40 Lipase 32 U/L (11-82) 05/15/23 15:40 Urine Color DARK YELLOW 05/10/23 14:20 Urine Clarity CLEAR (CLEAR) 05/10/23 14:20 Urine pH 5.5 PH (5.0-7.5) 05/10/23 14:20 Ur Specific [place] >=1.030 (1.002-1.030) H 05/10/23 14:20 Urine Protein 100 mg/dL (NEGATIVE) H 05/10/23 14:20 Urine Glucose (UA) 100 mg/dL (NEGATIVE) H 05/10/23 14:20 Urine Ketones TRACE mg/dL (NEGATIVE) 05/10/23 14:20 Urine Occult Blood NEGATIVE (NEGATIVE) 05/10/23 14:20 Urine Nitrite NEGATIVE (NEGATIVE) 05/10/23 14:20 Urine Bilirubin NEGATIVE (NEGATIVE) 05/10/23 14:20 Urine Urobilinogen 0.2 (NORMAL) E.U./dL (NORMAL) 05/10/23 14:20 Ur Leukocyte Esterase NEGATIVE (NEGATIVE) 05/10/23 14:20 Urine RBC 0-5 /HPF (0-5) 05/10/23 14:20 Urine WBC 0-3 /HPF (0-3) 05/10/23 14:20 Ur Squamous Epith Cells RARE Squamous (<= Few) 05/10/23 14:20 Urine Bacteria Rare /HPF (None Seen) 05/10/23 14:20 Ur Microscopic Review INDICATED 05/10/23 14:20 Urine Culture Comments NOT INDICATED 05/10/23 14:20 Nasal Adenovirus (PCR) NOT DETECTED 05/15/23 17:10 Nasal B. parapertussis DNA (PCR) NOT DETECTED 05/15/23 17:10 Nasal Coronavir 229E PCR NOT DETECTED 05/15/23 17:10 Nasal Coronavir HKU1 PCR NOT DETECTED 05/15/23 17:10 Nasal Coronavir NL63 PCR NOT DETECTED 05/15/23 17:10 Nasal Coronavir OC43 PCR NOT DETECTED 05/15/23 17:10 Nasal Enterovir/Rhinovir PCR NOT DETECTED 05/15/23 17:10 Nasal Influenza B PCR NOT DETECTED 05/15/23 17:10 Nasal Influenza A PCR NOT DETECTED 05/15/23 17:10 Nasal Parainfluen 1 PCR NOT DETECTED 05/15/23 17:10 Nasal Parainfluen 2 PCR NOT DETECTED 05/15/23 17:10 Nasal Parainfluen 3 PCR NOT DETECTED 05/15/23 17:10 Nasal Parainfluen 4 PCR NOT DETECTED 05/15/23 17:10 Nasal RSV (PCR) NOT DETECTED 05/15/23 17:10 Nasal B.pertussis DNA PCR NOT DETECTED 05/15/23 17:10 Nasal C.pneumoniae (PCR) NOT DETECTED 05/15/23 17:10 [place] Human Metapneumo PCR NOT DETECTED 05/15/23 17:10 Nasal M.pneumoniae (PCR) NOT DETECTED 05/15/23 17:10 Nasal SARS-CoV-2 (PCR) NOT DETECTED 05/15/23 17:10 - Procedures Procedures: Procedures ENDO RECTUM POLYPECTOMY (01/07/13) ABX Reporting Has patient been on IV antibiotics over the past 48 hours?: No Current Medications - Current Medications Current Medications: Active Medications Acetaminophen (Acetaminophen 325 Mg Tablet) 650 mg PO Q4HR PRN PRN Reason: Pain 1 to 4, or Fever Allopurinol (Allopurinol 100 Mg Tablet) 100 mg PO DAILY [facility] Last Admin: 06/03/23 08:13 Dose: 100 mg Apixaban (Apixaban 5 Mg Tablet) 5 mg PO BID [facility] Last Admin: 06/03/23 21:22 Dose: 5 mg Bupropion HCl (Bupropion Sr 150 Mg Tablet) 150 mg PO DAILY [facility] Last Admin: 06/03/23 08:13 Dose: 150 mg Glipizide (Glipizide Er 2.5 Mg Tablet) 10 mg PO DAILY [facility] Last Admin: 06/03/23 08:13 Dose: 10 mg Insulin Glargine-yfgn (Insulin Glargine-Yfgn 300 Unit/3 Ml Pen) 10 unit SUBQ QDAC [facility] Last Admin: 06/03/23 08:15 Dose: 10 unit Insulin Glargine-yfgn (Insulin Glargine-Yfgn 300 Unit/3 Ml Pen) 10 unit SUBQ QPM [facility] Last Admin: 06/03/23 21:23 Dose: 10 unit Insulin Human Lispro (Insulin Lispro 300 Unit/3 Ml Pen) 5 unit SUBQ TIDWM [facility]; Protocol Last Admin: 06/03/23 17:15 Dose: 5 unit Insulin Human Lispro (Insulin Lispro 300 Unit/3 Ml Pen) 1 - 9 unit SUBQ 0800,1200,1700,2100 [facility]; Protocol Last Admin: 06/03/23 21:22 Dose: 3 unit Lorazepam (Lorazepam 0.5 Mg Tablet) 0.5 mg PO Q6H PRN PRN Reason: Anxiety Last Admin: 05/26/23 22:36 Dose: 0.5 mg Magnesium Oxide (Magnesium Oxide 400 Mg Tablet) 400 mg PO DAILYWM [facility] Last Admin: 06/03/23 11:49 Dose: 400 mg Metoprolol Succinate (Metoprolol Succinate 50 Mg Tablet) 50 mg PO BID [facility] Last Admin: 06/03/23 21:22 Dose: 50 mg Multi-Ingredient Ointment (Zinc Oxide 20% Oint 30 Gm Tube) 1 applic TOP PRN PRN PRN Reason: Skin Care Last Admin: 05/19/23 21:02 Dose: 1 applic Nicotine (Nicotine 14 Mg Patch) 1 patch TOP DAILY [facility] Last Admin: 06/03/23 08:12 Dose: 1 patch Olanzapine (Olanzapine Odt 5 Mg Tablet) 5 mg TL DAILY PRN PRN Reason: Agitation Last Admin: 05/23/23 21:40 Dose: 5 mg Ondansetron HCl (Ondansetron Odt 4 Mg Tablet) 4 mg TL Q6HR PRN PRN Reason: Nausea / Vomiting Ondansetron HCl (Ondansetron 4 Mg/2 Ml Vial) 4 mg IVP Q6HR PRN PRN Reason: Nausea / Vomiting Oxycodone HCl (Oxycodone 5 Mg Tablet) 5 mg PO Q4HR PRN PRN Reason: Pain 5 to 7 Last Admin: 05/17/23 12:14 Dose: 5 mg Quetiapine Fumarate (Quetiapine 25 Mg Tablet) 25 mg PO QPM [facility] Last Admin: 06/03/23 21:22 Dose: 25 mg Sertraline HCl (Sertraline 50 Mg Tablet) 50 mg PO DAILY [facility] Last Admin: 06/03/23 08:13 Dose: 50 mg Sodium Chloride (Sodium Chloride Flush 0.9% 10 Ml Syringe) 10 ml IVP PRN PRN PRN Reason: NEEDED PER PROVIDER ORDERS Sodium Chloride (Sodium Chloride Flush 0.9% 10 Ml Syringe) 10 ml IVP 0100,0900,1700 [facility] Last Admin: 06/03/23 21:21 Dose: Not Given Tamsulosin HCl (Tamsulosin 0.4 Mg Capsule) 0.4 mg PO DAILY [facility] Last Admin: 06/03/23 08:13 Dose: 0.4 mg Zinc Oxide (Cod Liver Oil/Zinc Oxide 113 Gm Tube) 113 gm TOP PRN PRN PRN Reason: Skin Care Amlodipine Besylate [Norvasc] 10 mg PO DAILY 05/10/23 Apixaban [Eliquis] 5 mg PO BID 05/10/23 Fluticasone/Umeclidin/Vilanter [Trelegy Ellipta 100-62.5-25] 1 each IH DAILY 05/10/23 Glipizide [Glipizide Xl] 10 mg PO DAILY 05/10/23 Insulin Aspart (Vial) [NovoLOG (VIAL FOR ED USE)] 11 unit SUBQ TIDWM 05/10/23 Insulin Glargine [Lantus Solostar] 33 unit SUBQ HS 05/10/23 Losartan [Cozaar] 50 mg PO BID 05/10/23 Metoprolol Succinate [Toprol Xl] 50 - 100 mg PO DAILY 05/10/23 Sertraline [Zoloft] 50 mg PO DAILY 05/10/23 allopurinoL [Zyloprim] 100 mg ORAL DAILY 05/10/23 buPROPion HCL [Bupropion HCl Sr] 150 mg PO DAILY 05/10/23 hydroCHLOROthiazide [Hydrodiuril] 12.5 mg PO DAILY 05/10/23 Rosuvastatin Calcium [Crestor] 10 mg PO HS 05/17/23
--- NOTE | 2023-06-04 03:46 | PROVIDER PROGRESS NOTE ---
Link Assembler Note - Link Assembler Note Link Assembler Note: RN message: Pt was helped to the bathroom to void standby assist with a front wheel walker. Moments later pt lost balance and hit head on the bathroom wall but was able to regain balance preventing a fall. After assisting back to bed pt was assessed & has a bruise on left forehead. Performed neuro check and nothing was noted outside of his baseline. Pt refused ice and is on eliquis for DVT prophylaxis. Given fall with head trauma and patient on anticoagulant, bruising, will obtain CT head for further evaluation. D/w RN. Continue to monitor closely.
--- NOTE | 2023-06-04 07:26 | CT Report ---
PROCEDURE: Head WO INDICATIONS: ground level fall with head trauma TECHNIQUE: Noncontrast 4.5 mm thick angled axial sections acquired from the foramen magnum to the vertex. For r adiation dose reduction, the following was used: automated exposure control, adjustment of mA and/or kV according to patient size. COMPARISON: CT head, 05/10/2023. FINDINGS: Image quality: Excellent. CSF spaces: Basal cisterns are patent. No extra-axial fluid collections. Ventricles are normal in size and shape. Brain: No midline shift. No intracranial masses or hemorrhage. Cerebral volume loss and periventri cular white matter chronic small vessel ischemic changes. Sheldon-white matter interface is normal. Skull and face: Calvarium and visualized facial bones are intact, without suspicious lesions. Sinuses: Visualized sinuses and mastoids are clear. IMPRESSION: No acute intracranial pathology. Findings are concordant with preliminary interpretation provided by [facility]. Reviewed by: Aleyda Gooden MD on 06/04/2023 7:25 AM PST Approved by: Aleyda Gooden MD on 06/04/2023 7:25 AM PST Station ID: [id number]
--- NOTE | 2023-06-04 23:17 | PROVIDER PROGRESS NOTE ---
Assessment/Plan - Problem List (1) DM II (diabetes mellitus, type II), controlled Assessment/Plan: Continue glipizide 10 mg daily. Continue glargine 10 units twice daily Continue sliding scale insulin (2) Acute kidney injury Assessment/Plan: A retroperitneal US showed a 4 cm lesion on left kidney with mural nodularity, but nodularity was not seen on prior US. Advised to follow up in 3-6 months. Acute kidney injury most likely secondary to poor p.o. intake that may be related to patient's dementia. He is medically cleared and does not meet criteria for inpatient status. Plan: Patient is not competent to make his own decisions with regards to his health care. Plan is for him to obtain a guardian. (3) Risk for falls Plan: Avoid sedation if possible. Patient remains a fall risk. Continue to monitor closely. (4) Urinary retention Impression: Patient complained of lower abdominal pain on 05/16 and a bladder scan showed 888 mL of urine. Patient was straight cathed. A morse catheter was inserted on 05/17. Morse removed on 05/21. Plan: Cont low dose Flomax 0.4 mg daily Bladder scan if patient complains of symptoms of urinary retention (5) Chronic Atrial fibrillation Impression: Patient has a history of A-fib on Eliquis. Currently no symptoms and is well managed with medication. 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 He needed Ativan q6 hours PRN for agitation earlier this hospital stay. Mr. Dunne was seen in clinic in fall 2022 where a mini mental status exam was done and he passed, with a 28/30. No cognitive deficits were noted at that time. It is concerning that his mental status could have deteriorated thiat quickly. We considered causes such as drug use, potential stroke, or brain tumor. However, these all seem unlikely as his CT in the ER was negative for any acute findings. It is possible that he could have some degree of brain damage from being hypoglycemic for unknown lengths of time. Patient was found extremely hypoglycemic prior to his admission and had not been heard from in a few days. He was also seen for altered mental status in the past that was believed to be due to hypoglycemia as well. Plan: If agitated, may give home dose of Xyprexa, or a small dose of Seroquel or Ativan q6 PRN SW is working on placement after guardianship is established (7) Hypertension Impression: Plan: Continue on home dose of Metoprolol Cont to hold Losartan and amlodipine for now as blood pressure is normal (8) Altered mental status Impression: RESOLVED. Patient was admitted with altered mental status, likely due to hypoglycemia, dehydration and poor oral intake. (9) Dehydration Impression: RESOLVED. Patient was likely dehydrated due to poor oral intake in the setting of dementia. His electrolytes have normalized and he no longer requires IV hydration as he is eating/drinking well. - Current Meds Current Meds: Current Medications Generic Name Dose Route Start Last Admin Trade Name Freq PRN Reason Stop Dose Admin Allopurinol 100 mg 05/25/23 09:00 06/04/23 09:08 Allopurinol 100 Mg Tablet PO 100 mg DAILY CATHI Administration Apixaban 5 mg 05/16/23 21:00 06/04/23 20:54 Apixaban 5 Mg Tablet PO 5 mg BID CATHI Administration Bupropion HCl 150 mg 05/17/23 09:00 06/04/23 09:08 Bupropion Sr 150 Mg Tablet PO 150 mg DAILY CATHI Administration Glipizide 10 mg 05/24/23 12:00 06/04/23 12:05 Glipizide Er 2.5 Mg Tablet PO 10 mg DAILY CATHI Administration Insulin Glargine-yfgn 10 unit 05/23/23 07:00 06/04/23 09:06 Insulin Glargine-Yfgn 300 Unit/3 Ml Pen SUBQ 10 unit QDAC CATHI Administration Insulin Glargine-yfgn 10 unit 05/30/23 21:00 06/04/23 20:54 Insulin Glargine-Yfgn 300 Unit/3 Ml Pen SUBQ 10 unit QPM CATHI Administration Insulin Human Lispro 5 unit 05/16/23 19:00 06/04/23 17:11 Insulin Lispro 300 Unit/3 Ml Pen SUBQ 5 unit TIDWM CATHI Administration Protocol Insulin Human Lispro 1 - 9 unit 05/21/23 08:00 06/04/23 20:55 Insulin Lispro 300 Unit/3 Ml Pen SUBQ 3 unit 0800,1200,1700,2100 CATHI Administration Protocol Lorazepam 0.5 mg 05/19/23 18:50 05/26/23 22:36 Lorazepam 0.5 Mg Tablet PO 0.5 mg Q6H PRN Administration Anxiety Magnesium Oxide 400 mg 06/03/23 11:13 06/04/23 09:08 Magnesium Oxide 400 Mg Tablet PO 400 mg DAILYWM CATHI Administration Metoprolol Succinate 50 mg 05/16/23 21:00 06/04/23 20:54 Metoprolol Succinate 50 Mg Tablet PO 50 mg BID CATHI Administration Multi-Ingredient Ointment 1 applic 05/16/23 22:50 05/19/23 21:02 Zinc Oxide 20% Oint 30 Gm Tube TOP 1 applic PRN PRN Administration Skin Care Nicotine 1 patch 05/18/23 09:00 06/04/23 09:11 Nicotine 14 Mg Patch TOP 1 patch DAILY CATHI Administration Olanzapine 5 mg 05/17/23 19:57 05/23/23 21:40 Olanzapine Odt 5 Mg Tablet TL 5 mg DAILY PRN Administration Agitation Oxycodone HCl 5 mg 05/16/23 14:47 05/17/23 12:14 Oxycodone 5 Mg Tablet PO 5 mg Q4HR PRN Administration Pain 5 to 7 Quetiapine Fumarate 25 mg 05/17/23 21:00 06/04/23 20:54 Quetiapine 25 Mg Tablet PO 25 mg QPM CATHI Administration Sertraline HCl 50 mg 05/17/23 09:00 06/04/23 09:09 Sertraline 50 Mg Tablet PO 50 mg DAILY CATHI Administration Sodium Chloride 10 ml 05/16/23 17:00 06/04/23 17:12 Sodium Chloride Flush 0.9% 10 Ml Syringe IVP Not Given 0100,0900,1700 [facility] Tamsulosin HCl 0.4 mg 05/18/23 09:00 06/04/23 09:08 Tamsulosin 0.4 Mg Capsule PO 0.4 mg DAILY CATHI Administration - Lab Result Fish Bone Diagrams: 06/03/23 05:31 06/03/23 05:31 Subjective - Subjective Patient Reports: Other (Alert. In bed. Somnolent. No complaints at this time.) Objective Vital Signs: Vital Signs - 24 hr 06/04/23 06/04/23 06/04/23 08:15 09:00 16:01 Temperature 37.2 C 37.1 C Heart Rate [ 79 74 Brachial] Respiratory 20 24 Rate Blood Pressure 124/65 121/63 [Right Brachial artery] O2 Saturation 88 L 93 If not protocol 2 2 : Oxygen Flow, liters/minute 06/04/23 20:42 Temperature 37.2 C Heart Rate [ 69 Brachial] Respiratory 24 Rate Blood Pressure 117/64 [Right Brachial artery] O2 Saturation 92 If not protocol 2 : Oxygen Flow, liters/minute Oxygen O2 Source Nasal cannula Oxygen Flow Rate 4 I&O (Last 24 Hrs): Intake and Output Totals x24h 06/02/23 06/03/23 06/04/23 23:59 23:59 23:59 Intake Total 680 1180 700 Output Total 1175 1200 Balance -495 -20 700 General: Alert, Cooperative, No acute distress HEENT: PERRLA Neck: Supple, No JVD, No thyromegaly Neuro: Alert Cardiovascular: Regular rate, Normal S1, Normal S2, No murmurs Respiratory: Other (Good air exchange in all lung wynn no wheezing no crackles.) Abdomen: Normal bowel sounds, Soft, No tenderness Extremities: No cyanosis, No edema Skin: No rashes - Results Results: Laboratory Results WBC 8.0 x10^3/uL (4.8-10.8) 06/03/23 05:31 RBC 4.80 10^6/uL (4.70-6.10) 06/03/23 05:31 Hgb 13.4 g/dL (14.0-18.0) L 06/03/23 05:31 Hct 42.8 % (42.0-52.0) 06/03/23 05:31 MCV 89.2 fL (80.0-94.0) 06/03/23 05:31 MCH 27.9 pg (27.0-31.0) 06/03/23 05:31 MCHC 31.3 g/dL (32.0-36.0) L 06/03/23 05:31 RDW 16.2 % (12.0-15.0) H 06/03/23 05:31 Plt Count 181 10^3/uL (130-450) 06/03/23 05:31 MPV 11.1 fL (7.4-11.4) 06/03/23 05:31 Neut # (Auto) 5.1 10^3/uL (1.5-6.6) 06/03/23 05:31 Lymph # (Auto) 1.6 10^3/uL (1.5-3.5) 06/03/23 05:31 [place] # (Auto) 0.7 10^3/uL (0.0-1.0) 06/03/23 05:31 Eos # (Auto) 0.5 10^3/uL (0.0-0.7) 06/03/23 05:31 Baso # (Auto) 0.1 10^3/uL (0.0-0.1) 06/03/23 05:31 Absolute Nucleated RBC 0.00 x10^3/uL 06/03/23 05:31 Nucleated RBC % 0.0 /100WBC 06/03/23 05:31 Sodium 137 mmol/L (135-145) 06/03/23 05:31 Potassium 4.0 mmol/L (3.5-4.5) 06/03/23 05:31 Chloride 103 mmol/L (101-111) 06/03/23 05:31 Carbon Dioxide 26 mmol/L (21-32) 06/03/23 05:31 Anion Gap 8.0 (6-13) 06/03/23 05:31 BUN 18 mg/dL (6-20) 06/03/23 05:31 Creatinine 1.3 mg/dL (0.6-1.3) 06/03/23 05:31 Estimated GFR (MDRD) 53 (>89) L 06/03/23 05:31 Glucose 100 mg/dL (74-104) 06/03/23 05:31 POC Whole Bld Glucose 191 mg/dL (70 - 100) H 06/04/23 20:47 Estimat Average Glucose 148 mg/dL (70-100) H 05/17/23 05:18 Hemoglobin A1c % 6.8 % (4.27-6.07) H 05/17/23 05:18 Lactic Acid 1.0 mmol/L (0.5-2.2) 05/15/23 15:40 Calcium 9.3 mg/dL (8.5-10.3) 06/03/23 05:31 Phosphorus 3.7 mg/dL (2.5-5.0) 06/03/23 05:31 Magnesium 1.5 mg/dL (1.7-2.3) L 06/03/23 05:31 Total Bilirubin 0.5 mg/dL (0.2-1.0) 05/15/23 15:40 AST 31 IU/L (10-42) 05/15/23 15:40 ALT 28 IU/L (10-60) 05/15/23 15:40 Alkaline Phosphatase 64 IU/L (42-121) 05/15/23 15:40 B-Natriuretic Peptide 137 pg/mL (5-100) H 05/15/23 15:40 Total Protein 7.3 g/dL (6.4-8.9) 05/15/23 15:40 Albumin 3.4 g/dL (3.2-5.5) 05/15/23 15:40 Globulin 3.9 g/dL (2.1-4.2) 05/15/23 15:40 Albumin/Globulin Ratio 0.9 (1.0-2.2) L 05/15/23 15:40 Lipase 32 U/L (11-82) 05/15/23 15:40 Urine Color DARK YELLOW 05/10/23 14:20 Urine Clarity CLEAR (CLEAR) 05/10/23 14:20 Urine pH 5.5 PH (5.0-7.5) 05/10/23 14:20 Ur Specific [place] >=1.030 (1.002-1.030) H 05/10/23 14:20 Urine Protein 100 mg/dL (NEGATIVE) H 05/10/23 14:20 Urine Glucose (UA) 100 mg/dL (NEGATIVE) H 05/10/23 14:20 Urine Ketones TRACE mg/dL (NEGATIVE) 05/10/23 14:20 Urine Occult Blood NEGATIVE (NEGATIVE) 05/10/23 14:20 Urine Nitrite NEGATIVE (NEGATIVE) 05/10/23 14:20 Urine Bilirubin NEGATIVE (NEGATIVE) 05/10/23 14:20 Urine Urobilinogen 0.2 (NORMAL) E.U./dL (NORMAL) 05/10/23 14:20 Ur Leukocyte Esterase NEGATIVE (NEGATIVE) 05/10/23 14:20 Urine RBC 0-5 /HPF (0-5) 05/10/23 14:20 Urine WBC 0-3 /HPF (0-3) 05/10/23 14:20 Ur Squamous Epith Cells RARE Squamous (<= Few) 05/10/23 14:20 Urine Bacteria Rare /HPF (None Seen) 05/10/23 14:20 Ur Microscopic Review INDICATED 05/10/23 14:20 Urine Culture Comments NOT INDICATED 05/10/23 14:20 Nasal Adenovirus (PCR) NOT DETECTED 05/15/23 17:10 Nasal B. parapertussis DNA (PCR) NOT DETECTED 05/15/23 17:10 Nasal Coronavir 229E PCR NOT DETECTED 05/15/23 17:10 Nasal Coronavir HKU1 PCR NOT DETECTED 05/15/23 17:10 Nasal Coronavir NL63 PCR NOT DETECTED 05/15/23 17:10 Nasal Coronavir OC43 PCR NOT DETECTED 05/15/23 17:10 Nasal Enterovir/Rhinovir PCR NOT DETECTED 05/15/23 17:10 Nasal Influenza B PCR NOT DETECTED 05/15/23 17:10 Nasal Influenza A PCR NOT DETECTED 05/15/23 17:10 Nasal Parainfluen 1 PCR NOT DETECTED 05/15/23 17:10 Nasal Parainfluen 2 PCR NOT DETECTED 05/15/23 17:10 Nasal Parainfluen 3 PCR NOT DETECTED 05/15/23 17:10 Nasal Parainfluen 4 PCR NOT DETECTED 05/15/23 17:10 Nasal RSV (PCR) NOT DETECTED 05/15/23 17:10 Nasal B.pertussis DNA PCR NOT DETECTED 05/15/23 17:10 Nasal C.pneumoniae (PCR) NOT DETECTED 05/15/23 17:10 [place] Human Metapneumo PCR NOT DETECTED 05/15/23 17:10 Nasal M.pneumoniae (PCR) NOT DETECTED 05/15/23 17:10 Nasal SARS-CoV-2 (PCR) NOT DETECTED 05/15/23 17:10 - Procedures Procedures: Procedures ENDO RECTUM POLYPECTOMY (01/07/13) Current Medications - Current Medications Current Medications: Active Medications Acetaminophen (Acetaminophen 325 Mg Tablet) 650 mg PO Q4HR PRN PRN Reason: Pain 1 to 4, or Fever Allopurinol (Allopurinol 100 Mg Tablet) 100 mg PO DAILY [facility] Last Admin: 06/04/23 09:08 Dose: 100 mg Apixaban (Apixaban 5 Mg Tablet) 5 mg PO BID [facility] Last Admin: 06/04/23 20:54 Dose: 5 mg Bupropion HCl (Bupropion Sr 150 Mg Tablet) 150 mg PO DAILY [facility] Last Admin: 06/04/23 09:08 Dose: 150 mg Glipizide (Glipizide Er 2.5 Mg Tablet) 10 mg PO DAILY [facility] Last Admin: 06/04/23 12:05 Dose: 10 mg Insulin Glargine-yfgn (Insulin Glargine-Yfgn 300 Unit/3 Ml Pen) 10 unit SUBQ QDAC [facility] Last Admin: 06/04/23 09:06 Dose: 10 unit Insulin Glargine-yfgn (Insulin Glargine-Yfgn 300 Unit/3 Ml Pen) 10 unit SUBQ QPM [facility] Last Admin: 06/04/23 20:54 Dose: 10 unit Insulin Human Lispro (Insulin Lispro 300 Unit/3 Ml Pen) 5 unit SUBQ TIDWM [facility]; Protocol Last Admin: 06/04/23 17:11 Dose: 5 unit Insulin Human Lispro (Insulin Lispro 300 Unit/3 Ml Pen) 1 - 9 unit SUBQ 0800,1200,1700,2100 [facility]; Protocol Last Admin: 06/04/23 20:55 Dose: 3 unit Lorazepam (Lorazepam 0.5 Mg Tablet) 0.5 mg PO Q6H PRN PRN Reason: Anxiety Last Admin: 05/26/23 22:36 Dose: 0.5 mg Magnesium Oxide (Magnesium Oxide 400 Mg Tablet) 400 mg PO DAILYWM [facility] Last Admin: 06/04/23 09:08 Dose: 400 mg Metoprolol Succinate (Metoprolol Succinate 50 Mg Tablet) 50 mg PO BID [facility] Last Admin: 06/04/23 20:54 Dose: 50 mg Multi-Ingredient Ointment (Zinc Oxide 20% Oint 30 Gm Tube) 1 applic TOP PRN PRN PRN Reason: Skin Care Last Admin: 05/19/23 21:02 Dose: 1 applic Nicotine (Nicotine 14 Mg Patch) 1 patch TOP DAILY [facility] Last Admin: 06/04/23 09:11 Dose: 1 patch Olanzapine (Olanzapine Odt 5 Mg Tablet) 5 mg TL DAILY PRN PRN Reason: Agitation Last Admin: 05/23/23 21:40 Dose: 5 mg Ondansetron HCl (Ondansetron Odt 4 Mg Tablet) 4 mg TL Q6HR PRN PRN Reason: Nausea / Vomiting Ondansetron HCl (Ondansetron 4 Mg/2 Ml Vial) 4 mg IVP Q6HR PRN PRN Reason: Nausea / Vomiting Oxycodone HCl (Oxycodone 5 Mg Tablet) 5 mg PO Q4HR PRN PRN Reason: Pain 5 to 7 Last Admin: 05/17/23 12:14 Dose: 5 mg Quetiapine Fumarate (Quetiapine 25 Mg Tablet) 25 mg PO QPM [facility] Last Admin: 06/04/23 20:54 Dose: 25 mg Sertraline HCl (Sertraline 50 Mg Tablet) 50 mg PO DAILY [facility] Last Admin: 06/04/23 09:09 Dose: 50 mg Sodium Chloride (Sodium Chloride Flush 0.9% 10 Ml Syringe) 10 ml IVP PRN PRN PRN Reason: NEEDED PER PROVIDER ORDERS Sodium Chloride (Sodium Chloride Flush 0.9% 10 Ml Syringe) 10 ml IVP 0100,0900,1700 [facility] Last Admin: 06/04/23 17:12 Dose: Not Given Tamsulosin HCl (Tamsulosin 0.4 Mg Capsule) 0.4 mg PO DAILY [facility] Last Admin: 06/04/23 09:08 Dose: 0.4 mg Zinc Oxide (Cod Liver Oil/Zinc Oxide 113 Gm Tube) 113 gm TOP PRN PRN PRN Reason: Skin Care Amlodipine Besylate [Norvasc] 10 mg PO DAILY 05/10/23 Apixaban [Eliquis] 5 mg PO BID 05/10/23 Fluticasone/Umeclidin/Vilanter [Trelegy Ellipta 100-62.5-25] 1 each IH DAILY 05/10/23 Glipizide [Glipizide Xl] 10 mg PO DAILY 05/10/23 Insulin Aspart (Vial) [NovoLOG (VIAL FOR ED USE)] 11 unit SUBQ TIDWM 05/10/23 Insulin Glargine [Lantus Solostar] 33 unit SUBQ HS 05/10/23 Losartan [Cozaar] 50 mg PO BID 05/10/23 Metoprolol Succinate [Toprol Xl] 50 - 100 mg PO DAILY 05/10/23 Sertraline [Zoloft] 50 mg PO DAILY 05/10/23 allopurinoL [Zyloprim] 100 mg ORAL DAILY 05/10/23 buPROPion HCL [Bupropion HCl Sr] 150 mg PO DAILY 05/10/23 hydroCHLOROthiazide [Hydrodiuril] 12.5 mg PO DAILY 05/10/23 Rosuvastatin Calcium [Crestor] 10 mg PO HS 05/17/23
--- NOTE | 2023-06-05 23:04 | PROVIDER PROGRESS NOTE ---
Assessment/Plan - Problem List (1) DM II (diabetes mellitus, type II), controlled Assessment/Plan: Continue glipizide 10 mg daily. Continue glargine 10 units twice daily Continue sliding scale insulin (2) Acute kidney injury Assessment/Plan: A retroperitneal US showed a 4 cm lesion on left kidney with mural nodularity, but nodularity was not seen on prior US. Advised to follow up in 3-6 months. Acute kidney injury most likely secondary to poor p.o. intake that may be related to patient's dementia. He is medically cleared and does not meet criteria for inpatient status. Plan: Patient is not competent to make his own decisions with regards to his health care. Plan is for him to obtain a guardian. (3) Risk for falls Plan: Avoid sedation if possible. Patient remains a fall risk. Continue to monitor closely. (4) Urinary retention Impression: Patient complained of lower abdominal pain on 05/16 and a bladder scan showed 888 mL of urine. Patient was straight cathed. A morse catheter was inserted on 05/17. Morse removed on 05/21. Plan: Cont low dose Flomax 0.4 mg daily Bladder scan if patient complains of symptoms of urinary retention (5) Chronic Atrial fibrillation Impression: Patient has a history of A-fib on Eliquis. Currently no symptoms and is well managed with medication. 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 He needed Ativan q6 hours PRN for agitation earlier this hospital stay. Mr. Dunne was seen in clinic in fall 2022 where a mini mental status exam was done and he passed, with a 28/30. No cognitive deficits were noted at that time. It is concerning that his mental status could have deteriorated thiat quickly. We considered causes such as drug use, potential stroke, or brain tumor. However, these all seem unlikely as his CT in the ER was negative for any acute findings. It is possible that he could have some degree of brain damage from being hypoglycemic for unknown lengths of time. Patient was found extremely hypoglycemic prior to his admission and had not been heard from in a few days. He was also seen for altered mental status in the past that was believed to be due to hypoglycemia as well. Plan: If agitated, may give home dose of Xyprexa, or a small dose of Seroquel or Ativan q6 PRN SW is working on placement after guardianship is established (7) Hypertension Impression: Plan: Continue on home dose of Metoprolol Cont to hold Losartan and amlodipine for now as blood pressure is normal (8) Altered mental status Impression: RESOLVED. Patient was admitted with altered mental status, likely due to hypoglycemia, dehydration and poor oral intake. (9) Dehydration Impression: RESOLVED. Patient was likely dehydrated due to poor oral intake in the setting of dementia. His electrolytes have normalized and he no longer requires IV hydration as he is eating/drinking well. - Current Meds Current Meds: Current Medications Generic Name Dose Route Start Last Admin Trade Name Freq PRN Reason Stop Dose Admin Allopurinol 100 mg 05/25/23 09:00 06/05/23 09:16 Allopurinol 100 Mg Tablet PO 100 mg DAILY CATHI Administration Apixaban 5 mg 05/16/23 21:00 06/05/23 20:48 Apixaban 5 Mg Tablet PO 5 mg BID CATHI Administration Bupropion HCl 150 mg 05/17/23 09:00 06/05/23 09:32 Bupropion Sr 150 Mg Tablet PO 150 mg DAILY CATHI Administration Glipizide 10 mg 05/24/23 12:00 06/05/23 09:17 Glipizide Er 2.5 Mg Tablet PO 10 mg DAILY CATHI Administration Insulin Glargine-yfgn 10 unit 05/23/23 07:00 06/05/23 09:32 Insulin Glargine-Yfgn 300 Unit/3 Ml Pen SUBQ 10 unit QDAC CATHI Administration Insulin Glargine-yfgn 10 unit 05/30/23 21:00 06/05/23 20:48 Insulin Glargine-Yfgn 300 Unit/3 Ml Pen SUBQ 10 unit QPM CATHI Administration Insulin Human Lispro 5 unit 05/16/23 19:00 06/05/23 17:06 Insulin Lispro 300 Unit/3 Ml Pen SUBQ 5 unit TIDWM CATHI Administration Protocol Insulin Human Lispro 1 - 9 unit 05/21/23 08:00 06/05/23 20:49 Insulin Lispro 300 Unit/3 Ml Pen SUBQ 1 unit 0800,1200,1700,2100 CATHI Administration Protocol Lorazepam 0.5 mg 05/19/23 18:50 05/26/23 22:36 Lorazepam 0.5 Mg Tablet PO 0.5 mg Q6H PRN Administration Anxiety Magnesium Oxide 400 mg 06/03/23 11:13 06/05/23 09:17 Magnesium Oxide 400 Mg Tablet PO 400 mg DAILYWM CATHI Administration Metoprolol Succinate 50 mg 05/16/23 21:00 06/05/23 20:48 Metoprolol Succinate 50 Mg Tablet PO 50 mg BID CATHI Administration Multi-Ingredient Ointment 1 applic 05/16/23 22:50 05/19/23 21:02 Zinc Oxide 20% Oint 30 Gm Tube TOP 1 applic PRN PRN Administration Skin Care Nicotine 1 patch 05/18/23 09:00 06/05/23 09:17 Nicotine 14 Mg Patch TOP 1 patch DAILY CATHI Administration Olanzapine 5 mg 05/17/23 19:57 05/23/23 21:40 Olanzapine Odt 5 Mg Tablet TL 5 mg DAILY PRN Administration Agitation Oxycodone HCl 5 mg 05/16/23 14:47 05/17/23 12:14 Oxycodone 5 Mg Tablet PO 5 mg Q4HR PRN Administration Pain 5 to 7 Quetiapine Fumarate 25 mg 05/17/23 21:00 06/05/23 20:48 Quetiapine 25 Mg Tablet PO 25 mg QPM CATHI Administration Sertraline HCl 50 mg 05/17/23 09:00 06/05/23 09:17 Sertraline 50 Mg Tablet PO 50 mg DAILY CATHI Administration Sodium Chloride 10 ml 05/16/23 17:00 06/05/23 17:08 Sodium Chloride Flush 0.9% 10 Ml Syringe IVP Not Given 0100,0900,1700 [facility] [place] Tamsulosin HCl 0.4 mg 05/18/23 09:00 06/05/23 09:17 Tamsulosin 0.4 Mg Capsule PO 0.4 mg DAILY CATHI Administration - Lab Result Fish Bone Diagrams: 06/03/23 05:31 06/03/23 05:31 Subjective - Subjective Patient Reports: Other (Alert. He does not have any complaints at this time.) Objective Vital Signs: Vital Signs - 24 hr 06/05/23 06/05/23 06/05/23 00:58 05:04 07:52 Temperature 36.6 C 36.6 C Heart Rate [ 69 65 Brachial] Respiratory 24 20 Rate Blood Pressure 133/80 H 131/75 H [Right Brachial artery] O2 Saturation 92 92 If not protocol 2 2 2 : Oxygen Flow, liters/minute 06/05/23 06/05/23 06/05/23 08:30 12:24 15:36 Temperature 37.1 C 37.1 C 36.8 C Heart Rate [ 76 68 63 Brachial] Respiratory 20 20 24 Rate Blood Pressure 146/78 H 123/75 130/70 [Right Brachial artery] O2 Saturation 95 92 90 L If not protocol 2 2 2 : Oxygen Flow, liters/minute 06/05/23 19:13 Temperature 37.1 C Heart Rate [ 82 Brachial] Respiratory 18 Rate Blood Pressure 143/76 H [Right Brachial artery] O2 Saturation 90 L If not protocol 2 : Oxygen Flow, liters/minute Oxygen O2 Source Nasal cannula Oxygen Flow Rate 4 I&O (Last 24 Hrs): Intake and Output Totals x24h 06/03/23 06/04/23 06/05/23 23:59 23:59 23:59 Intake Total 1180 700 480 Output Total 1200 50 Balance -20 700 430 General: Alert, No acute distress HEENT: PERRLA Neck: Supple, No JVD, No thyromegaly Neuro: Alert, Non Focal Cardiovascular: Regular rate, Normal S1, Normal S2 Respiratory: Chest non-tender, No respiratory distress, Breath sounds nml Abdomen: Normal bowel sounds, Soft, No tenderness Extremities: No cyanosis, No edema Skin: No rashes - Results Results: Laboratory Results WBC 8.0 x10^3/uL (4.8-10.8) 06/03/23 05:31 RBC 4.80 10^6/uL (4.70-6.10) 06/03/23 05:31 Hgb 13.4 g/dL (14.0-18.0) L 06/03/23 05:31 Hct 42.8 % (42.0-52.0) 06/03/23 05:31 MCV 89.2 fL (80.0-94.0) 06/03/23 05:31 MCH 27.9 pg (27.0-31.0) 06/03/23 05:31 MCHC 31.3 g/dL (32.0-36.0) L 06/03/23 05:31 RDW 16.2 % (12.0-15.0) H 06/03/23 05:31 Plt Count 181 10^3/uL (130-450) 06/03/23 05:31 MPV 11.1 fL (7.4-11.4) 06/03/23 05:31 Neut # (Auto) 5.1 10^3/uL (1.5-6.6) 06/03/23 05:31 Lymph # (Auto) 1.6 10^3/uL (1.5-3.5) 06/03/23 05:31 [place] # (Auto) 0.7 10^3/uL (0.0-1.0) 06/03/23 05:31 Eos # (Auto) 0.5 10^3/uL (0.0-0.7) 06/03/23 05:31 Baso # (Auto) 0.1 10^3/uL (0.0-0.1) 06/03/23 05:31 Absolute Nucleated RBC 0.00 x10^3/uL 06/03/23 05:31 Nucleated RBC % 0.0 /100WBC 06/03/23 05:31 Sodium 137 mmol/L (135-145) 06/03/23 05:31 Potassium 4.0 mmol/L (3.5-4.5) 06/03/23 05:31 Chloride 103 mmol/L (101-111) 06/03/23 05:31 Carbon Dioxide 26 mmol/L (21-32) 06/03/23 05:31 Anion Gap 8.0 (6-13) 06/03/23 05:31 BUN 18 mg/dL (6-20) 06/03/23 05:31 Creatinine 1.3 mg/dL (0.6-1.3) 06/03/23 05:31 Estimated GFR (MDRD) 53 (>89) L 06/03/23 05:31 Glucose 100 mg/dL (74-104) 06/03/23 05:31 POC Whole Bld Glucose 177 mg/dL (70 - 100) H 06/05/23 20:31 Estimat Average Glucose 148 mg/dL (70-100) H 05/17/23 05:18 Hemoglobin A1c % 6.8 % (4.27-6.07) H 05/17/23 05:18 Lactic Acid 1.0 mmol/L (0.5-2.2) 05/15/23 15:40 Calcium 9.3 mg/dL (8.5-10.3) 06/03/23 05:31 Phosphorus 3.7 mg/dL (2.5-5.0) 06/03/23 05:31 Magnesium 1.5 mg/dL (1.7-2.3) L 06/03/23 05:31 Total Bilirubin 0.5 mg/dL (0.2-1.0) 05/15/23 15:40 AST 31 IU/L (10-42) 05/15/23 15:40 ALT 28 IU/L (10-60) 05/15/23 15:40 Alkaline Phosphatase 64 IU/L (42-121) 05/15/23 15:40 B-Natriuretic Peptide 137 pg/mL (5-100) H 05/15/23 15:40 Total Protein 7.3 g/dL (6.4-8.9) 05/15/23 15:40 Albumin 3.4 g/dL (3.2-5.5) 05/15/23 15:40 Globulin 3.9 g/dL (2.1-4.2) 05/15/23 15:40 Albumin/Globulin Ratio 0.9 (1.0-2.2) L 05/15/23 15:40 Lipase 32 U/L (11-82) 05/15/23 15:40 Urine Color DARK YELLOW 05/10/23 14:20 Urine Clarity CLEAR (CLEAR) 05/10/23 14:20 Urine pH 5.5 PH (5.0-7.5) 05/10/23 14:20 Ur Specific [place] >=1.030 (1.002-1.030) H 05/10/23 14:20 Urine Protein 100 mg/dL (NEGATIVE) H 05/10/23 14:20 Urine Glucose (UA) 100 mg/dL (NEGATIVE) H 05/10/23 14:20 Urine Ketones TRACE mg/dL (NEGATIVE) 05/10/23 14:20 Urine Occult Blood NEGATIVE (NEGATIVE) 05/10/23 14:20 Urine Nitrite NEGATIVE (NEGATIVE) 05/10/23 14:20 Urine Bilirubin NEGATIVE (NEGATIVE) 05/10/23 14:20 Urine Urobilinogen 0.2 (NORMAL) E.U./dL (NORMAL) 05/10/23 14:20 Ur Leukocyte Esterase NEGATIVE (NEGATIVE) 05/10/23 14:20 Urine RBC 0-5 /HPF (0-5) 05/10/23 14:20 Urine WBC 0-3 /HPF (0-3) 05/10/23 14:20 Ur Squamous Epith Cells RARE Squamous (<= Few) 05/10/23 14:20 Urine Bacteria Rare /HPF (None Seen) 05/10/23 14:20 Ur Microscopic Review INDICATED 05/10/23 14:20 Urine Culture Comments NOT INDICATED 05/10/23 14:20 Nasal Adenovirus (PCR) NOT DETECTED 05/15/23 17:10 Nasal B. parapertussis DNA (PCR) NOT DETECTED 05/15/23 17:10 Nasal Coronavir 229E PCR NOT DETECTED 05/15/23 17:10 Nasal Coronavir HKU1 PCR NOT DETECTED 05/15/23 17:10 Nasal Coronavir NL63 PCR NOT DETECTED 05/15/23 17:10 Nasal Coronavir OC43 PCR NOT DETECTED 05/15/23 17:10 Nasal Enterovir/Rhinovir PCR NOT DETECTED 05/15/23 17:10 Nasal Influenza B PCR NOT DETECTED 05/15/23 17:10 Nasal Influenza A PCR NOT DETECTED 05/15/23 17:10 Nasal Parainfluen 1 PCR NOT DETECTED 05/15/23 17:10 Nasal Parainfluen 2 PCR NOT DETECTED 05/15/23 17:10 Nasal Parainfluen 3 PCR NOT DETECTED 05/15/23 17:10 Nasal Parainfluen 4 PCR NOT DETECTED 05/15/23 17:10 Nasal RSV (PCR) NOT DETECTED 05/15/23 17:10 Nasal B.pertussis DNA PCR NOT DETECTED 05/15/23 17:10 Nasal C.pneumoniae (PCR) NOT DETECTED 05/15/23 17:10 [place] Human Metapneumo PCR NOT DETECTED 05/15/23 17:10 Nasal M.pneumoniae (PCR) NOT DETECTED 05/15/23 17:10 Nasal SARS-CoV-2 (PCR) NOT DETECTED 05/15/23 17:10 - Procedures Procedures: Procedures ENDO RECTUM POLYPECTOMY (01/07/13) Current Medications - Current Medications Current Medications: Active Medications Acetaminophen (Acetaminophen 325 Mg Tablet) 650 mg PO Q4HR PRN PRN Reason: Pain 1 to 4, or Fever Allopurinol (Allopurinol 100 Mg Tablet) 100 mg PO DAILY CATHI Last Admin: 06/05/23 09:16 Dose: 100 mg Apixaban (Apixaban 5 Mg Tablet) 5 mg PO BID [facility] [place] Last Admin: 06/05/23 20:48 Dose: 5 mg Bupropion HCl (Bupropion Sr 150 Mg Tablet) 150 mg PO DAILY [facility] [place] Last Admin: 06/05/23 09:32 Dose: 150 mg Glipizide (Glipizide Er 2.5 Mg Tablet) 10 mg PO DAILY [facility] [place] Last Admin: 06/05/23 09:17 Dose: 10 mg Insulin Glargine-yfgn (Insulin Glargine-Yfgn 300 Unit/3 Ml Pen) 10 unit SUBQ QDAC [facility] [place] Last Admin: 06/05/23 09:32 Dose: 10 unit Insulin Glargine-yfgn (Insulin Glargine-Yfgn 300 Unit/3 Ml Pen) 10 unit SUBQ QPM [facility] [place] Last Admin: 06/05/23 20:48 Dose: 10 unit Insulin Human Lispro (Insulin Lispro 300 Unit/3 Ml Pen) 5 unit SUBQ TIDWM [facility] [place]; Protocol Last Admin: 06/05/23 17:06 Dose: 5 unit Insulin Human Lispro (Insulin Lispro 300 Unit/3 Ml Pen) 1 - 9 unit SUBQ 0800,1200,1700,2100 [facility] [place]; Protocol Last Admin: 06/05/23 20:49 Dose: 1 unit Lorazepam (Lorazepam 0.5 Mg Tablet) 0.5 mg PO Q6H PRN PRN Reason: Anxiety Last Admin: 05/26/23 22:36 Dose: 0.5 mg Magnesium Oxide (Magnesium Oxide 400 Mg Tablet) 400 mg PO DAILYWM [facility] [place] Last Admin: 06/05/23 09:17 Dose: 400 mg Metoprolol Succinate (Metoprolol Succinate 50 Mg Tablet) 50 mg PO BID [facility] [place] Last Admin: 06/05/23 20:48 Dose: 50 mg Multi-Ingredient Ointment (Zinc Oxide 20% Oint 30 Gm Tube) 1 applic TOP PRN PRN PRN Reason: Skin Care Last Admin: 05/19/23 21:02 Dose: 1 applic Nicotine (Nicotine 14 Mg Patch) 1 patch TOP DAILY [facility] [place] Last Admin: 06/05/23 09:17 Dose: 1 patch Olanzapine (Olanzapine Odt 5 Mg Tablet) 5 mg TL DAILY PRN PRN Reason: Agitation Last Admin: 05/23/23 21:40 Dose: 5 mg Ondansetron HCl (Ondansetron Odt 4 Mg Tablet) 4 mg TL Q6HR PRN PRN Reason: Nausea / Vomiting Ondansetron HCl (Ondansetron 4 Mg/2 Ml Vial) 4 mg IVP Q6HR PRN PRN Reason: Nausea / Vomiting Oxycodone HCl (Oxycodone 5 Mg Tablet) 5 mg PO Q4HR PRN PRN Reason: Pain 5 to 7 Last Admin: 05/17/23 12:14 Dose: 5 mg Quetiapine Fumarate (Quetiapine 25 Mg Tablet) 25 mg PO QPM [facility] [place] Last Admin: 06/05/23 20:48 Dose: 25 mg Sertraline HCl (Sertraline 50 Mg Tablet) 50 mg PO DAILY [facility] [place] Last Admin: 06/05/23 09:17 Dose: 50 mg Sodium Chloride (Sodium Chloride Flush 0.9% 10 Ml Syringe) 10 ml IVP PRN PRN PRN Reason: NEEDED PER PROVIDER ORDERS Sodium Chloride (Sodium Chloride Flush 0.9% 10 Ml Syringe) 10 ml IVP 0100,0900,1700 [facility] [place] Last Admin: 06/05/23 17:08 Dose: Not Given Tamsulosin HCl (Tamsulosin 0.4 Mg Capsule) 0.4 mg PO DAILY [facility] [place] Last Admin: 06/05/23 09:17 Dose: 0.4 mg Zinc Oxide (Cod Liver Oil/Zinc Oxide 113 Gm Tube) 113 gm TOP PRN PRN PRN Reason: Skin Care Amlodipine Besylate [Norvasc] 10 mg PO DAILY 05/10/23 Apixaban [Eliquis] 5 mg PO BID 05/10/23 Fluticasone/Umeclidin/Vilanter [Trelegy Ellipta 100-62.5-25] 1 each IH DAILY 05/10/23 Glipizide [Glipizide Xl] 10 mg PO DAILY 05/10/23 Insulin Aspart (Vial) [NovoLOG (VIAL FOR ED USE)] 11 unit SUBQ TIDWM 05/10/23 Insulin Glargine [Lantus Solostar] 33 unit SUBQ HS 05/10/23 Losartan [Cozaar] 50 mg PO BID 05/10/23 Metoprolol Succinate [Toprol Xl] 50 - 100 mg PO DAILY 05/10/23 Sertraline [Zoloft] 50 mg PO DAILY 05/10/23 allopurinoL [Zyloprim] 100 mg ORAL DAILY 05/10/23 buPROPion HCL [Bupropion HCl Sr] 150 mg PO DAILY 05/10/23 hydroCHLOROthiazide [Hydrodiuril] 12.5 mg PO DAILY 05/10/23 Rosuvastatin Calcium [Crestor] 10 mg PO HS 05/17/23
[2023-06-06] MEDS ORDERED: OLANZapine ODT 5 MG TABLET TL PRN (01:24)
[2023-06-06] MEDS ORDERED: QUEtiapine 25 MG TABLET PO PRN (01:26)
--- NOTE | 2023-06-06 19:03 | PROVIDER PROGRESS NOTE ---
Assessment/Plan - Problem List (1) Chronic respiratory failure with hypoxia Assessment/Plan: Patient has a history of COPD and is on continuous O2 at home and here. Patient does become tachypneic with activity and does desaturate for a short period of time Plan: He will need an oximetry walk test on the day of discharge to see if his order for being on the same setting at rest and with activity needs to be changed (2) DM II (diabetes mellitus, type II), controlled Impression: He presented with a glucose of 59 at the scene, when he was found at home by his calenderer, and this was the reason for coming to the ER initially. He has not been here approximately 3 weeks. His glucoses have been running between 100 and in the 200's Plan: Remain on the current insulin doses Continue with fingerstick checks and sliding scale insulin and hypoglycemia protocol (3) Risk for falls Impression: Patient had a fall here on 05/19 while trying to get out of the bed and a fall onto the wall while standing on 06/04/23. Plan: PT and OT ordered to see pt Will order orthostatic VS (4) Chronic Atrial fibrillation Impression: Patient has a history of A-fib on Eliquis. He is at risk for falling (see #3). He also has dementia, so compliance on Eliquis needs attention. 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 He needed Ativan q6 hours PRN for agitation earlier this hospital stay. Mr. Dunne was seen in clinic in fall 2022 where a mini mental status exam was done and he passed, with a 28/30. No cognitive deficits were noted at that time. It is concerning that his mental status could have deteriorated thiat quickly. We considered causes such as drug use, potential stroke, or brain tumor. However, these all seem unlikely as his CT in the ER was negative for any acute findings. It is possible that he could have some degree of brain damage from being hypoglycemic for unknown lengths of time. Patient was found extremely hypoglycemic prior to his admission and had not been heard from in a few days. In this case, the brain damage may be irreversible. He was also seen for altered mental status in the past that was believed to be due to hypoglycemia as well. Plan: If agitated, may give home dose of Zyprexa, or a small dose of Seroquel or Ativan q6 PRN SW is working on placement after guardianship is established (6) Hypertension Impression: Currently, his blood pressure is in the normal range Plan: Continue current meds (7) Acute kidney injury Assessment/Plan: A retroperitneal US showed a 4 cm lesion on left kidney with mural nodularity, but nodularity was not seen on prior US. Advised to follow up in 3-6 months. Given there was no sign of obstruction, we suspected his ENOCH was due to dehydration. (8) Altered mental status Impression: RESOLVED. Patient was admitted with altered mental status, likely due to hypoglycemia, dehydration and poor oral intake. Patient may not have eaten in a few days. He had a cognitive eval done at admission and scored 7/30 Plan: As per the psychiatry consult I will order PT and OT evaluation (9) Dehydration Impression: RESOLVED. Patient was likely dehydrated due to poor oral intake in the setting of dementia. His electrolytes have normalized and he no longer requires IV hydration as he is eating/drinking well. (10) Urinary retention Impression: RESOLVED Patient complained of lower abdominal pain on 05/16 and a bladder scan showed 888 mL of urine. Patient was straight cathed. A morse catheter was inserted on 05/17. Morse removed on 05/21/23. Plan: Cont low dose Flomax 0.4 mg daily Bladder scan if patient complains of symptoms of urinary retention - Current Meds Current Meds: Current Medications Generic Name Dose Route Start Last Admin Trade Name Freq PRN Reason Stop Dose Admin Allopurinol 100 mg 05/25/23 09:00 06/06/23 08:20 Allopurinol 100 Mg Tablet PO 100 mg DAILY CATHI Administration Apixaban 5 mg 05/16/23 21:00 06/06/23 08:21 Apixaban 5 Mg Tablet PO 5 mg BID CATHI Administration Bupropion HCl 150 mg 05/17/23 09:00 06/06/23 08:21 Bupropion Sr 150 Mg Tablet PO 150 mg DAILY CATHI Administration Glipizide 10 mg 05/24/23 12:00 06/06/23 08:20 Glipizide Er 2.5 Mg Tablet PO 10 mg DAILY CATHI Administration Insulin Glargine-yfgn 10 unit 05/23/23 07:00 06/06/23 11:00 Insulin Glargine-Yfgn 300 Unit/3 Ml Pen SUBQ 10 unit QDAC CATHI Administration Insulin Glargine-yfgn 10 unit 05/30/23 21:00 06/05/23 20:48 Insulin Glargine-Yfgn 300 Unit/3 Ml Pen SUBQ 10 unit QPM CATHI Administration Insulin Human Lispro 5 unit 05/16/23 19:00 06/06/23 17:15 Insulin Lispro 300 Unit/3 Ml Pen SUBQ 5 unit TIDWM [facility] Administration Protocol Insulin Human Lispro 1 - 9 unit 05/21/23 08:00 06/06/23 16:42 Insulin Lispro 300 Unit/3 Ml Pen SUBQ Not Given 0800,1200,1700,2100 [facility] Protocol Lorazepam 0.5 mg 05/19/23 18:50 05/26/23 22:36 Lorazepam 0.5 Mg Tablet PO 0.5 mg Q6H PRN Administration Anxiety Magnesium Oxide 400 mg 06/03/23 11:13 06/06/23 08:20 Magnesium Oxide 400 Mg Tablet PO 400 mg DAILYWM [facility] Administration Metoprolol Succinate 50 mg 05/16/23 21:00 06/06/23 08:20 Metoprolol Succinate 50 Mg Tablet PO 50 mg BID CATHI Administration Multi-Ingredient Ointment 1 applic 05/16/23 22:50 05/19/23 21:02 Zinc Oxide 20% Oint 30 Gm Tube TOP 1 applic PRN PRN Administration Skin Care Nicotine 1 patch 05/18/23 09:00 06/06/23 08:20 Nicotine 14 Mg Patch TOP 1 patch DAILY [facility] Administration Oxycodone HCl 5 mg 05/16/23 14:47 05/17/23 12:14 Oxycodone 5 Mg Tablet PO 5 mg Q4HR PRN Administration Pain 5 to 7 Sertraline HCl 50 mg 05/17/23 09:00 06/06/23 08:20 Sertraline 50 Mg Tablet PO 50 mg DAILY [facility] Administration Sodium Chloride 10 ml 05/16/23 17:00 06/06/23 17:15 Sodium Chloride Flush 0.9% 10 Ml Syringe IVP Not Given 0100,0900,1700 [facility] Tamsulosin HCl 0.4 mg 05/18/23 09:00 06/06/23 08:20 Tamsulosin 0.4 Mg Capsule PO 0.4 mg DAILY CATHI Administration - Lab Result Fish Bone Diagrams: 06/03/23 05:31 06/03/23 05:31 - Additional Planning My Orders: My Active Orders 06/06/23 Evaluate and Treat OT [OT] Routine Evaluate and Treat PT [PT] Routine 06/06/23 11:27 Orthostatic [Vital Signs - Orthostatic] [RC] DAILY Subjective - Subjective Patient Reports: No Complaints Objective Vital Signs: Vital Signs - 24 hr 06/05/23 06/06/23 06/06/23 19:13 07:52 09:03 Temperature 37.1 C 37.1 C Heart Rate [ 82 77 Brachial] Heart Rate [ Sitting] Heart Rate [ Standing] Respiratory 18 20 Rate Blood Pressure 143/76 H 140/83 H [Right Brachial artery] Blood Pressure [Sitting] Blood Pressure [Standing] O2 Saturation 90 L 93 O2 Saturation [ Sitting] O2 Saturation [ Standing] If not protocol 2 2 2 : Oxygen Flow, liters/minute 06/06/23 06/06/23 15:35 15:38 Temperature Heart Rate [ Brachial] Heart Rate [ 78 78 Sitting] Heart Rate [ 75 75 Standing] Respiratory Rate Blood Pressure [Right Brachial artery] Blood Pressure 125/74 125/74 [Sitting] Blood Pressure 131/75 H 131/75 H [Standing] O2 Saturation O2 Saturation [ 90 L Sitting] O2 Saturation [ 91 L Standing] If not protocol : Oxygen Flow, liters/minute Oxygen O2 Source Nasal cannula Oxygen Flow Rate 4 I&O (Last 24 Hrs): Intake and Output Totals x24h 06/04/23 06/05/23 06/06/23 23:59 23:59 23:59 Intake Total 700 480 940 Output Total 50 Balance 700 430 940 General: Alert, No acute distress HEENT: EOMI, Mucous membr. moist/pink Neck: Supple Neuro: Alert, Non Focal, Other (Poor memory) Cardiovascular: No murmurs Respiratory: No respiratory distress (on O2 via n.c.) Abdomen: Soft Extremities: No edema - Results Results: Laboratory Results WBC 8.0 x10^3/uL (4.8-10.8) 06/03/23 05:31 RBC 4.80 10^6/uL (4.70-6.10) 06/03/23 05:31 Hgb 13.4 g/dL (14.0-18.0) L 06/03/23 05:31 Hct 42.8 % (42.0-52.0) 06/03/23 05:31 MCV 89.2 fL (80.0-94.0) 06/03/23 05:31 MCH 27.9 pg (27.0-31.0) 06/03/23 05:31 MCHC 31.3 g/dL (32.0-36.0) L 06/03/23 05:31 RDW 16.2 % (12.0-15.0) H 06/03/23 05:31 Plt Count 181 10^3/uL (130-450) 06/03/23 05:31 MPV 11.1 fL (7.4-11.4) 06/03/23 05:31 Neut # (Auto) 5.1 10^3/uL (1.5-6.6) 06/03/23 05:31 Lymph # (Auto) 1.6 10^3/uL (1.5-3.5) 06/03/23 05:31 [place] # (Auto) 0.7 10^3/uL (0.0-1.0) 06/03/23 05:31 Eos # (Auto) 0.5 10^3/uL (0.0-0.7) 06/03/23 05:31 Baso # (Auto) 0.1 10^3/uL (0.0-0.1) 06/03/23 05:31 Absolute Nucleated RBC 0.00 x10^3/uL 06/03/23 05:31 Nucleated RBC % 0.0 /100WBC 06/03/23 05:31 Sodium 137 mmol/L (135-145) 06/03/23 05:31 Potassium 4.0 mmol/L (3.5-4.5) 06/03/23 05:31 Chloride 103 mmol/L (101-111) 06/03/23 05:31 Carbon Dioxide 26 mmol/L (21-32) 06/03/23 05:31 Anion Gap 8.0 (6-13) 06/03/23 05:31 BUN 18 mg/dL (6-20) 06/03/23 05:31 Creatinine 1.3 mg/dL (0.6-1.3) 06/03/23 05:31 Estimated GFR (MDRD) 53 (>89) L 06/03/23 05:31 Glucose 100 mg/dL (74-104) 06/03/23 05:31 POC Whole Bld Glucose 108 mg/dL (70 - 100) H 06/06/23 16:27 Estimat Average Glucose 148 mg/dL (70-100) H 05/17/23 05:18 Hemoglobin A1c % 6.8 % (4.27-6.07) H 05/17/23 05:18 Lactic Acid 1.0 mmol/L (0.5-2.2) 05/15/23 15:40 Calcium 9.3 mg/dL (8.5-10.3) 06/03/23 05:31 Phosphorus 3.7 mg/dL (2.5-5.0) 06/03/23 05:31 Magnesium 1.5 mg/dL (1.7-2.3) L 06/03/23 05:31 Total Bilirubin 0.5 mg/dL (0.2-1.0) 05/15/23 15:40 AST 31 IU/L (10-42) 05/15/23 15:40 ALT 28 IU/L (10-60) 05/15/23 15:40 Alkaline Phosphatase 64 IU/L (42-121) 05/15/23 15:40 B-Natriuretic Peptide 137 pg/mL (5-100) H 05/15/23 15:40 Total Protein 7.3 g/dL (6.4-8.9) 05/15/23 15:40 Albumin 3.4 g/dL (3.2-5.5) 05/15/23 15:40 Globulin 3.9 g/dL (2.1-4.2) 05/15/23 15:40 Albumin/Globulin Ratio 0.9 (1.0-2.2) L 05/15/23 15:40 Lipase 32 U/L (11-82) 05/15/23 15:40 Urine Color DARK YELLOW 05/10/23 14:20 Urine Clarity CLEAR (CLEAR) 05/10/23 14:20 Urine pH 5.5 PH (5.0-7.5) 05/10/23 14:20 Ur Specific [place] >=1.030 (1.002-1.030) H 05/10/23 14:20 Urine Protein 100 mg/dL (NEGATIVE) H 05/10/23 14:20 Urine Glucose (UA) 100 mg/dL (NEGATIVE) H 05/10/23 14:20 Urine Ketones TRACE mg/dL (NEGATIVE) 05/10/23 14:20 Urine Occult Blood NEGATIVE (NEGATIVE) 05/10/23 14:20 Urine Nitrite NEGATIVE (NEGATIVE) 05/10/23 14:20 Urine Bilirubin NEGATIVE (NEGATIVE) 05/10/23 14:20 Urine Urobilinogen 0.2 (NORMAL) E.U./dL (NORMAL) 05/10/23 14:20 Ur Leukocyte Esterase NEGATIVE (NEGATIVE) 05/10/23 14:20 Urine RBC 0-5 /HPF (0-5) 05/10/23 14:20 Urine WBC 0-3 /HPF (0-3) 05/10/23 14:20 Ur Squamous Epith Cells RARE Squamous (<= Few) 05/10/23 14:20 Urine Bacteria Rare /HPF (None Seen) 05/10/23 14:20 Ur Microscopic Review INDICATED 05/10/23 14:20 Urine Culture Comments NOT INDICATED 05/10/23 14:20 Nasal Adenovirus (PCR) NOT DETECTED 05/15/23 17:10 Nasal B. parapertussis DNA (PCR) NOT DETECTED 05/15/23 17:10 Nasal Coronavir 229E PCR NOT DETECTED 05/15/23 17:10 Nasal Coronavir HKU1 PCR NOT DETECTED 05/15/23 17:10 Nasal Coronavir NL63 PCR NOT DETECTED 05/15/23 17:10 Nasal Coronavir OC43 PCR NOT DETECTED 05/15/23 17:10 Nasal Enterovir/Rhinovir PCR NOT DETECTED 05/15/23 17:10 Nasal Influenza B PCR NOT DETECTED 05/15/23 17:10 Nasal Influenza A PCR NOT DETECTED 05/15/23 17:10 Nasal Parainfluen 1 PCR NOT DETECTED 05/15/23 17:10 Nasal Parainfluen 2 PCR NOT DETECTED 05/15/23 17:10 Nasal Parainfluen 3 PCR NOT DETECTED 05/15/23 17:10 Nasal Parainfluen 4 PCR NOT DETECTED 05/15/23 17:10 Nasal RSV (PCR) NOT DETECTED 05/15/23 17:10 Nasal B.pertussis DNA PCR NOT DETECTED 05/15/23 17:10 Nasal C.pneumoniae (PCR) NOT DETECTED 05/15/23 17:10 [place] Human Metapneumo PCR NOT DETECTED 05/15/23 17:10 Nasal M.pneumoniae (PCR) NOT DETECTED 05/15/23 17:10 Nasal SARS-CoV-2 (PCR) NOT DETECTED 05/15/23 17:10 - Procedures Procedures: Procedures ENDO RECTUM POLYPECTOMY (01/07/13)
--- NOTE | 2023-06-07 19:08 | PROVIDER PROGRESS NOTE ---
Assessment/Plan - Problem List (1) Chronic respiratory failure with hypoxia Assessment/Plan: Patient has a history of COPD and is on continuous O2 at home and here. Patient does become tachypneic with activity and does desaturate for a short period of time Plan: He will need an oximetry walk test on the day of discharge to see if his order for being on the same setting at rest and with activity needs to be changed (2) DM II (diabetes mellitus, type II), controlled Impression: He presented with a glucose of 59 at the scene, when he was found at home by his mining professionals, and this was the reason for coming to the ER initially. He has not been here approximately 3 weeks. His glucoses have been running between 100 and in the 200's Plan: Remain on the current insulin doses Continue with fingerstick checks and sliding scale insulin and hypoglycemia protocol (3) Risk for falls Impression: Patient had a fall here on 05/19 while trying to get out of the bed and a fall onto the wall while standing on 06/04/23. Plan: PT and OT ordered to see pt Will order orthostatic VS (4) Chronic Atrial fibrillation Impression: Patient has a history of A-fib on Eliquis. He is at risk for falling (see #3). He also has dementia, so compliance on Eliquis needs attention. 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 He needed Ativan q6 hours PRN for agitation earlier this hospital stay. Mr. Dunne was seen in clinic in fall 2022 where a mini mental status exam was done and he passed, with a 28/30. No cognitive deficits were noted at that time. At adm his cog evel by OT was very poor at 7/30. As per the psychiatry consult from 06/04/23, I ordered PT and OT evaluations to be done. He scored 23/30 on cog eval. He was deemed unsafe to stay alone, by PT, needing supervision 21/11. Plan: If agitated, will give home dose of Zyprexa, or a small dose of Seroquel or Ativan q6 PRN SW is working on reinstating home caregiver services, which he had before but he probably will not qualify for 21/11 help at home, where he lived alone. (6) Hypertension Impression: Currently, his blood pressure is in the normal range Plan: Continue current meds (7) Acute kidney injury Assessment/Plan: A retroperitneal US showed a 4 cm lesion on left kidney with mural nodularity, but nodularity was not seen on prior US. Advised to follow up in 3-6 months. Given there was no sign of obstruction, we suspected his ENOCH was due to dehydration. (8) Altered mental status Impression: RESOLVED. Patient was admitted with altered mental status, likely due to hypoglycemia, dehydration and poor oral intake. Patient may not have eaten in a few days. He had a cognitive eval done at admission and scored 7/30 (9) Dehydration Impression: RESOLVED. Patient was likely dehydrated due to poor oral intake in the setting of dementia. His electrolytes have normalized and he no longer requires IV hydration as he is eating/drinking well. (10) Urinary retention Impression: RESOLVED Patient complained of lower abdominal pain on 05/16 and a bladder scan showed 888 mL of urine. Patient was straight cathed. A morse catheter was inserted on 05/17. Morse removed on 05/21/23. Plan: Cont low dose Flomax 0.4 mg daily - Current Meds Current Meds: Current Medications Generic Name Dose Route Start Last Admin Trade Name Jennifer PRN Reason Stop Dose Admin Allopurinol 100 mg 05/25/23 09:00 06/07/23 09:12 Allopurinol 100 Mg Tablet PO 100 mg DAILY CATHI Administration Apixaban 5 mg 05/16/23 21:00 06/07/23 09:12 Apixaban 5 Mg Tablet PO 5 mg BID CATHI Administration Bupropion HCl 150 mg 05/17/23 09:00 06/07/23 09:12 Bupropion Sr 150 Mg Tablet PO 150 mg DAILY CATHI Administration Glipizide 10 mg 05/24/23 12:00 06/07/23 09:12 Glipizide Er 2.5 Mg Tablet PO 10 mg DAILY CATHI Administration Insulin Glargine-yfgn 10 unit 05/23/23 07:00 06/07/23 09:13 Insulin Glargine-Yfgn 300 Unit/3 Ml Pen SUBQ 10 unit QDAC CATHI Administration Insulin Glargine-yfgn 10 unit 05/30/23 21:00 06/06/23 21:24 Insulin Glargine-Yfgn 300 Unit/3 Ml Pen SUBQ 10 unit QPM [facility] Administration Insulin Human Lispro 5 unit 05/16/23 19:00 06/07/23 17:23 Insulin Lispro 300 Unit/3 Ml Pen SUBQ 5 unit TIDWM [facility] Administration Protocol Insulin Human Lispro 1 - 9 unit 05/21/23 08:00 06/07/23 17:24 Insulin Lispro 300 Unit/3 Ml Pen SUBQ Not Given 0800,1200,1700,2100 [facility] Protocol Lorazepam 0.5 mg 05/19/23 18:50 05/26/23 22:36 Lorazepam 0.5 Mg Tablet PO 0.5 mg Q6H PRN Administration Anxiety Magnesium Oxide 400 mg 06/03/23 11:13 06/07/23 09:12 Magnesium Oxide 400 Mg Tablet PO 400 mg DAILYWM [facility] Administration Metoprolol Succinate 50 mg 05/16/23 21:00 06/07/23 09:12 Metoprolol Succinate 50 Mg Tablet PO 50 mg BID [facility] Administration Multi-Ingredient Ointment 1 applic 05/16/23 22:50 05/19/23 21:02 Zinc Oxide 20% Oint 30 Gm Tube TOP 1 applic PRN PRN Administration Skin Care Nicotine 1 patch 05/18/23 09:00 06/07/23 09:13 Nicotine 14 Mg Patch TOP 1 patch DAILY [facility] Administration Oxycodone HCl 5 mg 05/16/23 14:47 05/17/23 12:14 Oxycodone 5 Mg Tablet PO 5 mg Q4HR PRN Administration Pain 5 to 7 Sertraline HCl 50 mg 05/17/23 09:00 06/07/23 09:12 Sertraline 50 Mg Tablet PO 50 mg DAILY [facility] Administration Sodium Chloride 10 ml 05/16/23 17:00 06/07/23 17:24 Sodium Chloride Flush 0.9% 10 Ml Syringe IVP Not Given 0100,0900,1700 [facility] Tamsulosin HCl 0.4 mg 05/18/23 09:00 06/07/23 09:12 Tamsulosin 0.4 Mg Capsule PO 0.4 mg DAILY [facility] Administration - Lab Result Fish Bone Diagrams: 06/03/23 05:31 06/03/23 05:31 Subjective - Subjective Patient Reports: Other (Wants to be discharged to home) Objective Vital Signs: Vital Signs - 24 hr 06/06/23 06/07/23 06/07/23 23:00 07:53 11:36 Temperature 36.7 C Heart Rate [ 65 Brachial] Respiratory 20 Rate Blood Pressure 118/68 [Right Brachial artery] O2 Saturation 89 L If not protocol 2 2 2 : Oxygen Flow, liters/minute 06/07/23 15:42 Temperature 37.0 C Heart Rate [ 64 Brachial] Respiratory 24 Rate Blood Pressure 124/65 [Right Brachial artery] O2 Saturation 93 If not protocol 2 : Oxygen Flow, liters/minute Oxygen O2 Source Nasal cannula Oxygen Flow Rate 4 I&O (Last 24 Hrs): Intake and Output Totals x24h 06/05/23 06/06/23 06/07/23 23:59 23:59 23:59 Intake Total 480 940 780 Output Total 50 Balance 430 940 780 General: Alert HEENT: EOMI, Mucous membr. moist/pink Neck: Supple Neuro: Alert, Non Focal, Other (Poor memory) Cardiovascular: No murmurs Respiratory: No respiratory distress (at rest, on suppl O2 via n.c.) Abdomen: Soft Extremities: No edema - Results Results: Laboratory Results WBC 8.0 x10^3/uL (4.8-10.8) 06/03/23 05:31 RBC 4.80 10^6/uL (4.70-6.10) 06/03/23 05:31 Hgb 13.4 g/dL (14.0-18.0) L 06/03/23 05:31 Hct 42.8 % (42.0-52.0) 06/03/23 05:31 MCV 89.2 fL (80.0-94.0) 06/03/23 05:31 MCH 27.9 pg (27.0-31.0) 06/03/23 05:31 MCHC 31.3 g/dL (32.0-36.0) L 06/03/23 05:31 RDW 16.2 % (12.0-15.0) H 06/03/23 05:31 Plt Count 181 10^3/uL (130-450) 06/03/23 05:31 MPV 11.1 fL (7.4-11.4) 06/03/23 05:31 Neut # (Auto) 5.1 10^3/uL (1.5-6.6) 06/03/23 05:31 Lymph # (Auto) 1.6 10^3/uL (1.5-3.5) 06/03/23 05:31 [place] # (Auto) 0.7 10^3/uL (0.0-1.0) 06/03/23 05:31 Eos # (Auto) 0.5 10^3/uL (0.0-0.7) 06/03/23 05:31 Baso # (Auto) 0.1 10^3/uL (0.0-0.1) 06/03/23 05:31 Absolute Nucleated RBC 0.00 x10^3/uL 06/03/23 05:31 Nucleated RBC % 0.0 /100WBC 06/03/23 05:31 Sodium 137 mmol/L (135-145) 06/03/23 05:31 Potassium 4.0 mmol/L (3.5-4.5) 06/03/23 05:31 Chloride 103 mmol/L (101-111) 06/03/23 05:31 Carbon Dioxide 26 mmol/L (21-32) 06/03/23 05:31 Anion Gap 8.0 (6-13) 06/03/23 05:31 BUN 18 mg/dL (6-20) 06/03/23 05:31 Creatinine 1.3 mg/dL (0.6-1.3) 06/03/23 05:31 Estimated GFR (MDRD) 53 (>89) L 06/03/23 05:31 Glucose 100 mg/dL (74-104) 06/03/23 05:31 POC Whole Bld Glucose 346 mg/dL (70 - 100) H 06/07/23 11:18 Estimat Average Glucose 148 mg/dL (70-100) H 05/17/23 05:18 Hemoglobin A1c % 6.8 % (4.27-6.07) H 05/17/23 05:18 Lactic Acid 1.0 mmol/L (0.5-2.2) 05/15/23 15:40 Calcium 9.3 mg/dL (8.5-10.3) 06/03/23 05:31 Phosphorus 3.7 mg/dL (2.5-5.0) 06/03/23 05:31 Magnesium 1.5 mg/dL (1.7-2.3) L 06/03/23 05:31 Total Bilirubin 0.5 mg/dL (0.2-1.0) 05/15/23 15:40 AST 31 IU/L (10-42) 05/15/23 15:40 ALT 28 IU/L (10-60) 05/15/23 15:40 Alkaline Phosphatase 64 IU/L (42-121) 05/15/23 15:40 B-Natriuretic Peptide 137 pg/mL (5-100) H 05/15/23 15:40 Total Protein 7.3 g/dL (6.4-8.9) 05/15/23 15:40 Albumin 3.4 g/dL (3.2-5.5) 05/15/23 15:40 Globulin 3.9 g/dL (2.1-4.2) 05/15/23 15:40 Albumin/Globulin Ratio 0.9 (1.0-2.2) L 05/15/23 15:40 Lipase 32 U/L (11-82) 05/15/23 15:40 Urine Color DARK YELLOW 05/10/23 14:20 Urine Clarity CLEAR (CLEAR) 05/10/23 14:20 Urine pH 5.5 PH (5.0-7.5) 05/10/23 14:20 Ur Specific [place] >=1.030 (1.002-1.030) H 05/10/23 14:20 Urine Protein 100 mg/dL (NEGATIVE) H 05/10/23 14:20 Urine Glucose (UA) 100 mg/dL (NEGATIVE) H 05/10/23 14:20 Urine Ketones TRACE mg/dL (NEGATIVE) 05/10/23 14:20 Urine Occult Blood NEGATIVE (NEGATIVE) 05/10/23 14:20 Urine Nitrite NEGATIVE (NEGATIVE) 05/10/23 14:20 Urine Bilirubin NEGATIVE (NEGATIVE) 05/10/23 14:20 Urine Urobilinogen 0.2 (NORMAL) E.U./dL (NORMAL) 05/10/23 14:20 Ur Leukocyte Esterase NEGATIVE (NEGATIVE) 05/10/23 14:20 Urine RBC 0-5 /HPF (0-5) 05/10/23 14:20 Urine WBC 0-3 /HPF (0-3) 05/10/23 14:20 Ur Squamous Epith Cells RARE Squamous (<= Few) 05/10/23 14:20 Urine Bacteria Rare /HPF (None Seen) 05/10/23 14:20 Ur Microscopic Review INDICATED 05/10/23 14:20 Urine Culture Comments NOT INDICATED 05/10/23 14:20 Nasal Adenovirus (PCR) NOT DETECTED 05/15/23 17:10 Nasal B. parapertussis DNA (PCR) NOT DETECTED 05/15/23 17:10 Nasal Coronavir 229E PCR NOT DETECTED 05/15/23 17:10 Nasal Coronavir HKU1 PCR NOT DETECTED 05/15/23 17:10 Nasal Coronavir NL63 PCR NOT DETECTED 05/15/23 17:10 Nasal Coronavir OC43 PCR NOT DETECTED 05/15/23 17:10 Nasal Enterovir/Rhinovir PCR NOT DETECTED 05/15/23 17:10 Nasal Influenza B PCR NOT DETECTED 05/15/23 17:10 Nasal Influenza A PCR NOT DETECTED 05/15/23 17:10 Nasal Parainfluen 1 PCR NOT DETECTED 05/15/23 17:10 Nasal Parainfluen 2 PCR NOT DETECTED 05/15/23 17:10 Nasal Parainfluen 3 PCR NOT DETECTED 05/15/23 17:10 Nasal Parainfluen 4 PCR NOT DETECTED 05/15/23 17:10 Nasal RSV (PCR) NOT DETECTED 05/15/23 17:10 Nasal B.pertussis DNA PCR NOT DETECTED 05/15/23 17:10 Nasal C.pneumoniae (PCR) NOT DETECTED 05/15/23 17:10 [place] Human Metapneumo PCR NOT DETECTED 05/15/23 17:10 Nasal M.pneumoniae (PCR) NOT DETECTED 05/15/23 17:10 Nasal SARS-CoV-2 (PCR) NOT DETECTED 05/15/23 17:10 - Procedures Procedures: Procedures ENDO RECTUM POLYPECTOMY (01/07/13)
--- NOTE | 2023-06-08 18:44 | PROVIDER PROGRESS NOTE ---
Assessment/Plan - Problem List (1) Chronic respiratory failure with hypoxia Assessment/Plan: Patient has a history of COPD and is on continuous O2 at home and here. Patient does become tachypneic with activity and does desaturate for a short period of time Plan: He will need an oximetry walk test on the day of discharge to see if his order for being on the same setting at rest and with activity needs to be changed (2) DM II (diabetes mellitus, type II), controlled Impression: He presented with a glucose of 59 at the scene, when he was found at home by his sand caster, and this was the reason for coming to the ER initially. He has not been here approximately 3 weeks. His glucoses have been running between 100 and in the 200's Plan: Remain on the current insulin doses Continue with fingerstick checks and sliding scale insulin and hypoglycemia protocol (3) Risk for falls Impression: Patient had a fall here on 05/19/23 while trying to get out of the bed and a fall onto the wall while standing on 06/04/23. Plan: PT and OT working with pt Follow orthostatic VS (4) Chronic Atrial fibrillation Impression: Patient has a history of A-fib on Eliquis. He is at risk for falling (see #3). He also has dementia, so compliance on Eliquis needs attention. 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 He needed Ativan q6 hours PRN for agitation earlier this hospital stay. In fall 2022, a mini mental status exam was done and he passed, with a 28/30. No cognitive deficits were noted at that time. At adm his cog evel by OT was very poor at 7/30. As per the psychiatry consult from 06/04/23, I ordered PT and OT evaluations to be done. He scored 23/30 on cog eval. He was deemed unsafe to stay alone, by PT, needing supervision 21/11. Plan: If agitated, will give home dose of Zyprexa, or a small dose of Seroquel or Ativan q6 PRN IZABEL is working on reinstating home caregiver services, which he had before but he probably will not qualify for 21/11 help at home, where he lived alone. Today the SW stated that a relative may take him in to live with him (a nephew). (6) Hypertension Impression: Currently, his blood pressure is in the normal range Plan: Continue current meds (7) Acute kidney injury Assessment/Plan: A retroperitneal US showed a 4 cm lesion on left kidney with mural nodularity, but nodularity was not seen on prior US. Advised to follow up in 3-6 months. G iven there was no sign of obstruction, we suspected his ENOCH was due to dehydration. (8) Altered mental status Impression: RESOLVED. Patient was admitted with altered mental status, likely due to hypoglycemia, dehydration and poor oral intake. Patient may not have eaten in a few days. He had a cognitive eval done at admission and scored 7/30 (9) Dehydration Impression: RESOLVED. Patient was likely dehydrated due to poor oral intake in the setting of dementia. His electrolytes have normalized and he no longer requires IV hydration as he is eating/drinking well. (10) Urinary retention Impression: RESOLVED Patient complained of lower abdominal pain on 05/16 and a bladder scan showed 888 mL of urine. Patient was straight cathed. A morse catheter was inserted on 05/17. Morse removed on 05/21/23. Plan: Cont low dose Flomax 0.4 mg daily - Current Meds Current Meds: Current Medications Generic Name Dose Route Start Last Admin Trade Name Freq PRN Reason Stop Dose Admin Allopurinol 100 mg 05/25/23 09:00 06/08/23 09:31 Allopurinol 100 Mg Tablet PO 100 mg DAILY CATHI Administration Apixaban 5 mg 05/16/23 21:00 06/08/23 09:31 Apixaban 5 Mg Tablet PO 5 mg BID CATHI Administration Bupropion HCl 150 mg 05/17/23 09:00 06/08/23 09:31 Bupropion Sr 150 Mg Tablet PO 150 mg DAILY CATHI Administration Glipizide 10 mg 05/24/23 12:00 06/08/23 09:31 Glipizide Er 2.5 Mg Tablet PO 10 mg DAILY CATHI Administration Insulin Glargine-yfgn 10 unit 05/23/23 07:00 06/08/23 08:43 Insulin Glargine-Yfgn 300 Unit/3 Ml Pen SUBQ 10 unit QDAC CATHI Administration Insulin Glargine-yfgn 10 unit 05/30/23 21:00 06/07/23 20:47 Insulin Glargine-Yfgn 300 Unit/3 Ml Pen SUBQ 10 unit QPM CATHI Administration Insulin Human Lispro 5 unit 05/16/23 19:00 06/08/23 17:08 Insulin Lispro 300 Unit/3 Ml Pen SUBQ 5 unit TIDWM [facility] Administration Protocol Insulin Human Lispro 1 - 9 unit 05/21/23 08:00 06/08/23 17:09 Insulin Lispro 300 Unit/3 Ml Pen SUBQ Not Given 0800,1200,1700,2100 [facility] Protocol Lorazepam 0.5 mg 05/19/23 18:50 05/26/23 22:36 Lorazepam 0.5 Mg Tablet PO 0.5 mg Q6H PRN Administration Anxiety Magnesium Oxide 400 mg 06/03/23 11:13 06/08/23 09:31 Magnesium Oxide 400 Mg Tablet PO 400 mg DAILYWM [facility] Administration Metoprolol Succinate 50 mg 05/16/23 21:00 06/08/23 09:31 Metoprolol Succinate 50 Mg Tablet PO 50 mg BID [facility] Administration Multi-Ingredient Ointment 1 applic 05/16/23 22:50 06/08/23 05:14 Zinc Oxide 20% Oint 30 Gm Tube TOP 1 applic PRN PRN Administration Skin Care Nicotine 1 patch 05/18/23 09:00 06/08/23 09:31 Nicotine 14 Mg Patch TOP 1 patch DAILY CATHI Administration Oxycodone HCl 5 mg 05/16/23 14:47 05/17/23 12:14 Oxycodone 5 Mg Tablet PO 5 mg Q4HR PRN Administration Pain 5 to 7 Sertraline HCl 50 mg 05/17/23 09:00 06/08/23 09:31 Sertraline 50 Mg Tablet PO 50 mg DAILY [facility] Administration Sodium Chloride 10 ml 05/16/23 17:00 06/08/23 17:09 Sodium Chloride Flush 0.9% 10 Ml Syringe IVP Not Given 0100,0900,1700 [facility] Tamsulosin HCl 0.4 mg 05/18/23 09:00 06/08/23 09:31 Tamsulosin 0.4 Mg Capsule PO 0.4 mg DAILY [facility] Administration - Lab Result Fish Bone Diagrams: 06/03/23 05:31 06/03/23 05:31 Subjective - Subjective Patient Reports: Resting Comfortably, No Complaints Objective Vital Signs: Vital Signs - 24 hr 06/07/23 06/08/23 06/08/23 22:00 07:38 09:00 Temperature 37.1 C Heart Rate [ 76 Brachial] Respiratory 18 Rate Blood Pressure 113/66 [Right Brachial artery] O2 Saturation 97 If not protocol 2 2 2 : Oxygen Flow, liters/minute 06/08/23 15:41 Temperature 37.0 C Heart Rate [ 68 Brachial] Respiratory 24 Rate Blood Pressure 124/64 [Right Brachial artery] O2 Saturation 90 L If not protocol 2 : Oxygen Flow, liters/minute Oxygen O2 Source Nasal cannula Oxygen Flow Rate 4 I&O (Last 24 Hrs): Intake and Output Totals x24h 06/06/23 06/07/23 06/08/23 23:59 23:59 23:59 Intake Total 474 831 7595 Balance 524 961 2078 General: No acute distress HEENT: EOMI, Mucous membr. moist/pink Neck: Supple Neuro: Alert, Non Focal, Other (Poor memory) Cardiovascular: No murmurs Respiratory: No respiratory distress (at rest, on O2 via n.c.) Abdomen: Soft Extremities: No edema - Results Results: Laboratory Results WBC 8.0 x10^3/uL (4.8-10.8) 06/03/23 05:31 RBC 4.80 10^6/uL (4.70-6.10) 06/03/23 05:31 Hgb 13.4 g/dL (14.0-18.0) L 06/03/23 05:31 Hct 42.8 % (42.0-52.0) 06/03/23 05:31 MCV 89.2 fL (80.0-94.0) 06/03/23 05:31 MCH 27.9 pg (27.0-31.0) 06/03/23 05:31 MCHC 31.3 g/dL (32.0-36.0) L 06/03/23 05:31 RDW 16.2 % (12.0-15.0) H 06/03/23 05:31 Plt Count 181 10^3/uL (130-450) 06/03/23 05:31 MPV 11.1 fL (7.4-11.4) 06/03/23 05:31 Neut # (Auto) 5.1 10^3/uL (1.5-6.6) 06/03/23 05:31 Lymph # (Auto) 1.6 10^3/uL (1.5-3.5) 06/03/23 05:31 [place] # (Auto) 0.7 10^3/uL (0.0-1.0) 06/03/23 05:31 Eos # (Auto) 0.5 10^3/uL (0.0-0.7) 06/03/23 05:31 Baso # (Auto) 0.1 10^3/uL (0.0-0.1) 06/03/23 05:31 Absolute Nucleated RBC 0.00 x10^3/uL 06/03/23 05:31 Nucleated RBC % 0.0 /100WBC 06/03/23 05:31 Sodium 137 mmol/L (135-145) 06/03/23 05:31 Potassium 4.0 mmol/L (3.5-4.5) 06/03/23 05:31 Chloride 103 mmol/L (101-111) 06/03/23 05:31 Carbon Dioxide 26 mmol/L (21-32) 06/03/23 05:31 Anion Gap 8.0 (6-13) 06/03/23 05:31 BUN 18 mg/dL (6-20) 06/03/23 05:31 Creatinine 1.3 mg/dL (0.6-1.3) 06/03/23 05:31 Estimated GFR (MDRD) 53 (>89) L 06/03/23 05:31 Glucose 100 mg/dL (74-104) 06/03/23 05:31 POC Whole Bld Glucose 135 mg/dL (70 - 100) H 06/08/23 16:37 Estimat Average Glucose 148 mg/dL (70-100) H 05/17/23 05:18 Hemoglobin A1c % 6.8 % (4.27-6.07) H 05/17/23 05:18 Lactic Acid 1.0 mmol/L (0.5-2.2) 05/15/23 15:40 Calcium 9.3 mg/dL (8.5-10.3) 06/03/23 05:31 Phosphorus 3.7 mg/dL (2.5-5.0) 06/03/23 05:31 Magnesium 1.5 mg/dL (1.7-2.3) L 06/03/23 05:31 Total Bilirubin 0.5 mg/dL (0.2-1.0) 05/15/23 15:40 AST 31 IU/L (10-42) 05/15/23 15:40 ALT 28 IU/L (10-60) 05/15/23 15:40 Alkaline Phosphatase 64 IU/L (42-121) 05/15/23 15:40 B-Natriuretic Peptide 137 pg/mL (5-100) H 05/15/23 15:40 Total Protein 7.3 g/dL (6.4-8.9) 05/15/23 15:40 Albumin 3.4 g/dL (3.2-5.5) 05/15/23 15:40 Globulin 3.9 g/dL (2.1-4.2) 05/15/23 15:40 Albumin/Globulin Ratio 0.9 (1.0-2.2) L 05/15/23 15:40 Lipase 32 U/L (11-82) 05/15/23 15:40 Urine Color DARK YELLOW 05/10/23 14:20 Urine Clarity CLEAR (CLEAR) 05/10/23 14:20 Urine pH 5.5 PH (5.0-7.5) 05/10/23 14:20 Ur Specific [place] >=1.030 (1.002-1.030) H 05/10/23 14:20 Urine Protein 100 mg/dL (NEGATIVE) H 05/10/23 14:20 Urine Glucose (UA) 100 mg/dL (NEGATIVE) H 05/10/23 14:20 Urine Ketones TRACE mg/dL (NEGATIVE) 05/10/23 14:20 Urine Occult Blood NEGATIVE (NEGATIVE) 05/10/23 14:20 Urine Nitrite NEGATIVE (NEGATIVE) 05/10/23 14:20 Urine Bilirubin NEGATIVE (NEGATIVE) 05/10/23 14:20 Urine Urobilinogen 0.2 (NORMAL) E.U./dL (NORMAL) 05/10/23 14:20 Ur Leukocyte Esterase NEGATIVE (NEGATIVE) 05/10/23 14:20 Urine RBC 0-5 /HPF (0-5) 05/10/23 14:20 Urine WBC 0-3 /HPF (0-3) 05/10/23 14:20 Ur Squamous Epith Cells RARE Squamous (<= Few) 05/10/23 14:20 Urine Bacteria Rare /HPF (None Seen) 05/10/23 14:20 Ur Microscopic Review INDICATED 05/10/23 14:20 Urine Culture Comments NOT INDICATED 05/10/23 14:20 Nasal Adenovirus (PCR) NOT DETECTED 05/15/23 17:10 Nasal B. parapertussis DNA (PCR) NOT DETECTED 05/15/23 17:10 Nasal Coronavir 229E PCR NOT DETECTED 05/15/23 17:10 Nasal Coronavir HKU1 PCR NOT DETECTED 05/15/23 17:10 Nasal Coronavir NL63 PCR NOT DETECTED 05/15/23 17:10 Nasal Coronavir OC43 PCR NOT DETECTED 05/15/23 17:10 Nasal Enterovir/Rhinovir PCR NOT DETECTED 05/15/23 17:10 Nasal Influenza B PCR NOT DETECTED 05/15/23 17:10 Nasal Influenza A PCR NOT DETECTED 05/15/23 17:10 Nasal Parainfluen 1 PCR NOT DETECTED 05/15/23 17:10 Nasal Parainfluen 2 PCR NOT DETECTED 05/15/23 17:10 Nasal Parainfluen 3 PCR NOT DETECTED 05/15/23 17:10 Nasal Parainfluen 4 PCR NOT DETECTED 05/15/23 17:10 Nasal RSV (PCR) NOT DETECTED 05/15/23 17:10 Nasal B.pertussis DNA PCR NOT DETECTED 05/15/23 17:10 Nasal C.pneumoniae (PCR) NOT DETECTED 05/15/23 17:10 [place] Human Metapneumo PCR NOT DETECTED 05/15/23 17:10 Nasal M.pneumoniae (PCR) NOT DETECTED 05/15/23 17:10 Nasal SARS-CoV-2 (PCR) NOT DETECTED 05/15/23 17:10 - Procedures Procedures: Procedures ENDO RECTUM POLYPECTOMY (01/07/13)
--- NOTE | 2023-06-09 17:57 | PROVIDER PROGRESS NOTE ---
Assessment/Plan - Problem List (1) Chronic respiratory failure with hypoxia Assessment/Plan: Patient has a history of COPD and is on continuous O2 at home and here. Patient does become tachypneic with activity and does desaturate for a short period of time Plan: He will need an oximetry walk test on the day of discharge to see if his order for being on the same setting at rest and with activity needs to be changed (2) DM II (diabetes mellitus, type II), controlled Impression: He presented with a glucose of 59 at the scene, when he was found at home by his recyclable materials sorter, and this was the reason for coming to the ER initially. He has not been here approximately 3 weeks. His glucoses have been running between 100 and in the 200's Plan: Remain on the current insulin doses Continue with fingerstick checks and sliding scale insulin and hypoglycemia protocol (3) Risk for falls Impression: Patient had a fall here on 05/19/23 while trying to get out of the bed and a fall onto the wall while standing on 06/04/23. Plan: PT and OT working with pt (4) Chronic Atrial fibrillation Impression: Patient has a history of A-fib on Eliquis. He is at risk for falling (see #3). He also has dementia, so compliance on Eliquis needs attention. 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 He needed Ativan q6 hours PRN for agitation earlier this hospital stay. In fall 2022, a mini mental status exam was done and he passed, with a 28/30. No cognitive deficits were noted at that time. At adm his cog evel by OT was very poor at 7/30. As per the psychiatry consult from 06/04/23, I ordered PT and OT evaluations to be done. He scored 23/30 on cog eval. He was deemed unsafe to stay alone, by PT, needing supervision 21/11. Plan: If agitated, will give home dose of Zyprexa, or a small dose of Seroquel or Ativan q6 PRN IZABEL is working on reinstating home caregiver services, which he had before but he probably will not qualify for 21/11 help at home, where he lived alone. SW learned that a relative may take him in to live with him (a nephew), in several days. (6) Hypertension Impression: Currently, his blood pressure is in the normal range Plan: Continue current meds (7) Acute kidney injury Assessment/Plan: RESOLVED A retroperitneal US showed a 4 cm lesion on left kidney with mural nodularity, but nodularity was not seen on prior US. Advised to follow up in 3-6 months. Given there was no sign of obstruction, we suspected his ENOCH was due to dehydration. (8) Altered mental status Impression: RESOLVED. Patient was admitted with altered mental status, likely due to hypoglycemia, dehydration and poor oral intake. Patient may not have eaten in a few days. He had a cognitive eval done at admission and scored 7/30 (9) Dehydration Impression: RESOLVED. Patient was likely dehydrated due to poor oral intake in the setting of dementia. His electrolytes have normalized and he no longer requires IV hydration as he is eating/drinking well. (10) Urinary retention Impression: RESOLVED Patient complained of lower abdominal pain on 05/16 and a bladder scan showed 888 mL of urine. Patient was straight cathed. A morse catheter was inserted on 05/17. Morse removed on 05/21/23. Plan: Cont low dose Flomax 0.4 mg daily - Current Meds Current Meds: Current Medications Generic Name Dose Route Start Last Admin Trade Name Freq PRN Reason Stop Dose Admin Allopurinol 100 mg 05/25/23 09:00 06/09/23 09:07 Allopurinol 100 Mg Tablet PO 100 mg DAILY CATHI Administration Apixaban 5 mg 05/16/23 21:00 06/09/23 09:06 Apixaban 5 Mg Tablet PO 5 mg BID CATHI Administration Bupropion HCl 150 mg 05/17/23 09:00 06/09/23 09:06 Bupropion Sr 150 Mg Tablet PO 150 mg DAILY CATHI Administration Glipizide 10 mg 05/24/23 12:00 06/09/23 09:06 Glipizide Er 2.5 Mg Tablet PO 10 mg DAILY CATHI Administration Insulin Glargine-yfgn 10 unit 05/23/23 07:00 06/09/23 09:08 Insulin Glargine-Yfgn 300 Unit/3 Ml Pen SUBQ 10 unit QDAC CATHI Administration Insulin Glargine-yfgn 10 unit 05/30/23 21:00 06/08/23 20:18 Insulin Glargine-Yfgn 300 Unit/3 Ml Pen SUBQ 10 unit QPM CATHI Administration Insulin Human Lispro 5 unit 05/16/23 19:00 06/09/23 17:49 Insulin Lispro 300 Unit/3 Ml Pen SUBQ 5 unit TIDWM [facility] Administration Protocol Insulin Human Lispro 1 - 9 unit 05/21/23 08:00 06/09/23 17:50 Insulin Lispro 300 Unit/3 Ml Pen SUBQ 1 unit 0800,1200,1700,2100 [facility] Administration Protocol Lorazepam 0.5 mg 05/19/23 18:50 05/26/23 22:36 Lorazepam 0.5 Mg Tablet PO 0.5 mg Q6H PRN Administration Anxiety Magnesium Oxide 400 mg 06/03/23 11:13 06/09/23 09:06 Magnesium Oxide 400 Mg Tablet PO 400 mg DAILYWM CATHI Administration Metoprolol Succinate 50 mg 05/16/23 21:00 06/09/23 09:06 Metoprolol Succinate 50 Mg Tablet PO 50 mg BID [facility] Administration Multi-Ingredient Ointment 1 applic 05/16/23 22:50 06/09/23 09:05 Zinc Oxide 20% Oint 30 Gm Tube TOP 1 applic PRN PRN Administration Skin Care Nicotine 1 patch 05/18/23 09:00 06/09/23 09:07 Nicotine 14 Mg Patch TOP 1 patch DAILY CATHI Administration Oxycodone HCl 5 mg 05/16/23 14:47 05/17/23 12:14 Oxycodone 5 Mg Tablet PO 5 mg Q4HR PRN Administration Pain 5 to 7 Sertraline HCl 50 mg 05/17/23 09:00 06/09/23 09:07 Sertraline 50 Mg Tablet PO 50 mg DAILY [facility] Administration Sodium Chloride 10 ml 05/16/23 17:00 06/09/23 17:53 Sodium Chloride Flush 0.9% 10 Ml Syringe IVP Not Given 0100,0900,1700 [facility] Tamsulosin HCl 0.4 mg 05/18/23 09:00 06/09/23 09:06 Tamsulosin 0.4 Mg Capsule PO 0.4 mg DAILY [facility] Administration - Lab Result Fish Bone Diagrams: 06/03/23 05:31 06/03/23 05:31 Subjective - Subjective Patient Reports: Resting Comfortably, No Complaints Objective Vital Signs: Vital Signs - 24 hr 06/08/23 06/08/23 06/09/23 19:55 20:00 04:25 Temperature 36.7 C Heart Rate [ 65 Brachial] Respiratory 20 Rate Blood Pressure 132/78 H [Right Brachial artery] O2 Saturation 94 83 L If not protocol 2 2 : Oxygen Flow, liters/minute 06/09/23 06/09/23 06/09/23 04:27 04:30 07:00 Temperature Heart Rate [ Brachial] Respiratory 20 Rate Blood Pressure [Right Brachial artery] O2 Saturation 88 L 93 If not protocol 2 2 2 : Oxygen Flow, liters/minute 06/09/23 06/09/23 09:00 14:54 Temperature 36.6 C 37 C Heart Rate [ 66 76 Brachial] Respiratory 18 16 Rate Blood Pressure 124/70 133/71 H [Right Brachial artery] O2 Saturation 94 94 If not protocol 2 2 : Oxygen Flow, liters/minute Oxygen O2 Source Nasal cannula Oxygen Flow Rate 4 I&O (Last 24 Hrs): Intake and Output Totals x24h 06/07/23 06/08/23 06/09/23 23:59 23:59 23:59 Intake Total 880 1220 800 Balance 880 1220 800 General: Alert, No acute distress HEENT: EOMI, Mucous membr. moist/pink Neck: Supple, No JVD Cardiovascular: Regular rate, No murmurs Respiratory: No respiratory distress, Breath sounds nml Abdomen: Normal bowel sounds, No tenderness Extremities: No edema, No tenderness/swelling - Results Results: Laboratory Results WBC 8.0 x10^3/uL (4.8-10.8) 06/03/23 05:31 RBC 4.80 10^6/uL (4.70-6.10) 06/03/23 05:31 Hgb 13.4 g/dL (14.0-18.0) L 06/03/23 05:31 Hct 42.8 % (42.0-52.0) 06/03/23 05:31 MCV 89.2 fL (80.0-94.0) 06/03/23 05:31 MCH 27.9 pg (27.0-31.0) 06/03/23 05:31 MCHC 31.3 g/dL (32.0-36.0) L 06/03/23 05:31 RDW 16.2 % (12.0-15.0) H 06/03/23 05:31 Plt Count 181 10^3/uL (130-450) 06/03/23 05:31 MPV 11.1 fL (7.4-11.4) 06/03/23 05:31 Neut # (Auto) 5.1 10^3/uL (1.5-6.6) 06/03/23 05:31 Lymph # (Auto) 1.6 10^3/uL (1.5-3.5) 06/03/23 05:31 [place] # (Auto) 0.7 10^3/uL (0.0-1.0) 06/03/23 05:31 Eos # (Auto) 0.5 10^3/uL (0.0-0.7) 06/03/23 05:31 Baso # (Auto) 0.1 10^3/uL (0.0-0.1) 06/03/23 05:31 Absolute Nucleated RBC 0.00 x10^3/uL 06/03/23 05:31 Nucleated RBC % 0.0 /100WBC 06/03/23 05:31 Sodium 137 mmol/L (135-145) 06/03/23 05:31 Potassium 4.0 mmol/L (3.5-4.5) 06/03/23 05:31 Chloride 103 mmol/L (101-111) 06/03/23 05:31 Carbon Dioxide 26 mmol/L (21-32) 06/03/23 05:31 Anion Gap 8.0 (6-13) 06/03/23 05:31 BUN 18 mg/dL (6-20) 06/03/23 05:31 Creatinine 1.3 mg/dL (0.6-1.3) 06/03/23 05:31 Estimated GFR (MDRD) 53 (>89) L 06/03/23 05:31 Glucose 100 mg/dL (74-104) 06/03/23 05:31 POC Whole Bld Glucose 169 mg/dL (70 - 100) H 06/09/23 17:06 Estimat Average Glucose 148 mg/dL (70-100) H 05/17/23 05:18 Hemoglobin A1c % 6.8 % (4.27-6.07) H 05/17/23 05:18 Lactic Acid 1.0 mmol/L (0.5-2.2) 05/15/23 15:40 Calcium 9.3 mg/dL (8.5-10.3) 06/03/23 05:31 Phosphorus 3.7 mg/dL (2.5-5.0) 06/03/23 05:31 Magnesium 1.5 mg/dL (1.7-2.3) L 06/03/23 05:31 Total Bilirubin 0.5 mg/dL (0.2-1.0) 05/15/23 15:40 AST 31 IU/L (10-42) 05/15/23 15:40 ALT 28 IU/L (10-60) 05/15/23 15:40 Alkaline Phosphatase 64 IU/L (42-121) 05/15/23 15:40 B-Natriuretic Peptide 137 pg/mL (5-100) H 05/15/23 15:40 Total Protein 7.3 g/dL (6.4-8.9) 05/15/23 15:40 Albumin 3.4 g/dL (3.2-5.5) 05/15/23 15:40 Globulin 3.9 g/dL (2.1-4.2) 05/15/23 15:40 Albumin/Globulin Ratio 0.9 (1.0-2.2) L 05/15/23 15:40 Lipase 32 U/L (11-82) 05/15/23 15:40 Urine Color DARK YELLOW 05/10/23 14:20 Urine Clarity CLEAR (CLEAR) 05/10/23 14:20 Urine pH 5.5 PH (5.0-7.5) 05/10/23 14:20 Ur Specific [place] >=1.030 (1.002-1.030) H 05/10/23 14:20 Urine Protein 100 mg/dL (NEGATIVE) H 05/10/23 14:20 Urine Glucose (UA) 100 mg/dL (NEGATIVE) H 05/10/23 14:20 Urine Ketones TRACE mg/dL (NEGATIVE) 05/10/23 14:20 Urine Occult Blood NEGATIVE (NEGATIVE) 05/10/23 14:20 Urine Nitrite NEGATIVE (NEGATIVE) 05/10/23 14:20 Urine Bilirubin NEGATIVE (NEGATIVE) 05/10/23 14:20 Urine Urobilinogen 0.2 (NORMAL) E.U./dL (NORMAL) 05/10/23 14:20 Ur Leukocyte Esterase NEGATIVE (NEGATIVE) 05/10/23 14:20 Urine RBC 0-5 /HPF (0-5) 05/10/23 14:20 Urine WBC 0-3 /HPF (0-3) 05/10/23 14:20 Ur Squamous Epith Cells RARE Squamous (<= Few) 05/10/23 14:20 Urine Bacteria Rare /HPF (None Seen) 05/10/23 14:20 Ur Microscopic Review INDICATED 05/10/23 14:20 Urine Culture Comments NOT INDICATED 05/10/23 14:20 Nasal Adenovirus (PCR) NOT DETECTED 05/15/23 17:10 Nasal B. parapertussis DNA (PCR) NOT DETECTED 05/15/23 17:10 Nasal Coronavir 229E PCR NOT DETECTED 05/15/23 17:10 Nasal Coronavir HKU1 PCR NOT DETECTED 05/15/23 17:10 Nasal Coronavir NL63 PCR NOT DETECTED 05/15/23 17:10 Nasal Coronavir OC43 PCR NOT DETECTED 05/15/23 17:10 Nasal Enterovir/Rhinovir PCR NOT DETECTED 05/15/23 17:10 Nasal Influenza B PCR NOT DETECTED 05/15/23 17:10 Nasal Influenza A PCR NOT DETECTED 05/15/23 17:10 Nasal Parainfluen 1 PCR NOT DETECTED 05/15/23 17:10 Nasal Parainfluen 2 PCR NOT DETECTED 05/15/23 17:10 Nasal Parainfluen 3 PCR NOT DETECTED 05/15/23 17:10 Nasal Parainfluen 4 PCR NOT DETECTED 05/15/23 17:10 Nasal RSV (PCR) NOT DETECTED 05/15/23 17:10 Nasal B.pertussis DNA PCR NOT DETECTED 05/15/23 17:10 Nasal C.pneumoniae (PCR) NOT DETECTED 05/15/23 17:10 [place] Human Metapneumo PCR NOT DETECTED 05/15/23 17:10 Nasal M.pneumoniae (PCR) NOT DETECTED 05/15/23 17:10 Nasal SARS-CoV-2 (PCR) NOT DETECTED 05/15/23 17:10 - Procedures Procedures: Procedures ENDO RECTUM POLYPECTOMY (01/07/13)
[2023-06-10] MEDS ORDERED: LORazepam 0.5 MG TABLET PO PRN (07:51)
--- NOTE | 2023-06-10 07:57 | PROVIDER PROGRESS NOTE ---
Assessment/Plan - Problem List (1) Orthostatic hypotension Assessment/Plan: Due to 2 falls while in hospital, orthostatic VS checks were [id number]. He is orthostatic today: Plan: I will decrease frequency of prn Ativan, and Oxycodone Check BMP for prerenal azotemia and he may need fluid bolus He may need Toprol decreased I will not adjust his Finasteride He may need Midodrine started Cont orthostatic VS checks (2) Risk for falls Impression: Patient had a fall here on 05/19/23 while trying to get out of the bed and a fall onto the wall while standing on 06/04/23. Plan: PT and OT working with pt Cont orthostatic VS checks (3) DM II (diabetes mellitus, type II), controlled Impression: He presented with a glucose of 59 at the scene, when he was found at home by his cable rigger, and this was the reason for coming to the ER initially. He has been on BIF Semglee and glipizide His glucoses have been running between 100 and in the 200's, but he had an 80 last night Plan: I will decrease Semglee from 10 U BID to 8 U BID and decrease mealtime Insul from 5U to 3 U Continue with fingerstick checks and sliding scale insulin and hypoglycemia protocol (4) Chronic respiratory failure with hypoxia Assessment/Plan: Patient has a history of COPD and is on continuous O2 at home and here. Patient does become tachypneic with activity and does desaturate for a short period of time Plan: He will need an oximetry walk test on the day of discharge to see if his order for being on the same setting at rest and with activity needs to be changed (5) Chronic Atrial fibrillation Impression: Patient has a history of A-fib on Eliquis. He is at risk for falling (see #3). He also has dementia, so compliance on Eliquis needs attention. Plan: Continue metoprolol Consider stopping Eliquis Falls risk activated (6) Dementia due to Alzheimers's dis Impression: Patient has dementia and has exhibited sundowning when in the ER. He needed Ativan q6 hours PRN for agitation earlier this hospital stay. In fall 2022, a mini mental status exam was done and he passed, with a 28/30. No cognitive deficits were noted at that time. At adm his cog evel by OT was very poor at 7/30. As per the psychiatry consult from 06/04/23, I ordered PT and OT evaluations to be done. He scored 23/30 on cog eval. He was deemed unsafe to stay alone, by PT, needing supervision 21/11. Plan: If agitated, will give home dose of Zyprexa, or a small dose of Seroquel or Ativan q6 PRN IZABEL is working on reinstating home caregiver services, which he had before but he probably will not qualify for 21/11 help at home, where he lived alone. IZABEL also recently learned that a relative may take him in to live with him (a nephew), in several days. (7) Hypertension Impression: Currently, his blood pressure is in the normal range Plan: Continue current meds Cont orthostatic VS checks (8) Acute kidney injury Assessment/Plan: RESOLVED A retroperitneal US showed a 4 cm lesion on left kidney with mural nodularity, but nodularity was not seen on prior US. Advised to follow up in 3-6 months. Given there was no sign of obstruction, we suspected his ENOCH was due to dehydration. (9) Altered mental status Impression: RESOLVED. Patient was admitted with altered mental status, likely due to hypoglycemia, dehydration and poor oral intake. Patient may not have eaten in a few days. He had a cognitive eval done at admission and scored 7/30 (10) Dehydration Impression: RESOLVED. Patient was likely dehydrated due to poor oral intake in the setting of dementia. His electrolytes have normalized and he no longer requires IV hydration as he is eating/drinking well. (11) Urinary retention Impression: RESOLVED Patient complained of lower abdominal pain on 05/16 and a bladder scan showed 888 mL of urine. Patient was straight cathed. A morse catheter was inserted on 05/17. Morse removed on 05/21/23. Plan: Cont low dose Finasteride 0.4 mg daily - Current Meds Current Meds: Current Medications Generic Name Dose Route Start Last Admin Trade Name Freq PRN Reason Stop Dose Admin Allopurinol 100 mg 05/25/23 09:00 06/09/23 09:07 Allopurinol 100 Mg Tablet PO 100 mg DAILY CATHI Administration Apixaban 5 mg 05/16/23 21:00 06/09/23 20:46 Apixaban 5 Mg Tablet PO 5 mg BID CATHI Administration Bupropion HCl 150 mg 05/17/23 09:00 06/09/23 09:06 Bupropion Sr 150 Mg Tablet PO 150 mg DAILY CATHI Administration Glipizide 10 mg 05/24/23 12:00 06/09/23 09:06 Glipizide Er 2.5 Mg Tablet PO 10 mg DAILY CATHI Administration Insulin Human Lispro 1 - 9 unit 05/21/23 08:00 06/09/23 21:00 Insulin Lispro 300 Unit/3 Ml Pen SUBQ Not Given 0800,1200,1700,2100 [facility] Protocol Magnesium Oxide 400 mg 06/03/23 11:13 06/09/23 09:06 Magnesium Oxide 400 Mg Tablet PO 400 mg DAILYWM [facility] Administration Metoprolol Succinate 50 mg 05/16/23 21:00 06/09/23 20:46 Metoprolol Succinate 50 Mg Tablet PO 50 mg BID [facility] Administration Multi-Ingredient Ointment 1 applic 05/16/23 22:50 06/10/23 04:47 Zinc Oxide 20% Oint 30 Gm Tube TOP 1 applic PRN PRN Administration Skin Care Sertraline HCl 50 mg 05/17/23 09:00 06/09/23 09:07 Sertraline 50 Mg Tablet PO 50 mg DAILY [facility] Administration Sodium Chloride 10 ml 05/16/23 17:00 06/10/23 03:41 Sodium Chloride Flush 0.9% 10 Ml Syringe IVP Not Given 0100,0900,1700 [facility] Tamsulosin HCl 0.4 mg 05/18/23 09:00 06/09/23 09:06 Tamsulosin 0.4 Mg Capsule PO 0.4 mg DAILY [facility] Administration - Lab Result Fish Bone Diagrams: 06/03/23 05:31 06/03/23 05:31 - Additional Planning My Orders: My Active Orders 06/10/23 07:51 LORazepam [Ativan] 0.5 mg PO Q8H PRN 06/10/23 08:00 Insulin Lispro [Humalog Kwikpen U-100] 3 unit SUBQ TIDWM 06/10/23 21:00 Insulin Glargine-Yfgn [Semglee] 8 unit SUBQ QPM 06/11/23 07:00 Insulin Glargine-Yfgn [Semglee] 8 unit SUBQ QDAC Subjective - Subjective Patient Reports: Resting Comfortably, No Complaints Objective Vital Signs: Vital Signs - 24 hr 06/09/23 06/09/23 06/09/23 09:00 14:54 19:20 Temperature 36.6 C 37 C Heart Rate [ 66 76 Brachial] Respiratory 18 16 Rate Blood Pressure 124/70 133/71 H [Right Brachial artery] O2 Saturation 94 94 If not protocol 2 2 2 : Oxygen Flow, liters/minute Oxygen O2 Source Nasal cannula Oxygen Flow Rate 4 I&O (Last 24 Hrs): Intake and Output Totals x24h 06/08/23 06/09/23 06/10/23 23:59 23:59 23:59 Intake Total 1220 800 200 Output Total 400 Balance 1220 800 -200 General: Alert, No acute distress HEENT: EOMI, Mucous membr. moist/pink Neck: Supple, No JVD Neuro: Alert, Non Focal, Other (Poor memory) Cardiovascular: No murmurs Respiratory: No respiratory distress Extremities: No edema, No tenderness/swelling - Results Results: Laboratory Results WBC 8.0 x10^3/uL (4.8-10.8) 06/03/23 05:31 RBC 4.80 10^6/uL (4.70-6.10) 06/03/23 05:31 Hgb 13.4 g/dL (14.0-18.0) L 06/03/23 05:31 Hct 42.8 % (42.0-52.0) 06/03/23 05:31 MCV 89.2 fL (80.0-94.0) 06/03/23 05:31 MCH 27.9 pg (27.0-31.0) 06/03/23 05:31 MCHC 31.3 g/dL (32.0-36.0) L 06/03/23 05:31 RDW 16.2 % (12.0-15.0) H 06/03/23 05:31 Plt Count 181 10^3/uL (130-450) 06/03/23 05:31 MPV 11.1 fL (7.4-11.4) 06/03/23 05:31 Neut # (Auto) 5.1 10^3/uL (1.5-6.6) 06/03/23 05:31 Lymph # (Auto) 1.6 10^3/uL (1.5-3.5) 06/03/23 05:31 [place] # (Auto) 0.7 10^3/uL (0.0-1.0) 06/03/23 05:31 Eos # (Auto) 0.5 10^3/uL (0.0-0.7) 06/03/23 05:31 Baso # (Auto) 0.1 10^3/uL (0.0-0.1) 06/03/23 05:31 Absolute Nucleated RBC 0.00 x10^3/uL 06/03/23 05:31 Nucleated RBC % 0.0 /100WBC 06/03/23 05:31 Sodium 137 mmol/L (135-145) 06/03/23 05:31 Potassium 4.0 mmol/L (3.5-4.5) 06/03/23 05:31 Chloride 103 mmol/L (101-111) 06/03/23 05:31 Carbon Dioxide 26 mmol/L (21-32) 06/03/23 05:31 Anion Gap 8.0 (6-13) 06/03/23 05:31 BUN 18 mg/dL (6-20) 06/03/23 05:31 Creatinine 1.3 mg/dL (0.6-1.3) 06/03/23 05:31 Estimated GFR (MDRD) 53 (>89) L 06/03/23 05:31 Glucose 100 mg/dL (74-104) 06/03/23 05:31 POC Whole Bld Glucose 121 mg/dL (70 - 100) H 06/10/23 07:43 Estimat Average Glucose 148 mg/dL (70-100) H 05/17/23 05:18 Hemoglobin A1c % 6.8 % (4.27-6.07) H 05/17/23 05:18 Lactic Acid 1.0 mmol/L (0.5-2.2) 05/15/23 15:40 Calcium 9.3 mg/dL (8.5-10.3) 06/03/23 05:31 Phosphorus 3.7 mg/dL (2.5-5.0) 06/03/23 05:31 Magnesium 1.5 mg/dL (1.7-2.3) L 06/03/23 05:31 Total Bilirubin 0.5 mg/dL (0.2-1.0) 05/15/23 15:40 AST 31 IU/L (10-42) 05/15/23 15:40 ALT 28 IU/L (10-60) 05/15/23 15:40 Alkaline Phosphatase 64 IU/L (42-121) 05/15/23 15:40 B-Natriuretic Peptide 137 pg/mL (5-100) H 05/15/23 15:40 Total Protein 7.3 g/dL (6.4-8.9) 05/15/23 15:40 Albumin 3.4 g/dL (3.2-5.5) 05/15/23 15:40 Globulin 3.9 g/dL (2.1-4.2) 05/15/23 15:40 Albumin/Globulin Ratio 0.9 (1.0-2.2) L 05/15/23 15:40 Lipase 32 U/L (11-82) 05/15/23 15:40 Urine Color DARK YELLOW 05/10/23 14:20 Urine Clarity CLEAR (CLEAR) 05/10/23 14:20 Urine pH 5.5 PH (5.0-7.5) 05/10/23 14:20 Ur Specific [place] >=1.030 (1.002-1.030) H 05/10/23 14:20 Urine Protein 100 mg/dL (NEGATIVE) H 05/10/23 14:20 Urine Glucose (UA) 100 mg/dL (NEGATIVE) H 05/10/23 14:20 Urine Ketones TRACE mg/dL (NEGATIVE) 05/10/23 14:20 Urine Occult Blood NEGATIVE (NEGATIVE) 05/10/23 14:20 Urine Nitrite NEGATIVE (NEGATIVE) 05/10/23 14:20 Urine Bilirubin NEGATIVE (NEGATIVE) 05/10/23 14:20 Urine Urobilinogen 0.2 (NORMAL) E.U./dL (NORMAL) 05/10/23 14:20 Ur Leukocyte Esterase NEGATIVE (NEGATIVE) 05/10/23 14:20 Urine RBC 0-5 /HPF (0-5) 05/10/23 14:20 Urine WBC 0-3 /HPF (0-3) 05/10/23 14:20 Ur Squamous Epith Cells RARE Squamous (<= Few) 05/10/23 14:20 Urine Bacteria Rare /HPF (None Seen) 05/10/23 14:20 Ur Microscopic Review INDICATED 05/10/23 14:20 Urine Culture Comments NOT INDICATED 05/10/23 14:20 Nasal Adenovirus (PCR) NOT DETECTED 05/15/23 17:10 Nasal B. parapertussis DNA (PCR) NOT DETECTED 05/15/23 17:10 Nasal Coronavir 229E PCR NOT DETECTED 05/15/23 17:10 Nasal Coronavir HKU1 PCR NOT DETECTED 05/15/23 17:10 Nasal Coronavir NL63 PCR NOT DETECTED 05/15/23 17:10 Nasal Coronavir OC43 PCR NOT DETECTED 05/15/23 17:10 Nasal Enterovir/Rhinovir PCR NOT DETECTED 05/15/23 17:10 Nasal Influenza B PCR NOT DETECTED 05/15/23 17:10 Nasal Influenza A PCR NOT DETECTED 05/15/23 17:10 Nasal Parainfluen 1 PCR NOT DETECTED 05/15/23 17:10 Nasal Parainfluen 2 PCR NOT DETECTED 05/15/23 17:10 Nasal Parainfluen 3 PCR NOT DETECTED 05/15/23 17:10 Nasal Parainfluen 4 PCR NOT DETECTED 05/15/23 17:10 Nasal RSV (PCR) NOT DETECTED 05/15/23 17:10 Nasal B.pertussis DNA PCR NOT DETECTED 05/15/23 17:10 Nasal C.pneumoniae (PCR) NOT DETECTED 05/15/23 17:10 [place] Human Metapneumo PCR NOT DETECTED 05/15/23 17:10 Nasal M.pneumoniae (PCR) NOT DETECTED 05/15/23 17:10 Nasal SARS-CoV-2 (PCR) NOT DETECTED 05/15/23 17:10 - Procedures Procedures: Procedures ENDO RECTUM POLYPECTOMY (01/07/13)
[2023-06-10] MEDS: INSULIN LISPRO 300 UNIT/3 ML PEN SUBQ SCH (08:27)
[2023-06-10] MEDS: INSULIN GLARGINE-YFGN 300 UNIT/3 ML PEN SUBQ SCH (20:54)
[2023-06-11] MEDS ORDERED: METOPROLOL SUCCINATE 50 MG TABLET PO SCH (07:57)
[2023-06-11] MEDS ORDERED: LORazepam 0.5 MG TABLET PO PRN (07:57)
[2023-06-11] MEDS: INSULIN GLARGINE-YFGN 300 UNIT/3 ML PEN SUBQ SCH (07:58)
--- NOTE | 2023-06-11 08:05 | PROVIDER PROGRESS NOTE ---
Assessment/Plan - Problem List (1) Orthostatic hypotension Assessment/Plan: Due to 2 falls while in hospital, orthostatic VS checks were ordered. He was orthostatic several days ago: standing BP 99, and I adjusted his meds Plan: Check BMP for prerenal azotemia to consider iv fluids Cont the decreased frequency of prn Ativan, and Oxycodone I will decrease Toprol from 50 BID to 23 BID and write parameters for holding it I will not adjust his Finasteride Cont orthostatic VS checks (2) Risk for falls Impression: Patient had a fall here on 05/19/23 while trying to get out of the bed and a fall onto the wall while standing on 06/04/23. Plan: PT and OT working with pt Cont orthostatic VS checks (3) DM II (diabetes mellitus, type II), controlled Impression: He presented with a glucose of 59 at the scene, when he was found at home by his pr intern, and this was the reason for coming to the ER initially. He has been on BID Semglee and glipizide His glucoses have been running between 100 and in the 200's, but he had an 80 recently Plan: Cont the decreased Semglee from 10 U BID to 8 U BID and decreased mealtime Insul from 5U to 3 U Continue with fingerstick checks and sliding scale insulin and hypoglycemia protocol (4) Chronic respiratory failure with hypoxia Assessment/Plan: Patient has a history of COPD and is on continuous O2 at home and here. Patient does become tachypneic with activity and does desaturate for a short period of time Plan: He will need an oximetry walk test on the day of discharge to see if his order for being on the same setting at rest and with activity needs to be changed (5) Chronic Atrial fibrillation Impression: Patient has a history of A-fib on Eliquis. He is at risk for falling. He also has dementia, so compliance on Eliquis needs attention. 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 He needed Ativan q6 hours PRN for agitation earlier this hospital stay. In fall 2022, a mini mental status exam was done and he passed, with a 28/30. No cognitive deficits were noted at that time. At adm his cog evel by OT was very poor at 7/30. As per the psychiatry consult from 06/04/23, I ordered PT and OT evaluations to be done. He scored 23/30 on cog eval. He was deemed unsafe to stay alone, by PT, needing supervision 21/11. Plan: If agitated, will give home dose of Zyprexa, or a small dose of Seroquel or Ativan q6 PRN IZABEL is working on reinstating home caregiver services, which he had before but he probably will not qualify for 21/11 help at home, where he lived alone. IZABEL also recently learned that a relative may take him in to live with him (a nephew), in several days. (7) Hypertension Impression: Currently, his blood pressure is in the normal range Plan: Continue current meds Cont orthostatic VS checks (8) Acute kidney injury Assessment/Plan: RESOLVED A retroperitneal US showed a 4 cm lesion on left kidney with mural nodularity, but nodularity was not seen on prior US. Advised to follow up in 3-6 months. Given there was no sign of obstruction, we suspected his ENOCH was due to dehydration. (9) Altered mental status Impression: RESOLVED. Patient was admitted with altered mental status, likely due to hypoglycemia, dehydration and poor oral intake. Patient may not have eaten in a few days. He had a cognitive eval done at admission and scored 7/30 (10) Dehydration Impression: RESOLVED. Patient was likely dehydrated due to poor oral intake in the setting of dementia. His electrolytes have normalized and he no longer requires IV hydration as he is eating/drinking well. (11) Urinary retention Impression: RESOLVED Patient complained of lower abdominal pain on 05/16 and a bladder scan showed 888 mL of urine. Patient was straight cathed. A morse catheter was inserted on 05/17. Morse removed on 05/21/23. Plan: Cont low dose Finasteride 0.4 mg daily - Current Meds Current Meds: Current Medications Generic Name Dose Route Start Last Admin Trade Name Freq PRN Reason Stop Dose Admin Allopurinol 100 mg 05/25/23 09:00 06/11/23 07:57 Allopurinol 100 Mg Tablet PO 100 mg DAILY CATHI Administration Apixaban 5 mg 05/16/23 21:00 06/11/23 07:57 Apixaban 5 Mg Tablet PO 5 mg BID CATHI Administration Bupropion HCl 150 mg 05/17/23 09:00 06/11/23 07:57 Bupropion Sr 150 Mg Tablet PO 150 mg DAILY CATHI Administration Glipizide 10 mg 05/24/23 12:00 06/11/23 07:56 Glipizide Er 2.5 Mg Tablet PO 10 mg DAILY CATHI Administration Insulin Glargine-yfgn 8 unit 06/11/23 07:00 06/11/23 07:58 Insulin Glargine-Yfgn 300 Unit/3 Ml Pen SUBQ 8 unit QDAC CATHI Administration Insulin Glargine-yfgn 8 unit 06/10/23 21:00 06/10/23 20:54 Insulin Glargine-Yfgn 300 Unit/3 Ml Pen SUBQ 8 unit QPM CATHI Administration Insulin Human Lispro 1 - 9 unit 05/21/23 08:00 06/11/23 07:58 Insulin Lispro 300 Unit/3 Ml Pen SUBQ 1 unit 0800,1200,1700,2100 [facility] Administration Protocol Insulin Human Lispro 3 unit 06/10/23 08:00 06/11/23 07:59 Insulin Lispro 300 Unit/3 Ml Pen SUBQ 3 unit TIDWM [facility] Administration Protocol Magnesium Oxide 400 mg 06/03/23 11:13 06/11/23 07:57 Magnesium Oxide 400 Mg Tablet PO 400 mg DAILYWM [facility] Administration Multi-Ingredient Ointment 1 applic 05/16/23 22:50 06/10/23 20:57 Zinc Oxide 20% Oint 30 Gm Tube TOP 1 applic PRN PRN Administration Skin Care Sertraline HCl 50 mg 05/17/23 09:00 06/11/23 07:57 Sertraline 50 Mg Tablet PO 50 mg DAILY CATHI Administration Sodium Chloride 10 ml 05/16/23 17:00 06/11/23 01:09 Sodium Chloride Flush 0.9% 10 Ml Syringe IVP 10 ml 0100,0900,1700 [facility] Administration Tamsulosin HCl 0.4 mg 05/18/23 09:00 06/11/23 07:57 Tamsulosin 0.4 Mg Capsule PO 0.4 mg DAILY [facility] Administration - Lab Result Fish Bone Diagrams: 06/12/23 05:27 06/12/23 05:27 - Additional Planning My Orders: My Active Orders 06/10/23 08:00 Insulin Lispro [Humalog Kwikpen U-100] 3 unit SUBQ TIDWM 06/10/23 21:00 Insulin Glargine-Yfgn [Semglee] 8 unit SUBQ QPM 06/11/23 07:00 Insulin Glargine-Yfgn [Semglee] 8 unit SUBQ QDAC 06/11/23 07:57 LORazepam [Ativan] 0.5 mg PO Q12H PRN 06/11/23 09:00 Metoprolol Succinate [Toprol Xl] 25 mg PO BID Subjective - Subjective Patient Reports: Resting Comfortably, No Complaints Objective Vital Signs: Vital Signs - 24 hr 06/10/23 06/10/23 06/10/23 11:00 20:50 23:00 Temperature 36.7 C Heart Rate [ 77 Brachial] Respiratory 22 Rate Blood Pressure 115/66 [Right Brachial artery] O2 Saturation 93 If not protocol 2 2 2 : Oxygen Flow, liters/minute 06/11/23 07:35 Temperature 36.8 C Heart Rate [ 65 Brachial] Respiratory 24 Rate Blood Pressure 127/58 L [Right Brachial artery] O2 Saturation 92 If not protocol 2 : Oxygen Flow, liters/minute Oxygen O2 Source Nasal cannula Oxygen Flow Rate 4 I&O (Last 24 Hrs): Intake and Output Totals x24h 06/09/23 06/10/23 06/11/23 23:59 23:59 23:59 Intake Total 800 1520 100 Output Total 400 Balance 800 1120 100 General: Alert, Oriented x3, No acute distress, Other (Poor memory) HEENT: Mucous membr. moist/pink, Other (wearing O2 via n.c.) Neck: Supple Neuro: Alert, Non Focal, Other (Poor memoery) Cardiovascular: Regular rate Respiratory: No respiratory distress Abdomen: Soft Extremities: No edema - Results Results: Laboratory Results WBC 8.0 x10^3/uL (4.8-10.8) 06/03/23 05:31 RBC 4.80 10^6/uL (4.70-6.10) 06/03/23 05:31 Hgb 13.4 g/dL (14.0-18.0) L 06/03/23 05:31 Hct 42.8 % (42.0-52.0) 06/03/23 05:31 MCV 89.2 fL (80.0-94.0) 06/03/23 05:31 MCH 27.9 pg (27.0-31.0) 06/03/23 05:31 MCHC 31.3 g/dL (32.0-36.0) L 06/03/23 05:31 RDW 16.2 % (12.0-15.0) H 06/03/23 05:31 Plt Count 181 10^3/uL (130-450) 06/03/23 05:31 MPV 11.1 fL (7.4-11.4) 06/03/23 05:31 Neut # (Auto) 5.1 10^3/uL (1.5-6.6) 06/03/23 05:31 Lymph # (Auto) 1.6 10^3/uL (1.5-3.5) 06/03/23 05:31 [place] # (Auto) 0.7 10^3/uL (0.0-1.0) 06/03/23 05:31 Eos # (Auto) 0.5 10^3/uL (0.0-0.7) 06/03/23 05:31 Baso # (Auto) 0.1 10^3/uL (0.0-0.1) 06/03/23 05:31 Absolute Nucleated RBC 0.00 x10^3/uL 06/03/23 05:31 Nucleated RBC % 0.0 /100WBC 06/03/23 05:31 Sodium 137 mmol/L (135-145) 06/03/23 05:31 Potassium 4.0 mmol/L (3.5-4.5) 06/03/23 05:31 Chloride 103 mmol/L (101-111) 06/03/23 05:31 Carbon Dioxide 26 mmol/L (21-32) 06/03/23 05:31 Anion Gap 8.0 (6-13) 06/03/23 05:31 BUN 18 mg/dL (6-20) 06/03/23 05:31 Creatinine 1.3 mg/dL (0.6-1.3) 06/03/23 05:31 Estimated GFR (MDRD) 53 (>89) L 06/03/23 05:31 Glucose 100 mg/dL (74-104) 06/03/23 05:31 POC Whole Bld Glucose 159 mg/dL (70 - 100) H 06/11/23 07:30 Estimat Average Glucose 148 mg/dL (70-100) H 05/17/23 05:18 Hemoglobin A1c % 6.8 % (4.27-6.07) H 05/17/23 05:18 Lactic Acid 1.0 mmol/L (0.5-2.2) 05/15/23 15:40 Calcium 9.3 mg/dL (8.5-10.3) 06/03/23 05:31 Phosphorus 3.7 mg/dL (2.5-5.0) 06/03/23 05:31 Magnesium 1.5 mg/dL (1.7-2.3) L 06/03/23 05:31 Total Bilirubin 0.5 mg/dL (0.2-1.0) 05/15/23 15:40 AST 31 IU/L (10-42) 05/15/23 15:40 ALT 28 IU/L (10-60) 05/15/23 15:40 Alkaline Phosphatase 64 IU/L (42-121) 05/15/23 15:40 B-Natriuretic Peptide 137 pg/mL (5-100) H 05/15/23 15:40 Total Protein 7.3 g/dL (6.4-8.9) 05/15/23 15:40 Albumin 3.4 g/dL (3.2-5.5) 05/15/23 15:40 Globulin 3.9 g/dL (2.1-4.2) 05/15/23 15:40 Albumin/Globulin Ratio 0.9 (1.0-2.2) L 05/15/23 15:40 Lipase 32 U/L (11-82) 05/15/23 15:40 Urine Color DARK YELLOW 05/10/23 14:20 Urine Clarity CLEAR (CLEAR) 05/10/23 14:20 Urine pH 5.5 PH (5.0-7.5) 05/10/23 14:20 Ur Specific [place] >=1.030 (1.002-1.030) H 05/10/23 14:20 Urine Protein 100 mg/dL (NEGATIVE) H 05/10/23 14:20 Urine Glucose (UA) 100 mg/dL (NEGATIVE) H 05/10/23 14:20 Urine Ketones TRACE mg/dL (NEGATIVE) 05/10/23 14:20 Urine Occult Blood NEGATIVE (NEGATIVE) 05/10/23 14:20 Urine Nitrite NEGATIVE (NEGATIVE) 05/10/23 14:20 Urine Bilirubin NEGATIVE (NEGATIVE) 05/10/23 14:20 Urine Urobilinogen 0.2 (NORMAL) E.U./dL (NORMAL) 05/10/23 14:20 Ur Leukocyte Esterase NEGATIVE (NEGATIVE) 05/10/23 14:20 Urine RBC 0-5 /HPF (0-5) 05/10/23 14:20 Urine WBC 0-3 /HPF (0-3) 05/10/23 14:20 Ur Squamous Epith Cells RARE Squamous (<= Few) 05/10/23 14:20 Urine Bacteria Rare /HPF (None Seen) 05/10/23 14:20 Ur Microscopic Review INDICATED 05/10/23 14:20 Urine Culture Comments NOT INDICATED 05/10/23 14:20 Nasal Adenovirus (PCR) NOT DETECTED 05/15/23 17:10 Nasal B. parapertussis DNA (PCR) NOT DETECTED 05/15/23 17:10 Nasal Coronavir 229E PCR NOT DETECTED 05/15/23 17:10 Nasal Coronavir HKU1 PCR NOT DETECTED 05/15/23 17:10 Nasal Coronavir NL63 PCR NOT DETECTED 05/15/23 17:10 Nasal Coronavir OC43 PCR NOT DETECTED 05/15/23 17:10 Nasal Enterovir/Rhinovir PCR NOT DETECTED 05/15/23 17:10 Nasal Influenza B PCR NOT DETECTED 05/15/23 17:10 Nasal Influenza A PCR NOT DETECTED 05/15/23 17:10 Nasal Parainfluen 1 PCR NOT DETECTED 05/15/23 17:10 Nasal Parainfluen 2 PCR NOT DETECTED 05/15/23 17:10 Nasal Parainfluen 3 PCR NOT DETECTED 05/15/23 17:10 Nasal Parainfluen 4 PCR NOT DETECTED 05/15/23 17:10 Nasal RSV (PCR) NOT DETECTED 05/15/23 17:10 Nasal B.pertussis DNA PCR NOT DETECTED 05/15/23 17:10 Nasal C.pneumoniae (PCR) NOT DETECTED 05/15/23 17:10 [place] Human Metapneumo PCR NOT DETECTED 05/15/23 17:10 Nasal M.pneumoniae (PCR) NOT DETECTED 05/15/23 17:10 Nasal SARS-CoV-2 (PCR) NOT DETECTED 05/15/23 17:10 - Procedures Procedures: Procedures ENDO RECTUM POLYPECTOMY (01/07/13)
[2023-06-11] MEDS: METOPROLOL SUCCINATE 25 MG TABLET PO SCH (09:25)
[2023-06-12 05:46] LABS: BASOPHILS % (AUTO) 0.5 %; EOSINOPHILS # (AUTO) 0.6 10^3/uL (0.0-0.7); EOSINOPHILS % (AUTO) 6.9 %; HCT - HEMATOCRIT 40.1 % (42.0-52.0); LYMPHOCYTES # (AUTO) 1.9 10^3/uL (1.5-3.5); LYMPHOCYTES % (AUTO) 23.8 %; MEAN CORPUSCULAR HEMOGLOBIN 28.5 pg (27.0-31.0); MEAN CORPUSCULAR HGB CONC 32.4 g/dL (32.0-36.0); MEAN CORPUSCULAR VOLUME 87.9 fL (80.0-94.0); MEAN PLATELET VOLUME 10.5 fL (7.4-11.4); MONOCYTES # (AUTO) 0.6 10^3/uL (0.0-1.0); MONOCYTES % (AUTO) 6.9 %; NEUTROPHILS # (AUTO) 5.1 10^3/uL (1.5-6.6); NEUTROPHILS % (AUTO) 61.8 %; PLT - PLATELET COUNT 196 10^3/uL (130-450); RED BLOOD COUNT 4.56 10^6/uL (4.70-6.10); WHITE BLOOD COUNT 8.2 x10^3/uL (4.8-10.8)
[2023-06-12 06:07] LABS: CALCIUM 9.3 mg/dL (8.5-10.3); CREATININE 1.3 mg/dL (0.6-1.3); MAGNESIUM 1.6 mg/dL (1.7-2.3); PHOSPHORUS 3.7 mg/dL (2.5-5.0); POTASSIUM 4.3 mmol/L (3.5-4.5)
[2023-06-12] MEDS: MAGNESIUM OXIDE 400 MG TABLET PO SCH (08:08)
--- NOTE | 2023-06-12 10:58 | Discharge Plan ---
Discharge Plan Problem Reviewed?: Yes Disposition: Home, Self Care Condition: Fair Prescriptions: Tamsulosin [Flomax] 0.4 mg PO DAILY #30 cap Insulin Glargine-Yfgn [Semglee] 8 unit SUBQ BID #1 ea Metoprolol Succinate [Toprol Xl] 50 mg PO DAILY #30 tab OLANZapine ODT [Zyprexa Odt] 2.5 mg TL DAILY PRN #15 tab PRN Reason: Agitation Diet: Diabetic Activity Restrictions: Activity as Tolerated Shower Restrictions: No Driving Restrictions: Yes Assistance Devices: Walker Weight Bearing: Full Weight Health Concerns: Patient was hospitalized due to having falls. He was confused, dehydrated, not managing his diabetes well. He has stabilized while here and cognitive function has improved. several of his BP and Diabetic medicines were adjusted. He is being discharged under family's care today. Please follow this current new list of medications as prescribed and eliminate the ones that have been discontinued. All new prescriptions were electronically sent to his [facility] in [place]. Patient needs to establish with a new primary care provider in the new town he will be living in. Plan of Treatment: Patient needs fingerstick checks done at least every morning. A diabetic diet is recommended. Blood pressure should be checked every morning and if the systolic BP is below 110, no Toprol should be given. Care Goals: Improvement in symptoms and stabilization are the goals. Assessment: These instructions are provided for the family as reminders. No Smoking: If you smoke, Please STOP! Call for help.
--- NOTE | 2023-06-12 11:07 | DISCHARGE SUMMARY ---
Discharge Summary Admit Date: 05/16/23 Discharge Date: 06/12/23 Discharging Provider: Dr Kylee Merchant Primary Care Provider: -None- Condition at Discharge: Fair Discharge Disposition: 01 Home, Self Care - HPI History of Present Illness: Mr. Styles is a 78 year old male with an extensive medical history including dementia, atrial fibrillation, ARIEL, type II DM, COPD, CKD, PVD, HTN, and old [place]. He was last seen in the ER a week ago after being found unresponsive in his car. He was now brought into the ER with altered mental status. Patient was found in his bed by his in process inspector, only responsive to pain, after not answering his phone for a few days. Patient's blood glucose was 59 and his O2 saturation was 80% on room air, since his usual continuous nasal cannula was not fully in his nose. EMS gave Mr. Styles an amp of D50 and started him on 10 L nonrebreather with immediate significant improvement. Patient lives alone in a trailer, but gets help from his episcopalian community. Members of the episcopalian have noticed that Mr. Styles has had significant cognitive decline over the past few months. Patient has now been in the ER since 05/10/23 waiting for placement as it is unsa fe to discharge him since he lives alone. On 05/14/23, he had a near syncopal event while straining during a BM. A POCUS was done that showed adequate hydration, with the inferior vena cava measuring 1.48 cm in diameter. On 05/15/23, a chest CT was done that showed potential pulmonary edema/CHF. IVC measured at 0.93 cm. One dose of Lasix was given. On 05/16/23, the patient appeared to be hypotensive with decreased renal function compared to admission. He will be brought into Observation status for treating dehydration. Patient is pleasant and cooperative. He is not oriented to time or place but is oriented to self. He reports feeling well with no complaints of pain, headache, vision changes, chest pain, shortness of breath, or dizziness. He can't really participate in shared decision making because of dementia. He thinks he's on a train right now. I was able to speak to his Correctional Officer and he shared the deterioration over the last few months . Patient was less and less interactive with episcopalian members who were coming over to patient's house. The memory loss was subtle. His current CODE STATUS is Full Code. - ALLERGIES Allergies/Adverse Reactions: Allergies Allergy/AdvReac Type Severity Reaction Status Date / Time No Known Drug Allergies Allergy Verified 05/10/23 14:07 - MEDICATIONS Home Medications: Ambulatory Orders Medication Instructions Recorded Confirmed Albuterol Sulf [Ventolin Hfa 1 - 2 puffs INH Q4HR PRN #1 inhaler 12/11/18 05/10/23 Inhaler] Apixaban [Eliquis] 5 mg PO BID 05/10/23 05/17/23 Fluticasone/Umeclidin/Vilanter 1 each IH DAILY 05/10/23 05/17/23 [Trelegy Ellipta 100-62.5-25] Glipizide [Glipizide Xl] 10 mg PO DAILY 05/10/23 05/17/23 Sertraline [Zoloft] 50 mg PO DAILY 05/10/23 05/17/23 allopurinoL [Zyloprim] 100 mg ORAL DAILY 05/10/23 05/17/23 buPROPion HCL [Bupropion HCl Sr] 150 mg PO DAILY 05/10/23 05/17/23 Rosuvastatin Calcium [Crestor] 10 mg PO HS 05/17/23 05/17/23 Insulin Glargine-Yfgn [Semglee] 8 unit SUBQ BID #1 ea 06/12/23 Metoprolol Succinate [Toprol Xl] 50 mg PO DAILY #30 tab 06/12/23 OLANZapine ODT [Zyprexa Odt] 2.5 mg TL DAILY PRN #15 tab 06/12/23 Tamsulosin [Flomax] 0.4 mg PO DAILY #30 cap 06/12/23 - LABS Result Diagrams: 06/12/23 05:27 06/12/23 05:27
--- NOTE | 2023-06-12 14:21 | PROVIDER PROGRESS NOTE ---
Assessment/Plan - Problem List (1) Orthostatic hypotension Assessment/Plan: After 2 falls while in hospital, orthostatic VS checks were ordered. He has been orthostatic several days ago: standing BP 99, and I adjusted his meds. He has been able to ambulate in the hallway with PT using a walker and is not d yogi Plan: Cont the decreased frequency of prn Ativan, and Oxycodone I decreased his Toprol dose and he should be DCh on this dose I will not adjust his Finasteride (2) Risk for falls Impression: Patient had a fall here on 05/19/23 while trying to get out of the bed and a fall onto the wall while standing on 06/04/23. Plan: The plan was to discharge him today and have a nephew pick him up and stay with him for [address] him to another nephew in [place]. The plan changed today, and 2 friends were going to pick him up and leave him unmonitored in his trailer. The patient was not discharged, because PT and OT had recommended he have constant supervision and he also needs to be tested to see if he properly can administer his insulin, which is a changed dose from pre-admission. (3) DM II (diabetes mellitus, type II), controlled Impression: He presented with a glucose of 59 at the scene, when he was found at home by his police liaison, and this was the reason for coming to the ER initially. He has been on BID Semglee and glipizide His glucoses have been running between 100 and in the 200's,rarely an 80 Plan: Cont the decreased Semglee from 10 U BID to 8 U BID and decreased mealtime Insul from 5U to 3 U. I was going to discharge him just on the Semglee 8 U BID and no mealtime coverage. He was not discharged and I will order RN diabetic education and for RN to monitor how he injects sq from a pen. Continue with fingerstick checks and sliding scale insulin and hypoglycemia protocol while here (4) Chronic respiratory failure with hypoxia Assessment/Plan: Patient has a history of COPD and is on continuous O2 at home and here. Patient does become tachypneic with activity and does desaturate for a short period of time, so he is ordered to be on 2L/min at rest and 3L/min with activity. Plan: In preparation for traveling after discharge, RT called [employer], who the patient claims supplies his home oxygen. [employer] does not have a travel oxygen pack- here and one will be delivered to the hospital tonight. Anticipate [facility] tomorrow (5) Chronic Atrial fibrillation Impression: Patient has a history of A-fib on Eliquis. He is at risk for falling. He also has dementia, so compliance on Eliquis needs attention. 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 He needed Ativan q6 hours PRN for agitation earlier this hospital stay. In fall 2022, a mini mental status exam was done and he passed, with a 28/30. No cognitive deficits were noted at that time. At adm his cog evel by OT was very poor at 7/30. After the psychiatry consult from 06/04/23, I ordered PT and OT evaluations to be done, as was recommended. He scored 23/30 on cog eval. However, he was deemed unsafe to stay alone, by PT, needing supervision 21/11. He does need freq reminders here. Plan: If agitated, will give home dose of Zyprexa, or a small dose of Seroquel or Ativan q6 PRN IZABEL was working on reinstating home caregiver services, which he had before, but he did not qualify for 21/11 help at home, where he lived alone. IZABEL learned that a nephew will take him in to live with him in [place], and a different person will be driving him there in several days. Pt says he has to complete some tasks at his trailer, before he goes to [place], [place] (7) Hypertension Impression: Currently, his blood pressure is in the normal range Plan: Continue current meds (8) Kidney mass Assessment/Plan: RESOLVED A retroperitneal US showed a 4 cm lesion on left kidney with mural nodularity, but nodularity was not seen on prior US. Advised to follow up in 3-6 months. Given there was no sign of obstruction, we suspected his ENOCH was due to dehydration. (9) Altered mental status Impression: RESOLVED. Patient was admitted with altered mental status, likely due to hypoglycemia, dehydration and poor oral intake. Patient may not have eaten in a few days. He had a cognitive eval done at admission and scored 7/30 (10) Dehydration Impression: RESOLVED. Patient was likely dehydrated due to poor oral intake in the setting of dementia. His electrolytes have normalized and he no longer requires IV hydration as he is eating/drinking well. (11) Urinary retention Impression: RESOLVED Patient complained of lower abdominal pain on 05/16 and a bladder scan showed 888 mL of urine. Patient was straight cathed. A morse catheter was inserted on 05/17. Morse removed on 05/21/23. Plan: Cont low dose Finasteride 0.4 mg daily - Current Meds Current Meds: Current Medications Generic Name Dose Route Start Last Admin Trade Name Freq PRN Reason Stop Dose Admin Allopurinol 100 mg 05/25/23 09:00 06/12/23 08:07 Allopurinol 100 Mg Tablet PO 100 mg DAILY CATHI Administration Apixaban 5 mg 05/16/23 21:00 06/12/23 08:06 Apixaban 5 Mg Tablet PO 5 mg BID CATHI Administration Bupropion HCl 150 mg 05/17/23 09:00 06/12/23 08:06 Bupropion Sr 150 Mg Tablet PO 150 mg DAILY CATHI Administration Glipizide 10 mg 05/24/23 12:00 06/12/23 08:07 Glipizide Er 2.5 Mg Tablet PO 10 mg DAILY CATHI Administration Insulin Glargine-yfgn 8 unit 06/11/23 07:00 06/12/23 08:03 Insulin Glargine-Yfgn 300 Unit/3 Ml Pen SUBQ 8 unit QDAC CATHI Administration Insulin Glargine-yfgn 8 unit 06/10/23 21:00 06/11/23 21:25 Insulin Glargine-Yfgn 300 Unit/3 Ml Pen SUBQ 8 unit QPM CATHI Administration Insulin Human Lispro 1 - 9 unit 05/21/23 08:00 06/12/23 12:06 Insulin Lispro 300 Unit/3 Ml Pen SUBQ 5 unit 0800,1200,1700,2100 CATHI Administration Protocol Insulin Human Lispro 3 unit 06/10/23 08:00 06/12/23 12:06 Insulin Lispro 300 Unit/3 Ml Pen SUBQ 3 unit TIDWM CATHI Administration Protocol Magnesium Oxide 400 mg 06/12/23 08:06 06/12/23 08:08 Magnesium Oxide 400 Mg Tablet PO 400 mg BIDWM CATHI Administration Metoprolol Succinate 25 mg 06/11/23 09:00 06/12/23 08:07 Metoprolol Succinate 25 Mg Tablet PO 25 mg BID CATHI Administration Multi-Ingredient Ointment 1 applic 05/16/23 22:50 06/10/23 20:57 Zinc Oxide 20% Oint 30 Gm Tube TOP 1 applic PRN PRN Administration Skin Care Sertraline HCl 50 mg 05/17/23 09:00 06/12/23 08:07 Sertraline 50 Mg Tablet PO 50 mg DAILY CATHI Administration Sodium Chloride 10 ml 05/16/23 17:00 06/12/23 12:08 Sodium Chloride Flush 0.9% 10 Ml Syringe IVP Not Given 0100,0900,1700 CATHI Tamsulosin HCl 0.4 mg 05/18/23 09:00 06/12/23 08:06 Tamsulosin 0.4 Mg Capsule PO 0.4 mg DAILY CATHI Administration - Lab Result Fish Bone Diagrams: 06/12/23 05:27 06/12/23 05:27 - Additional Planning My Orders: My Active Orders 06/12/23 08:06 Magnesium Oxide [Mag Ox] 400 mg PO BIDWM 06/12/23 11:05 Discharge [RC] .ONCE Initiate Discharge Checklist [RC] .ONCE Subjective - Subjective Patient Reports: Resting Comfortably, No Complaints Objective Vital Signs: Vital Signs - 24 hr 06/11/23 06/11/23 06/12/23 17:10 19:20 09:00 Temperature 36.7 C 37.1 C Heart Rate [ 75 Brachial] Heart Rate [ 69 Monitoring electrodes] Respiratory 20 18 Rate Blood Pressure 141/76 H 113/63 [Right Brachial artery] O2 Saturation 90 L If not protocol 2 2 2 : Oxygen Flow, liters/minute 06/12/23 13:37 Temperature 37.1 C Heart Rate [ Brachial] Heart Rate [ 71 Monitoring electrodes] Respiratory 16 Rate Blood Pressure 112/65 [Right Brachial artery] O2 Saturation 95 If not protocol 3 : Oxygen Flow, liters/minute Oxygen O2 Source Nasal cannula Oxygen Flow Rate 4 I&O (Last 24 Hrs): Intake and Output Totals x24h 06/10/23 06/11/23 06/12/23 23:59 23:59 23:59 Intake Total 1520 1080 910 Output Total 400 450 Balance 1120 1080 460 General: Alert, No acute distress HEENT: EOMI, Mucous membr. moist/pink Neck: Supple Neuro: Alert, Non Focal, Other (Poor memory) Cardiovascular: No murmurs, Other (irreg irreg) Respiratory: No respiratory distress Abdomen: Normal bowel sounds, Soft Extremities: No clubbing, No edema, No tenderness/swelling - Results Results: Laboratory Results WBC 8.2 x10^3/uL (4.8-10.8) 06/12/23 05:27 RBC 4.56 10^6/uL (4.70-6.10) L 06/12/23 05:27 Hgb 13.0 g/dL (14.0-18.0) L 06/12/23 05:27 Hct 40.1 % (42.0-52.0) L 06/12/23 05:27 MCV 87.9 fL (80.0-94.0) 06/12/23 05:27 MCH 28.5 pg (27.0-31.0) 06/12/23 05:27 MCHC 32.4 g/dL (32.0-36.0) 06/12/23 05:27 RDW 16.0 % (12.0-15.0) H 06/12/23 05:27 Plt Count 196 10^3/uL (130-450) 06/12/23 05:27 MPV 10.5 fL (7.4-11.4) 06/12/23 05:27 Neut # (Auto) 5.1 10^3/uL (1.5-6.6) 06/12/23 05:27 Lymph # (Auto) 1.9 10^3/uL (1.5-3.5) 06/12/23 05:27 [place] # (Auto) 0.6 10^3/uL (0.0-1.0) 06/12/23 05:27 Eos # (Auto) 0.6 10^3/uL (0.0-0.7) 06/12/23 05:27 Baso # (Auto) 0.0 10^3/uL (0.0-0.1) 06/12/23 05:27 Absolute Nucleated RBC 0.00 x10^3/uL 06/12/23 05:27 Nucleated RBC % 0.0 /100WBC 06/12/23 05:27 Sodium 136 mmol/L (135-145) 06/12/23 05:27 Potassium 4.3 mmol/L (3.5-4.5) 06/12/23 05:27 Chloride 102 mmol/L (101-111) 06/12/23 05:27 Carbon Dioxide 27 mmol/L (21-32) 06/12/23 05:27 Anion Gap 7.0 (6-13) 06/12/23 05:27 BUN 22 mg/dL (6-20) H 06/12/23 05:27 Creatinine 1.3 mg/dL (0.6-1.3) 06/12/23 05:27 Estimated GFR (MDRD) 53 (>89) L 06/12/23 05:27 Glucose 138 mg/dL (74-104) H 06/12/23 05:27 POC Whole Bld Glucose 231 mg/dL (70 - 100) H 06/12/23 11:33 Estimat Average Glucose 148 mg/dL (70-100) H 05/17/23 05:18 Hemoglobin A1c % 6.8 % (4.27-6.07) H 05/17/23 05:18 Lactic Acid 1.0 mmol/L (0.5-2.2) 05/15/23 15:40 Calcium 9.3 mg/dL (8.5-10.3) 06/12/23 05:27 Phosphorus 3.7 mg/dL (2.5-5.0) 06/12/23 05:27 Magnesium 1.6 mg/dL (1.7-2.3) L 06/12/23 05:27 Total Bilirubin 0.5 mg/dL (0.2-1.0) 05/15/23 15:40 AST 31 IU/L (10-42) 05/15/23 15:40 ALT 28 IU/L (10-60) 05/15/23 15:40 Alkaline Phosphatase 64 IU/L (42-121) 05/15/23 15:40 B-Natriuretic Peptide 137 pg/mL (5-100) H 05/15/23 15:40 Total Protein 7.3 g/dL (6.4-8.9) 05/15/23 15:40 Albumin 3.4 g/dL (3.2-5.5) 05/15/23 15:40 Globulin 3.9 g/dL (2.1-4.2) 05/15/23 15:40 Albumin/Globulin Ratio 0.9 (1.0-2.2) L 05/15/23 15:40 Lipase 32 U/L (11-82) 05/15/23 15:40 Urine Color DARK YELLOW 05/10/23 14:20 Urine Clarity CLEAR (CLEAR) 05/10/23 14:20 Urine pH 5.5 PH (5.0-7.5) 05/10/23 14:20 Ur Specific [place] >=1.030 (1.002-1.030) H 05/10/23 14:20 Urine Protein 100 mg/dL (NEGATIVE) H 05/10/23 14:20 Urine Glucose (UA) 100 mg/dL (NEGATIVE) H 05/10/23 14:20 Urine Ketones TRACE mg/dL (NEGATIVE) 05/10/23 14:20 Urine Occult Blood NEGATIVE (NEGATIVE) 05/10/23 14:20 Urine Nitrite NEGATIVE (NEGATIVE) 05/10/23 14:20 Urine Bilirubin NEGATIVE (NEGATIVE) 05/10/23 14:20 Urine Urobilinogen 0.2 (NORMAL) E.U./dL (NORMAL) 05/10/23 14:20 Ur Leukocyte Esterase NEGATIVE (NEGATIVE) 05/10/23 14:20 Urine RBC 0-5 /HPF (0-5) 05/10/23 14:20 Urine WBC 0-3 /HPF (0-3) 05/10/23 14:20 Ur Squamous Epith Cells RARE Squamous (<= Few) 05/10/23 14:20 Urine Bacteria Rare /HPF (None Seen) 05/10/23 14:20 Ur Microscopic Review INDICATED 05/10/23 14:20 Urine Culture Comments NOT INDICATED 05/10/23 14:20 Nasal Adenovirus (PCR) NOT DETECTED 05/15/23 17:10 Nasal B. parapertussis DNA (PCR) NOT DETECTED 05/15/23 17:10 Nasal Coronavir 229E PCR NOT DETECTED 05/15/23 17:10 Nasal Coronavir HKU1 PCR NOT DETECTED 05/15/23 17:10 Nasal Coronavir NL63 PCR NOT DETECTED 05/15/23 17:10 Nasal Coronavir OC43 PCR NOT DETECTED 05/15/23 17:10 Nasal Enterovir/Rhinovir PCR NOT DETECTED 05/15/23 17:10 Nasal Influenza B PCR NOT DETECTED 05/15/23 17:10 Nasal Influenza A PCR NOT DETECTED 05/15/23 17:10 Nasal Parainfluen 1 PCR NOT DETECTED 05/15/23 17:10 Nasal Parainfluen 2 PCR NOT DETECTED 05/15/23 17:10 Nasal Parainfluen 3 PCR NOT DETECTED 05/15/23 17:10 Nasal Parainfluen 4 PCR NOT DETECTED 05/15/23 17:10 Nasal RSV (PCR) NOT DETECTED 05/15/23 17:10 Nasal B.pertussis DNA PCR NOT DETECTED 05/15/23 17:10 Nasal C.pneumoniae (PCR) NOT DETECTED 05/15/23 17:10 [place] Human Metapneumo PCR NOT DETECTED 05/15/23 17:10 Nasal M.pneumoniae (PCR) NOT DETECTED 05/15/23 17:10 Nasal SARS-CoV-2 (PCR) NOT DETECTED 05/15/23 17:10 - Procedures Procedures: Procedures ENDO RECTUM POLYPECTOMY (01/07/13)
[2023-06-13 08:14] VITALS: BP 132/71; O2SAT 93
--- NOTE | 2023-06-13 09:24 | PROVIDER PROGRESS NOTE ---
Subjective - Prog Note Date Prog Note Date: 06/13/23 Prog Note Time: 09:24 - Subjective Pt reports feeling: No change Subjective: Mr. Styles is a 78 year old male with an extensive medical history including dementia, atrial fibrilation, ARIEL, type II DM, COPD, CKD, PVD, HTN, and [place] who was admitted to the ER with altered mental status. Patient was found in bed only responsive to pain by his lens examiner after not answering his phone for a few days. Patient's BS was 59 and was satting at 80% room air since his nasal cannula was not fully in his nose. EMS gave Mr. Styles an amp of D50 and started him on 10 L nonrebreather with immediate significant improvement. Patient lives alone but has help from his sabianism community. Members of the sabianism have noticed that Mr. Styles has had significant cognitive decline over the past few months. He was last seen in the ER a week ago after being found unresponsive in his car. Patient has been in the ER since 05/10 waiting for placement as it is unsafe to discharge him since he lives alone. 05/14: Patient had a near syncopal event while straining during a BM. A POCUS was done that showed adequate hydration, with the inferior vena cava measuring 1.48 cm in diameter. 05/15: A chest CT was done that showed potential pulmonary edema/CHF. IVC measured at 0.93 cm. One dose of Lasix was given. 05/16: Patient appeared to be hypotensive with decreased renal function compared to admission. He was admitted for dehydration and started on IV fluids. He required a straight cath during the night due to urinary retention with 888 mL on bladder scan. 05/17: In the evening, patient became agitated and actively tried to leave. He was given a dose of Seroquel. 05/18: Patient was pleasant and cooperative. Spent most of the day in bed. No complaints. Guardianship paperwork is in progress. 05/19: Patient had a fall in the evening and was found on his knees with feces on the floor. 05/20: No new changes. 05/21: Labs show a small increase in creatinine. Let nursing staff know to push PO fluids. Today, patient is calm and cooperative. He is alert and oriented x4. He is asking about going home. No complaints of pain, headache, vision changes, chest pain, shortness of breath, or dizziness. At this time, he is medically stable and does not require further medical intervention. He is a boarding patient and waiting for placement. Objective - Vital Signs/Intake & Output Vital Signs: Vital Signs x48h Temp Pulse Resp BP Pulse Ox O2 Flow Rate 06/13/23 08:41 68 06/13/23 08:05 3 06/13/23 08:03 36.6 C 59 L 14 132/71 H 93 3 Intake & Output: Intake & Output 06/10/23 06/11/23 06/12/23 06/13/23 23:59 23:59 23:59 23:59 Intake Total 1520 1080 1450 250 Output Total 400 450 Balance 1120 1080 1000 250 - Lab Results Fish Bones: 06/12/23 05:27 06/12/23 05:27 Other Labs: Lab Results x24hrs 06/12/23 06/12/23 06/12/23 Range/Units 20:22 16:45 11:33 POC Whole Bld Glucose 170 H 138 H 231 H (70 - 100) mg/dL Assessment/Plan - Problem List (1) Risk for falls Impression: Patient had a fall here on 05/19/23 while trying to get out of the bed and a fall onto the wall while standing on 06/04/23. - Patient will have constant supervision in [place] where he will be staying with his nephew. DM II (diabetes mellitus, type II), controlled He presented with a glucose of 59 at the scene, when he was found at home by his lens examiner, and this was the reason for coming to the ER initially. We suspect he forgot to eat but continued to take his insulin at home. - Continue Semglee 8 units and mealtime insulin 3 units - check blood sugar before meals and bedtime Chronic respiratory failure with hypoxia Patient has a history of COPD and is on continuous O2 at home and here. He does become tachypneic with activity and does desaturate for a short period of time, so he is ordered to be on 2L/min at rest and 3L/min with activity. - Remain on at home oxygen 2 L Chronic Atrial fibrillation Patient has a history of A-fib on Eliquis. He is at risk for falling. He also has dementia, so compliance on Eliquis needs attention. 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 He has required intermittent Ativan for agitation. Mini mental exam in fall of 2022 scored 28/30 with no cognitive deficits were noted. At admission, cog eval by OT was 7. Repeat cog eval on 06/04/23 scored 23/30. Per PT's evaluation, patient is unsafe to stay alone and will need supervision 21/11. - Continue home dose of Zyprexa Hypertension - Continue current BP meds Kidney mass A retroperitneal US showed a 4 cm lesion on left kidney with mural nodularity, but nodularity was not seen on prior US. Advised to follow up in 3-6 months. Given there was no sign of obstruction, we suspected his ENOCH was due to dehydration. Altered mental status RESOLVED. Patient was admitted with altered mental status, likely due to hypoglycemia, dehydration and poor oral intake. Patient is currently alert and oriented. Dehydration RESOLVED. Patient was likely dehydrated due to poor oral intake in the setting of dementia. His electrolytes have normalized and he no longer requires IV hydration as he is eating/drinking well. Urinary retention RESOLVED: Patient complained of lower abdominal pain on 05/16 and a bladder scan showed 888 mL of urine. Patient was straight cathed. A morse catheter was inser tomi on 05/17. Morse removed on 05/21/23. - Continue low dose Finasteride 0.4 mg daily
--- NOTE | 2023-06-13 12:46 | Discharge Plan ---
Discharge Plan Problem Reviewed?: Yes Disposition: Home, Self Care Condition: Fair Prescriptions: Tamsulosin [Flomax] 0.4 mg PO DAILY #30 cap Insulin Glargine-Yfgn [Semglee] 8 unit SUBQ BID #1 ea Metoprolol Succinate [Toprol Xl] 50 mg PO DAILY #30 tab OLANZapine ODT [Zyprexa Odt] 2.5 mg TL DAILY PRN #15 tab PRN Reason: Agitation Diet: Regular Activity Restrictions: Activity as Tolerated Shower Restrictions: No Driving Restrictions: Yes Weight Bearing: Full Weight Instruction Topics: Insulin Injected, Injection Pens Dc, Insulin Injection Steps Health Concerns: Patient was hospitalized due to having falls. He was confused, dehydrated, not managing his diabetes well. He has stabilized while here and cognitive function has improved. several of his BP and Diabetic medicines were adjusted. He is being discharged under family's care today. Please follow this current new list of medications as prescribed and eliminate the ones that have been discontinued. All new prescriptions were electronically sent to his [facility] pharmacy in [place]. Patient needs to establish with a new primary care provider in the new town he will be living in. He was supposed to have been discharged June 12. Unfortunately his family could not pick him up. They are now scheduled to pick him up June 14. The patient is going to be discharged to his home home to stay there overnight and be picked up tomorrow. Plan of Treatment: Patient needs fingerstick checks done at least every morning. A diabetic diet is recommended. Blood pressure should be checked every morning and if the systolic BP is below 110, no Toprol should be given. Care Goals: Improvement in symptoms and stabilization are the goals. Assessment: These instructions are provided for the family as reminders. No Smoking: If you smoke, Please STOP! Call for help.
--- NOTE | 2023-06-13 12:47 | DISCHARGE SUMMARY ---
"Discharge Summary Admit Date: 05/10/23 Discharge Date: 06/13/23 Condition at Discharge: Fair Discharge Disposition: Home, Self Care - DIAGNOSES Admission Diagnoses: Risk for falls Patient had a fall here on 05/19/23 while trying to get out of the bed and a fall onto the wall while standing on 06/04/23. - Patient will have constant supervision in [place] where he will be staying with his nephew. DM II (diabetes mellitus, type II), controlled He presented with a glucose of 59 at the scene, when he was found at home by his pattern maker, and this was the reason for coming to the ER initially. We suspect he forgot to eat but continued to take his insulin at home. - Continue Semglee 8 units and mealtime insulin 3 units - check blood sugar before meals and bedtime Chronic respiratory failure with hypoxia Patient has a history of COPD and is on continuous O2 at home and here. He does become tachypneic with activity and does desaturate for a short period of time, so he is ordered to be on 2L/min at rest and 3L/min with activity. - Remain on at home oxygen 2 L Chronic Atrial fibrillation Patient has a history of A-fib on Eliquis. He is at risk for falling. He also has dementia, so compliance on Eliquis needs attention. 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 He has required intermittent Ativan for agitation. Mini mental exam in fall of 2022 scored 28/30 with no cognitive deficits were noted. At admission, cog eval by OT was 7/30. Repeat cog eval on 06/04/23 scored 23/30. Per PT's evaluation, patient is unsafe to stay alone and will need supervision 21/11. - Continue home dose of Zyprexa Hypertension - Continue current BP meds Kidney mass A retroperitneal US showed a 4 cm lesion on left kidney with mural nodularity, but nodularity was not seen on prior US. Advised to follow up in 3-6 months. Given there was no sign of obstruction, we suspected his ENOCH was due to d ehydration. Altered mental status RESOLVED. Patient was admitted with altered mental status, likely due to hypoglycemia, dehydration and poor oral intake. Patient is currently alert and oriented. Dehydration RESOLVED. Patient was likely dehydrated due to poor oral intake in the setting of dementia. His electrolytes have normalized and he no longer requires IV hydration as he is eating/drinking well. Urinary retention RESOLVED: Patient complained of lower abdominal pain on 05/16 and a bladder scan showed 888 mL of urine. Patient was straight cathed. A morse catheter was inserted on 05/17. Morse removed on 05/21/23. - Continue low dose Finasteride 0.4 mg daily - HPI History of Present Illness: Mr. Styles is a 78 year old male with an extensive medical history including dementia, atrial fibrilation, ARIEL, type II DM, COPD, CKD, PVD, HTN, and TN who was admitted to the ER with altered mental status. Patient was found in bed only responsive to pain by his pattern maker after not answering his phone for a few days. Patient's BS was 59 and was satting at 80% room air since his nasal cannula was not fully in his nose. EMS gave Mr. Styles an amp of D50 and started him on 10 L nonrebreather with immediate significant improvement. He was boarded in the ER as he could not be safely discharged since he lived alone and had been receiving help from his scientology community. Members of the scientology have noticed that Mr. Styles has had significant cognitive decline over the past few months. Throughout his stay, patient exhibited sundowning and required multiple doses of Ativan for agitation. He required a morse catheter for a few days due to urinary retention seen on a bladder scan. However, patient was medically cleared in mid May and has been a boarder patient since. He is alert and oriented upon discharge. - CONSULTS | PROCEDURES Procedures: 05/14: POCUS was done that showed adequate hydration with inferior vena cava me asuring 1.48 cm in diameter after a near syncopal event while straining during a BM. 05/15: Chest CT showed potential pulmonary edema/CHF. IVC measured at 0.93 cm 05/16: Bladder scan showed 888 mL of retained urine. Straight cath was used and a morse was placed the next day. Patient appeared to be hypotensive with decreased renal function compared to admission. He was admitted for dehydration and started on IV fluids. He required a straight cath during the night due to urinary retention with 888 mL on bladder scan. - ALLERGIES Allergies/Adverse Reactions: Allergies Allergy/AdvReac Type Severity Reaction Status Date / Time No Known Drug Allergies Allergy Verified 05/10/23 14:07 - MEDICATIONS Home Medications: Ambulatory Orders Medication Instructions Recorded Confirmed Albuterol Sulf [Ventolin Hfa 1 - 2 puffs INH Q4HR PRN #1 inhaler 12/11/18 05/10/23 Inhaler] Apixaban [Eliquis] 5 mg PO BID 05/10/23 05/17/23 Fluticasone/Umeclidin/Vilanter 1 each IH DAILY 05/10/23 05/17/23 [Trelegy Ellipta 100-62.5-25] Glipizide [Glipizide Xl] 10 mg PO DAILY 05/10/23 05/17/23 Sertraline [Zoloft] 50 mg PO DAILY 05/10/23 05/17/23 allopurinoL [Zyloprim] 100 mg ORAL DAILY 05/10/23 05/17/23 buPROPion HCL [Bupropion HCl Sr] 150 mg PO DAILY 05/10/23 05/17/23 Rosuvastatin Calcium [Crestor] 10 mg PO HS 05/17/23 05/17/23 Insulin Glargine-Yfgn [Semglee] 8 unit SUBQ BID #1 ea 06/12/23 Metoprolol Succinate [Toprol Xl] 50 mg PO DAILY #30 tab 06/12/23 OLANZapine ODT [Zyprexa Odt] 2.5 mg TL DAILY PRN #15 tab 06/12/23 Tamsulosin [Flomax] 0.4 mg PO DAILY #30 cap 06/12/23 - PHYSICAL EXAM AT DISCHARGE General Appearance: positive: No acute distress, Alert Eyes Bilateral: positive: Normal inspection, PERRL, EOMI Neck: positive: Nml inspection, No JVD Respiratory: positive: Chest non-tender, No respiratory distress, Breath sounds nml Cardiovascular: positive: Regular rate & rhythm, No murmur, No gallop Abdomen: positive: Non-tender, Nml bowel sounds, No distention Skin: positive: Color nml, No rash, Warm, Dry Extremities: positive: Non-tender, Full ROM, Nml appearance, No pedal edema Neurologic/Psychiatric: positive: Oriented x3 - LABS Result Diagrams: 06/12/23 05:27 06/12/23 05:27 - DIAGNOSTIC IMAGING Diagnostic Imaging Results: Final report reviewed - TIME SPENT Time Spent in Discharge (Minutes): 60"
--- NOTE | 2023-06-14 15:44 | ED Physician Documentation ---
ED Addendum - Addendum Addendum: 06/14/23 15:43 The patient lost the insulin pen needles. EMS had been called out to his home, they could not get the hospitalist here to refill the needles, therefore I called in a prescription for the needles to [facility] in [place]. #100, 1 needle twice a day. No refills.
== END 2023-06-13 14:00 | disposition home or self-care (01) ==
LOC: EDUNIT# → ED 13:53 → OBS 05-13 00:01 → UNDOADMOB 05-13 00:01 → MS2 05-16 14:47
PROVIDERS: ADMIT Specialist; ATTEND Specialist
DX: E11.649 Type 2 diabetes mellitus with hypoglycemia without coma (principal); N17.9 Acute kidney failure, unspecified; R41.82 Altered mental status, unspecified; E86.0 Dehydration; G30.9 Alzheimer's disease, unspecified; F02.811 Dementia in other diseases classified elsewhere, unspecified severity, with agitation; I95.1 Orthostatic hypotension; G47.33 Obstructive sleep apnea (adult) (pediatric); E11.51 Type 2 diabetes mellitus with diabetic peripheral angiopathy without gangrene; Z75.1 Person awaiting admission to adequate facility elsewhere; N28.9 Disorder of kidney and ureter, unspecified; R79.89 Other specified abnormal findings of blood chemistry; J44.9 Chronic obstructive pulmonary disease, unspecified; J96.11 Chronic respiratory failure with hypoxia; I10 Essential (primary) hypertension; S81.011A Laceration without foreign body, right knee, initial encounter; S70.211A Abrasion, right hip, initial encounter; W18.30XA Fall on same level, unspecified, initial encounter; I48.20 Chronic atrial fibrillation, unspecified; I25.2 Old myocardial infarction; R33.9 Retention of urine, unspecified; Z79.01 Long term (current) use of anticoagulants; Z79.4 Long term (current) use of insulin; Z79.84 Long term (current) use of oral hypoglycemic drugs; Z87.891 Personal history of nicotine dependence; Z99.81 Dependence on supplemental oxygen; Z60.2 Problems related to living alone; Z95.1 Presence of aortocoronary bypass graft; Z95.5 Presence of coronary angioplasty implant and graft; Y92.239 Unspecified place in hospital as the place of occurrence of the external cause
CPT/HCPCS: 36415; 51701; 70450; 71045; 76770; 80048; 80053; 81001; 83036; 83605; 83690; 83735; 83880; 84100; 85025; 87633; 93005; 94640; 96361; 96372; 96374; 97116; 97162; 97165; 97166; 97530; 99285; A9270; G0378; G0427; J1815; J8499; Q3014; 81003; 87086

== ENCOUNTER 2023-06-14 14:45 | Outpatient (CLI) | payer MEDICARE, MEDICAID | END 2023-06-14 14:46 | disposition EMS.NT | LOC: EMS 14:45 | DX: E11.9 Type 2 diabetes mellitus without complications (principal); Z79.4 Long term (current) use of insulin ==

== ENCOUNTER 2023-06-15 15:49 | Outpatient (CLI) | payer MEDICARE, MEDICAID | END 2023-06-15 15:50 | disposition critical access hospital (66) | LOC: EMS 15:49 | DX: R06.02 Shortness of breath (principal); R00.0 Tachycardia, unspecified; Z99.81 Dependence on supplemental oxygen | CPT/HCPCS: A0425; A0429 ==

== ENCOUNTER 2023-06-15 16:15 | Emergency (ER) | payer MEDICARE, MEDICAID ==
--- NOTE | 2023-06-15 16:26 | ED Physician Documentation ---
PD HPI DYSPNEA - Stated complaint Stated Complaint: SOA - History obtained from History obtained from: Patient, EMS - Additional information Additional information: He was admitted here from May 10 and discharged 2 days ago. He has a hi story of COPD and chronic A-fib as well as some dementia. He went home and today went to his doctor's office because he needs paperwork before leaving town, it sounds like he is going to go be with family near [place]. They noted his saturations to be as low as in the 70s on his oxygen concentrator. He says he does not feel more short of breath than normal. No CP. PD PAST MEDICAL HISTORY - Past Medical History Cardiovascular: Congestive heart failure, Hypertension, High cholesterol, Coronary artery disease, Peripheral Vascular Disease, [place], Atrial fibrillation Respiratory: COPD, Sleep apnea Neuro: Alzhiemer's, Dementia Endocrine/Autoimmune: Type 2 diabetes GI: Colon polyps : None HEENT: None Psych: Depression Musculoskeletal: Chronic back pain Derm: None, Other (skin cancer) - Past Surgical History Past Surgical History: Yes Ortho: Spine surgery Cardiovascular: CABG, Coronary stent - Present Medications Home Medications: Ambulatory Orders Medication Instructions Recorded Confirmed Albuterol Sulf [Ventolin Hfa 1 - 2 puffs INH Q4HR PRN #1 inhaler 12/11/18 06/15/23 Inhaler] Apixaban [Eliquis] 5 mg PO BID 05/10/23 06/15/23 Fluticasone/Umeclidin/Vilanter 1 each IH DAILY 05/10/23 06/15/23 [John [place] 100-62.5-25] Glipizide [Glipizide Xl] 10 mg PO DAILY 05/10/23 06/15/23 Sertraline [Zoloft] 50 mg PO DAILY 05/10/23 06/15/23 allopurinoL [Zyloprim] 100 mg ORAL DAILY 05/10/23 06/15/23 buPROPion HCL [Bupropion HCl Sr] 150 mg PO DAILY 05/10/23 06/15/23 Rosuvastatin Calcium [Crestor] 10 mg PO HS 05/17/23 06/15/23 Metoprolol Succinate [Toprol Xl] 50 mg PO DAILY #30 tab 06/12/23 06/15/23 Insulin Aspart [NovoLOG] 20 unit SUBQ TIDWM 06/15/23 06/15/23 Insulin Glargine-Yfgn [Semglee] 33 unit SUBQ HS 06/15/23 06/15/23 Ipratropium/Albuterol [Combivent 1 puffs IH QID PRN 06/15/23 06/15/23 Respimat] Losartan [Cozaar] 50 mg PO BID 06/15/23 06/15/23 amLODIPine [Norvasc] 10 mg PO DAILY 06/15/23 06/15/23 hydroCHLOROthiazide [Hydrodiuril] 12.5 mg PO DAILY 06/15/23 06/15/23 - Allergies Allergies/Adverse Reactions: Allergies Allergy/AdvReac Type Severity Reaction Status Date / Time No Known Drug Allergies Allergy Verified 06/15/23 16:31 - Social History Does the pt smoke?: No Smoking Status: Former smoker Does the pt drink ETOH?: No Does the pt have substance abuse?: No - Immunizations Immunizations are current?: Yes - POLST Patient has POLST: No POLST Status: Full Code PD ED PE NORMAL - Vitals Vital signs reviewed: Yes - General General: Alert and oriented X 3 (Mild memory difficulties) - HEENT HEENT: PERRL, EOMI - Neck Neck: Supple, no meningeal sign, No bony TTP - Cardiac Cardiac: Other (Irregularly irregular) - Respiratory Respiratory: No respiratory distress, Other (Lungs are actually relatively clear) - Abdomen Abdomen: Non tender - Extremities Extremities: No edema, No calf tenderness / cord - Neuro Eye Opening: Spontaneous Motor: Obeys Commands Verbal: Oriented GCS Score: 15 - Psych Psych: Normal mood, Normal affect Results - Vitals Vitals: Vital Signs - 24 hr 06/15/23 06/15/23 06/15/23 16:21 16:58 17:09 Temperature 36.6 C Heart Rate 90 89 78 Respiratory 22 18 17 Rate Blood Pressure 134/91 H 122/76 O2 Saturation 90 L 93 If not protocol 4 : Oxygen Flow, liters/minute 06/15/23 17:28 Temperature Heart Rate 83 Respiratory 19 Rate Blood Pressure 99/87 H O2 Saturation 91 L If not protocol 4 : Oxygen Flow, liters/minute Oxygen O2 Source Nasal cannula Oxygen Flow Rate 3 - EKG (time done) 1630 EKG releavant findings:: EKG personally interpreted by author of this note. Relevant findings are: Rate: Rate (enter#) (80) Rhythm: Atrial fibrillation [place]: LAD Intervals: Normal [place] QRS: Normal Ischemia: Q waves (V1-V2). No: ST elevation c/w ischemia Computer interpretation: Agree with computer - Labs Labs: Laboratory Tests 06/15/23 06/15/23 06/15/23 16:34 16:34 16:34 WBC 9.0 RBC 4.78 Hgb 13.3 L Hct 42.8 MCV 89.5 MCH 27.8 MCHC 31.1 L RDW 16.4 H Plt Count 189 MPV 10.7 Neut # (Auto) 7.4 H Lymph # (Auto) 0.9 L [place] # (Auto) 0.5 Eos # (Auto) 0.1 Baso # (Auto) 0.0 Absolute Nucleated RBC 0.00 Nucleated RBC % 0.0 Sodium 133 L Potassium 4.3 Chloride 99 L Carbon Dioxide 26 Anion Gap 8.0 BUN 30 H Creatinine 1.6 H Estimated GFR (MDRD) 42 L Glucose 314 H Calcium 9.6 Total Bilirubin 0.5 AST 17 ALT 22 Alkaline Phosphatase 79 B-Natriuretic Peptide 423 H Total Protein 7.8 Albumin 3.6 Globulin 4.2 Albumin/Globulin Ratio 0.9 L - Rads (name of study) CT of the chest demonstrating no PE. There is fibrosis, cardiomegaly, gallstone, and renal cyst. Relevant Findings:: Final report received, EMP independent interpretation of quinten reilly PD Medical Decision Making - ED course ED course: He presents with hypoxemia but not dyspnea per se, recent admission to the hosp ital and his lungs are relatively clear which of course is concerning for PE. He does not have a PE on pulmonary angiogram. He was ambulated on his supplemental oxygen and did not have any recurrent hypoxemia. There is no evidence of pneumonia. No evidence of CHF with fluid overload. Departure - Departure Disposition: 01 Home, Self Care Clinical Impression: Dyspnea Qualifiers: Dyspnea type: shortness of breath Qualified Code(s): R06.02 - Shortness of breath; R06.00 - Dyspnea, unspecified; R06.01 - Orthopnea Condition: Good Record reviewed to determine appropriate education?: Yes Instructions: ED Dyspnea Shortness of Breath Comments: Mario was seen tonight for some low oxygen saturations, the seem to have improved after breathing treatment. It is also questionable if his oxygen concentrator is working correctly and this should be checked. As per the previous discharge instructions, he really should be living with supportive family and this should be undertaken as soon as possible. Return if worse.
[2023-06-15] MEDS ORDERED: iohexoL-300 100 ML VIAL ONE ×2 (16:36→16:59)
[2023-06-15 16:39] LABS: BASOPHILS % (AUTO) 0.2 %; EOSINOPHILS # (AUTO) 0.1 10^3/uL (0.0-0.7); EOSINOPHILS % (AUTO) 0.9 %; HCT - HEMATOCRIT 42.8 % (42.0-52.0); HGB - HEMOGLOBIN 13.3 g/dL (14.0-18.0); LYMPHOCYTES # (AUTO) 0.9 10^3/uL (1.5-3.5); LYMPHOCYTES % (AUTO) 10.4 %; MEAN CORPUSCULAR HEMOGLOBIN 27.8 pg (27.0-31.0); MEAN CORPUSCULAR HGB CONC 31.1 g/dL (32.0-36.0); MEAN CORPUSCULAR VOLUME 89.5 fL (80.0-94.0); MEAN PLATELET VOLUME 10.7 fL (7.4-11.4); MONOCYTES # (AUTO) 0.5 10^3/uL (0.0-1.0); MONOCYTES % (AUTO) 5.7 %; NEUTROPHILS # (AUTO) 7.4 10^3/uL (1.5-6.6); NEUTROPHILS % (AUTO) 82.5 %; PLT - PLATELET COUNT 189 10^3/uL (130-450); RED BLOOD COUNT 4.78 10^6/uL (4.70-6.10); RED CELL DISTRIBUTION WIDTH 16.4 % (12.0-15.0)
[2023-06-15 16:53] LABS: ALBUMIN 3.6 g/dL (3.2-5.5); ALBUMIN/GLOBULIN RATIO 0.9 (1.0-2.2); BILIRUBIN,TOTAL 0.5 mg/dL (0.2-1.0); CALCIUM 9.6 mg/dL (8.5-10.3); CREATININE 1.6 mg/dL (0.6-1.3); POTASSIUM 4.3 mmol/L (3.5-4.5); TOTAL PROTEIN 7.8 g/dL (6.4-8.9)
[2023-06-15] MEDS: IPRATROPIUM/ALBUTEROL 3 ML NEB INH STA (16:53)
--- NOTE | 2023-06-15 17:39 | CT Report ---
PROCEDURE: Angio Chest INDICATIONS: Hypoxemia, PE protocol CONTRAST: 80 TECHNIQUE: After the administration of intravenous contrast, 2 mm axial images were acquired from the pulmonary apices to the posterior costophrenic angles during the arterial phase. In addition, 1 mm lung kernel and 5 mm soft tissue kernel reconstructions were performed. 3-dimensional coronal oblique maximum int ensity projection (MIP) reformats, 8 mm axial MIP, and 5 mm coronal and sagittal MPR reformats were t hen performed through the thorax. For radiation dose reduction, the following was used: automated exp osure control, adjustment of mA and/or kV according to patient size. COMPARISON: Correlation is made with ultrasound, 05/19/2023 FINDINGS: Image quality: Excellent. Large vessels: No filling defects within the opacified pulmonary arteries, accounting for motion and contrast timing. No evidence of acute aortic syndrome or aortic aneurysm. Lungs and pleura: There is a subpleural fibrosis can be seen, with areas of honeycombing. No consolid ation. No pleural effusions. No pneumothorax. No suspicious pulmonary nodules which require follow u p. Mediastinum: Post CABG changes are seen. Moderate coronary calcification is seen. Heart size is mode rately enlarged. No pericardial effusion. No large vessel abnormality. No mediastinal adenopathy by s ize criteria. Chest wall and lower neck: Thyroid is unremarkable. No axillary or supraclavicular adenopathy by size . Bones: No aggressive osseous abnormality. Age-appropriate degenerative changes are seen. There is accentuated thoracic kyphosis. Upper Abdomen: A gallstone is seen within the gallbladder, as on series [address] findings of cholecystitis are seen. An accessory splenic can be seen, as on series 6 image 89. There is a right renal cystic lesion seen, measuring 18 Hounsfield units. The visualized portions of the u pper abdominal structures are otherwise within normal limits. IMPRESSION: No pulmonary embolus. There is a subpleural fibrosis can be seen, with areas of honeycombing. There is moderate cardiomegaly. A right renal cystic lesion is partially seen, which can be described as a simple cyst, based upon th shauna findings and upon the recent prior ultrasound appearance. Additional findings: Post CABG changes Moderate coronary artery calcification Gallstone Accessory splenule Reviewed by: Taj Conrad MD on 06/15/2023 4:38 PM [place] Approved by: Taj Conrad MD on 06/15/2023 4:38 PM [facility] Station ID: [id number]
[2023-06-15 18:03] VITALS: BP 120/66; O2SAT 93
[2023-06-15] MEDS: iohexoL-300 100 ML VIAL IVP ONE (18:35)
== END 2023-06-15 18:14 | disposition home or self-care (01) ==
LOC: EDUNIT# → ED 16:15
DX: R06.02 Shortness of breath (principal); R06.01 Orthopnea; E11.9 Type 2 diabetes mellitus without complications; Z79.4 Long term (current) use of insulin; I48.91 Unspecified atrial fibrillation; Z79.01 Long term (current) use of anticoagulants; Z87.891 Personal history of nicotine dependence; Z95.5 Presence of coronary angioplasty implant and graft
CPT/HCPCS: 36415; 71275; 80053; 83880; 85025; 93005; 94640; 99283; 99284; Q9967